=== PATIENT | female | born 1965 | race Caucasian/White ===

== ENCOUNTER 2021-02-04 10:45 | Outpatient (RCR) | payer MEDICAID, SELFPAY ==
[2021-01-21 14:26] VITALS: BP 152/90; PULSE 100; RESP 16; TEMP 36.9; BMI 46.4
[2021-01-21 15:50] VITALS: BP 150/88
--- NOTE | 2021-01-21 16:26 | PCM.WC.HP ---
(1) Ulcer of right foot with fat layer exposed Status: Chronic Code(s): L97.512 - Non-pressure chronic ulcer of other part of right foot with fat layer exposed (2) Ulcer of left lower extremity with fat layer exposed Status: Chronic Code(s): L97.922 - Non-pressure chronic ulcer of unspecified part of left lower leg with fat layer exposed (3) Type 2 diabetes mellitus with diabetic polyneuropathy Status: Chronic Code(s): E11.42 - Type 2 diabetes mellitus with diabetic polyneuropathy (4) Amputation of right foot Status: Chronic Code(s): S98.911A - Complete traumatic amputation of right foot, level unspecified, initial encounter (5) Amputation of left lower extremity below knee Status: Chronic Code(s): S88.112A - Complete traumatic amputation at level between knee and ankle, left lower leg, initial encounter (6) Frostbite of both lower extremities Status: Chronic Code(s): T33.99XA - Superficial frostbite of other sites, initial encounter (7) Delayed wound healing Status: Chronic Code(s): T14.8XXD - Other injury of unspecified body region, subsequent encounter (8) Malnutrition Status: Chronic Code(s): E46 - Unspecified protein-calorie malnutrition (9) Other specified peripheral vascular diseases Status: Chronic Code(s): I73.89 - Other specified peripheral vascular diseases History of Present Illness Date of Service: 01/21/21 Chief Complaint: Right foot ulcer. Left leg ulcer History of Wound: This 55-year-old female with significant past medical history of bipolar, schizophrenia, anxiety, dementia, diabetes, prior homelessness, prior frostbite injuries presents to the wound care center for evaluation of 3 right foot ulcers and one left leg ulcer. She relates she had her right transmetatarsal amputation and left very distal below-knee amputation performed 25 years ago after she had frostbite injuries from living in a garage. She relates her ulcers to her forefoot on the right lower extremity have been present for 25 years and the ulcer on the heel has been present for approximately 1 year. She denies recent injury. It also appears she had some form of prior grafting on the right foot however she does not recall the details. The left leg ulcer has been reported with an onset of 1 month ago after rubbing on her prosthetic device. She denies current redness or odor. She has tried various wound healing techniques over the years and is not able to provide details on this. She has significant pain that is described is like a paresthesia and sharp pain with activity and at rest. She relates she is done trying to salvage her right foot and would like to proceed forward with an amputation below the knee level. She is very adamant about this today and has asked numerous times for this treatment course. She is amendable to proceed forward with a comprehensive wound care land on the left lower extremity. She presents with a prosthetic device on the left and only wears a sock on the right foot. She is residing at a senior care facility, [facility] in [place] in which they have been changing the dressings with [employer]. She denies redness or odor, fever, chill, nausea, vomiting. Past Medical History Past Medical History: Chronic Problems Ulcer of right foot with fat layer exposed (Chronic) Ulcer of left lower extremity with fat layer exposed (Chronic) Type 2 diabetes mellitus with diabetic polyneuropathy (Chronic) Amputation of right foot (Chronic) Amputation of left lower extremity below knee (Chronic) Frostbite of both lower extremities (Chronic) Delayed wound healing (Chronic) Malnutrition (Chronic) Other specified peripheral vascular diseases (Chronic) Past Medical History: Past medical history per chart review: Diabetes with neuropathy, chronic obstructive pulmonary disease, anxiety, obesity, COVID-19 history, major depressive disorder, osteoarthritis, schizoaffective disorder, bipolar, hyperlipidemia, history of GERD, atherosclerotic heart disease, chronic lower extremity ulcers with delayed healing, dementia. PCP: Dr. Ba. Resides at [facility] in [facility] Surgical History: - - Right transmetatarsal amputation, left below-knee amputation, unable to obtain additional information Allergies/Adverse Reactions: Allergies clindamycin Allergy (Verified 01/21/21 14:54) PT UNSURE OF REACTION codeine Allergy (Verified 01/21/21 14:54) PT UNSURE OF REACTION mirtazapine [From Remeron] Allergy (Verified 01/21/21 14:54) PT UNSURE OF REACTION olanzapine [From Zyprexa] Allergy (Verified 01/21/21 14:54) PT UNSURE OF REACTION Penicillins [PCN] Allergy (Verified 01/21/21 14:54) PT UNSURE OF REACTION Home Medications: Ambulatory Orders Medication Instructions Recorded Acetaminophen [Tylenol] 650 mg PO Q4H PRN 01/21/21 Albuterol Sulfate [Albuterol 2 puff INHALATION Q4H PRN 01/21/21 Sulfate HFA] Aspirin 81 mg PO DAILY 01/21/21 Atorvastatin Calcium [Lipitor] 10 mg PO QHS 01/21/21 Benztropine Mesylate 1 mg PO BID 01/21/21 Buspirone HCl 15 mg PO TID 01/21/21 Clozapine [Clozaril] 50 mg PO DAILY 01/21/21 Divalproex Sodium [Depakote] 250 mg PO BIDCM 01/21/21 Doxycycline Hyclate 100 mg PO BID 01/21/21 Guaifenesin/Dextromethorphan 10 ml PO Q4H PRN 01/21/21 [Guaifenesin Dm Syrup] Haloperidol Decanoate [Haldol 150 mg IM DAILY 01/21/21 Decanoate 100] Risperidone [Risperdal] 3 mg PO DAILY 01/21/21 Risperidone [Risperdal] 4 mg PO QHS 01/21/21 Valbenazine Tosylate [Ingrezza 40 mg PO DAILY 01/21/21 Initiation Pack] Lives: [facility] Smoking Status: Current every day smoker Tobacco Use: Cigarettes Review of Systems Constitutional: Denies: Chills, Fever Cardiovascular: Denies: Chest Pain, Claudication, Edema Respiratory: Denies: Shortness of Breath Gastrointestinal: Denies: Nausea, Vomiting Musculoskeletal: Reports: Foot Pain, Leg Pain Skin: Reports: Dryness, Skin Changes, Wounds Neurological: Reports: Incoordination, Numbness, Tingling Endocrine: Reports: Change in Body Habitus - Physical Exam Vital Signs Temp Pulse Resp BP 98.4 F 100 16 150/88 H 01/21/21 14:26 01/21/21 14:26 01/21/21 14:26 01/21/21 15:50 General: Alert, Oriented x3, Cooperative, No apparent distress HEENT: Atraumatic Extremities: No cyanosis, No edema, Capillary Refill Less than 3 Seconds - amputation stump sites bilateral, No Calf Tenderness - negative eunice and berg signs right, Diminished Peripheral Pulses, - - amputations bilateral (right TMA with equinovarus rotation of this limb, left BKA that is very distal - proximal to the ankle level) Skin: Ulcer/ Wound - Granular base ulcer plantar medial lateral amputation right foot and heel ulcer. Peripheral callus noted without purulence, erythema, string, odor, infection. There is skin discoloration consistent with prior potential skin graft application to the right foot adjacent to all of the ulcers + arch, - - The left limb ulcer is very superficial with granular base to the anterior aspect. There are no signs of infection, purulence, erythema, deep tissue exposure. In general bilateral lower extremity skin is hairless and atrophic Wound Measurements and Assessment WC - Nurse 1 - General Ulcer Measurement Start: 01/21/21 14:23 Freq: Status: Active Protocol: Activity Type Activity Date Activity User E-Sign Co-Sign Detail Recorded Client Recorded Date Recorded By Document 01/21/21 14:26 [facility] [id number] 01/21/21 14:48 [facility] 01/21/21 14:26 Wound Center Nurse 1 [Ulcer Assessment] #4- L STUMP -Combined with other wound No -Current Size (cm) - Length 0.3 -Current Size (cm) - Width 0.4 -Current Size (cm) - Depth 0.2 -Total Square Cm 0.12 -Date of Last Picture (Recall this 01/21/21 field) -Photo Taken Yes -Epithelialization None Present -Tunneling No -Undermining/Tunneling No -Circular Undermining No -Exudate Amt Small -Exudate Type Serosanguineous -Wound Margin Distinct, Outline Attached -Granulation Amt Medium (34-66%) -Granulation Quality Red -Slough/Fibrin Yes -Necrosis Amt Medium (34-66%) -Necrotic Tissue Type Adherent Slough -Texture (Anali-wound Skin Appearance) Assessed, Scarring -Moisture (Anali-wound Skin Appearance Assessed,Dry/ ) Scaly -Color (Anali-wound Skin Appearance) Assessed -Temperature (Anali-wound Skin No Abnormality Appearance) (Pt Warm) -Tenderness on Palpation (Anali-wound No Skin Appearance) -Ulcer Cleansing SOAPY WATER -Foul Odor after Cleansing No -Anesthetic Used 4% Lidocaine Solution #3- R HEEL -Combined with other wound No -Current Size (cm) - Length 3 -Current Size (cm) - Width 2 -Current Size (cm) - Depth 0.3 -Total Square Cm 6 -Date of Last Picture (Recall this 01/21/21 field) -Photo Taken Yes -Epithelialization None Present -Tunneling No -Undermining/Tunneling No -Circular Undermining No -Exudate Amt Medium -Exudate Type Serosanguineous -Wound Margin Distinct, Outline Attached -Granulation Amt Small (1-33%) -Granulation Quality Red -Slough/Fibrin Yes -Necrosis Amt Medium (34-66%) -Necrotic Tissue Type Adherent Slough -Texture (Anali-wound Skin Appearance) Assessed, Scarring -Moisture (Anali-wound Skin Appearance Assessed ) -Color (Anali-wound Skin Appearance) Assessed -Temperature (Anali-wound Skin No Abnormality Appearance) (Pt Warm) -Tenderness on Palpation (Anali-wound Yes Skin Appearance) -Ulcer Cleansing SOAPY WATER -Foul Odor after Cleansing No -Anesthetic Used 4% Lidocaine Solution #2- R LAT PLANTAR FOOT -Combined with other wound No -Current Size (cm) - Length 2.1 -Current Size (cm) - Width 1 -Current Size (cm) - Depth 0.2 -Total Square Cm 2.1 -Date of Last Picture (Recall this 01/21/21 field) -Photo Taken Yes -Epithelialization None Present -Tunneling No -Undermining/Tunneling No -Circular Undermining No -Exudate Amt Medium -Exudate Type Serosanguineous -Wound Margin Distinct, Outline Attached -Granulation Amt Small (1-33%) -Granulation Quality Red -Slough/Fibrin Yes -Necrosis Amt Large (67-100%) -Necrotic Tissue Type Adherent Slough -Texture (Anali-wound Skin Appearance) Assessed, Scarring -Moisture (Anali-wound Skin Appearance Assessed,Dry/ ) Scaly -Color (Anali-wound Skin Appearance) Assessed -Temperature (Anali-wound Skin No Abnormality Appearance) (Pt Warm) -Tenderness on Palpation (Anali-wound Yes Skin Appearance) -Ulcer Cleansing SOAPY WATER -Foul Odor after Cleansing No -Anesthetic Used 4% Lidocaine Solution #1- R PLANTAR -Combined with other wound No -Current Size (cm) - Length 1.2 -Current Size (cm) - Width 0.8 -Current Size (cm) - Depth 0.3 -Total Square Cm 0.96 -Date of Last Picture (Recall this 01/21/21 field) -Photo Taken Yes -Epithelialization None Present -Tunneling No -Undermining/Tunneling No -Circular Undermining No -Exudate Amt Medium -Exudate Type Serosanguineous -Wound Margin Distinct, Outline Attached -Granulation Amt Small (1-33%) -Granulation Quality Red -Slough/Fibrin Yes -Necrosis Amt Medium (34-66%) -Necrotic Tissue Type Adherent Slough -Texture (Anali-wound Skin Appearance) Assessed, Scarring -Moisture (Anali-wound Skin Appearance Assessed,Dry/ ) Scaly -Color (Anali-wound Skin Appearance) Assessed, Erythema -Temperature (Anali-wound Skin No Abnormality Appearance) (Pt Warm) -Tenderness on Palpation (Anali-wound Yes Skin Appearance) -Ulcer Cleansing SOAPY WATER -Foul Odor after Cleansing No -Anesthetic Used 4% Lidocaine Solution [Edema Assessment] -Lower Limb Edema Present Yes -Right Calf (cm) 44.5 -Right Ankle (cm) 26.7 WC - Nurse 2 - General Ulcer CM Notes Start: 01/21/21 14:23 Freq: Status: Active Protocol: Activity Type Activity Date Activity User E-Sign Co-Sign Detail Recorded Client Recorded Date Recorded By Document 01/21/21 15:27 MORENO [id number] 01/21/21 15:37 M[facility]ENO 01/21/21 15:27 Wound Center Nurse 2 [Procedure/Treatment] #4- L STUMP -Time 15:32 -Correct Patient Yes -Correct Side, Site, Position Yes -Correct Procedure Yes -Procedure Performed Yes -Type of Procedure Debridement -Clinical Debridement Subcutaneous -Tissue Removed Subcutaneous -Post Debridement (cm) - Length 0.4 -Post Debridement (cm) - Width 0.4 -Post Debridement (cm) - Depth 0.2 -Total Square (Post) (cm) 0.16 -Area of Debridement (cm) - Length 0.4 -Area of Debridement (cm) - Width 0.4 -Total Square (Area) (cm) 0.16 -Tunneling No -Undermining/Tunneling No -Circular Undermining No -Wound/Ulcer Outcome Not Healed -Ulcer Cleansing Rinsed/ Irrigated with Saline -Foul Odor after Cleansing No -Bioengineered Tissue No -Bleeding Controlled with Pressure -Offloading No -Treatment Response Procedure Tolerated Well -Debridement - Subq, 1st 20sq cm Yes #3- R HEEL -Correct Patient No -Correct Side, Site, Position No -Correct Procedure No -Procedure Performed No -Wound/Ulcer Outcome Not Healed #2- R LAT PLANTAR FOOT -Correct Patient No -Correct Side, Site, Position No -Correct Procedure No -Procedure Performed No -Wound/Ulcer Outcome Not Healed #1- R PLANTAR -Correct Patient No -Correct Side, Site, Position No -Correct Procedure No -Procedure Performed No -Wound/Ulcer Outcome Not Healed [See Physician Procedure note for Specifics] Pain Scale: 0-10 Numeric [Pain] -Is Patient Pain Free? Yes - Nurse 3 - General Ulcer D/C NN Start: 01/21/21 14:23 Freq: Status: Active Protocol: Activity Type Activity Date Activity User E-Sign Co-Sign Detail Recorded Client Recorded Date Recorded By Document 01/21/21 15:50 RB [id number] 01/21/21 15:51 RB 01/21/21 15:50 Wound Care Nurse 3 [Wound Dressing] #4- L STUMP -Ulcer Cleansing Rinsed/ Irrigated with Saline -Other Dressing hydrogel -Primary Dressing Covered/Secured Dry Gauze, with Secured with Tape #3- R HEEL -Ulcer Cleansing Rinsed/ Irrigated with Saline -Other Dressing hydrogel -Primary Dressing Covered/Secured Dry Gauze,Dry with Gauze & Roll Gauze,Secured with Tape #2- R LAT PLANTAR FOOT -Ulcer Cleansing Rinsed/ Irrigated with Saline -Other Dressing hydrogel -Primary Dressing Covered/Secured Dry Gauze,Dry with Gauze & Roll Gauze,Secured with Tape #1- R PLANTAR -Ulcer Cleansing Rinsed/ Irrigated with Saline -Other Dressing hydrogel -Primary Dressing Covered/Secured Dry Gauze,Dry with Gauze & Roll Gauze,Secured with Tape [Post Procedure Tolerated] -Treatment Response Procedure Tolerated Well Vital Signs [Blood Pressure] -Blood Pressure (90/60-120/80) 150/88 H -Blood Pressure Mean (mm Hg) 108 -Source Monitor -Position Sitting -Blood Pressure Location Left Arm Pain Scale: 0-10 Numeric [Pain] -Is Patient Pain Free? Yes - Visit Discharge [Visit Discharge Information] -Discharge Condition Stable -Ambulatory Status Wheelchair -Transportation Private Auto -Medication Reconcilliation completed No & provided to patient/care provider -Clinical Summary of Care Provided Yes Musculoskeletal: No Tenderness to Palpation of Joints or Extremities, Muscle Wasting, - - Compartments are soft to palpate bilateral lower extremities and there is no bogginess or fluctuance on palpation Neurological: - - Lack of normal epicritic sensation light touch is consistent with neuropathic status that is suspected Psych/Mental Status: Normal Affect, Appropriate Debridement Note Post-Debridement Measurements/Treatment WC - Nurse 2 - General Ulcer CM Notes Start: 01/21/21 14:23 Freq: Status: Active Protocol: Activity Type Activity Date Activity User E-Sign Co-Sign Detail Recorded Client Recorded Date Recorded By Document 01/21/21 15:27 JF [id number] 01/21/21 15:37 JF 01/21/21 15:27 Wound Center Nurse 2 #4- L STUMP -Time 15:32 -Correct Patient Yes -Correct Side, Site, Position Yes -Correct Procedure Yes -Procedure Performed Yes -Type of Procedure Debridement -Clinical Debridement Subcutaneous -Tissue Removed Subcutaneous -Post Debridement (cm) - Length 0.4 -Post Debridement (cm) - Width 0.4 -Post Debridement (cm) - Depth 0.2 -Total Square (Post) (cm) 0.16 -Area of Debridement (cm) - Length 0.4 -Area of Debridement (cm) - Width 0.4 -Total Square (Area) (cm) 0.16 -Tunneling No -Undermining/Tunneling No -Circular Undermining No -Wound/Ulcer Outcome Not Healed -Ulcer Cleansing Rinsed/ Irrigated with Saline -Foul Odor after Cleansing No -Bioengineered Tissue No -Bleeding Controlled with Pressure -Offloading No -Treatment Response Procedure Tolerated Well -Debridement - Subq, 1st 20sq cm Yes #3- R HEEL -Correct Patient No -Correct Side, Site, Position No -Correct Procedure No -Procedure Performed No -Wound/Ulcer Outcome Not Healed #2- R LAT PLANTAR FOOT -Correct Patient No -Correct Side, Site, Position No -Correct Procedure No -Procedure Performed No -Wound/Ulcer Outcome Not Healed #1- R PLANTAR -Correct Patient No -Correct Side, Site, Position No -Correct Procedure No -Procedure Performed No -Wound/Ulcer Outcome Not Healed Pain Scale: 0-10 Numeric Is Patient Pain Free? Yes AMAN - Nurse 3 - General Ulcer D/C NN Start: 01/21/21 14:23 Freq: Status: Active Protocol: Activity Type Activity Date Activity User E-Sign Co-Sign Detail Recorded Client Recorded Date Recorded By Document 01/21/21 15:50 RB [id number] 01/21/21 15:51 RB 01/21/21 15:50 Wound Care Nurse 3 #4- L STUMP -Ulcer Cleansing Rinsed/ Irrigated with Saline -Other Dressing hydrogel -Primary Dressing Covered/Secured with Dry Gauze, Secured with Tape #3- R HEEL -Ulcer Cleansing Rinsed/ Irrigated with Saline -Other Dressing hydrogel -Primary Dressing Covered/Secured with Dry Gauze,Dry Gauze & Roll Gauze,Secured with Tape #2- R LAT PLANTAR FOOT -Ulcer Cleansing Rinsed/ Irrigated with Saline -Other Dressing hydrogel -Primary Dressing Covered/Secured with Dry Gauze,Dry Gauze & Roll Gauze,Secured with Tape #1- R PLANTAR -Ulcer Cleansing Rinsed/ Irrigated with Saline -Other Dressing hydrogel -Primary Dressing Covered/Secured with Dry Gauze,Dry Gauze & Roll Gauze,Secured with Tape Treatment Response Procedure Tolerated Well Vital Signs Blood Pressure (90/60-120/80) 150/88 H Blood Pressure Mean (mm Hg) 108 Source Monitor Position Sitting Blood Pressure Location Left Arm Pain Scale: 0-10 Numeric Is Patient Pain Free? Yes WC - Visit Discharge Discharge Condition Stable Ambulatory Status Wheelchair Transportation Private Auto Medication Reconcilliation completed & No provided to patient/care provider Clinical Summary of Care Provided Yes Wound debrided: anterior leg Laterality: Left Wound Grade/Stage: grade 1 Type of Debridement: Excisional debridement Anesthesia Used: 5% Lidocaine Gel Depth: in the subcutaneous layer Percentage of wound debrided: 100 Instrument Used: #15 blade Tissue Removed: fibrous, devitalized subcutaneous, biofilm, slough Severity: Fat Layer Exposed Amount of bleeding with debridement: Mild Bleeding Controlled with: Pressure Patient tolerated procedure well Assessment/Plan Active Problems Ulcer of right foot with fat layer exposed (Chronic) Ulcer of left lower extremity with fat layer exposed (Chronic) Type 2 diabetes mellitus with diabetic polyneuropathy (Chronic) Amputation of right foot (Chronic) Amputation of left lower extremity below knee (Chronic) Frostbite of both lower extremities (Chronic) Delayed wound healing (Chronic) Malnutrition (Chronic) Other specified peripheral vascular diseases (Chronic) Assessment: Right foot ulcer with fat layer exposed, no infection (plantar medial and lateral foot and heel). Left anterior lower leg ulcer with fat layer exposed, no infection. Diabetes with neuropathy. Delayed healing. Peripheral vascular disease suspected. Medical comorbidities noted including psychiatric history. Delayed healing. Suspected malnutrition. Tobacco user Plan: I reviewed and discussed her case today. There is not available diagnostic data to review. The left leg ulcer was debrided as noted in the clinical panel in a subcutaneous excisional manner. She was advised to change all of the ulcer dressing sites daily with hydrogel and gauze. It is noted she is residing in a senior care facility and orders will be provided in paper format. I reviewed comprehensive wound healing. She is very adamant that she wants to proceed forward with an amputation on the right lower extremity and I reviewed the process for considering the appropriateness of this at this time as well. She was advised keep pressure off of the ulcer sites and I will provide her with a pediatric sized surgical shoe with offloading dual density liners to take pressure off of the ulcer sites in the right leg which return to clinic next week. If she elects to proceed forward with limb salvage which was reviewed as an option today as well, I would like to take a punch biopsy to screen for any malignant development or bacterial colonization due to the chronicity of this ulcer site. To avoid excessive prosthetic use that will compromise the left leg ulcer site from a pressure standpoint. She is reassured no local signs of infection are noted. I recommended screening her with a noninvasive vascular study which will give us an idea if she has the ability to heal the ulcers and would also be needed prior to proceeding with any referral for below-knee amputation procedure. Labs including CBC, CMP, and hemoglobin A1c were also ordered for her to obtain at the senior care facility. She has chronic pain this seems to be consistent with phantom limb pain, prior frostbite injury, neuropathy, and also potentially vascular disease. She was reassured again that no signs of infection are noted. I recommend glycemic control, nutritional supplementation, and smoking cessation to optimize wound healing. I answered her questions. I recommend she return to clinic next week with the power of commercial litigation attorney or behavioral social services designee from her senior care facility to help formulate an appropriate plan for this patient. The medical decision making level is moderate based on data including at least three of the following: review of prior external notes, review of a test, ordering a test, assessment requiring an independent historian. The medical decision making level is moderate. There is noted moderate risk of morbidity after considering this treatment plan and diagnostic data. Considerations were given to prescription management, decisions regarding surgical options, or social determinants of health. The problems addressed require a moderate decision making level which includes one or more chronic illnesses (w/ exacerbation, progression, or side effects), two or more stable chronic illnesses, one undiagnosed new problem w/ uncertain prognosis, one acute illness with systemic symptoms, or one acute complicated injury.
[2021-01-28 10:27] VITALS: BP 153/87; PULSE 113; RESP 22; TEMP 36.4; BMI 46.4
--- NOTE | 2021-01-28 13:05 | PN.PCM_ITS ---
(1) Ulcer of right foot with fat layer exposed Status: Chronic Code(s): L97.512 - Non-pressure chronic ulcer of other part of right foot with fat layer exposed (2) Ulcer of left lower extremity with fat layer exposed Status: Chronic Code(s): L97.922 - Non-pressure chronic ulcer of unspecified part of left lower leg with fat layer exposed (3) Type 2 diabetes mellitus with diabetic polyneuropathy Status: Chronic Code(s): E11.42 - Type 2 diabetes mellitus with diabetic polyneuropathy (4) Amputation of right foot Status: Chronic Code(s): S98.911A - Complete traumatic amputation of right foot, level unspecified, initial encounter (5) Amputation of left lower extremity below knee Status: Chronic Code(s): S88.112A - Complete traumatic amputation at level between knee and ankle, left lower leg, initial encounter (6) Frostbite of both lower extremities Status: Chronic Code(s): T33.99XA - Superficial frostbite of other sites, initial encounter (7) Delayed wound healing Status: Chronic Code(s): T14.8XXD - Other injury of unspecified body region, subsequent encounter (8) Malnutrition Status: Chronic Code(s): E46 - Unspecified protein-calorie malnutrition (9) Other specified peripheral vascular diseases Status: Suspected Code(s): I73.89 - Other specified peripheral vascular diseases (10) Skin cancer (melanoma) Status: Suspected Code(s): C43.9 - Malignant melanoma of skin, unspecified Type of Wound Date of Service: 01/28/21 Chief Complaint: Right foot ulcer. Left leg ulcer History of Wound: This 55-year-old female with significant past medical history of bipolar, schizophrenia, anxiety, dementia, diabetes, prior homelessness, prior frostbite injuries presents to the wound care center for evaluation of three right foot ulcers and one left leg ulcer. She relates she had her right transmetatarsal amputation and left very distal below-knee amputation performed 25 years ago after she had frostbite injuries from living in a garage. She denies current redness or odor. She relates she is done trying to salvage her right foot and is considering moving forward with an amputation below the knee level. She asked for a referral contact information to consider this. She presents with a prosthetic device on the left and only wears a sock on the right foot. She is getting remeasured for a stump prosthetic for left lower extremity later this afternoon. She is residing at a correction facility, [facility]. She denies redness or odor, fever, chill, nausea, vomiting. She had x- rays were performed within the last month and would like to review the results. Progress of Wound: Stable - Physical Exam Vital Signs Temp Pulse Resp BP 97.6 F L 113 H 22 H 153/87 H 01/28/21 10:27 01/28/21 10:27 01/28/21 10:01/28/21 10:27 General: Alert, Oriented x3, Cooperative, No apparent distress Extremities: No cyanosis, Capillary Refill Less than 3 Seconds, No Calf Tenderness, Diminished Peripheral Pulses, Edema - Mild bilateral lower extremities, - - Left very distal below-knee amputation. Right transmetatarsal amputation Skin: Ulcer/ Wound - No purulence, odor, erythema, streaking, infection bilateral lower extremities. Left leg ulcers granular with peripheral epithelialization. There are 3 plantar right foot ulcers with granular base and peripheral callus., - - There is dark discoloration of the skin adjacent to all the ulcer sites with heterogeneous color pattern of brown. No bogginess or fluctuance on palpation. Wound Measurements and Assessment WC - Nurse 1 - General Ulcer Measurement Start: 01/21/21 14:23 Freq: Status: Active Protocol: Activity Type Activity Date Activity User E-Sign Co-Sign Detail Recorded Client Recorded Date Recorded By Document 01/28/21 10:27 MARY [id number] 01/28/21 10:44 DL 01/28/21 10:27 Wound Center Nurse 1 [Ulcer Assessment] #4- L STUMP -Current Size (cm) - Length 0.6 -Current Size (cm) - Width 0.5 -Current Size (cm) - Depth 0.2 -Total Square Cm 0.30 -Photo Taken No -Exudate Amt Small -Exudate Type Serosanguineous -Wound Margin Distinct, Outline Attached -Granulation Amt Small (1-33%) -Granulation Quality Red -Necrosis Amt Small (1-33%) -Necrotic Tissue Type Adherent Slough -Structure Exposed N/A -Texture (Anali-wound Skin Appearance) Scarring -Moisture (Anali-wound Skin Appearance Dry/Scaly ) -Color (Anali-wound Skin Appearance) No Abnormality -Ulcer Cleansing Rinsed/ Irrigated with Saline -Foul Odor after Cleansing No -Anesthetic Used 4% Lidocaine Solution #3- R HEEL -Current Size (cm) - Length 2.7 -Current Size (cm) - Width 2 -Current Size (cm) - Depth 0.3 -Total Square Cm 5.4 -Photo Taken No -Exudate Amt Medium -Exudate Type Serosanguineous -Wound Margin Thickened & Rolled Under -Granulation Amt Medium (34-66%) -Granulation Quality Red -Necrosis Amt Medium (34-66%) -Necrotic Tissue Type Adherent Slough -Structure Exposed N/A -Texture (Anali-wound Skin Appearance) Callus,Scarring -Moisture (Anali-wound Skin Appearance Dry/Scaly ) -Color (Anali-wound Skin Appearance) Rubor -Temperature (Anali-wound Skin No Abnormality Appearance) (Pt Warm) -Tenderness on Palpation (Anali-wound No Skin Appearance) -Ulcer Cleansing Rinsed/ Irrigated with Saline -Foul Odor after Cleansing No -Anesthetic Used 4% Lidocaine Solution #2- R LAT PLANTAR FOOT -Current Size (cm) - Length 2.4 -Current Size (cm) - Width 0.9 -Current Size (cm) - Depth 0.4 -Total Square Cm 2.16 -Photo Taken No -Exudate Amt Medium -Exudate Type Serosanguineous -Wound Margin Thickened -Granulation Amt Medium (34-66%) -Granulation Quality Red -Necrosis Amt Medium (34-66%) -Necrotic Tissue Type Adherent Slough -Structure Exposed N/A -Texture (Anali-wound Skin Appearance) Callus,Scarring -Moisture (Anali-wound Skin Appearance Dry/Scaly ) -Color (Anali-wound Skin Appearance) Rubor -Temperature (Anali-wound Skin No Abnormality Appearance) (Pt Warm) -Tenderness on Palpation (Anali-wound No Skin Appearance) -Ulcer Cleansing Rinsed/ Irrigated with Saline -Foul Odor after Cleansing No -Anesthetic Used 4% Lidocaine Solution #1- R PLANTAR -Current Size (cm) - Length 0.8 -Current Size (cm) - Width 0.7 -Current Size (cm) - Depth 0.4 -Total Square Cm 0.56 -Photo Taken No -Maximum Distance #2 (cm) 0.2 -Circular Undermining Yes -Exudate Amt Small -Exudate Type Serosanguineous -Wound Margin Thickened -Granulation Amt Medium (34-66%) -Granulation Quality Red -Necrosis Amt Medium (34-66%) -Necrotic Tissue Type Adherent Slough -Structure Exposed N/A -Texture (Anali-wound Skin Appearance) Scarring -Moisture (Anali-wound Skin Appearance Dry/Scaly ) -Color (Anali-wound Skin Appearance) Rubor -Temperature (Anali-wound Skin No Abnormality Appearance) (Pt Warm) -Tenderness on Palpation (Anali-wound No Skin Appearance) -Ulcer Cleansing Rinsed/ Irrigated with Saline -Foul Odor after Cleansing No -Anesthetic Used 4% Lidocaine Solution WC - Nurse 2 - General Ulcer CM Notes Start: 01/21/21 14:23 Freq: Status: Active Protocol: Activity Type Activity Date Activity User E-Sign Co-Sign Detail Recorded Client Recorded Date Recorded By Document 01/28/21 10:59 MORENO [id number] 01/28/21 11:07 MORENO 01/28/21 10:59 Wound Center Nurse 2 [Procedure/Treatment] #4- L STUMP -Time 11:06 -Correct Patient Yes -Correct Side, Site, Position Yes -Correct Procedure Yes -Procedure Performed Yes -Type of Procedure Debridement -Clinical Debridement Subcutaneous -Tissue Removed Subcutaneous -Post Debridement (cm) - Length 0.6 -Post Debridement (cm) - Width 0.6 -Post Debridement (cm) - Depth 0.2 -Total Square (Post) (cm) 0.36 -Area of Debridement (cm) - Length 0.6 -Area of Debridement (cm) - Width 0.6 -Total Square (Area) (cm) 0.36 -Tunneling No -Undermining/Tunneling No -Circular Undermining No -Wound/Ulcer Outcome Not Healed -Ulcer Cleansing Rinsed/ Irrigated with Saline -Foul Odor after Cleansing No -Bioengineered Tissue No -Bleeding Controlled with Pressure -Offloading No -Treatment Response Procedure Tolerated Well -Debridement - Subq, 1st 20sq cm No #3- R HEEL -Time 11:02 -Correct Patient Yes -Correct Side, Site, Position Yes -Correct Procedure Yes -Procedure Performed Yes -Type of Procedure Debridement -Clinical Debridement Subcutaneous -Tissue Removed Subcutaneous -Post Debridement (cm) - Length 2.8 -Post Debridement (cm) - Width 2 -Post Debridement (cm) - Depth 0.3 -Total Square (Post) (cm) 5.6 -Area of Debridement (cm) - Length 2.8 -Area of Debridement (cm) - Width 2 -Total Square (Area) (cm) 5.6 -Tunneling No -Undermining/Tunneling No -Circular Undermining No -Wound/Ulcer Outcome Not Healed -Ulcer Cleansing Rinsed/ Irrigated with Saline -Foul Odor after Cleansing No -Bioengineered Tissue No -Bleeding Controlled with Pressure -Offloading Yes -Type of Offloading Surgical Shoe -Treatment Response Procedure Tolerated Well -Debridement - Subq, 1st 20sq cm Yes #2- R LAT PLANTAR FOOT -Time 11:02 -Correct Patient Yes -Correct Side, Site, Position Yes -Correct Procedure Yes -Procedure Performed Yes -Type of Procedure Debridement -Clinical Debridement Subcutaneous -Tissue Removed Subcutaneous -Post Debridement (cm) - Length 2.5 -Post Debridement (cm) - Width 1 -Post Debridement (cm) - Depth 0.4 -Total Square (Post) (cm) 2.5 -Area of Debridement (cm) - Length 2.5 -Area of Debridement (cm) - Width 1 -Total Square (Area) (cm) 2.5 -Tunneling No -Undermining/Tunneling No -Circular Undermining No -Wound/Ulcer Outcome Not Healed -Ulcer Cleansing Rinsed/ Irrigated with Saline -Foul Odor after Cleansing No -Bioengineered Tissue No -Bleeding Controlled with Pressure -Offloading Yes -Type of Offloading Surgical Shoe -Treatment Response Procedure Tolerated Well -Debridement - Subq, 1st 20sq cm No #1- R PLANTAR -Time 11:03 -Correct Patient Yes -Correct Side, Site, Position Yes -Correct Procedure Yes -Procedure Performed Yes -Type of Procedure Debridement -Clinical Debridement Subcutaneous -Tissue Removed Subcutaneous -Post Debridement (cm) - Length 0.8 -Post Debridement (cm) - Width 0.8 -Post Debridement (cm) - Depth 0.4 -Total Square (Post) (cm) 0.64 -Area of Debridement (cm) - Length 0.8 -Area of Debridement (cm) - Width 0.8 -Total Square (Area) (cm) 0.64 -Tunneling No -Undermining/Tunneling No -Circular Undermining No -Wound/Ulcer Outcome Not Healed -Ulcer Cleansing Rinsed/ Irrigated with Saline -Foul Odor after Cleansing No -Bioengineered Tissue No -Bleeding Controlled with Pressure -Offloading Yes -Type of Offloading Surgical Shoe -Treatment Response Procedure Tolerated Well -Debridement - Subq, 1st 20sq cm No [See Physician Procedure note for Specifics] Pain Scale: 0-10 Numeric [Pain] -Is Patient Pain Free? Yes - Nurse 3 - General Ulcer D/C NN Start: 01/21/21 14:23 Freq: Status: Active Protocol: Activity Type Activity Date Activity User E-Sign Co-Sign Detail Recorded Client Recorded Date Recorded By Document 01/28/21 11:25 RB [id number] 01/28/21 11:26 RB 01/28/21 11:25 Wound Care Nurse 3 [Wound Dressing] #4- L STUMP -Ulcer Cleansing Rinsed/ Irrigated with Saline -Other Dressing hydrogel -Primary Dressing Covered/Secured Dry Gauze, with Secured with Tape #3- R HEEL -Ulcer Cleansing Rinsed/ Irrigated with Saline -Other Dressing hydrogel -Primary Dressing Covered/Secured Dry Gauze,Dry with Gauze & Roll Gauze,Secured with Tape #2- R LAT PLANTAR FOOT -Ulcer Cleansing Rinsed/ Irrigated with Saline -Other Dressing hydrogel -Primary Dressing Covered/Secured Dry Gauze,Dry with Gauze & Roll Gauze,Secured with Tape #1- R PLANTAR -Ulcer Cleansing Rinsed/ Irrigated with Saline -Other Dressing hydrogel -Primary Dressing Covered/Secured Dry Gauze,Dry with Gauze & Roll Gauze,Secured with Tape [Post Procedure Tolerated] -Treatment Response Procedure Tolerated Well Pain Scale: 0-10 Numeric [Pain] -Is Patient Pain Free? Yes - Visit Discharge [Visit Discharge Information] -Discharge Condition Stable -Ambulatory Status Wheelchair -Transportation Private Auto -Medication Reconcilliation completed No & provided to patient/care provider -Clinical Summary of Care Provided Yes Musculoskeletal: Muscle Wasting, - - Amputations noted. Compartments remain soft to palpate bilateral lower extremities Neurological: - - Lack of normal full epicritic sensation light touch Psych/Mental Status: Normal Affect, Appropriate Debridement Note Post-Debridement Measurements/Treatment - Nurse 2 - General Ulcer CM Notes Start: 01/21/21 14:23 Freq: Status: Active Protocol: Activity Type Activity Date Activity User E-Sign Co-Sign Detail Recorded Client Recorded Date Recorded By Document 01/21/21 15:27 [id number] 01/21/21 15:37 Document 01/28/21 10:59 [id number] 01/28/21 11:07 01/21/21 01/28/21 15:27 10:59 Wound Center Nurse 2 #4- L STUMP -Time 15:32 11:06 -Correct Patient Yes Yes -Correct Side, Site, Position Yes Yes -Correct Procedure Yes Yes -Procedure Performed Yes Yes -Type of Procedure Debridement Debridement -Clinical Debridement Subcutaneous Subcutaneous -Tissue Removed Subcutaneous Subcutaneous -Post Debridement (cm) - Length 0.4 0.6 -Post Debridement (cm) - Width 0.4 0.6 -Post Debridement (cm) - Depth 0.2 0.2 -Total Square (Post) (cm) 0.16 0.36 -Area of Debridement (cm) - Length 0.4 0.6 -Area of Debridement (cm) - Width 0.4 0.6 -Total Square (Area) (cm) 0.16 0.36 -Tunneling No No -Undermining/Tunneling No No -Circular Undermining No No -Wound/Ulcer Outcome Not Healed Not Healed -Ulcer Cleansing Rinsed/ Rinsed/ Irrigated with Irrigated with Saline Saline -Foul Odor after Cleansing No No -Bioengineered Tissue No No -Bleeding Controlled with Pressure Pressure -Offloading No No -Treatment Response Procedure Procedure Tolerated Well Tolerated Well -Debridement - Subq, 1st 20sq cm Yes No #3- R HEEL -Time 11:02 -Correct Patient No Yes -Correct Side, Site, Position No Yes -Correct Procedure No Yes -Procedure Performed No Yes -Type of Procedure Debridement -Clinical Debridement Subcutaneous -Tissue Removed Subcutaneous -Post Debridement (cm) - Length 2.8 -Post Debridement (cm) - Width 2 -Post Debridement (cm) - Depth 0.3 -Total Square (Post) (cm) 5.6 -Area of Debridement (cm) - Length 2.8 -Area of Debridement (cm) - Width 2 -Total Square (Area) (cm) 5.6 -Tunneling No -Undermining/Tunneling No -Circular Undermining No -Wound/Ulcer Outcome Not Healed Not Healed -Ulcer Cleansing Rinsed/ Irrigated with Saline -Foul Odor after Cleansing No -Bioengineered Tissue No -Bleeding Controlled with Pressure -Offloading Yes -Type of Offloading Surgical Shoe -Treatment Response Procedure Tolerated Well -Debridement - Subq, 1st 20sq cm Yes #2- R LAT PLANTAR FOOT -Time 11:02 -Correct Patient No Yes -Correct Side, Site, Position No Yes -Correct Procedure No Yes -Procedure Performed No Yes -Type of Procedure Debridement -Clinical Debridement Subcutaneous -Tissue Removed Subcutaneous -Post Debridement (cm) - Length 2.5 -Post Debridement (cm) - Width 1 -Post Debridement (cm) - Depth 0.4 -Total Square (Post) (cm) 2.5 -Area of Debridement (cm) - Length 2.5 -Area of Debridement (cm) - Width 1 -Total Square (Area) (cm) 2.5 -Tunneling No -Undermining/Tunneling No -Circular Undermining No -Wound/Ulcer Outcome Not Healed Not Healed -Ulcer Cleansing Rinsed/ Irrigated with Saline -Foul Odor after Cleansing No -Bioengineered Tissue No -Bleeding Controlled with Pressure -Offloading Yes -Type of Offloading Surgical Shoe -Treatment Response Procedure Tolerated Well -Debridement - Subq, 1st 20sq cm No #1- R PLANTAR -Time 11:03 -Correct Patient No Yes -Correct Side, Site, Position No Yes -Correct Procedure No Yes -Procedure Performed No Yes -Type of Procedure Debridement -Clinical Debridement Subcutaneous -Tissue Removed Subcutaneous -Post Debridement (cm) - Length 0.8 -Post Debridement (cm) - Width 0.8 -Post Debridement (cm) - Depth 0.4 -Total Square (Post) (cm) 0.64 -Area of Debridement (cm) - Length 0.8 -Area of Debridement (cm) - Width 0.8 -Total Square (Area) (cm) 0.64 -Tunneling No -Undermining/Tunneling No -Circular Undermining No -Wound/Ulcer Outcome Not Healed Not Healed -Ulcer Cleansing Rinsed/ Irrigated with Saline -Foul Odor after Cleansing No -Bioengineered Tissue No -Bleeding Controlled with Pressure -Offloading Yes -Type of Offloading Surgical Shoe -Treatment Response Procedure Tolerated Well -Debridement - Subq, 1st 20sq cm No Pain Scale: 0-10 Numeric Is Patient Pain Free? Yes Yes WC - Nurse 3 - General Ulcer D/C NN Start: 01/21/21 14:23 Freq: Status: Active Protocol: Activity Type Activity Date Activity User E-Sign Co-Sign Detail Recorded Client Recorded Date Recorded By Document 01/21/21 15:50 RB [id number] 01/21/21 15:51 RB Document 01/28/21 11:25 [id number] 01/28/21 11:26 RB 01/21/21 01/28/21 15:50 11:25 Wound Care Nurse 3 #4- L STUMP -Ulcer Cleansing Rinsed/ Rinsed/ Irrigated with Irrigated with Saline Saline -Other Dressing hydrogel hydrogel -Primary Dressing Covered/Secured with Dry Gauze, Dry Gauze, Secured with Secured with Tape Tape #3- R HEEL -Ulcer Cleansing Rinsed/ Rinsed/ Irrigated with Irrigated with Saline Saline -Other Dressing hydrogel hydrogel -Primary Dressing Covered/Secured with Dry Gauze,Dry Dry Gauze,Dry Gauze & Roll Gauze & Roll Gauze,Secured Gauze,Secured with Tape with Tape #2- R LAT PLANTAR FOOT -Ulcer Cleansing Rinsed/ Rinsed/ Irrigated with Irrigated with Saline Saline -Other Dressing hydrogel hydrogel -Primary Dressing Covered/Secured with Dry Gauze,Dry Dry Gauze,Dry Gauze & Roll Gauze & Roll Gauze,Secured Gauze,Secured with Tape with Tape #1- R PLANTAR -Ulcer Cleansing Rinsed/ Rinsed/ Irrigated with Irrigated with Saline Saline -Other Dressing hydrogel hydrogel -Primary Dressing Covered/Secured with Dry Gauze,Dry Dry Gauze,Dry Gauze & Roll Gauze & Roll Gauze,Secured Gauze,Secured with Tape with Tape Treatment Response Procedure Procedure Tolerated Well Tolerated Well Vital Signs Blood Pressure (90/60-120/80) 150/88 H Blood Pressure Mean (mm Hg) 108 Source Monitor Position Sitting Blood Pressure Location Left Arm Pain Scale: 0-10 Numeric Is Patient Pain Free? Yes Yes WC - Visit Discharge Discharge Condition Stable Stable Ambulatory Status Wheelchair Wheelchair Transportation Private Auto Private Auto Medication Reconcilliation completed & No No provided to patient/care provider Clinical Summary of Care Provided Yes Yes Wound debrided: plantar medial and lateral foot, heel Laterality: Right Wound Grade/Stage: grade 1 Type of Debridement: Excisional debridement Anesthesia Used: 5% Lidocaine Gel Depth: in the subcutaneous layer Percentage of wound debrided: 100 Instrument Used: #15 blade Tissue Removed: fibrous, devitalized subcutaneous, biofilm, slough Severity: Fat Layer Exposed Amount of bleeding with debridement: Mild Bleeding Controlled with: Pressure Patient tolerated procedure well - Additional Wound Wound debrided: anterior leg (stump site) Laterality: Left Wound Grade/Stage: grade 1 Type of Debridement: Excisional debridement Anesthesia Used: 5% Lidocaine Gel Depth: in the subcutaneous layer Percentage of wound debrided: 100 Instrument Used: #15 blade Tissue Removed: fibrous, devitalized subcutaneous, biofilm, slough Severity: Fat Layer Exposed Amount of bleeding with debridement: Mild Bleeding Controlled with: Pressure Patient tolerated procedure: Patient tolerated procedure well Assessment/Plan Active Problems Ulcer of right foot with fat layer exposed (Chronic) Ulcer of left lower extremity with fat layer exposed (Chronic) Type 2 diabetes mellitus with diabetic polyneuropathy (Chronic) Amputation of right foot (Chronic) Amputation of left lower extremity below knee (Chronic) Frostbite of both lower extremities (Chronic) Delayed wound healing (Chronic) Malnutrition (Chronic) Assessment: Right foot ulcer with fat layer exposed, no infection (plantar medial and lateral foot and heel). Left anterior lower leg ulcer with fat layer exposed, no infection. Diabetes with neuropathy. Delayed healing. Peripheral vascular disease suspected. Medical comorbidities noted including psychiatric history. Delayed healing. Suspected malnutrition. Tobacco user Plan: I reviewed and discussed her case today. The left leg and right foot ulcers were debrided as noted in the clinical panel in a subcutaneous excisional manner. She was advised to change all of the ulcer dressing sites daily with hydrogel and gauze. It is noted she is residing in a correction facility and orders will be provided in paper format. I reviewed comprehensive wound healing treatment options. Her initial visit she was very adamant on proceeding forward with a right below-knee amputation is highly still considering this at this time. She would like to continue with wound healing for a little while seeing progress as possible. She asked for a referral and this contact information was provided. If she officially elects to proceed forward with an amputation I would also send a formal referral. She was advised keep pressure off of the ulcer sites and she was fitted with a surgical shoe to day and was advised to minimize activity. I recommended performing a punch biopsy to screen for any malignant development or bacterial colonization due to the chronicity of this ulcer site. She did refuse this today and I advised her to consider this due to the discoloration around the ulcer sites and the chronic nature. To avoid excessive prosthetic use that will compromise the left leg ulcer site from a pressure standpoint. She is reassured no local signs of infection are noted. I recommended screening her with a noninvasive vascular study which will give us an idea if she has the ability to heal the ulcers and would also be needed prior to proceeding with any referral for below-knee amputation procedure. Noninvasive vascular studies were ordered including BHANU, segmental leg and thigh pressures, and PVR. Additionally, labs including CBC, CMP, and hemoglobin A1c were also ordered for her to obtain at the correction [facility]. This was reviewed with albumin 3.3, white blood cell count 7.4, CRP 19.5, ESR was obtained however the results is not viewable at this time, creatinine 0.5, EGFR over 60, and A1c of 7.6%. She has chronic pain this seems to be consistent with phantom limb pain, prior frostbite injury, neuropathy, and also potentially vascular disease. I reviewed her x-ray report from 01-16-21 which included 2 right foot x-rays without fracture dislocation or osteomyelitis radiographic evidence. It is also noted she had a very proximal transmetatarsal amputation. The CD with the images were also requested. She was reassured again that no signs of infection are noted. I recommend glycemic control, nutritional supplementation, and smoking cessation to optimize wound healing. I answered her questions. I recommend she return to clinic next week as recommended at the wound healing center. Note: [employer] speech recognition sea captain software was used to create portions of this document. Sound-alike and misspelled words, as well as other sea captain errors may be contained in the documentation. The medical decision making level is moderate based on data including at least three of the following: review of prior external notes, review of a test, ordering a test, assessment requiring an independent historian. The medical decision making level is moderate. There is noted moderate risk of morbidity after considering this treatment plan and diagnostic data. Considerations were given to prescription management, decisions regarding surgical options, or social determinants of health. The problems addressed require a moderate decision making level which includes one or more chronic illnesses (w/ exacerbation, progression, or side effects), two or more stable chronic illnesses, one undiagnosed new problem w/ uncertain prognosis, one acute illness with systemic symptoms, or one acute complicated injury.
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
[2021-02-04 10:44] VITALS: BP 158/92; PULSE 104; RESP 16; TEMP 36.3; BMI 46.4
--- NOTE | 2021-02-04 11:34 | PCM.WC.PN ---
(1) Ulcer of right foot with fat layer exposed Status: Chronic Code(s): L97.512 - Non-pressure chronic ulcer of other part of right foot with fat layer exposed (2) Ulcer of left lower extremity with fat layer exposed Status: Chronic Code(s): L97.922 - Non-pressure chronic ulcer of unspecified part of left lower leg with fat layer exposed (3) Type 2 diabetes mellitus with diabetic polyneuropathy Status: Chronic Code(s): E11.42 - Type 2 diabetes mellitus with diabetic polyneuropathy (4) Amputation of right foot Status: Chronic Code(s): S98.911A - Complete traumatic amputation of right foot, level unspecified, initial encounter (5) Amputation of left lower extremity below knee Status: Chronic Code(s): S88.112A - Complete traumatic amputation at level between knee and ankle, left lower leg, initial encounter (6) Frostbite of both lower extremities Status: Chronic Code(s): T33.99XA - Superficial frostbite of other sites, initial encounter (7) Delayed wound healing Status: Chronic Code(s): T14.8XXD - Other injury of unspecified body region, subsequent encounter (8) Malnutrition Status: Chronic Code(s): E46 - Unspecified protein-calorie malnutrition (9) Other specified peripheral vascular diseases Status: Suspected Code(s): I73.89 - Other specified peripheral vascular diseases (10) Skin cancer (melanoma) Status: Suspected Code(s): C43.9 - Malignant melanoma of skin, unspecified Type of Wound Date of Service: 02/04/21 Chief Complaint: Right foot ulcer. Left leg ulcer History of Wound: This 55-year-old female with significant past medical history of bipolar, schizophrenia, anxiety, dementia, diabetes, prior homelessness, prior frostbite injuries presents to the wound care center for evaluation of three right foot ulcers and one left leg ulcer. [facility] She denies redness or odor, fever, chill, nausea, vomiting. She had x-rays were performed within the last month and would like to review the results. She is also amendable to proceed forward with a punch biopsy is scheduled. She is still considering if she wants to proceed forward with a right below-knee amputation. She is exhausted from trying to save her limb the past couple of decades. Progress of Wound: Stable - Physical Exam Vital Signs Temp Pulse Resp BP 97.4 F L 104 H 16 158/92 H 02/04/21 10:44 02/04/21 10:44 02/04/21 10:44 02/04/21 10:44 General: Alert, Oriented x3, Cooperative, No apparent distress Extremities: No cyanosis, Capillary Refill Less than 3 Seconds, No Calf Tenderness, Diminished Peripheral Pulses, Edema - Mild Skin: Ulcer/ Wound - No purulence, erythema, string, odor, infection. She did skin is hairless and atrophic. Right foot ulcer adjacent skin does have apparent hyperpigmented satellite lesions and discoloration at her prior traumatic amputation site. There is no bogginess or fluctuance on palpation. Wound Measurements and Assessment WC - Nurse 1 - General Ulcer Measurement Start: 01/21/21 14:23 Freq: Status: Active Protocol: Activity Type Activity Date Activity User E-Sign Co-Sign Detail Recorded Client Recorded Date Recorded By Document 02/04/21 10:44 [facility] [id number] 02/04/21 10:53 [facility] 02/04/21 10:44 Wound Center Nurse 1 [Ulcer Assessment] #4- L STUMP -Combined with other wound No -Current Size (cm) - Length 1 -Current Size (cm) - Width 0.4 -Current Size (cm) - Depth 0.1 -Total Square Cm 0.4 -Photo Taken No -Epithelialization None Present -Tunneling No -Undermining/Tunneling No -Circular Undermining No -Exudate Amt None Present -Wound Margin Distinct, Outline Attached -Granulation Amt None Present (0 %) -Slough/Fibrin Yes -Necrosis Amt Large (67-100%) -Necrotic Tissue Type Eschar -Texture (Anali-wound Skin Appearance) Assessed, Scarring -Moisture (Anali-wound Skin Appearance Assessed ) -Color (Anali-wound Skin Appearance) Assessed -Temperature (Anali-wound Skin No Abnormality Appearance) (Pt Warm) -Tenderness on Palpation (Anali-wound No Skin Appearance) -Ulcer Cleansing Rinsed/ Irrigated with Saline -Foul Odor after Cleansing No -Anesthetic Used 4% Lidocaine Solution #3- R HEEL -Combined with other wound No -Current Size (cm) - Length 2.8 -Current Size (cm) - Width 1.8 -Current Size (cm) - Depth 0.2 -Total Square Cm 5.04 -Photo Taken No -Epithelialization None Present -Tunneling No -Undermining/Tunneling No -Circular Undermining No -Exudate Amt Medium -Exudate Type Serosanguineous -Wound Margin Distinct, Outline Attached -Granulation Amt None Present (0 %) -Slough/Fibrin Yes -Necrosis Amt Large (67-100%) -Necrotic Tissue Type Adherent Slough -Texture (Anali-wound Skin Appearance) Assessed, Scarring -Moisture (Anali-wound Skin Appearance Assessed,Dry/ ) Scaly -Color (Anali-wound Skin Appearance) Assessed -Temperature (Anali-wound Skin No Abnormality Appearance) (Pt Warm) -Tenderness on Palpation (Anali-wound No Skin Appearance) -Ulcer Cleansing Rinsed/ Irrigated with Saline -Foul Odor after Cleansing No -Anesthetic Used 4% Lidocaine Solution #2- R LAT PLANTAR FOOT -Combined with other wound No -Current Size (cm) - Length 1.5 -Current Size (cm) - Width 0.9 -Current Size (cm) - Depth 0.2 -Total Square Cm 1.35 -Photo Taken No -Epithelialization None Present -Tunneling No -Undermining/Tunneling No -Circular Undermining No -Exudate Amt Medium -Exudate Type Serosanguineous -Wound Margin Distinct, Outline Attached -Granulation Amt Medium (34-66%) -Granulation Quality Red -Slough/Fibrin Yes -Necrosis Amt Medium (34-66%) -Necrotic Tissue Type Adherent Slough -Texture (Anali-wound Skin Appearance) Assessed, Scarring -Moisture (Anali-wound Skin Appearance Assessed,Dry/ ) Scaly -Color (Anali-wound Skin Appearance) Assessed -Temperature (Anali-wound Skin No Abnormality Appearance) (Pt Warm) -Tenderness on Palpation (Anali-wound No Skin Appearance) -Ulcer Cleansing Rinsed/ Irrigated with Saline -Foul Odor after Cleansing No -Anesthetic Used 4% Lidocaine Solution #1- R PLANTAR -Combined with other wound No -Current Size (cm) - Length 0.5 -Current Size (cm) - Width 0.5 -Current Size (cm) - Depth 0.2 -Total Square Cm 0.25 -Photo Taken No -Epithelialization None Present -Tunneling No -Undermining/Tunneling No -Circular Undermining No -Exudate Amt Medium -Exudate Type Serosanguineous -Wound Margin Distinct, Outline Attached -Granulation Amt None Present (0 %) -Slough/Fibrin Yes -Necrosis Amt Large (67-100%) -Necrotic Tissue Type Adherent Slough -Texture (Anali-wound Skin Appearance) Assessed, Scarring -Moisture (Anali-wound Skin Appearance Assessed ) -Color (Anali-wound Skin Appearance) Assessed -Temperature (Anali-wound Skin No Abnormality Appearance) (Pt Warm) -Tenderness on Palpation (Anali-wound No Skin Appearance) -Ulcer Cleansing Rinsed/ Irrigated with Saline -Foul Odor after Cleansing No -Anesthetic Used 4% Lidocaine Solution WC - Nurse 2 - General Ulcer CM Notes Start: 01/21/21 14:23 Freq: Status: Active Protocol: Activity Type Activity Date Activity User E-Sign Co-Sign Detail Recorded Client Recorded Date Recorded By Document 02/04/21 11:20 [facility] [id number] 02/04/21 11:30 [facility] 02/04/21 11:20 Wound Center Nurse 2 [Procedure/Treatment] #4- L STUMP -Time 11:20 -Correct Patient Yes -Correct Side, Site, Position Yes -Correct Procedure Yes -Procedure Performed Yes -Type of Procedure Debridement -Clinical Debridement Subcutaneous -Tissue Removed Subcutaneous -Post Debridement (cm) - Length 1 -Post Debridement (cm) - Width 0.5 -Post Debridement (cm) - Depth 0.1 -Total Square (Post) (cm) 0.5 -Area of Debridement (cm) - Length 1 -Area of Debridement (cm) - Width 0.5 -Total Square (Area) (cm) 0.5 -Tunneling No -Undermining/Tunneling No -Circular Undermining No -Wound/Ulcer Outcome Not Healed -Ulcer Cleansing Rinsed/ Irrigated with Saline -Foul Odor after Cleansing No -Bioengineered Tissue No -Bleeding Controlled with Pressure -Offloading No -Treatment Response Procedure Tolerated Well -Debridement - Subq, 1st 20sq cm No #3- R HEEL -Time 11:21 -Correct Patient Yes -Correct Side, Site, Position Yes -Correct Procedure Yes -Procedure Performed Yes -Type of Procedure Debridement -Clinical Debridement Subcutaneous -Tissue Removed Subcutaneous -Post Debridement (cm) - Length 2.8 -Post Debridement (cm) - Width 1.9 -Post Debridement (cm) - Depth 0.2 -Total Square (Post) (cm) 5.32 -Area of Debridement (cm) - Length 2.8 -Area of Debridement (cm) - Width 1.9 -Total Square (Area) (cm) 5.32 -Tunneling No -Undermining/Tunneling No -Circular Undermining No -Wound/Ulcer Outcome Not Healed -Ulcer Cleansing Rinsed/ Irrigated with Saline -Foul Odor after Cleansing No -Bioengineered Tissue No -Bleeding Controlled with Pressure -Offloading Yes -Type of Offloading Surgical Shoe -Treatment Response Procedure Tolerated Well -Debridement - Subq, 1st 20sq cm Yes #2- R LAT PLANTAR FOOT -Time 11:22 -Correct Patient Yes -Correct Side, Site, Position Yes -Correct Procedure Yes -Procedure Performed Yes -Type of Procedure Debridement -Clinical Debridement Subcutaneous -Tissue Removed Subcutaneous -Post Debridement (cm) - Length 1.5 -Post Debridement (cm) - Width 1 -Post Debridement (cm) - Depth 0.2 -Total Square (Post) (cm) 1.5 -Area of Debridement (cm) - Length 1.5 -Area of Debridement (cm) - Width 1 -Total Square (Area) (cm) 1.5 -Tunneling No -Undermining/Tunneling No -Circular Undermining No -Wound/Ulcer Outcome Not Healed -Ulcer Cleansing Rinsed/ Irrigated with Saline -Foul Odor after Cleansing No -Bioengineered Tissue No -Bleeding Controlled with Pressure -Offloading Yes -Type of Offloading Surgical Shoe -Treatment Response Procedure Tolerated Well -Debridement - Subq, 1st 20sq cm No #1- R PLANTAR -Time 11:28 -Correct Patient Yes -Correct Side, Site, Position Yes -Correct Procedure Yes -Procedure Performed Yes -Type of Procedure Biopsy -Clinical Debridement Subcutaneous -Tissue Removed Subcutaneous -Post Debridement (cm) - Length 0.6 -Post Debridement (cm) - Width 0.6 -Post Debridement (cm) - Depth 0.3 -Total Square (Post) (cm) 0.36 -Area of Debridement (cm) - Length 0.6 -Area of Debridement (cm) - Width 0.6 -Total Square (Area) (cm) 0.36 -Tunneling No -Undermining/Tunneling No -Circular Undermining No -Wound/Ulcer Outcome Not Healed -Ulcer Cleansing Rinsed/ Irrigated with Saline -Foul Odor after Cleansing No -Bioengineered Tissue No -Bleeding Controlled with Pressure -Offloading Yes -Type of Offloading Surgical Shoe -Treatment Response Procedure Tolerated Well -Debridement - Subq, 1st 20sq cm No -I&D / Paring / Biopsy Punch bx skin ( includes simple close, if done ), single lesion [See Physician Procedure note for Specifics] Pain Scale: 0-10 Numeric [Pain] -Is Patient Pain Free? Yes Musculoskeletal: Muscle Wasting, Tenderness Neurological: - - Lack of epicritic sensation is consistent with neuropathic status. Psych/Mental Status: Normal Affect, Appropriate Debridement Note Post-Debridement Measurements/Treatment WC - Nurse 2 - General Ulcer CM Notes Start: 01/21/21 14:23 Freq: Status: Active Protocol: Activity Type Activity Date Activity User E-Sign Co-Sign Detail Recorded Client Recorded Date Recorded By Document 01/21/21 15:27 [id number] 01/21/21 15:37 Document 01/28/21 10:59 [id number] 01/28/21 11:07 Document 02/04/21 11:20 [id number] 02/04/21 11:30 01/21/21 01/28/21 02/04/21 15:27 10:59 11:20 Wound Center Nurse 2 #4- L STUMP -Time 15:32 11:06 11:20 -Correct Patient Yes Yes Yes -Correct Side, Site, Position Yes Yes Yes -Correct Procedure Yes Yes Yes -Procedure Performed Yes Yes Yes -Type of Procedure Debridement Debridement Debridement -Clinical Debridement Subcutaneous Subcutaneous Subcutaneous -Tissue Removed Subcutaneous Subcutaneous Subcutaneous -Post Debridement (cm) - Length 0.4 0.6 1 -Post Debridement (cm) - Width 0.4 0.6 0.5 -Post Debridement (cm) - Depth 0.2 0.2 0.1 -Total Square (Post) (cm) 0.16 0.36 0.5 -Area of Debridement (cm) - Length 0.4 0.6 1 -Area of Debridement (cm) - Width 0.4 0.6 0.5 -Total Square (Area) (cm) 0.16 0.36 0.5 -Tunneling No No No -Undermining/Tunneling No No No -Circular Undermining No No No -Wound/Ulcer Outcome Not Healed Not Healed Not Healed -Ulcer Cleansing Rinsed/ Rinsed/ Rinsed/ Irrigated with Irrigated with Irrigated with Saline Saline Saline -Foul Odor after Cleansing No No No -Bioengineered Tissue No No No -Bleeding Controlled with Pressure Pressure Pressure -Offloading No No No -Treatment Response Procedure Procedure Procedure Tolerated Well Tolerated Well Tolerated Well -Debridement - Subq, 1st 20sq cm Yes No No #3- R HEEL -Time : 11:21 -Correct Patient No Yes Yes -Correct Side, Site, Position No Yes Yes -Correct Procedure No Yes Yes -Procedure Performed No Yes Yes -Type of Procedure Debridement Debridement -Clinical Debridement Subcutaneous Subcutaneous -Tissue Removed Subcutaneous Subcutaneous -Post Debridement (cm) - Length 2.8 2.8 -Post Debridement (cm) - Width 2 1.9 -Post Debridement (cm) - Depth 0.3 0.2 -Total Square (Post) (cm) 5.6 5.32 -Area of Debridement (cm) - Length 2.8 2.8 -Area of Debridement (cm) - Width 2 1.9 -Total Square (Area) (cm) 5.6 5.32 -Tunneling No No -Undermining/Tunneling No No -Circular Undermining No No -Wound/Ulcer Outcome Not Healed Not Healed Not Healed -Ulcer Cleansing Rinsed/ Rinsed/ Irrigated with Irrigated with Saline Saline -Foul Odor after Cleansing No No -Bioengineered Tissue No No -Bleeding Controlled with Pressure Pressure -Offloading Yes Yes -Type of Offloading Surgical Shoe Surgical Shoe -Treatment Response Procedure Procedure Tolerated Well Tolerated Well -Debridement - Subq, 1st 20sq cm Yes Yes #2- R LAT PLANTAR FOOT -Time 11: 11:22 -Correct Patient No Yes Yes -Correct Side, Site, Position No Yes Yes -Correct Procedure No Yes Yes -Procedure Performed No Yes Yes -Type of Procedure Debridement Debridement -Clinical Debridement Subcutaneous Subcutaneous -Tissue Removed Subcutaneous Subcutaneous -Post Debridement (cm) - Length 2.5 1.5 -Post Debridement (cm) - Width 1 1 -Post Debridement (cm) - Depth 0.4 0.2 -Total Square (Post) (cm) 2.5 1.5 -Area of Debridement (cm) - Length 2.5 1.5 -Area of Debridement (cm) - Width 1 1 -Total Square (Area) (cm) 2.5 1.5 -Tunneling No No -Undermining/Tunneling No No -Circular Undermining No No -Wound/Ulcer Outcome Not Healed Not Healed Not Healed -Ulcer Cleansing Rinsed/ Rinsed/ Irrigated with Irrigated with Saline Saline -Foul Odor after Cleansing No No -Bioengineered Tissue No No -Bleeding Controlled with Pressure Pressure -Offloading Yes Yes -Type of Offloading Surgical Shoe Surgical Shoe -Treatment Response Procedure Procedure Tolerated Well Tolerated Well -Debridement - Subq, 1st 20sq cm No No #1- R PLANTAR -Time 11:03 11:28 -Correct Patient No Yes Yes -Correct Side, Site, Position No Yes Yes -Correct Procedure No Yes Yes -Procedure Performed No Yes Yes -Type of Procedure Debridement Biopsy -Clinical Debridement Subcutaneous Subcutaneous -Tissue Removed Subcutaneous Subcutaneous -Post Debridement (cm) - Length 0.8 0.6 -Post Debridement (cm) - Width 0.8 0.6 -Post Debridement (cm) - Depth 0.4 0.3 -Total Square (Post) (cm) 0.64 0.36 -Area of Debridement (cm) - Length 0.8 0.6 -Area of Debridement (cm) - Width 0.8 0.6 -Total Square (Area) (cm) 0.64 0.36 -Tunneling No No -Undermining/Tunneling No No -Circular Undermining No No -Wound/Ulcer Outcome Not Healed Not Healed Not Healed -Ulcer Cleansing Rinsed/ Rinsed/ Irrigated with Irrigated with Saline Saline -Foul Odor after Cleansing No No -Bioengineered Tissue No No -Bleeding Controlled with Pressure Pressure -Offloading Yes Yes -Type of Offloading Surgical Shoe Surgical Shoe -Treatment Response Procedure Procedure Tolerated Well Tolerated Well -Debridement - Subq, 1st 20sq cm No No -I&D / Paring / Biopsy Punch bx skin ( includes simple close, if done ), single lesion Pain Scale: 0-10 Numeric Is Patient Pain Free? Yes Yes Yes WC - Nurse 3 - General Ulcer D/C NN Start: 01/21/21 14:23 Freq: Status: Active Protocol: Activity Type Activity Date Activity User E-Sign Co-Sign Detail Recorded Client Recorded Date Recorded By Document 01/21/21 15:50 RB [id number] 01/21/21 15:51 RB Document 01/28/21 11:25 RB [id number] 01/28/21 11:26 RB 01/21/21 01/28/21 15:50 11:25 Wound Care Nurse 3 #4- L STUMP -Ulcer Cleansing Rinsed/ Rinsed/ Irrigated with Irrigated with Saline Saline -Other Dressing hydrogel hydrogel -Primary Dressing Covered/Secured with Dry Gauze, Dry Gauze, Secured with Secured with Tape Tape #3- R HEEL -Ulcer Cleansing Rinsed/ Rinsed/ Irrigated with Irrigated with Saline Saline -Other Dressing hydrogel hydrogel -Primary Dressing Covered/Secured with Dry Gauze,Dry Dry Gauze,Dry Gauze & Roll Gauze & Roll Gauze,Secured Gauze,Secured with Tape with Tape #2- R LAT PLANTAR FOOT -Ulcer Cleansing Rinsed/ Rinsed/ Irrigated with Irrigated with Saline Saline -Other Dressing hydrogel hydrogel -Primary Dressing Covered/Secured with Dry Gauze,Dry Dry Gauze,Dry Gauze & Roll Gauze & Roll Gauze,Secured Gauze,Secured with Tape with Tape #1- R PLANTAR -Ulcer Cleansing Rinsed/ Rinsed/ Irrigated with Irrigated with Saline Saline -Other Dressing hydrogel hydrogel -Primary Dressing Covered/Secured with Dry Gauze,Dry Dry Gauze,Dry Gauze & Roll Gauze & Roll Gauze,Secured Gauze,Secured with Tape with Tape Treatment Response Procedure Procedure Tolerated Well Tolerated Well Vital Signs Blood Pressure (90/60-120/80) 150/88 H Blood Pressure Mean (mm Hg) 108 Source Monitor Position Sitting Blood Pressure Location Left Arm Pain Scale: 0-10 Numeric Is Patient Pain Free? Yes Yes WC - Visit Discharge Discharge Condition Stable Stable Ambulatory Status Wheelchair Wheelchair Transportation Private Auto Private Auto Medication Reconcilliation completed & No No provided to patient/care provider Clinical Summary of Care Provided Yes Yes Wound debrided: leg stump Laterality: Left Wound Grade/Stage: grade 1 Type of Debridement: Excisional debridement Anesthesia Used: 5% Lidocaine Gel Depth: in the subcutaneous layer Percentage of wound debrided: 100 Instrument Used: #15 blade Tissue Removed: fibrous, devitalized subcutaneous, biofilm, slough Severity: Fat Layer Exposed Amount of bleeding with debridement: Mild Bleeding Controlled with: Pressure Patient tolerated procedure well - Additional Wound Wound debrided: heel, plantar and medial midfoot near amputation stump foot Laterality: Right Wound Grade/Stage: grade 1 Type of Debridement: Excisional debridement Anesthesia Used: 5% Lidocaine Gel Depth: in the subcutaneous layer Percentage of wound debrided: 100 Instrument Used: #15 blade Tissue Removed: fibrous, devitalized subcutaneous, biofilm, slough Severity: Fat Layer Exposed Amount of bleeding with debridement: Mild Bleeding Controlled with: Pressure Patient tolerated procedure: Patient tolerated procedure well Assessment/Plan Active Problems Ulcer of right foot with fat layer exposed (Chronic) Ulcer of left lower extremity with fat layer exposed (Chronic) Type 2 diabetes mellitus with diabetic polyneuropathy (Chronic) Amputation of right foot (Chronic) Amputation of left lower extremity below knee (Chronic) Frostbite of both lower extremities (Chronic) Delayed wound healing (Chronic) Malnutrition (Chronic) Assessment: Right foot ulcer with fat layer exposed, no infection (plantar medial and lateral foot and heel). Abnormal adjacent skin consistent with lesion; several differential diagnoses exist including scarring from prior procedures and surgery and frostbite versus malignant skin lesion versus nevus. Left anterior lower leg ulcer with fat layer exposed, no infection. Diabetes with neuropathy. Delayed healing. Peripheral vascular disease suspected. Medical comorbidities noted including psychiatric history. Delayed healing. Suspected malnutrition. Tobacco user Plan: I reviewed and discussed her case today. The left leg and right foot ulcers were debrided as noted in the clinical panel in a subcutaneous excisional manner. She was advised to change all of the ulcer dressing sites daily with hydrogel and gauze. I reviewed comprehensive wound healing treatment options. Her initial visit she was very adamant on proceeding forward with a right below-knee amputation is highly still considering this at this time. She would like to continue with wound healing comprehensive plan at this time. She asked for a referral and this contact information was provided for in the outpatient setting. This is a non urgent situation at this time. If she officially elects to proceed forward with an amputation I would also send a formal referral. She was advised keep pressure off of the ulcer sites and she was fitted with a smaller more appropriately sized pediatric surgical shoe today that is well aligned to her partially amputated foot and she was advised to minimize activity. I recommended performing a punch biopsy to screen for any malignant development due to the chronicity of this ulcer site. I am concerned about the discoloration around the ulcer sites and the chronic nature. Verbal consent was obtained and the area was cleansed with isopropyl alcohol. A 3 mm punch biopsy was used to obtain a plug from the adjacent discolored tissue and this was sent to pathology for further evaluation. Pressure was applied to maintain hemostasis. She tolerated this well. To avoid excessive prosthetic use that will compromise the left leg ulcer site from a pressure standpoint. She is reassured no local signs of infection are noted. I recommended screening her with a noninvasive vascular study which will give us an idea if she has the ability to heal the ulcers and would also be needed prior to proceeding with any referral for below-knee amputation procedure. Noninvasive vascular studies were ordered including BHANU, segmental leg and thigh pressures, and PVR. Additionally, labs including CBC, CMP, and hemoglobin A1c were also ordered for her to obtain at the [facility]. This was reviewed with albumin 3.3, white blood cell count 7.4, CRP 19.5, ESR was obtained however the results is not viewable at this time, creatinine 0.5, EGFR over 60, and A1c of 7.6%. She has chronic pain this seems to be consistent with phantom limb pain, prior frostbite injury, neuropathy, and also potentially vascular disease. I reviewed her x-ray report from 01-16-21 which included 2 right foot x-rays without fracture dislocation or osteomyelitis radiographic evidence. It is also noted she had a very proximal transmetatarsal amputation. The CD with the images were also requested. She was reassured again that no signs of infection are noted. I recommend glycemic control, nutritional supplementation, and smoking cessation to optimize wound healing. I answered her questions. I recommend she return to clinic next week as recommended at the wound healing center. Note: [employer] speech recognition golf club head inspector and adjuster software was used to create portions of this document. Sound-alike and misspelled words, as well as other golf club head inspector and adjuster errors may be contained in the documentation. 20 minutes was spent on this encounter. This included face to face and non face to face care including preparing for the visit, reviewing the history, performing the exam, counseling and providing education to the patient, family, or caregiver, ordering medications/test/ procedures if indicated as documented, communicating with other healthcare providers, documenting information in the medical record, interpreting / sharing this information when indicated as documented, and care coordination.
== END 2021-02-11 23:59 ==
LOC: WC 10:45
PROVIDERS: PCP Family Medicine; Visit Provider Podiatrist
DX: E11.621 Type 2 diabetes mellitus with foot ulcer (principal); L97.512 Non-pressure chronic ulcer of other part of right foot with fat layer exposed; L97.922 Non-pressure chronic ulcer of unspecified part of left lower leg with fat layer exposed; E11.42 Type 2 diabetes mellitus with diabetic polyneuropathy; L97.802 Non-pressure chronic ulcer of other part of unspecified lower leg with fat layer exposed; S98.911A Complete traumatic amputation of right foot, level unspecified, initial encounter; T33.99XA Superficial frostbite of other sites, initial encounter; X31.XXXA Exposure to excessive natural cold, initial encounter; E46 Unspecified protein-calorie malnutrition; I73.89 Other specified peripheral vascular diseases; E66.9 Obesity, unspecified; E78.5 Hyperlipidemia, unspecified; F03.90 Unspecified dementia, unspecified severity, without behavioral disturbance, psychotic disturbance, mood disturbance, and anxiety; F41.9 Anxiety disorder, unspecified; F25.9 Schizoaffective disorder, unspecified; I25.10 Atherosclerotic heart disease of native coronary artery without angina pectoris; J44.9 Chronic obstructive pulmonary disease, unspecified; K21.9 Gastro-esophageal reflux disease without esophagitis; F17.210 Nicotine dependence, cigarettes, uncomplicated; Z79.82 Long term (current) use of aspirin; Z88.0 Allergy status to penicillin; Z79.899 Other long term (current) drug therapy
CPT/HCPCS: 11042; 11104; 88305; 99213; G0463

== ENCOUNTER 2021-02-25 08:30 | Outpatient (RCR) | payer MEDICAID, SELFPAY ==
[2021-02-12 00:49] VITALS: BP 158/92; PULSE 104; RESP 16; TEMP 36.3
[2021-02-18 13:04] VITALS: BP 140/95; PULSE 110; RESP 16; TEMP 37.3; BMI 46.4
--- NOTE | 2021-02-18 13:49 | PN.PCM_ITS ---
(1) Ulcer of right foot with fat layer exposed Status: Chronic Code(s): L97.512 - Non-pressure chronic ulcer of other part of right foot with fat layer exposed (2) Ulcer of left lower extremity with fat layer exposed Status: Resolved Code(s): L97.922 - Non-pressure chronic ulcer of unspecified part of left lower leg with fat layer exposed (3) Type 2 diabetes mellitus with diabetic polyneuropathy Status: Chronic Code(s): E11.42 - Type 2 diabetes mellitus with diabetic polyneuropathy (4) Amputation of right foot Status: Chronic Code(s): S98.911A - Complete traumatic amputation of right foot, level unspecified, initial encounter (5) Amputation of left lower extremity below knee Status: Chronic Code(s): S88.112A - Complete traumatic amputation at level between knee and ankle, left lower leg, initial encounter (6) Frostbite of both lower extremities Status: Chronic Code(s): T33.99XA - Superficial frostbite of other sites, initial encounter (7) Delayed wound healing Status: Chronic Code(s): T14.8XXD - Other injury of unspecified body region, subsequent encounter (8) Malnutrition Status: Chronic Code(s): E46 - Unspecified protein-calorie malnutrition Type of Wound Date of Service: 02/18/21 Chief Complaint: Right foot ulcers. Left leg ulcer History of Wound: This 55-year-old female with significant past medical history of bipolar, schizophrenia, anxiety, dementia, diabetes, prior homelessness, prior frostbite injuries presents to the wound care center for evaluation of three right foot ulcers and one left leg ulcer. She is residing at a [place] [facility] facility, [facility]. She denies redness or odor, fever, chill, nausea, vomiting. She has underwent comprehensive wound healing program prior to being seen at the wound care center and also here at the wound care center. She wants to proceed forward with a right below-knee amputation. She is exhausted from trying to save her limb the past couple of decades. She denies drainage from her left ulcer leg site and thinks it may be healed. She is with her perinatal director today. Progress of Wound: Healed left. Stable right - Physical Exam Vital Signs Temp Pulse Resp BP 99.1 F 110 H 16 140/95 H 02/18/21 13:04 02/18/21 13:04 02/18/21 13:04 02/18/21 13:04 General: Alert, Oriented x3, Cooperative, No apparent distress HEENT: Atraumatic Extremities: No cyanosis, Capillary Refill Less than 3 Seconds, No Calf Tenderness, Diminished Peripheral Pulses, Edema - Mild, - - Right midfoot amputation. Left below-knee amputation Skin: Ulcer/ Wound - No purulence, erythema, streaking, odor, infection. No deep tissue exposure. Significant callus formation noted to the plantar foot with hyperpigmentation. Prior punch biopsy site to plantar right foot has healed. She also has full epithelialization to the left leg and this ulcer site is healed., - - Her skin is hairless and atrophic Wound Measurements and Assessment WC - Nurse 1 - General Ulcer Measurement Start: 02/18/21 13:01 Freq: Status: Active Protocol: Activity Type Activity Date Activity User E-Sign Co-Sign Detail Recorded Client Recorded Date Recorded By Document 02/18/21 13:04 [facility] [id number] 02/18/21 13:15 [facility] 02/18/21 13:04 Wound Center Nurse 1 [Ulcer Assessment] #4- L STUMP -Combined with other wound No -Current Size (cm) - Length 0.1 -Current Size (cm) - Width 0.1 -Current Size (cm) - Depth 0.1 -Total Square Cm 0.01 -Epithelialization Large 67-100% -Tunneling No -Undermining/Tunneling No -Circular Undermining No -Exudate Amt None Present -Slough/Fibrin Yes -Necrosis Amt Small (1-33%) -Necrotic Tissue Type Eschar -Texture (Anali-wound Skin Appearance) Assessed, Scarring -Moisture (Anali-wound Skin Appearance Assessed,Dry/ ) Scaly -Color (Anali-wound Skin Appearance) Assessed -Temperature (Anali-wound Skin No Abnormality Appearance) (Pt Warm) -Tenderness on Palpation (Anali-wound No Skin Appearance) -Ulcer Cleansing Rinsed/ Irrigated with Saline -Foul Odor after Cleansing No -Anesthetic Used 4% Lidocaine Solution #3- R HEEL -Combined with other wound No -Current Size (cm) - Length 2.3 -Current Size (cm) - Width 1.7 -Current Size (cm) - Depth 0.3 -Total Square Cm 3.91 -Photo Taken No -Epithelialization None Present -Tunneling No -Undermining/Tunneling No -Circular Undermining No -Exudate Amt Medium -Exudate Type Serosanguineous -Wound Margin Thickened -Granulation Amt Medium (34-66%) -Granulation Quality [place] -Slough/Fibrin Yes -Necrosis Amt Medium (34-66%) -Necrotic Tissue Type Adherent Slough -Texture (Anali-wound Skin Appearance) Assessed, Scarring -Moisture (Anali-wound Skin Appearance Assessed,Dry/ ) Scaly -Color (Anail-wound Skin Appearance) Assessed -Temperature (Anali-wound Skin No Abnormality Appearance) (Pt Warm) -Tenderness on Palpation (Anali-wound Yes Skin Appearance) -Ulcer Cleansing Rinsed/ Irrigated with Saline -Foul Odor after Cleansing No -Anesthetic Used 4% Lidocaine Solution #2- R LAT PLANTAR FOOT -Combined with other wound No -Current Size (cm) - Length 1.3 -Current Size (cm) - Width 0.7 -Current Size (cm) - Depth 0.2 -Total Square Cm 0.91 -Photo Taken No -Epithelialization None Present -Tunneling No -Undermining/Tunneling No -Circular Undermining No -Exudate Amt Medium -Exudate Type Serosanguineous -Wound Margin Thickened -Granulation Amt Medium (34-66%) -Granulation Quality [place] -Slough/Fibrin Yes -Necrosis Amt Medium (34-66%) -Necrotic Tissue Type Adherent Slough -Texture (Anali-wound Skin Appearance) Assessed, Scarring -Moisture (Anali-wound Skin Appearance Assessed,Dry/ ) Scaly -Color (Anali-wound Skin Appearance) Assessed -Temperature (Anali-wound Skin No Abnormality Appearance) (Pt Warm) -Tenderness on Palpation (Anali-wound Yes Skin Appearance) -Ulcer Cleansing Rinsed/ Irrigated with Saline -Foul Odor after Cleansing No -Anesthetic Used 4% Lidocaine Solution #1- R PLANTAR -Combined with other wound No -Current Size (cm) - Length 0.4 -Current Size (cm) - Width 0.4 -Current Size (cm) - Depth 0.3 -Total Square Cm 0.16 -Photo Taken No -Epithelialization None Present -Tunneling No -Undermining/Tunneling No -Circular Undermining No -Exudate Amt Small -Exudate Type Serosanguineous -Wound Margin Distinct, Outline Attached -Granulation Amt Medium (34-66%) -Granulation Quality [place] -Slough/Fibrin Yes -Necrosis Amt Medium (34-66%) -Necrotic Tissue Type Adherent Slough -Texture (Anali-wound Skin Appearance) Assessed, Scarring -Moisture (Anali-wound Skin Appearance Assessed,Dry/ ) Scaly -Color (Anali-wound Skin Appearance) Assessed -Temperature (Anali-wound Skin No Abnormality Appearance) (Pt Warm) -Tenderness on Palpation (Anali-wound No Skin Appearance) -Ulcer Cleansing Rinsed/ Irrigated with Saline -Foul Odor after Cleansing No -Anesthetic Used 4% Lidocaine Solution WC - Nurse 2 - General Ulcer CM Notes Start: 02/18/21 13:01 Freq: Status: Active Protocol: Activity Type Activity Date Activity User E-Sign Co-Sign Detail Recorded Client Recorded Date Recorded By Document 02/18/21 13:37 [facility] [id number] 02/18/21 13:42 [facility] 02/18/21 13:37 Wound Center Nurse 2 [Procedure/Treatment] #4- L STUMP -Correct Patient No -Correct Side, Site, Position No -Correct Procedure No -Procedure Performed No -Post Debridement (cm) - Length 0 -Post Debridement (cm) - Width 0 -Post Debridement (cm) - Depth 0 -Total Square (Post) (cm) 0 -Area of Debridement (cm) - Length 0 -Area of Debridement (cm) - Width 0 -Total Square (Area) (cm) 0 -Wound/Ulcer Outcome Healed- Epithelialized #3- R HEEL -Time 13:39 -Correct Patient Yes -Correct Side, Site, Position Yes -Correct Procedure Yes -Procedure Performed Yes -Type of Procedure Debridement -Clinical Debridement Subcutaneous -Tissue Removed Subcutaneous -Post Debridement (cm) - Length 2.4 -Post Debridement (cm) - Width 1.8 -Post Debridement (cm) - Depth 0.3 -Total Square (Post) (cm) 4.32 -Area of Debridement (cm) - Length 2.4 -Area of Debridement (cm) - Width 1.8 -Total Square (Area) (cm) 4.32 -Tunneling No -Undermining/Tunneling No -Circular Undermining No -Wound/Ulcer Outcome Not Healed -Ulcer Cleansing Rinsed/ Irrigated with Saline -Foul Odor after Cleansing No -Bioengineered Tissue No -Bleeding Controlled with Pressure -Offloading Yes -Type of Offloading Surgical Shoe -Treatment Response Procedure Tolerated Well -Debridement - Subq, 20sq cm Yes #2- R LAT PLANTAR FOOT -Time 13:40 -Correct Patient Yes -Correct Side, Site, Position Yes -Correct Procedure Yes -Procedure Performed Yes -Type of Procedure Debridement -Clinical Debridement Subcutaneous -Tissue Removed Subcutaneous -Post Debridement (cm) - Length 1.4 -Post Debridement (cm) - Width 0.7 -Post Debridement (cm) - Depth 0.2 -Total Square (Post) (cm) 0.98 -Area of Debridement (cm) - Length 1.4 -Area of Debridement (cm) - Width 0.7 -Total Square (Area) (cm) 0.98 -Tunneling No -Undermining/Tunneling No -Circular Undermining No -Wound/Ulcer Outcome Not Healed -Ulcer Cleansing Rinsed/ Irrigated with Saline -Foul Odor after Cleansing No -Bioengineered Tissue No -Bleeding Controlled with Pressure -Offloading Yes -Type of Offloading Surgical Shoe -Treatment Response Procedure Tolerated Well -Debridement - Subq, 20sq cm No #1- R PLANTAR -Time 13:40 -Correct Patient Yes -Correct Side, Site, Position Yes -Correct Procedure Yes -Procedure Performed Yes -Type of Procedure Debridement -Clinical Debridement Subcutaneous -Tissue Removed Subcutaneous -Post Debridement (cm) - Length 0.5 -Post Debridement (cm) - Width 0.4 -Post Debridement (cm) - Depth 0.3 -Total Square (Post) (cm) 0.20 -Area of Debridement (cm) - Length 0.5 -Area of Debridement (cm) - Width 0.4 -Total Square (Area) (cm) 0.20 -Tunneling No -Undermining/Tunneling No -Circular Undermining No -Wound/Ulcer Outcome Not Healed -Ulcer Cleansing Rinsed/ Irrigated with Saline -Foul Odor after Cleansing No -Bioengineered Tissue No -Bleeding Controlled with Pressure -Offloading Yes -Type of Offloading Surgical Shoe -Treatment Response Procedure Tolerated Well -Debridement - Subq, 20sq cm No [See Physician Procedure note for Specifics] Pain Scale: 0-10 Numeric [Pain] -Is Patient Pain Free? Yes Musculoskeletal: No Tenderness to Palpation of Joints or Extremities, Muscle Wasting Neurological: - - Lack of normal epicritic sensation light touch is consistent with neuropathy Psych/Mental Status: Normal Affect, Appropriate Debridement Note Post-Debridement Measurements/Treatment WC - Nurse 2 - General Ulcer CM Notes Start: 02/18/21 13:01 Freq: Status: Active Protocol: Activity Type Activity Date Activity User E-Sign Co-Sign Detail Recorded Client Recorded Date Recorded By Document 02/18/21 13:37 M[facility]ENO [id number] 02/18/21 13:42 M[facility]ENO 02/18/21 13:37 Wound Center Nurse 2 #4- L STUMP -Correct Patient No -Correct Side, Site, Position No -Correct Procedure No -Procedure Performed No -Post Debridement (cm) - Length 0 -Post Debridement (cm) - Width 0 -Post Debridement (cm) - Depth 0 -Total Square (Post) (cm) 0 -Area of Debridement (cm) - Length 0 -Area of Debridement (cm) - Width 0 -Total Square (Area) (cm) 0 -Wound/Ulcer Outcome Healed- Epithelialized #3- R HEEL -Time 13:39 -Correct Patient Yes -Correct Side, Site, Position Yes -Correct Procedure Yes -Procedure Performed Yes -Type of Procedure Debridement -Clinical Debridement Subcutaneous -Tissue Removed Subcutaneous -Post Debridement (cm) - Length 2.4 -Post Debridement (cm) - Width 1.8 -Post Debridement (cm) - Depth 0.3 -Total Square (Post) (cm) 4.32 -Area of Debridement (cm) - Length 2.4 -Area of Debridement (cm) - Width 1.8 -Total Square (Area) (cm) 4.32 -Tunneling No -Undermining/Tunneling No -Circular Undermining No -Wound/Ulcer Outcome Not Healed -Ulcer Cleansing Rinsed/ Irrigated with Saline -Foul Odor after Cleansing No -Bioengineered Tissue No -Bleeding Controlled with Pressure -Offloading Yes -Type of Offloading Surgical Shoe -Treatment Response Procedure Tolerated Well -Debridement - Subq, 1st 20sq cm Yes #2- R LAT PLANTAR FOOT -Time 13:40 -Correct Patient Yes -Correct Side, Site, Position Yes -Correct Procedure Yes -Procedure Performed Yes -Type of Procedure Debridement -Clinical Debridement Subcutaneous -Tissue Removed Subcutaneous -Post Debridement (cm) - Length 1.4 -Post Debridement (cm) - Width 0.7 -Post Debridement (cm) - Depth 0.2 -Total Square (Post) (cm) 0.98 -Area of Debridement (cm) - Length 1.4 -Area of Debridement (cm) - Width 0.7 -Total Square (Area) (cm) 0.98 -Tunneling No -Undermining/Tunneling No -Circular Undermining No -Wound/Ulcer Outcome Not Healed -Ulcer Cleansing Rinsed/ Irrigated with Saline -Foul Odor after Cleansing No -Bioengineered Tissue No -Bleeding Controlled with Pressure -Offloading Yes -Type of Offloading Surgical Shoe -Treatment Response Procedure Tolerated Well -Debridement - Subq, 1st 20sq cm No #1- R PLANTAR -Time 13:40 -Correct Patient Yes -Correct Side, Site, Position Yes -Correct Procedure Yes -Procedure Performed Yes -Type of Procedure Debridement -Clinical Debridement Subcutaneous -Tissue Removed Subcutaneous -Post Debridement (cm) - Length 0.5 -Post Debridement (cm) - Width 0.4 -Post Debridement (cm) - Depth 0.3 -Total Square (Post) (cm) 0.20 -Area of Debridement (cm) - Length 0.5 -Area of Debridement (cm) - Width 0.4 -Total Square (Area) (cm) 0.20 -Tunneling No -Undermining/Tunneling No -Circular Undermining No -Wound/Ulcer Outcome Not Healed -Ulcer Cleansing Rinsed/ Irrigated with Saline -Foul Odor after Cleansing No -Bioengineered Tissue No -Bleeding Controlled with Pressure -Offloading Yes -Type of Offloading Surgical Shoe -Treatment Response Procedure Tolerated Well -Debridement - Subq, 1st 20sq cm No Pain Scale: 0-10 Numeric Is Patient Pain Free? Yes Wound debrided: plantar foot (medial and lateral) and heel Laterality: Right Wound Grade/Stage: grade 1 Type of Debridement: Excisional debridement Anesthesia Used: 5% Lidocaine Gel Depth: in the subcutaneous layer Percentage of wound debrided: 100 Instrument Used: #15 blade Tissue Removed: fibrous, devitalized subcutaneous, biofilm, slough Severity: Fat Layer Exposed Amount of bleeding with debridement: Mild Bleeding Controlled with: Pressure Patient tolerated procedure well Assessment/Plan Active Problems Ulcer of right foot with fat layer exposed (Chronic) Type 2 diabetes mellitus with diabetic polyneuropathy (Chronic) Amputation of right foot (Chronic) Amputation of left lower extremity below knee (Chronic) Frostbite of both lower extremities (Chronic) Delayed wound healing (Chronic) Malnutrition (Chronic) Assessment: Right foot ulcer with fat layer exposed, no infection (plantar medial and lateral foot and heel). Abnormal adjacent skin consistent with lesion; punch biopsy result is consistent with verruca and malignancy was not identified. Left anterior lower leg ulcer healed today. Diabetes with neuropathy. Delayed healing. Peripheral vascular disease not suspected. Medical comorbidities noted including psychiatric history. Delayed healing. Suspected malnutrition. Tobacco user Plan: I reviewed and discussed her case today. The right foot ulcers were debrided as noted in the clinical panel in a subcutaneous excisional manner. It is noted the left leg ulcer site has healed. She was advised to change all of the ulcer dressing sites daily with hydrogel and gauze. I reviewed comprehensive wound healing treatment options. Her initial visit she was very adamant on proceeding forward with a right below-knee amputation and would like to definitively move forward at this time. She asked for a referral and this contact information was provided for Dr. Johnson in the outpatient setting. This is a non urgent situation at this time. She has tried debridements, offloading, localized wound care. This condition is chronic for several decades and she has ongoing delayed healing and lower extremity deformity. The staff member present with her today also reports she has been picking at the ulcers. Her left ulcer site is healed. Keep skin integrity and moisturizing. It is ok for her to transition back to her prosthetic but to avoid excessive prosthetic use that will compromise this fragile site while the skin continues to remodel. I recommended screening her with a noninvasive vascular study which will give us an idea if she has the ability to heal the ulcers and would also be needed prior to proceeding with any referral for below-knee amputation procedure. He has been identified as she already had noninvasive vascular studies performed at a [facility] on 07-08-2020 including a duplex of the lower extremity arterial of the right lower extremity. There are by and monophasic waveforms at the ankle level. There was a biphasic waveform at the right common femoral and proximal superficial femoral arteries. Peak systolic arterial velocities include common femoral 93, profundofemoral 72, proximal superficial femoral 136, mid superficial femoral 68, distal superficial femoral 117, popliteal 78, posterior tibial 45, dorsalis pedis 36. There was no hemodynamic significant arterial stenosis in the arteries of the right lower extremity. Additionally, labs including CBC, CMP, and hemoglobin A1c were also ordered for her to obtain at the [place] [facility] facility. This was reviewed with albumin 3.3, white blood cell count 7.4, CRP 19.5, ESR was obtained however the results is not viewable at this time, creatinine 0.5, EGFR over 60, and A1c of 7.6%. She has chronic pain this seems to be consistent with phantom limb pain, prior frostbite injury, neuropathy, and also potentially vascular disease. I reviewed her x- ray report from 01-16-21 which included 2 right foot x-rays without fracture dislocation or osteomyelitis radiographic evidence. It is also noted she had a very proximal transmetatarsal amputation. The CD with the images were also requested. She was reassured again that no signs of infection are noted. I recommend glycemic control, nutritional supplementation, and smoking cessation to optimize wound healing. I answered her questions. I recommend she return to clinic next week as recommended at the wound healing center until transition with her referral is confirmed. Note: [employer] speech recognition drum carrier software was used to create portions of this document. Sound-alike and misspelled words, as well as other drum carrier errors may be contained in the documentation. The medical decision making level is moderate. There is noted moderate risk of morbidity after considering this treatment plan and diagnostic data. Considerations were given to prescription management, decisions regarding surgical options, or social determinants of health. The problems addressed require a moderate decision making level which includes one or more chronic illnesses (w/ exacerbation, progression, or side effects), two or more stable chronic illnesses, one undiagnosed new problem w/ uncertain prognosis, one acute illness with systemic symptoms, or one acute complicated injury.
[2021-02-25 08:54] VITALS: BP 134/75; PULSE 108; RESP 18; TEMP 36.6; BMI 46.4
--- NOTE | 2021-02-25 10:15 | PCM.WC.PN ---
(1) Ulcer of right foot with fat layer exposed Status: Chronic Code(s): L97.512 - Non-pressure chronic ulcer of other part of right foot with fat layer exposed (2) Type 2 diabetes mellitus with diabetic polyneuropathy Status: Chronic Code(s): E11.42 - Type 2 diabetes mellitus with diabetic polyneuropathy (3) Amputation of right foot Status: Chronic Code(s): S98.911A - Complete traumatic amputation of right foot, level unspecified, initial encounter (4) Amputation of left lower extremity below knee Status: Chronic Code(s): S88.112A - Complete traumatic amputation at level between knee and ankle, left lower leg, initial encounter (5) Frostbite of both lower extremities Status: Chronic Code(s): T33.99XA - Superficial frostbite of other sites, initial encounter (6) Delayed wound healing Status: Chronic Code(s): T14.8XXD - Other injury of unspecified body region, subsequent encounter (7) Malnutrition Status: Chronic Code(s): E46 - Unspecified protein-calorie malnutrition Type of Wound Date of Service: 02/25/21 Chief Complaint: Right foot ulcers History of Wound: This 55-year-old female with significant past medical history of bipolar, schizophrenia, anxiety, dementia, diabetes, prior homelessness, prior frostbite injuries presents to the wound care center for evaluation of three right foot ulcers and one left leg ulcer. [facility] She denies redness or odor, fever, chill, nausea, vomiting. She has underwent comprehensive wound healing program prior to being seen at the wound care center and also here at the wound care center. She wants to proceed forward with a right below-knee amputation. She is exhausted from trying to save her limb the past couple of decades. She denies drainage from her left ulcer leg site and thinks it may be healed. Progress of Wound: . Stable right - Physical Exam Vital Signs Temp Pulse Resp BP 97.9 F 108 H 18 134/75 H 02/25/21 08:54 02/25/21 08:54 02/25/21 08:54 02/25/21 08:54 General: Alert, Oriented x3, Cooperative, No apparent distress Extremities: No cyanosis, Capillary Refill Less than 3 Seconds, No Calf Tenderness, Diminished Peripheral Pulses, Edema - Mild, - - left below knee amputation Skin: Ulcer/ Wound - No purulence, erythema, streaking, odor, infection. Adjacent skin atrophic Wound Measurements and Assessment WC - Nurse 1 - General Ulcer Measurement Start: 02/18/21 13:01 Freq: Status: Active Protocol: Activity Type Activity Date Activity User E-Sign Co-Sign Detail Recorded Client Recorded Date Recorded By Document 02/25/21 08:54 RB [id number] 02/25/21 08:59 RB 02/25/21 08:54 Wound Center Nurse 1 [Ulcer Assessment] #3- R HEEL -Combined with other wound No -Current Size (cm) - Length 2 -Current Size (cm) - Width 1.5 -Current Size (cm) - Depth 0.2 -Total Square Cm 3.0 -Tunneling No -Undermining/Tunneling No -Circular Undermining No -Exudate Amt Small -Exudate Type Serosanguineous -Wound Margin Thickened -Granulation Amt Medium (34-66%) -Granulation Quality [place] -Slough/Fibrin Yes -Necrosis Amt Small (1-33%) -Necrotic Tissue Type Adherent Slough -Structure Exposed N/A -Texture (Anali-wound Skin Appearance) Callus -Moisture (Anali-wound Skin Appearance Assessed ) -Color (Anali-wound Skin Appearance) Assessed -Temperature (Anali-wound Skin No Abnormality Appearance) (Pt Warm) -Tenderness on Palpation (Anali-wound No Skin Appearance) -Ulcer Cleansing Wound Cleanser -Foul Odor after Cleansing No #2- R LAT PLANTAR FOOT -Combined with other wound No -Current Size (cm) - Length 1.4 -Current Size (cm) - Width 0.8 -Current Size (cm) - Depth 0.1 -Total Square Cm 1.12 -Tunneling No -Undermining/Tunneling No -Circular Undermining No -Exudate Amt Small -Exudate Type Serosanguineous -Wound Margin Thickened -Granulation Amt Medium (34-66%) -Granulation Quality [place] -Slough/Fibrin Yes -Necrosis Amt Small (1-33%) -Necrotic Tissue Type Adherent Slough -Structure Exposed N/A -Texture (Anali-wound Skin Appearance) Callus -Moisture (Anali-wound Skin Appearance Assessed ) -Color (Anali-wound Skin Appearance) Assessed -Temperature (Anali-wound Skin No Abnormality Appearance) (Pt Warm) -Tenderness on Palpation (Anali-wound No Skin Appearance) -Ulcer Cleansing Wound Cleanser -Foul Odor after Cleansing No #1- R PLANTAR -Combined with other wound No -Current Size (cm) - Length 0.4 -Current Size (cm) - Width 0.4 -Current Size (cm) - Depth 0.1 -Total Square Cm 0.16 -Tunneling No -Undermining/Tunneling No -Circular Undermining No -Exudate Amt Small -Exudate Type Serosanguineous -Wound Margin Thickened -Granulation Amt Medium (34-66%) -Granulation Quality [place] -Slough/Fibrin Yes -Necrosis Amt Small (1-33%) -Necrotic Tissue Type Adherent Slough -Structure Exposed N/A -Texture (Anali-wound Skin Appearance) Callus -Moisture (Anali-wound Skin Appearance Assessed ) -Color (Anali-wound Skin Appearance) Assessed -Temperature (Anali-wound Skin No Abnormality Appearance) (Pt Warm) -Tenderness on Palpation (Anali-wound No Skin Appearance) -Ulcer Cleansing Wound Cleanser -Foul Odor after Cleansing No WC - Nurse 2 - General Ulcer CM Notes Start: 02/18/21 13:01 Freq: Status: Active Protocol: Activity Type Activity Date Activity User E-Sign Co-Sign Detail Recorded Client Recorded Date Recorded By Document 02/25/21 09:23 [id number] 02/25/21 09:26 02/25/21 09:23 Wound Center Nurse 2 [Procedure/Treatment] #3- R HEEL -Correct Patient No -Correct Side, Site, Position No -Correct Procedure No -Procedure Performed No -Wound/Ulcer Outcome Not Healed #2- R LAT PLANTAR FOOT -Correct Patient No -Correct Side, Site, Position No -Correct Procedure No -Procedure Performed No -Wound/Ulcer Outcome Not Healed #1- R PLANTAR -Correct Patient No -Correct Side, Site, Position No -Correct Procedure No -Procedure Performed No -Wound/Ulcer Outcome Not Healed [See Physician Procedure note for Specifics] Pain Scale: 0-10 Numeric [Pain] -Is Patient Pain Free? Yes AMAN - Nurse 3 - General Ulcer D/C NN Start: 02/18/21 13:01 Freq: Status: Active Protocol: Activity Type Activity Date Activity User E-Sign Co-Sign Detail Recorded Client Recorded Date Recorded By Document 02/25/21 09:37 [id number] 02/25/21 09:37 02/25/21 09:37 Wound Care Nurse 3 [Wound Dressing] #3- R HEEL -Ulcer Cleansing Rinsed/ Irrigated with Saline -Foul Odor after Cleansing No -Primary Dressing Applied C Hydrogel ($), NonAdherent Contact Layer -Primary Dressing Covered/Secured Dry Gauze & with Roll Gauze, Secured with Tape #2- R LAT PLANTAR FOOT -Ulcer Cleansing Rinsed/ Irrigated with Saline -Foul Odor after Cleansing No -Primary Dressing Applied C Hydrogel ($), NonAdherent Contact Layer -Primary Dressing Covered/Secured Dry Gauze & with Roll Gauze, Secured with Tape #1- R PLANTAR -Ulcer Cleansing Rinsed/ Irrigated with Saline -Foul Odor after Cleansing No -Primary Dressing Applied C Hydrogel ($), NonAdherent Contact Layer -Primary Dressing Covered/Secured Dry Gauze & with Roll Gauze, Secured with Tape Pain Scale: 0-10 Numeric [Pain] -Is Patient Pain Free? Yes - Visit Discharge [Visit Discharge Information] -Discharge Condition Stable -Ambulatory Status Wheelchair -Transportation Private Auto -Medication Reconcilliation completed Yes & provided to patient/care provider -Clinical Summary of Care Provided Yes Musculoskeletal: No Tenderness to Palpation of Joints or Extremities, Muscle Wasting Neurological: - - Lack of epicritic sensation to light touch is consistent with neuropathy Psych/Mental Status: Normal Affect, Appropriate Debridement Note Post-Debridement Measurements/Treatment - Nurse 2 - General Ulcer CM Notes Start: 02/18/21 13:01 Freq: Status: Active Protocol: Activity Type Activity Date Activity User E-Sign Co-Sign Detail Recorded Client Recorded Date Recorded By Document 02/18/21 13:37 [id number] 02/18/21 13:42 Document 02/25/21 09:23 [id number] 02/25/21 09:26 02/18/21 02/25/21 13:37 09:23 Wound Center Nurse 2 #4- L STUMP -Correct Patient No -Correct Side, Site, Position No -Correct Procedure No -Procedure Performed No -Post Debridement (cm) - Length 0 -Post Debridement (cm) - Width 0 -Post Debridement (cm) - Depth 0 -Total Square (Post) (cm) 0 -Area of Debridement (cm) - Length 0 -Area of Debridement (cm) - Width 0 -Total Square (Area) (cm) 0 -Wound/Ulcer Outcome Healed- Epithelialized #3- R HEEL -Time 13:39 -Correct Patient Yes No -Correct Side, Site, Position Yes No -Correct Procedure Yes No -Procedure Performed Yes No -Type of Procedure Debridement -Clinical Debridement Subcutaneous -Tissue Removed Subcutaneous -Post Debridement (cm) - Length 2.4 -Post Debridement (cm) - Width 1.8 -Post Debridement (cm) - Depth 0.3 -Total Square (Post) (cm) 4.32 -Area of Debridement (cm) - Length 2.4 -Area of Debridement (cm) - Width 1.8 -Total Square (Area) (cm) 4.32 -Tunneling No -Undermining/Tunneling No -Circular Undermining No -Wound/Ulcer Outcome Not Healed Not Healed -Ulcer Cleansing Rinsed/ Irrigated with Saline -Foul Odor after Cleansing No -Bioengineered Tissue No -Bleeding Controlled with Pressure -Offloading Yes -Type of Offloading Surgical Shoe -Treatment Response Procedure Tolerated Well -Debridement - Subq, 1st 20sq cm Yes #2- R LAT PLANTAR FOOT -Time 13:40 -Correct Patient Yes No -Correct Side, Site, Position Yes No -Correct Procedure Yes No -Procedure Performed Yes No -Type of Procedure Debridement -Clinical Debridement Subcutaneous -Tissue Removed Subcutaneous -Post Debridement (cm) - Length 1.4 -Post Debridement (cm) - Width 0.7 -Post Debridement (cm) - Depth 0.2 -Total Square (Post) (cm) 0.98 -Area of Debridement (cm) - Length 1.4 -Area of Debridement (cm) - Width 0.7 -Total Square (Area) (cm) 0.98 -Tunneling No -Undermining/Tunneling No -Circular Undermining No -Wound/Ulcer Outcome Not Healed Not Healed -Ulcer Cleansing Rinsed/ Irrigated with Saline -Foul Odor after Cleansing No -Bioengineered Tissue No -Bleeding Controlled with Pressure -Offloading Yes -Type of Offloading Surgical Shoe -Treatment Response Procedure Tolerated Well -Debridement - Subq, 1st 20sq cm No #1- R PLANTAR -Time 13:40 -Correct Patient Yes No -Correct Side, Site, Position Yes No -Correct Procedure Yes No -Procedure Performed Yes No -Type of Procedure Debridement -Clinical Debridement Subcutaneous -Tissue Removed Subcutaneous -Post Debridement (cm) - Length 0.5 -Post Debridement (cm) - Width 0.4 -Post Debridement (cm) - Depth 0.3 -Total Square (Post) (cm) 0.20 -Area of Debridement (cm) - Length 0.5 -Area of Debridement (cm) - Width 0.4 -Total Square (Area) (cm) 0.20 -Tunneling No -Undermining/Tunneling No -Circular Undermining No -Wound/Ulcer Outcome Not Healed Not Healed -Ulcer Cleansing Rinsed/ Irrigated with Saline -Foul Odor after Cleansing No -Bioengineered Tissue No -Bleeding Controlled with Pressure -Offloading Yes -Type of Offloading Surgical Shoe -Treatment Response Procedure Tolerated Well -Debridement - Subq, 1st 20sq cm No Pain Scale: 0-10 Numeric Is Patient Pain Free? Yes Yes WC - Nurse 3 - General Ulcer D/C NN Start: 02/18/21 13:01 Freq: Status: Active Protocol: Activity Type Activity Date Activity User E-Sign Co-Sign Detail Recorded Client Recorded Date Recorded By Document 02/18/21 14:01 KR [id number] 02/18/21 14:02 KR Document 02/25/21 09:37 [id number] 02/25/21 09:37 02/18/21 02/25/21 14:01 09:37 Wound Care Nurse 3 #3- R HEEL -Ulcer Cleansing Rinsed/ Rinsed/ Irrigated with Irrigated with Saline Saline -Foul Odor after Cleansing No -Primary Dressing Applied C Hydrogel ($) C Hydrogel ($), NonAdherent Contact Layer -Primary Dressing Covered/Secured with Dry Gauze, Dry Gauze & Secured with Roll Gauze, Tape Secured with Tape #2- R LAT PLANTAR FOOT -Ulcer Cleansing Rinsed/ Rinsed/ Irrigated with Irrigated with Saline Saline -Foul Odor after Cleansing No -Primary Dressing Applied C Hydrogel ($) C Hydrogel ($), NonAdherent Contact Layer -Primary Dressing Covered/Secured with Dry Gauze, Dry Gauze & Secured with Roll Gauze, Tape Secured with Tape #1- R PLANTAR -Ulcer Cleansing Rinsed/ Rinsed/ Irrigated with Irrigated with Saline Saline -Foul Odor after Cleansing No -Primary Dressing Applied C Hydrogel ($) C Hydrogel ($), NonAdherent Contact Layer -Primary Dressing Covered/Secured with Dry Gauze, Dry Gauze & Secured with Roll Gauze, Tape Secured with Tape Pain Scale: 0-10 Numeric Is Patient Pain Free? Yes Yes WC - Visit Discharge Discharge Condition Stable Stable Ambulatory Status Wheelchair Wheelchair Transportation Private Auto Private Auto Accompanied by medicare coordinator from custodial Medication Reconcilliation completed & Yes provided to patient/care provider Clinical Summary of Care Provided Yes Wound debrided: foot (multiple) Laterality: Right No debridement was completed today Assessment/Plan Active Problems Ulcer of right foot with fat layer exposed (Chronic) Type 2 diabetes mellitus with diabetic polyneuropathy (Chronic) Amputation of right foot (Chronic) Amputation of left lower extremity below knee (Chronic) Frostbite of both lower extremities (Chronic) Delayed wound healing (Chronic) Malnutrition (Chronic) Assessment: Right foot ulcer with fat layer exposed, no infection (plantar medial and lateral foot and heel). Abnormal adjacent skin consistent with lesion; punch biopsy result is consistent with verruca and malignancy was not identified. Left anterior lower leg ulcer healed today. Diabetes with neuropathy. Delayed healing. Peripheral vascular disease not suspected. Medical comorbidities noted including psychiatric history. Delayed healing. Suspected malnutrition. Tobacco user Plan: I reviewed and discussed her case today. The right foot ulcers were debrided as noted in the clinical panel in a subcutaneous excisional manner. It is noted the left leg ulcer site has healed. She was advised to change all of the ulcer dressing sites daily with hydrogel and gauze. I reviewed comprehensive wound healing treatment options. Her initial visit she was very adamant on proceeding forward with a right below-knee amputation and would like to definitively move forward at this time. She asked for a referral and this contact information was provided for Dr. Johnson in the outpatient setting. This is a non urgent situation at this time. She has tried debridements, offloading, localized wound care. This condition is chronic for several decades and she has ongoing delayed healing and lower extremity deformity. The staff member present with her today also reports she has been picking at the ulcers. Her left ulcer site is healed. Keep skin integrity and moisturizing. It is ok for her to transition back to her prosthetic but to avoid excessive prosthetic use that will compromise this fragile site while the skin continues to remodel. I recommended screening her with a noninvasive vascular study which will give us an idea if she has the ability to heal the ulcers and would also be needed prior to proceeding with any referral for below-knee amputation procedure. He has been identified as she already had noninvasive vascular studies performed 07-08-2020 including a duplex of the lower extremity arterial of the right lower extremity. There are by and monophasic waveforms at the ankle level. There was a biphasic waveform at the right common femoral and proximal superficial femoral arteries. Peak systolic arterial velocities include common femoral 93, profundofemoral 72, proximal superficial femoral 136, mid superficial femoral 68, distal superficial femoral 117, popliteal 78, posterior tibial 45, dorsalis pedis 36. There was no hemodynamic significant arterial stenosis in the arteries of the right lower extremity. Additionally, labs including CBC, CMP, and hemoglobin A1c were also ordered for her to obtain at the long term [facility]. This was reviewed with albumin 3.3, white blood cell count 7.4, CRP 19.5, ESR was obtained however the results is not viewable at this time, creatinine 0.5, EGFR over 60, and A1c of 7.6%. She has chronic pain this seems to be consistent with phantom limb pain, prior frostbite injury, neuropathy, and also potentially vascular disease. I reviewed her x-ray report from 01-16-21 which included 2 right foot x-rays without fracture dislocation or osteomyelitis radiographic evidence. It is also noted she had a very proximal transmetatarsal amputation. She was reassured again that no signs of infection are noted. I recommend glycemic control, nutritional supplementation, and smoking cessation to optimize wound healing. I answered her questions. I recommend she return to clinic next week as recommended at the wound healing center until transition with her referral is confirmed. Note: [employer] speech recognition grades 1 thru 6 visiting teacher software was used to create portions of this document. Sound-alike and misspelled words, as well as other grades 1 thru 6 visiting teacher errors may be contained in the documentation. The medical decision making level is moderate. There is noted moderate risk of morbidity after considering this treatment plan and diagnostic data. Considerations were given to prescription management, decisions regarding surgical options, or social determinants of health. The problems addressed require a moderate decision making level which includes one or more chronic illnesses (w/ exacerbation, progression, or side effects), two or more stable chronic illnesses, one undiagnosed new problem w/ uncertain prognosis, one acute illness with systemic symptoms, or one acute complicated injury.
== END 2021-03-13 23:59 ==
LOC: WC 08:30
PROVIDERS: PCP Family Medicine; Visit Provider Podiatrist
DX: E11.621 Type 2 diabetes mellitus with foot ulcer (principal); L97.512 Non-pressure chronic ulcer of other part of right foot with fat layer exposed; E11.42 Type 2 diabetes mellitus with diabetic polyneuropathy; E46 Unspecified protein-calorie malnutrition; L97.922 Non-pressure chronic ulcer of unspecified part of left lower leg with fat layer exposed; L97.802 Non-pressure chronic ulcer of other part of unspecified lower leg with fat layer exposed; T33.99XA Superficial frostbite of other sites, initial encounter; X31.XXXA Exposure to excessive natural cold, initial encounter; I73.89 Other specified peripheral vascular diseases; E66.9 Obesity, unspecified; E78.5 Hyperlipidemia, unspecified; F03.90 Unspecified dementia, unspecified severity, without behavioral disturbance, psychotic disturbance, mood disturbance, and anxiety; F20.9 Schizophrenia, unspecified; G89.29 Other chronic pain; Z89.511 Acquired absence of right leg below knee; Z79.82 Long term (current) use of aspirin; Z88.0 Allergy status to penicillin
CPT/HCPCS: 11042; 99213; G0463

== ENCOUNTER 2022-12-09 09:30 | Outpatient (RCR) | payer MEDICAID, SELFPAY ==
[2022-12-09 09:49] VITALS: BP 132/75; PULSE 114; RESP 18; TEMP 35.8; BMI 36.8
--- NOTE | 2022-12-09 10:25 | HP.PCM_ITS ---
History of Present Illness Date of Service: 12/09/22 Chief Complaint: Right foot ulcers History of Wound: This 57-year-old female with significant past medical history of bipolar, schizophrenia, anxiety, dementia, diabetes, prior homelessness, prior frostbite injuries presents to the wound care center for evaluation of three right foot ulcers. She is residing at a [facility] facility, [facility]. She denies redness or odor, fever, chill, nausea, vomiting. She has underwent comprehensive wound healing program prior to being seen at the wound care center and also here at the wound care center. She already has a BKA of the Left lower extremity. She fears she may need a right below-knee amputation. She is exhausted from trying to save her limb the past couple of decades. States that these wounds are recurrent/nonhealing and have been present since 2020. At that time she was seen here in the wound care center by Dr. Calvert. However patient has not returned to the wound center since February 2021. She returns today to the wound care center,12/09/2022, for same issue of 3 foot ulcerations to the plantar right foot. PFSH Home Medications acetaminophen 325 mg capsule 650 mg PO Q4H PRN Pain 1-10 Or Fever 01/21/21 [History Last Taken Unknown] albuterol sulfate 90 mcg/actuation aerosol inhaler 2 puff inhalation Q4H PRN Wheezing 01/21/21 [History Last Taken Unknown] aspirin 81 mg chewable tablet 81 mg PO DAILY 01/21/21 [History Last Taken Unknown] atorvastatin 10 mg tablet 10 mg PO QHS 01/21/21 [History Last Taken Unknown] benztropine 1 mg tablet 1.5 mg PO BID 01/21/21 [History Last Taken Unknown] clozapine 50 mg tablet 100 mg PO BID 01/21/21 [History Last Taken Unknown] dextromethorphan-guaifenesin 10 mg-100 mg/5 mL oral syrup 10 ml PO Q4H PRN Cough 01/21/21 [History Last Taken Unknown] divalproex 250 mg tablet,delayed release 250 mg PO BIDCM 01/21/21 [History Last Taken Unknown] doxycycline hyclate 100 mg capsule 100 mg PO BID 01/21/21 [History Last Taken Unknown] haloperidol decanoate 100 mg/mL intramuscular solution 150 mg IM DAILY 01/21/21 [History Last Taken Unknown] risperidone 3 mg tablet 3 mg PO DAILY 01/21/21 [History Last Taken Unknown] risperidone 4 mg tablet 4 mg PO QHS 01/21/21 [History Last Taken Unknown] valbenazine 40 mg (7)-80 mg (21) capsules in a dose pack 40 mg PO DAILY 01/21/21 [History Last Taken Unknown] clozapine 200 mg tablet 200 mg PO BID 12/09/22 [History Last Taken Unknown] linagliptin 5 mg tablet (Tradjenta) 5 mg PO DAILY 12/09/22 [History Last Taken Unknown] lisinopril 5 mg tablet 5 mg PO DAILY 12/09/22 [History Last Taken Unknown] lorazepam 0.5 mg tablet (Ativan) 1 mg PO BID PRN Anxiety 12/09/22 [History Last Taken Unknown] potassium chloride 20 mEq tablet,extended release 20 meq PO DAILY 12/09/22 [History Last Taken Unknown] propranolol 10 mg tablet 10 mg PO BID 12/09/22 [History Last Taken Unknown] white petrolatum-mineral oil 83 %-15 % eye ointment (Artificial Eye Lubricant) 1 applic EACH EYE DAILY PRN Dry Eyes 12/09/22 [History Last Taken Unknown] Allergy/AdvReac Type Severity Reaction Status Date / Time clindamycin Allergy PT UNSURE Verified 01/21/21 14:54 OF REACTION codeine Allergy PT UNSURE Verified 01/21/21 14:54 OF REACTION mirtazapine [From Remeron] Allergy PT UNSURE Verified 01/21/21 14:54 OF REACTION olanzapine [From Zyprexa] Allergy PT UNSURE Verified 01/21/21 14:54 OF REACTION Penicillins [PCN] Allergy PT UNSURE Verified 01/21/21 14:54 OF REACTION Social History Smoking Status: Current every day smoker ROS Constitutional Constitutional: Denies anorexia, change in weight, chills or fever(s) Eyes Eyes: Denies blurry vision, change in vision or double vision ENT HEENT: Denies dysphagia, nasal congestion, nasal discharge, sinus pain, sinus pressure or sore throat Cardiovascular Cardiovascular: Denies chest pain, claudication or dyspnea Respiratory/Chest Respiratory/Chest: Denies cough, shortness of breath at rest or wheezing Gastrointestinal Gastrointestinal: Denies abdominal pain, constipation, diarrhea, nausea or vomiting Genitourinary Genitourinary: Denies dysuria, urinary frequency, urinary hesitancy, urinary incontinence or urinary urgency Musculoskeletal Musculoskeletal: Denies joint pain, joint stiffness or joint swelling Integumentary Integumentary: Reports wounds; Denies pruritus or rash Neurologic Neurologic: Denies dizziness, numbness or seizures Psychiatric Psychiatric: Reports anxiety Endocrine Endocrinology: Denies cold intolerance, heat intolerance, polydipsia or polyuria Vital Signs Vital Signs Vital Signs: 12/09/22 09:49 Temperature 96.4 F L Temperature Source Temporal Pulse Rate 114 H Respiratory Rate 18 Blood Pressure 132/75 H Blood Pressure Mean 94 Blood Pressure Source Monitor Blood Pressure Position Sitting Blood Pressure Location Right Arm Weight Weight: 106.594 kg Body Mass Index (BMI) 36.8 Physical Exam Const alert, oriented x3 and no apparent distress General Appearance: cooperative HEENT normocephalic Eyes General Eye: normal appearance of both eyes Neck General: normal visual inspection Lymph Lymphatic: no lymphadenopathy noted and no lymphedema noted Resp normal respiratory effort Cardio regular rate and regular rhythm Extremity no joint enlargement, no calf tenderness and no pedal edema Extremity Narrative: Right lower extremity: DP pulses palpable and PT pulses palpable. Transmetatarsal amputation noted with distal stump ulceration subfirst metatarsal base subfifth metatarsal base and plantar heel. Stump demonstrates adequate perfusion. Musculoskeletal: Demonstrates decreased range of motion at the ankle joint less than 5 degrees as noted without pain or crepitus. Left lower extremity: BKA noted to left lower extremity General Extremity: Negative for calf tenderness Skin no rashes or lesions noted, skin turgor normal and no jaundice Wound Narrative: Right lower extremity: 3 ulcerative sites noted to the plantar aspect of the right foot. Subfirst metatarsal ulceration is noted with mixed fiber granular layer; subfifth metatarsal ulceration is noted with mixed fiber granular layer; right plantar heel ulceration is also noted with mixed fiber granular layer. Ulcerative sites demonstrate serosanguineous drainage. No erythema, no purulent drainage, no malodor, no palpable fluctuance/bogginess, no visible abscess. About the ulcerative sites, plantar lateral foot, and distal stump there is evidence of ecchymosis/subdermal bleeding secondary to excessive pressure secondary to patient utilizing foot to aid in pushing her wheelchair. Neuro moves all extremities Neuro Narrative: Decreased light touch sensation and protective sensation noted to the right lower extremity consistent with diabetic peripheral polyneuropathy Debridement Note Debridement Note Wound debrided: Right foot ulcer x2 Laterality: Right Wound Grade/Stage: Abel stage I Type of Debridement: Excisional debridement Anesthesia Used: 5% Lidocaine Gel Depth: Down to and including healthy tissue and in the subcutaneous layer Percentage of wound debrided: 100 Instrument Used: 3mm curette Tissue Removed: Fibrous, devitalized subcutaneous, biofilm, slough Severity: Fat Layer Exposed Amount of bleeding with debridement: Mild Bleeding Controlled with: Compression and gauze Patient tolerated procedure: Patient tolerated procedure well Post-Debridement Measurements and Additional Note: Post-Debridement Measurements/Treatment - Nurse 1 - General Ulcer Assessment Start: 12/09/22 09:49 Freq: Status: Active Protocol: GEOVANNY Activity Type Activity Date Activity User E-sign Co-sign Detail Recorded Client Recorded Date Recorded By Document 12/09/22 09:49 MORENO [id number] 12/09/22 09:59 MORENO 12/09/22 09:49 WC - Today's Visit Information Type of service Initial Visit Arrival Mode Wheelchair Transfer Assistance Manual Patient Identification Verified (Name & Yes ) Patient Requires Transmission-Based Yes Precautions Safety Precautions Decreased Cognition Height and Weight Height 5 ft 7 in Weight 106.594 kg Weight in Pounds 235.0 lbs Body Mass Index (BMI) 36.8 BMI Classification Obese BSA - Alberto 2.17 Vital Signs Temperature (97.8 F-99.1 F) 96.4 F L Temperature Source Temporal Pulse Rate (60-100) 114 H Pulse Location Monitor Respiratory Rate (12-18) 18 Respiratory rate source Observation Blood Pressure (90/60-120/80) 132/75 H Blood Pressure Mean 94 Source Monitor Position Sitting Blood Pressure Location Right Arm History Since Last Visit- (Skip if this is Patient's initial visit) Left Footwear No Footwear Right Footwear Regular Shoe Pain Scale: 0-10 Numeric Is Patient Pain Free? Yes - Nurse 1 - General Ulcer Measurement Start: 12/09/22 09:49 Freq: Status: Active Protocol: Activity Type Activity Date Activity User E-sign Co-sign Detail Recorded Client Recorded Date Recorded By Document 12/09/22 09:49 JF [id number] 12/09/22 09:59 MORENO 12/09/22 09:49 Wound Center Nurse 1 #4- R HEEL -Combined with other wound No -Current Size (cm) - Length 2.5 -Current Size (cm) - Width 2.5 -Current Size (cm) - Depth 0.2 -Total Square Cm 6.25 -Photo Taken Yes -Epithelialization None Present -Tunneling No -Undermining/Tunneling No -Circular Undermining No -Classification - Abel Grading ( Grade 2 Diabetic Ulcer) -Exudate Amt Medium -Exudate Type Serosanguineous -Wound Margin Flat & Intact -Granulation Amt Medium (34-66%) -Granulation Quality Red -Slough/Fibrin Yes -Necrosis Amt Large (67-100%) -Necrotic Tissue Type Adherent Slough -Structure Exposed N/A -Texture (Anali-wound Skin Appearance) Assessed -Moisture (Anali-wound Skin Appearance) Assessed,Dry/ Scaly -Color (Anali-wound Skin Appearance) Assessed, Hemosiderin Staining -Temperature (Anali-wound Skin No Abnormality Appearance) (Pt Warm) -Tenderness on Palpation (Anali-wound No Skin Appearance) -Ulcer Cleansing Rinsed/ Irrigated with Saline -Foul Odor after Cleansing No -Anesthetic Used 5% Lidocaine Gel #5- R LAT PLANTAR FOOT -Combined with other wound No -Current Size (cm) - Length 1.8 -Current Size (cm) - Width 0.5 -Current Size (cm) - Depth 0.3 -Total Square Cm 0.90 -Photo Taken Yes -Epithelialization None Present -Tunneling No -Undermining/Tunneling No -Circular Undermining No -Classification - Abel Grading ( Grade 2 Diabetic Ulcer) -Exudate Amt Small -Exudate Type Serosanguineous -Wound Margin Flat & Intact -Granulation Amt Medium (34-66%) -Granulation Quality Red -Slough/Fibrin Yes -Necrosis Amt Large (67-100%) -Necrotic Tissue Type Adherent Slough -Structure Exposed N/A -Texture (Anali-wound Skin Appearance) Assessed -Moisture (Anali-wound Skin Appearance) Assessed,Dry/ Scaly -Color (Anali-wound Skin Appearance) Assessed, Hemosiderin Staining -Temperature (Anali-wound Skin No Abnormality Appearance) (Pt Warm) -Tenderness on Palpation (Anali-wound No Skin Appearance) -Ulcer Cleansing Rinsed/ Irrigated with Saline -Foul Odor after Cleansing No -Anesthetic Used 5% Lidocaine Gel #6- R 1st met PLANTAR -Combined with other wound No -Current Size (cm) - Length 4.0 -Current Size (cm) - Width 3.1 -Current Size (cm) - Depth 0.1 -Total Square Cm 12.40 -Photo Taken Yes -Epithelialization Small 1-33% -Tunneling No -Undermining/Tunneling No -Circular Undermining No -Classification - Abel Grading ( Grade 2 Diabetic Ulcer) -Exudate Amt Medium -Exudate Type Serosanguineous -Wound Margin Flat & Intact -Granulation Amt Medium (34-66%) -Granulation Quality Red -Slough/Fibrin Yes -Necrosis Amt Small (1-33%) -Necrotic Tissue Type Adherent Slough -Structure Exposed N/A -Texture (Anali-wound Skin Appearance) Assessed -Moisture (Anali-wound Skin Appearance) Assessed,Dry/ Scaly -Color (Anali-wound Skin Appearance) Assessed, Hemosiderin Staining -Tenderness on Palpation (Anali-wound No Skin Appearance) -Ulcer Cleansing Rinsed/ Irrigated with Saline -Foul Odor after Cleansing No -Anesthetic Used 5% Lidocaine Gel Lower Limb Edema Present NA Additional Wound Wound debrided: Right heel decubitus ulceration Laterality: Right Wound Grade/Stage: Abel stage II Type of Debridement: Excisional debridement Anesthesia Used: 5% Lidocaine Gel Depth: Down to and including healthy tissue and in the subcutaneous layer Percentage of wound debrided: 100 Instrument Used: 3mm curette Tissue Removed: Fibrous, devitalized subcutaneous, biofilm, slough Severity: Fat Layer Exposed Amount of bleeding with debridement: Mild Bleeding Controlled with: Compression and gauze Patient tolerated procedure: Patient tolerated procedure well Assessment/Plan Assessment/Plan (1) Ulcer of right foot with fat layer exposed: CODE(S): L97.512 - Non-pressure chronic ulcer of other part of right foot with fat layer exposed (2) Type 2 diabetes mellitus with diabetic polyneuropathy: CODE(S): E11.42 - Type 2 diabetes mellitus with diabetic polyneuropathy (3) Other specified peripheral vascular diseases: CODE(S): I73.89 - Other specified peripheral vascular diseases (4) Malnutrition: CODE(S): E46 - Unspecified protein-calorie malnutrition (5) History of left below knee amputation: CODE(S): Z89.512 - Acquired absence of left leg below knee (6) History of transmetatarsal amputation of right foot: CODE(S): Z89.431 - Acquired absence of right foot (7) Decubitus ulcer of right heel, stage 2: CODE(S): L89.612 - Pressure ulcer of right heel, stage 2 (8) Type 2 diabetes mellitus with foot ulcer: CODE(S): E11.621 - Type 2 diabetes mellitus with foot ulcer; L97.509 - Non-pressure chronic ulcer of other part of unspecified foot with unspecified severity (9) Delayed wound healing: CODE(S): T14.8XXD - Other injury of unspecified body region, subsequent encounter PLAN: Plan Patient seen and evaluated Left lower extremity has undergone previous BKA with prosthetic to assist ambulation. Right lower extremity has undergone previous transmetatarsal amputation Ulcerations x3 noted to the plantar aspect of the right foot. All ulcerative sites underwent debridement as noted in the clinical panel above. Subfirst metatarsal ulceration measures 4.0 cm x 3.1 cm x 0.1 cm; subfifth metatarsal ulceration measures 1.8 cm x 0.5 cm x 0.3 cm; right heel plantar ulceration measures 2.5 cm x 2.5 cm x 0.2 cm. Forefoot ulcerations are a Abel type I, plantar heel decubitus ulceration is a Abel 2. All ulcerative sites were dressed with collagen powder and PHMB dressing with dry sterile dressing. She is currently on Bactrim DS until 12/15/2022. Instructed to continue oral antibiotic to completion. I have reviewed her previous noninvasive vascular studies performed 07/08/2020. These demonstrate monophasic waveforms at the level of the ankle with biphasic waveform at the right common femoral and proximal superficial femoral arteries. Peak systolic arterial velocity include, femoral 93, profundofemoral 72, proximal superficial femoral 136, mid superficial femoral 68, distal superficial femoral 117, popliteal 78, posterior tibial 45, dorsalis pedis 36. There is no hemodynamic significant arterial stenosis in the arteries of the right lower extremity at that time. I have also reviewed her x-ray report from 01/16/2021 which includes 2 right foot x-rays without fracture dislocation or radiographic evidence of osteomyelitis. It is noted on x-ray that she had a very proximal transmetatarsal amputation. I discussed with the senior grants officer today updating laboratory studies, radiographs of the right foot, and noninvasive vascular studies. Order was dispensed today 12/09/2022 to the senior grants officer for laboratory work consisting of CBC with differential, Chem-12, CRP, ESR, vitamin D, prealbumin, hemoglobin A1c. Heri aguilera will have these studies performed at the [facility] facility,[facility] in [place]. I also ordered updated imaging of the right foot 12/09/2022, awaiting results. I also ordered updated LEAS and venous duplex of the right lower extremity, awaiting results. I recommend continued glycemic control, nutritional supplementation with Sandoval and adequate protein intake to optimize wound healing. It is also noted patient is a former smoker, no recent tobacco use. I also recommend strict nonweightbearing status to the right lower extremity and for patient to utilize wheelchair and not use the right foot to aid in propulsion of the wheelchair. I discussed her high risk of right lower extremity amputation with the patient and senior grants officer today. Pending studies ordered above and MRI will be obtained to evaluate further for osteomyelitis. I discussed with the patient and her senior grants officer aide signs to observe for pertaining to infection. I discussed if there is any redness about the u lcerative sites that progresses onto the foot and up the leg, if any purulent drainage emerges from the ulcers, if there is increased foul odor, or if she experiences any fever greater than 101 degree, or nausea, or vomiting, or chills that these are progressing signs of infection and she needs to report to the ED. Commercial Maintenance Technician voices understanding of this. Dressing: Collagen powder and PHMB dressing. Dry sterile dressing. Change daily Wash: Soap and water, pat the area dry Tissue growth optimization: Collagen powder and PHMB dressing Offload: Utilize wheelchair to aid in nonweightbearing to right lower extremity. She was instructed to not utilize the right foot to aid in propulsion of her wheelchair. Vascular: Palpable DP and PT pulses with adequate stump perfusion on the right TMA site. LEAS ordered 12/09/2022, awaiting results Edema: Continue to elevate right lower extremity at all times of rest Infection: No local signs of infection Pain: May take whew-gso-shontst Tylenol Host factors: DM type II with peripheral polyneuropathy, PVD, atherosclerotic heart disease, transmetatarsal amputation right foot, BKA left lower extremity I answered all the patient's questions. To return to the wound healing center in 1 week or call sooner if the patient has any questions or concerns. Note: Dragon speech recognition pharmacy technician per diem software was used to create portions of this document. Sound-alike and misspelled words, as well as other pharmacy technician per diem errors may be contained in the documentation. The problems addressed require a low medical decision making level which includes two or more minor problems, a stable chronic illness, or an acute uncomplicated illness or injury. The medical decision making level is low. There is noted low risk of morbidity after considering this treatment plan and diagnostic data.
== END 2022-12-14 23:59 | disposition home or self-care (01) ==
LOC: WC 09:30
PROVIDERS: PCP Family Medicine; Visit Provider Student in an Organized Health Care Education/Training Program
DX: E11.621 Type 2 diabetes mellitus with foot ulcer (principal); L89.612 Pressure ulcer of right heel, stage 2; E11.51 Type 2 diabetes mellitus with diabetic peripheral angiopathy without gangrene; F20.9 Schizophrenia, unspecified; Z89.512 Acquired absence of left leg below knee; Z89.431 Acquired absence of right foot; L97.512 Non-pressure chronic ulcer of other part of right foot with fat layer exposed; E46 Unspecified protein-calorie malnutrition; F31.9 Bipolar disorder, unspecified; E11.42 Type 2 diabetes mellitus with diabetic polyneuropathy; F41.9 Anxiety disorder, unspecified; F17.200 Nicotine dependence, unspecified, uncomplicated; Z79.82 Long term (current) use of aspirin; R53.83 Other fatigue; T14.8XXD Other injury of unspecified body region, subsequent encounter
CPT/HCPCS: 11042; 99213; G0463

== ENCOUNTER 2022-12-23 10:44 | Inpatient (IN) | payer MEDICAID, SELFPAY ==
[2022-12-23] VITALS (7 sets, daily range): BP systolic 113–156; BP diastolic 68–121; PULSE 100–132; RESP 18–30; TEMP 36.6–37.1; O2SAT 92–100; BMI 37.5; BMI 35.9
--- NOTE | 2022-12-23 11:21 | ED.VIS.DYS ---
HPI History of Present Illness Chief Complaint: Shortness of Breath Informant: patient Onset/Context/Timing Onset: Days Context: gradual Timing: Continuous Quality: Positive for Orthopnea Worsened by: Lying flat Relieved by: Nothing Associated Symptoms cough and chills; Negative for rhinorrhea, post nasal drip, ear pain, sore throat, clear sputum, white sputum, yellow sputum or green sputum Chest Pain: Positive for None Narrative Narrative: Patient Sayra with hypoxic episode that began today. Patient went to her appointment at the wound care center when they noticed her pulse oximeter dropped into the 50s. Patient was started on oxygen and was brought to the emergency department. Wound care center noted that she had some perioral cyanosis. Patient states she has had a cough for the last few days. Patient denies any sputum production. Patient admits to some subjective chills. Patient states her breathing is worse whenever she lays flat. Patient denies any chest pain. PFSH PFSH Medical History Anxiety and depression Bipolar disorder Chronic peripheral neuropathic pain COPD (chronic obstructive pulmonary disease) Dementia Diabetes mellitus, type 2 HLD (hyperlipidemia) HTN (hypertension) Obesity Schizoaffective disorder Tobacco use Home Medications acetaminophen 325 mg capsule 650 mg PO Q4H PRN Pain 1-10 Or Fever 01/21/21 [History Last Taken Unknown] albuterol sulfate 90 mcg/actuation aerosol inhaler 2 puff inhalation Q4H PRN Wheezing 01/21/21 [History Last Taken Unknown] atorvastatin 10 mg tablet 10 mg PO QHS CHOLESTEROL 01/21/21 [History Last Taken 12/22/22] benztropine 1 mg tablet 1.5 mg PO BID EPS 01/21/21 [History Last Taken 12/22/22] clozapine 200 mg tablet 200 mg PO BID BIPOLAR 12/09/22 [History Last Taken 12/22/22] linagliptin 5 mg tablet (Tradjenta) 5 mg PO DAILY DM 12/09/22 [History Last Taken 12/22/22] lisinopril 5 mg tablet 5 mg PO DAILY HTN 12/09/22 [History Last Taken 12/22/22] lorazepam 0.5 mg tablet (Ativan) 0.5 mg PO BID ANXIETY 12/09/22 [History Last Taken 12/22/22] potassium chloride 20 mEq tablet,extended release 20 meq PO DAILY 12/09/22 [History Last Taken 12/22/22] propranolol 10 mg tablet 10 mg PO BID HTN 12/09/22 [History Last Taken 12/22/22] carboxymethylcellulose sodium 1 % eye drops (Artificial Tears (carboxymethylcellulose)) 1 drp EACH EYE Q6H PRN Dry Eye(S) 12/23/22 [History Last Taken Unknown] cholecalciferol (vitamin D3) 1,250 mcg (50,000 unit) tablet 1,250 mcg PO MO SUPPLEMENT 12/23/22 [History Last Taken 12/20/22] clozapine 100 mg tablet 100 mg PO BID BIPOLAR 12/23/22 [History Last Taken 12/22/22] fluvoxamine 50 mg tablet 50 mg PO QHS ANXIETY 12/23/22 [History Last Taken 12/22/22] lamotrigine 25 mg tablet (Lamictal) 50 mg PO BID BIPOLAR 12/23/22 [History Last Taken 12/22/22] Allergy/AdvReac Type Severity Reaction Status Date / Time clindamycin Allergy PT UNSURE Verified 12/23/22 10:49 OF REACTION codeine Allergy PT UNSURE Verified 12/23/22 10:49 OF REACTION mirtazapine [From Remeron] Allergy PT UNSURE Verified 12/23/22 10:49 OF REACTION olanzapine [From Zyprexa] Allergy PT UNSURE Verified 12/23/22 10:49 OF REACTION Penicillins [PCN] Allergy PT UNSURE Verified 12/23/22 10:49 OF REACTION Family History (Updated 12/23/22 @ 14:[address] 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 alcohol intake: never substance use type: does not use ROS ROS ED Constitutional Constitutional ED: Reports chills; Denies fever(s) Eyes Eyes: Denies blurry vision or change in vision ENT ENT ED: Denies rhinorrhea or sore throat Cardiovascular Cardiovascular: Denies chest pain or palpitations Respiratory/Chest Respiratory/Chest: Reports cough and dyspnea; Denies other Gastrointestinal Gastrointestinal: Denies nausea or vomiting Genitourinary Genitourinary ED: Denies dysuria or hematuria Musculoskeletal Musculoskeletal: Denies back pain or neck pain Integumentary Denies abscess or rash Neurologic Neurologic: Denies headache(s) or weakness Allergic/Immunologic Allergic/Immunologic ED: Denies mouth swelling or urticaria EXAM Physical Exam Const Vital Signs: 12/23/22 10:45 12/23/22 10:49 12/23/22 11:35 Temperature 97.9 F 97.9 F Temperature Source Temporal Temporal Pulse Rate 132 H 129 H 128 H Respiratory Rate 26 H 24 H 30 H Respiratory Pattern Normal Blood Pressure 156/121 H 156/121 H Blood Pressure Mean 132 132 Pulse Ox 100 100 Oxygen Delivery Method Room Air Room Air Oxygen Flow Rate (L/min) 12/23/22 12:32 Temperature Temperature Source Pulse Rate Respiratory Rate Respiratory Pattern Blood Pressure Blood Pressure Mean Pulse Ox Oxygen Delivery Method Nasal Cannula Oxygen Flow Rate (L/min) 2 Positive well nourished, well developed and obese General Appearance ED: well developed and NAD Nutritional Appearance: obese HEENT Reports moist mucous membranes Neck supple and no JVD Resp normal respiratory effort Auscultation: diminished lung sounds diffuse Cardio regular rhythm and no murmurs Rate: tachycardic GI normal to inspection, nondistended, normoactive bowel sounds and non-tender Palpation: soft Neuro oriented x3, CN's II-XII intact bilaterally and no sensory deficits noted Sensorium / Orientation: alert Motor Exam: strength 5/5 throughout Psych mental status grossly normal Skin no rashes or lesions noted MDM MDM MDM Narrative Medical decision making narrative: Differential diagnosis includes pulmonary embolism, pneumonia, pneumothorax, cardiac dysrhythmia, congestive heart failure, cardiac ischemia, and viral respiratory infection. Chest x-ray will be obtained to assess for pneumonia, pneumothorax and congestive heart failure. CBC will be obtained to assess for leukocytosis and anemia. Basic metabolic profile will be obtained to assess for electrolyte abnormality and renal function. High-sensitivity troponin will be obtained to assess for cardiac ischemia. D-dimer will be obtained to assess for pulmonary embolism. EKG will be obtained to assess for cardiac dysrhythmia and cardiac ischemia. Lactate was ordered to assess for sepsis. Lab Data Attestation: I reviewed the patient's lab results. Lab results narrative: CBC was reviewed and was within normal limits. Basic metabolic profile was reviewed and was within normal limits. High-sensitivity troponin was reviewed and was normal. D-dimer was reviewed and was elevated at 1.96. Lactate was reviewed and was normal. Labs: Laboratory Results - last 24 hr 12/23/22 12/23/22 12/23/22 12:10 12:10 12:30 WBC 9.8 RBC 4.89 Hgb 13.6 Hct 43.8 MCV 89.6 MCH 27.8 MCHC 31.1 L RDW Std Deviation 48.5 H RDW Coeff of Dot 14.8 H Plt Count 157 MPV 10.4 Immature Gran % (Auto) 0.600 Neut % (Auto) 83.4 H Lymph % (Auto) 8.9 L Woodward % (Auto) 5.9 Eos % (Auto) 0.9 Baso % (Auto) 0.3 Absolute Neuts (auto) 8.2 H Absolute Lymphs (auto) 0.87 Nucleated RBC % 0 D-Dimer Quant (PE/DVT) Cancelled Sodium 137 Potassium 3.8 Chloride 106 Carbon Dioxide 22.0 Anion Gap 9 BUN 12 Creatinine 0.82 Estim Creat Clear Calc 74.50 Est GFR (MDRD) Af Amer 93 Est GFR (MDRD) Non-Af 77 BUN/Creatinine Ratio 14.7 Glucose 126 H Lactic Acid Calcium 8.2 L Troponin I High Sens 5 12/23/22 12/23/22 13:05 13:35 WBC RBC Hgb Hct MCV MCH MCHC RDW Std Deviation RDW Coeff of Dot Plt Count MPV Immature Gran % (Auto) Neut % (Auto) Lymph % (Auto) Woodward % (Auto) Eos % (Auto) Baso % (Auto) Absolute Neuts (auto) Absolute Lymphs (auto) Nucleated RBC % D-Dimer Quant (PE/DVT) 1.96 H* Sodium Potassium Chloride Carbon Dioxide Anion Gap BUN Creatinine Estim Creat Clear Calc Est GFR (MDRD) Af Amer Est GFR (MDRD) Non-Af BUN/Creatinine Ratio Glucose Lactic Acid 1.3 Calcium Troponin I High Sens Radiography Diagnostic Testing: Clinical Impression(s) from Imaging Studies Chest X-Ray 12/23/22 12:45 IMPRESSION: Focal infiltrate is seen in the posterior medial segment of the right lower lobe as well as in the right upper lobe. Electronically Signed: Usama Mcbride MD at 13:11 EST , PA and lateral chest x-ray was obtained. There are 2 views. On my independent interpretation, lung king show right upper and right lower lobe infiltrates. There is normal cardiac silhouette. Bony thorax is normal. Radiologist also interpreted the x-ray and agrees. CTA of the chest was ordered and is pending. X-rays of the right foot were obtained and are pending. Treatment and Re-Evaluation Narrative: Patient was advised of her findings. Patient was advised of the need for admission to the hospital because of her hypoxia. Patient was started on Levaquin. Blood cultures were ordered to assess for sepsis. Case was discussed with the hospitalist. She was in to evaluate the patient and recommended x-rays of the right foot since she has an open wound there. These were ordered. She will admit the patient to PCU. Patient understood and was agreeable with the plan. All questions were answered. Discharge Plan Triage Chief Complaint: Shortness of Breath Other Complaint: General Illness ED Provider: Angel Fuentes Dx/Rx/DC Orders Clinical Impression: Pneumonia, Type 2 diabetes mellitus with foot ulcer, Hypoxia Prescriptions: No Action atorvastatin 10 MG tablet 10 mg PO QHS benztropine 1 MG tablet 1.5 mg PO BID albuterol sulfate 1 PUFF inhaler 2 puff INHALATION Q4H PRN (Reason: Wheezing) acetaminophen 325 MG capsule 650 mg PO Q4H PRN (Reason: Pain 1-10 Or Fever) propranolol 10 mg Tablet 10 mg PO BID lorazepam [Ativan] 0.5 mg Tablet 0.5 mg PO BID lisinopril 5 mg Tablet 5 mg PO DAILY clozapine 200 mg Tablet 200 mg PO BID Tradjenta 5 mg Tablet 5 mg PO DAILY potassium chloride 20 mEq Tablet Extended Release 20 meq PO DAILY clozapine 100 mg Tablet 100 mg PO BID lamotrigine [Lamictal] 25 mg Tablet 50 mg PO BID fluvoxamine 50 mg Tablet 50 mg PO QHS cholecalciferol (vitamin D3) 1,250 mcg (50,000 unit) Tablet 1,250 mcg PO MO Artificial Tears (cmc) 1 % Drops 1 drp EACH EYE Q6H PRN (Reason: Dry Eye(S)) Primary Care Provider: Paddy Ba Referrals: Paddy Ba MD [Primary Care Provider] - Disposition Disposition: Acute Care Hospital [facility]
--- NOTE | 2022-12-23 11:28 | EKG12_ITS ---
Test Reason : Blood Pressure : / mmHG Vent. Rate : 127 BPM Atrial Rate : 127 BPM P-R Int : 174 ms QRS Dur : 080 ms QT Int : 282 ms P-R-T Axes : 050 -18 046 degrees QTc Int : 409 ms Sinus tachycardia Low voltage QRS Borderline ECG Confirmed by LINDA ORDAZ, MATEO ([id number]), advertising editor JOAN KANG ([id number]) on 12/24/2022 9:44:41 AM Referred By: Confirmed By:MATEO MCKEON MD
--- NOTE | 2022-12-23 11:31 | NURSING ---
NO OLD EKGS
[2022-12-23] MEDS: Ipratropium/Albuterol Sulfate 3 ML AMPUL.NEB INHALATION (11:34)
[2022-12-23 12:19] LABS: Absolute Lymphocyte Count 0.87 X10^3/uL (0.83-4.51); Absolute Neutrophil Count 8.2 X10^3/uL (2.0-7.7); Basophil# 0.03 X10^3/uL; Basophil% 0.3 % (0-1); Eosinophil# 0.09 X10^3/uL; Eosinophils% 0.9 % (0-5); Hematocrit 43.8 % (37-47); Hemoglobin 13.6 g/dL (12.0-15.0); Lymphocyte # 0.87 X10^3/ul (0.83-4.51); Lymphocyte % 8.9 % (19-41); Mean Corp Hgb Conc 31.1 g/dL (32-36); Mean Corpuscular Hgb 27.8 pg (27.0-32.0); Mean Corpuscular Volume 89.6 fL (81-99); Mean Platelet Vol. 10.4 fl (6.2-12.0); Monocyte# 0.58 X10^3/uL; Monocyte% 5.9 % (0-10); NRBC Flagged by Analyzer 0 % (0-5); Neutrophil # 8.18 X10^3/uL (2.7-7.7); Neutrophil % 83.4 % (47-70); Platelet Count 157 K/mm3 (150-450); RBC Distribution Width CV 14.8 % (11.6-14.6); RBC Distribution Width SD 48.5 fl (35.1-43.9); Red Blood Count 4.89 M/mm3 (4.2-5.4); White Blood Count 9.8 K/mm3 (4.4-11.0)
--- NOTE | 2022-12-23 12:45 | RAD_ITS ---
STUDY: X-RAY CHEST REASON FOR EXAM: Female, 57 years old. Dyspnea TECHNIQUE: AP and lateral views of the chest. COMPARISON: None. FINDINGS: EKG electrodes are seen. Focal infiltrate is seen in the posterior medial segment of the right lower lobe. Mild increased markings are also seen in the lateral aspect of the right upper lobe. Normal size heart. Normal mediastinum and joss. Normal visualized pulmonary arteries. Normal visualized aortic arch and descending thoracic aorta. Normal visualized thoracic spine. Normal visualized ribs, clavicles, and shoulders. There is no demonstrated abnormality of the visualized soft tissue structures of the upper abdomen. RAD/Chest PA and Lateral IMPRESSION: Focal infiltrate is seen in the posterior medial segment of the right lower lobe as well as in the right upper lobe. Electronically Signed: Usama Mcbride MD at 13:11 EST ,
[2022-12-23 12:49] LABS: Anion Gap 9 (5-15); BUN 12 mg/dL (7-18); BUN/Creat Ratio 14.7 RATIO (10-20); Calcium,Total 8.2 mg/dL (8.5-10.1); Chloride 106 mmol/L (98-107); Creatinine, Serum 0.82 mg/dL (0.55-1.02); EST Glomerular Filtration Rate 77 mL/min (>60); Est Glom Filt Rate - Afr Amer 93 mL/min (>60); Glucose 126 mg/dL (74-106); Potassium 3.8 mmol/L (3.5-5.1); Sodium Level 137 mmol/L (136-145); Troponin-I HS 5 pg/mL (3.0-54.0)
[2022-12-23 13:42] LABS: D-Dimer Quantitative (DVT/PE) 1.96 FEU/ug/m (0.27-0.49)
--- NOTE | 2022-12-23 13:47 | CT_ITS ---
STUDY: CTA CHEST REASON FOR EXAM: Female, 57 years old. Elevated D-dimer RADIATION DOSAGE (If Supplied By Facility): CTDIvol = ( 10.71 ) mGy, DLP = ( 401.47 ) mGycm TECHNIQUE: The examination was performed with the intravenous administration of IV 100mL [id number]-[id number]. Post-processing of the angiographic images was performed, with multiplanar reformation and 3D reconstruction. Individualized dose optimization techniques were used for this CT. COMPARISON: Comparison is made with prior chest radiograph done earlier today. FINDINGS: Normal enhancement of the main pulmonary artery and right and left pulmonary arteries. Normal enhancement of the bilateral peripheral pulmonary arteries. There is no demonstrated pulmonary embolism. Normal thoracic aorta and visualized great vessels. There is no demonstrated aortic dissection. Normal heart and pericardium. Normal mediastinum. Mildly enlarged right hilar lymph nodes. Normal visualized trachea and bronchi. The lungs are well expanded. Mild area of the infiltrate is seen in the right perihilar region. Patchy infiltrate and consolidation is seen in the right lower lobe. Mild increased markings in the left lower lobe. Tiny left pleural effusion. Normal pleura. Normal chest wall structures. Normal osseous structures. Small hiatal hernia. Findings suggestive of a tiny adenoma in the crux of the left adrenal gland. CT/CTA Chest W/WO Contrast IMPRESSION: No evidence of pulmonary embolism. Patchy infiltrates at the lung bases more prominent on the right side as well as focal right perihilar infiltrate. Mild enlargement of the right perihilar lymph nodes. Electronically Signed: Usama Mcbride MD at 15:14 EST ,
[2022-12-23 14:20] LABS: Lactic Acid 1.3 mmol/L (0.4-1.9)
--- NOTE | 2022-12-23 14:30 | HP.PCM.HOS_ITS ---
HPI - General General Date of Admission: 12/23/22 Date of Service: 12/23/22 Chief Complaint: Dyspnea, cough, hypoxia. HPI Narrative The patient is a 57 y/o F w/ PMHx: COPD, Obesity, Diabetes mellitus type II with chronic neuropathy and diabetic foot infections requiring amputations, Former tobacco use, HTN, HLD, Anxiety and Depression/Bipolar disorder/schizoaffective disorder, GERD, Dementia unclear type with unclear behavioral disturbance history who presents to the [facility] ED on 12/23/22 with history of progressively worsening dyspnea more pronounced over the last 24 hours with associated cough and chills that have been ongoing for the last 2 to 3 days with no marked sputum production worsened by attempts to lay flat or exertion with attempt for her evaluation of podiatry visit today however at her visit her pulse ox dropped into the 50s prompting transition to the ED for evaluation. In the ED patient's right sock is taken down to evaluate the TMA region and patient has guru necrotic appearance of the plantar aspect of her foot with 2 open wounds that are not currently draining anything but it is not well-appearing work-up in the ED included T97.9, heart rate 132, BP 156/121, respiratory rate 26, 100% on room air eventually transition to 2 L nasal cannula, CBC with WC 9.8, hemoglobin 13.6, platelet 157 with left shift, D-dimer 1.96, BMP with glucose 126 otherwise not marked appearing, troponin 5, SARS COVID and influenza antigen negative, chest x-ray with a focal infiltrate seen in the posterior medial segment of the right lower lobe as well as the right upper lobe, EKG with sinus tachycardia with no acute evidence of ischemia, blood culture x2 pending per ED, lactic acid 1.3, urinalysis pending per ED. In the ED patient ministered DuoNeb therapy as well as Levaquin 750 mg IV x1. CTA chest pending upon request evaluation of patient. Discussed with ED physician the appearance of the right foot and he noted an intention to obtain plain film of the right foot to be cautious. PFSH Medical History Anxiety and depression Bipolar disorder Chronic peripheral neuropathic pain COPD (chronic obstructive pulmonary disease) Dementia Diabetes mellitus, type 2 HLD (hyperlipidemia) HTN (hypertension) Obesity Schizoaffective disorder Tobacco use Home Medications acetaminophen 325 mg capsule 650 mg PO Q4H PRN Pain 1-10 Or Fever 01/21/21 [History Last Taken Unknown] albuterol sulfate 90 mcg/actuation aerosol inhaler 2 puff inhalation Q4H PRN Wheezing 01/21/21 [History Last Taken Unknown] atorvastatin 10 mg tablet 10 mg PO QHS CHOLESTEROL 01/21/21 [History Last Taken 12/22/22] benztropine 1 mg tablet 1.5 mg PO BID EPS 01/21/21 [History Last Taken 12/22/22] clozapine 200 mg tablet 200 mg PO BID BIPOLAR 12/09/22 [History Last Taken 12/22/22] linagliptin 5 mg tablet (Tradjenta) 5 mg PO DAILY DM 12/09/22 [History Last T aken 12/22/22] lisinopril 5 mg tablet 5 mg PO DAILY HTN 12/09/22 [History Last Taken 12/22/22] lorazepam 0.5 mg tablet (Ativan) 0.5 mg PO BID ANXIETY 12/09/22 [History Last Taken 12/22/22] potassium chloride 20 mEq tablet,extended release 20 meq PO DAILY 12/09/22 [History Last Taken 12/22/22] propranolol 10 mg tablet 10 mg PO BID HTN 12/09/22 [History Last Taken 12/22/22] carboxymethylcellulose sodium 1 % eye drops (Artificial Tears (carboxymethylcellulose)) 1 drp EACH EYE Q6H PRN Dry Eye(S) 12/23/22 [History Last Taken Unknown] cholecalciferol (vitamin D3) 1,250 mcg (50,000 unit) tablet 1,250 mcg PO MO SUPPLEMENT 12/23/22 [History Last Taken 12/20/22] clozapine 100 mg tablet 100 mg PO BID BIPOLAR 12/23/22 [History Last Taken 12/22/22] fluvoxamine 50 mg tablet 50 mg PO QHS ANXIETY 12/23/22 [History Last Taken 12/22/22] lamotrigine 25 mg tablet (Lamictal) 50 mg PO BID BIPOLAR 12/23/22 [History Last Taken 12/22/22] Allergy/AdvReac Type Severity Reaction Status Date / Time clindamycin Allergy PT UNSURE Verified 12/23/22 10:49 OF REACTION codeine Allergy PT UNSURE Verified 12/23/22 10:49 OF REACTION mirtazapine [From Remeron] Allergy PT UNSURE Verified 12/23/22 10:49 OF REACTION olanzapine [From Zyprexa] Allergy PT UNSURE Verified 12/23/22 10:49 OF REACTION Penicillins [PCN] Allergy PT UNSURE Verified 12/23/22 10:49 OF REACTION Family History (Updated 12/23/22 @ 14:[address] 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 alcohol intake: never substance use type: does not use ROS ROS Narrative Admission Review of Systems: CONSTITUTIONAL: No weight loss, fever, + chills, weakness or fatigue. HEENT: Eyes: No visual loss, blurred vision, double vision or yellow sclerae. Ears, Nose, Throat: No hearing loss, sneezing, congestion, runny nose or sore throat. SKIN: No rash or itching, lesions, wounds. CARDIOVASCULAR: No chest pain, chest pressure or chest discomfort, palpitations, edema, orthopnea, syncopal events. RESPIRATORY: + shortness of breath, cough without marked sputum, No wheezing, hemoptysis. GASTROINTESTINAL: + anorexia, nausea, No vomiting, diarrhea, abdominal pain, melena, BRBPR. GENITOURINARY: No dysuria, frequency, urgency or retention. NEUROLOGICAL: No headache, dizziness, syncope, paralysis, ataxia, numbness or tingling in the extremities, focal weakness, change in bowel or bladder control, seizure. MUSCULOSKELETAL: + muscle, back pain, joint pain or stiffness. HEMATOLOGIC: No anemia, bleeding or bruising. LYMPHATICS: No enlarged nodes. No history of splenectomy. PSYCHIATRIC: + history of depression or anxiety. ENDOCRINOLOGIC: + reports of sweating, cold or heat intolerance. No polyuria or polydipsia. ALLERGIES: No history of asthma, hives, eczema or rhinitis. Vital Signs Vital Signs Vital Signs: 12/23/22 10:45 12/23/22 10:49 12/23/22 11:35 Temperature 97.9 F 97.9 F Temperature Source Temporal Temporal Pulse Rate 132 H 129 H 128 H Respiratory Rate 26 H 24 H 30 H Respiratory Pattern Normal Blood Pressure 156/121 H 156/121 H Blood Pressure Mean 132 132 Pulse Ox 100 100 Oxygen Delivery Method Room Air Room Air Oxygen Flow Rate (L/min) 12/23/22 12:32 Temperature Temperature Source Pulse Rate Respiratory Rate Respiratory Pattern Blood Pressure Blood Pressure Mean Pulse Ox Oxygen Delivery Method Nasal Cannula Oxygen Flow Rate (L/min) 2 Weight Weight: 239 lb 10.279 oz Body Mass Index (BMI) 37.5 Physical Exam Narrative Physical Examination: General: Awake, alert, oriented to self, place and some recent events but does have significant underlying psychiatric history and dementia reported in her chart, remains cooperative, following some commands but difficult to re-orient, NAD. Skin: Normal color, normal turgor, no icterus, no cyanosis except for notable right plantar foot necrotic appearance with 2 open wounds with beefy red tissue underneath and no significant slough but serosanguineous drainage and foul- smelling. HEENT: AT/NC, EOMI, PERRLA, dry MM, no carotid bruits or JVD noted. Lungs: Significantly diminished, right greater than mid to base, mildly increased respiratory rate, no rales, rhonchi or wheezing Heart: Tachycardic with regular rhythm; no gallop, rub audible. Abdomen: Soft, obese NTTP, ND, distant normal BS, no obvious evidence of HSM however habitus makes evaluation difficult Extremities: No cyanosis, clubbing, see skin, status post right TMA with wound findings as noted above, status post left BKA with prosthetic in place Neurological: Patient awake, alert, oriented as noted, cognitive function decreased baseline, suspect she currently is at her; pupils equally reactive to light and accommodation, cranial nerves grossly normal, moving all 4 extremiti es, no focal deficits, strength moderately to severely global decrease secondary to acute presentation Psychiatric: Affect appears fatigued, restless, no acute evidence of depressive or anxiety feelings currently but does have significant underlying psychiatric history. Results Lab / Micro Data Result Diagrams: 12/23/22 12:10 12/23/22 12:10 Labs: Laboratory Results - last 24 hr 12/23/22 12:10: WBC 9.8, RBC 4.89, Hgb 13.6, Hct 43.8, MCV 89.6, MCH 27.8, MCHC 31.1 L, RDW Std Deviation 48.5 H, RDW Coeff of Dot 14.8 H, Plt Count 157, MPV 10.4, Immature Gran % (Auto) 0.600, Neut % (Auto) 83.4 H, Lymph % (Auto) 8.9 L, Davison % (Auto) 5.9, Eos % (Auto) 0.9, Baso % (Auto) 0.3, Absolute Neuts (auto) 8.2 H, Absolute Lymphs (auto) 0.87, Nucleated RBC % 0 12/23/22 12:10: Sodium 137, Potassium 3.8, Chloride 106, Carbon Dioxide 22.0, Anion Gap 9, BUN 12, Creatinine 0.82, Estim Creat Clear Calc 74.50, Est GFR (MDRD) Af Amer 93, Est GFR (MDRD) Non-Af 77, BUN/Creatinine Ratio 14.7, Glucose 126 H, Calcium 8.2 L, Troponin I High Sens 5 12/23/22 12:30: D-Dimer Quant (PE/DVT) Cancelled 12/23/22 13:05: D-Dimer Quant (PE/DVT) 1.96 H* 12/23/22 13:35: Lactic Acid 1.3 Micro: Microbiology 12/23/22 11:45 Nasal Secretion SARS-CoV-2 & FLU Antigen (Rapid) - Final Radiology Impression Chest X-Ray 12/23/22 12:45 IMPRESSION: Focal infiltrate is seen in the posterior medial segment of the right lower lobe as well as in the right upper lobe. Electronically Signed: Usama Mcbride MD at 13:11 EST Reading Location ID and State: [facility] / [place] , Service support , Assessment & Plan Assessment/Plan (1) Hypoxia: (2) Pneumonia: PLAN: Plan The patient is a 57 y/o F w/ PMHx: COPD, Obesity, Diabetes mellitus type II with chronic neuropathy and diabetic foot infections requiring amputations, Former tobacco use, HTN, HLD, Anxiety and Depression/Bipolar disorder/schizoaffective disorder, GERD, Dementia unclear type with unclear behavioral disturbance history who presents to the [facility] ED on 12/23/22 with history of progressively worsening dyspnea more pronounced over the last 24 hours with associated cough and chills that have been ongoing for the last 2 to 3 days with no marked sputum production worsened by attempts to lay flat or exertion with attempt for her evaluation of podiatry visit today however at her visit her pulse ox dropped into the 50s prompting transition to the ED for evaluation. #1. Right-sided lower and upper lobe pneumonia with elevated D-dimer: CXR in the ED w/ focal infiltrate seen in the posterior medial segment of the right lower lobe as well as the right upper lobe. Will admit to PCU given notable tachycardia associated, maintain on oxygen with wean as tolerated to room air, continue scheduled budesonide, PRN albuterol, maintained on IV Levaquin (with concurrent vanc and flagyl given R plantar foot appearance and wound x 2 with de-escalation if able pending podiatry evaluation) with MRSA screen requested, HOB, IS parameters w/ pending sputum cultures, full respiratory viral panel and urine antigens, given D-dimer elevation ED physician has ordered CTA of the chest but this is pending upon requesting evaluation patient. Bld cx x 2 obtained in the ED. #2. Right diabetic foot infection, necrotic appearing with 2 open wounds of the dorsal foot status post prior TMA: We will request podiatry evaluation with Dr. Young and of note patient was actually supposed to see her on current day of presentation but as noted in history was transition to the ED given hypoxia at their office, plain film is noted pending per ED, will obtain wound culture and wound MRSA culture if discharge noted, elevate right lower extremity, routine dressing care, wound RN consultation, will maintain on IV Levaquin, Flagyl and vancomycin given unclear penicillin reaction severity pending cultures if able to obtain, monitor erythema outline with VS checks. #3. Chronic COPD: Will maintain on oxygen with wean as tolerated to room air given acute presentation #1 as noted, maintain on scheduled budesonide given notable tachycardia, PRN albuterol, HOB, IS parameters. #4. Diabetes mellitus type II with chronic neuropathy and history of diabetic foot infections requiring prior amputations with acute presentation currently is noted #2: Patient status post prior right TMA as well as left BKA secondary to diabetic wounds, following with podiatry Dr. Hector at the wound care clinic with most recently noted visit 12/16/2022 however she was post to have a visit on day of current ED presentation but this was canceled given her ED visit. Will hold patient home Tradjenta oral regimen, maintain on ADA diet, accu checks w/ ISS, hemoglobin A1c requested given #2. #5. Anxiety and depression/bipolar disorder/schizoaffective disorder: We will continue patient home low-dose Ativan, Lamictal, fluvoxamine, clonazepam as well as benztropine Home regimen. #6. Dementia unclear type with unclear behavioral disturbance history: Not on any chronic regimen, complicates presentation, maintain on fall and aspiration precautions, therapies consulted as noted as well as case management. #7. Hypertension: Continue home regimen including propranolol, lisinopril, PRN hydralazine. #8. Hyperlipidemia: We will continue patient on statin therapy. #9. Obesity: Weight loss and lifestyle changes encouraged. #10. Former tobacco use: Encourage continued tobacco cessation. #11. DVT prophylaxis: SCDs, Lovenox. #12. CODE STATUS: DNR CCA, no intubation per facility paperwork. Admission Evaluation Time spent evaluating chart, patient history, patient evaluation, care planning and discussion with specialists:76 minutes. Charges/Coding Visit Charges Inpatient E&M: 30325 Init Hosp L3
--- NOTE | 2022-12-23 15:00 | RAD_ITS ---
STUDY: X-RAY - RIGHT FOOT CLINICAL: Female, 57 years old. Injury/Pain TECHNIQUE: 3 view(s) of the foot. COMPARISON: None. FINDINGS: Normal talus, calcaneus, and tarsal bones. Degenerative changes of the tarsometatarsal and tarsal joints. The patient is status post transmetatarsal amputation. Normal metatarsophalangeal joint of the great toe. Normal tibial and fibular sesamoid bones. Normal interphalangeal joint of the great toe. Normal phalanges of the great toe. Normal second through fifth metatarsophalangeal joints. Normal interphalangeal joints and phalanges of the lesser toes. Diffuse soft tissue swelling. There is a 1.6 cm x 0.7 cm soft tissue ulceration underlying the posterior aspect of the plantar surface of the calcaneus suggestive of ulceration. RAD/Foot min 3 Views IMPRESSION: Diffuse soft tissue swelling. Focal soft tissue ulceration underlying the posterior plantar aspect of the calcaneus. Status post transmetatarsal amputation. Electronically Signed: Usama Mcbride MD at 15:16 EST ,
--- NOTE | 2022-12-23 15:00 | NURSING ---
PCU WHITE PNEUMONIA, HYPOXIA
[2022-12-23] MEDS: levoFLOXacin IV 750 MG/150 ML BAG 100 MG IV (15:07)
[2022-12-23 15:45] LABS: Magnesium 2.3 mg/dL (1.6-2.6)
[2022-12-23] MEDS: 0.9% Normal Saline 1,000 ML 999 ML IV (16:43)
[2022-12-23 16:56] LABS: Bedside Glucose 172 mg/dL (74-106)
[2022-12-23] MEDS: 0.9% Saline Lock 10 ML Syringe IV (17:18)
[2022-12-23] MEDS: Insulin Lispro 100 UNIT/ML INSULN.PEN SC (17:24)
[2022-12-23] MEDS: Menthol/Lanolin/Calamine/Znox 113 GM Tube 1 APPLIC TOPICAL ×2 (17:26→21:18)
[2022-12-23] MEDS: 0.9% Normal Saline 1,000 ML 100 ML IV (17:47)
--- NOTE | 2022-12-23 17:54 | PCM.RX.CS ---
Consult Type of Consult: New start Prior Doses of Antibiotics Received/Current Regimen: Medications Vancomycin HCl 2,000 mg/ (Sodium Chloride) 540 mls @ 250 mls/hr IV X1 ONE Stop: 12/23/22 19:09 Last Admin: 12/23/22 17:19 Dose: 250 mls/hr Labs: Sodium 137 mmol/L (136-145) 12/23/22 12:10 Potassium 3.8 mmol/L (3.5-5.1) 12/23/22 12:10 Chloride 106 mmol/L (98-107) 12/23/22 12:10 Carbon Dioxide 22.0 mmol/L (21.0-32.0) 12/23/22 12:10 Anion Gap 9 (5-15) 12/23/22 12:10 BUN 12 mg/dL (7-18) 12/23/22 12:10 Creatinine 0.82 mg/dL (0.55-1.02) 12/23/22 12:10 Est GFR (MDRD) Af Amer 93 mL/min (>60) 12/23/22 12:10 Est GFR (MDRD) Non-Af 77 mL/min (>60) 12/23/22 12:10 BUN/Creatinine Ratio 14.7 RATIO (10-20) 12/23/22 12:10 Glucose 126 mg/dL (74-106) H 12/23/22 12:10 Microbiology: Microbiology 12/23/22 11:45 Nasal Secretion SARS-CoV-2 & FLU Antigen (Rapid) - Final Weight used for dosin kg Goal Trough: 15-20 mcg/mL Pharmacy Plan for Drug Dosinmg IV x1, 1500mg IV q12h with trough prior to 4th dose per policy Pharmacy Service will continue to monitor and adjust dosing as required. Follow-Up Labs: Trough Vancomycin - 12/25 @ 8604
[2022-12-23 19:35] LABS: M R Staph aureus DNA By PCR Negative (Negative); Probe Check PASS; Specimen Processing Control PASS; Staph aureus DNA By PCR POSITIVE (Negative)
[2022-12-23 19:38] LABS: M R Staph aureus DNA By PCR POSITIVE (Negative)
[2022-12-23 19:48] LABS: Mucous, Urine 0 SEEN /hpf (<or=2+); Red Blood Cells-Urine 0 SEEN /hpf (0-5); Squamous Epithelial Cells - UA 0 SEEN /hpf (5-10); White Blood Cells 0 SEEN /hpf (0-5)
[2022-12-23 19:52] LABS: Color, Urine Yellow (Yellow); Glucose, Dipstick Normal (Normal); Ketone-Dipstick Negative (Negative); Leukocyte Esterase-Dipstick 25 /ul (Negative); Nitrite-Dipstick Negative (Negative); Occult Blood-Urine Negative /ul (Negative); Protein-Dipstick Negative (Negative); Specific Gravity, Urine 1.005 (1.002-1.030); Urine Bilirubin Dipstick Negative (Negative); Urine Clarity Clear (Clear); Urine Urobilinogen Normal (Normal); Urine pH 6.5 (5.0 - 8.0)
[2022-12-23] MEDS: Budesonide Respules 0.5 MG/2 ML AMPUL.NEB. INHALATION (19:52)
[2022-12-23 20:05] LABS: Bacteria RARE /hpf (None Seen)
--- NOTE | 2022-12-23 20:38 | CON.PCM_ITS ---
Assessment & Plan Assessment/Plan (1) Amputation of left lower extremity below knee: (2) Decubitus ulcer of right heel, stage 2: (3) Ulcer of right foot with fat layer exposed: (4) Type 2 diabetes mellitus with diabetic polyneuropathy: (5) Type 2 diabetes mellitus with foot ulcer: (6) History of transmetatarsal amputation of right foot: (7) Other specified peripheral vascular diseases: (8) Malnutrition: (9) Delayed wound healing: PLAN: Plan Patient seen and evaluated Left lower extremity has undergone previous BKA amputation with prosthetic to assist ambulation. Right lower extremity has undergone previous transmetatarsal amputation. Patient was previously on Bactrim DS with oral antibiotic completed on 12/15/2022. She demonstrates 3 ulcerations to the plantar aspect of the right foot. Sub first metatarsal ulceration measures 3.4 cm x 3.1 cm x 0.1 cm; subfifth metatarsal ulceration measures 1.5 cm x 0.8 cm x 0.3 cm; right heel plantar ulceration measures 2.4 cm x 2.5 cm x 0.3 cm. Forefoot ulcerations are a Abel type I, plantar heel decubitus ulceration Abel type II. Vascular: LEAS was ordered during wound care visit on 12/16/2022. Interpretation of this study demonstrates triphasic Doppler waveforms noted at the ankle level on the right. Right indices PT 1.46, DP 1.31; left segmental index at low thigh 1.45. PVR satisfactory at low thigh bilaterally, and cath and ankle on the right. Resting right ankle BHANU is supranormal. No evidence of significant arterial occlusive disease in the lower extremity bilateral. There is evidence of arterial calcification at the ankle level on the right. Following verbal consent all 3 ulcerations previously noted above underwent sharp debrided utilizing a #3 curette to patient tolerance removing fibrous, devitalized subcutaneous, biofilm, slough. Debridement performed to the level of the healthy bleeding tissue and subcutaneous tissue. 100% of the ulceration sites were debrided. Hemostasis achieved utilizing pressure and gauze. Postdebridement was noted a healthy bleeding granular layer. Surrounding hyperkeratotic tissue also debrided utilizing a #15 blade. Patient tolerated the procedure well. No anesthetic was utilized during this procedure secondary to patient's diabetic peripheral polyneuropathy Infection: Wound cultures demonstrate positive Staph aureus protein A PCR and negative MRSA PCR. Blood cultures x2, awaiting results. Clinically she does not demonstrate any purulent drainage, no malodor, no palpable fluctuance/bogginess, no visible abscess to the plantar right foot. There is significant ecchymosis/subdermal bleeding below the skin secondary to pressure due to her utilizing this foot for propulsion in her wheelchair patient currently on IV Vanco/Flagyl and IV Levaquin. WBC currently 9.8 Dressing: Ulcerative sites painted with Betadine today and dressed with 4 x 4 gauze, Kerlix, ABD x2, and Alverto wrap rolled onto the foot. Recommend continued daily dressing changes with Dakin's wet to dry and ABD offloading padding. Imaging: Radiographs were obtained on 12/16/2022 and again today in ED 12/23/2022. Radiographs demonstrate diffuse soft tissue swelling, evidence of transmetatarsal amputation with diffuse osteopenia, no evidence of osteomyelitis. Recent hemoglobin A1c 5.7%. This was obtained at her nursing care facility on 12/14/2022. Also from these labs vitamin D noted to be 7.37, patient noted to be vitamin D deficient. Patient also has elevated D-dimer 1.96 It was previously discussed with her that she is high risk of undergoing BKA of the right lower extremity. Patient and her wearing apparel presser were aware of this discussion. Medicine team currently following for medical management, this is greatly appreciated Podiatry will continue to follow while in-house. Please do not hesitate to call for any questions or concerns Jr. Renaldo VenturaP.M. [facility] [phone] Note: [employer] speech recognition manager harbor software was used to create portions of this document. Sound-alike and misspelled words, as well as other manager harbor errors may be contained in the documentation. HPI Consult Data Date of Consult: 12/23/22 HPI Narrative Reason for Consultation: Right foot plantar diabetic foot ulceration HPI Narrative: JAY ARAUJO, is a 57 F who presents to the [facility] ED with dyspnea, cough, and hypoxia. Patient was seen in the wound care center this a.m. by myself. Upon presentation wearing apparel presser and nursing was concerned over her dyspnea and hypoxia and cyanosis of the lips. Patient was hooked up to pulse ox patient sat dropped into the 50s prompting transition to the ED for further evaluation. While in the wound center was on 6 L oxygen with increasing pulse ox. Upon presentation to the ED 12/23/22 it was noted that she had history of progressing dyspnea that had worsened and was more pronounced over the previous 24 hours associated with cough and chills with worsened attempts to lay flat. Patient had been treated in the wound care center by myself for plantar foot wounds of the right foot. Patient had previously undergone transmetatarsal amputation in May [address] Calvert. Patient also has history of BKA of the left lower extremity secondary to infection. Patient does wear prosthesis on the left, however ambulates mostly by assistance of wheelchair utilizing the right lower extremity for propulsion of the wheelchair. Patient also was noted when sitting in bed to bend the knee and push the right foot into the mattress creating pressure. Upon her presentation her foot does demonstrate ecchymosis about the wound margin con sistent with her pressure as well as hyperkeratosis about the ulcerative rims. She does have a total of 3 wounds to the plantar aspect of the foot. While in ED labs were obtained, radiographs of the right foot, chest x-ray, blood cultures x2 pending, lactic acid 1.3, D-dimer 1.96, wound culture. Patient was started on DuoNeb therapy as well as Levaquin 750 mg IV x1. She was consulted to podiatry for care of her chronic plantar right foot ulcerations. PFSH Medical History Anxiety and depression Bipolar disorder Chronic peripheral neuropathic pain COPD (chronic obstructive pulmonary disease) Dementia Diabetes mellitus, type 2 HLD (hyperlipidemia) HTN (hypertension) Obesity Schizoaffective disorder Tobacco use Home Medications acetaminophen 325 mg capsule 650 mg PO Q4H PRN Pain 1-10 Or Fever 01/21/21 [History Last Taken Unknown] albuterol sulfate 90 mcg/actuation aerosol inhaler 2 puff inhalation Q4H PRN Wheezing 01/21/21 [History Last Taken Unknown] atorvastatin 10 mg tablet 10 mg PO QHS CHOLESTEROL 01/21/21 [History Last Taken 12/22/22] benztropine 1 mg tablet 1.5 mg PO BID EPS 01/21/21 [History Last Taken 12/22/22] clozapine 200 mg tablet 200 mg PO BID BIPOLAR 12/09/22 [History Last Taken 12/22/22] linagliptin 5 mg tablet (Tradjenta) 5 mg PO DAILY DM 12/09/22 [History Last Taken 12/22/22] lisinopril 5 mg tablet 5 mg PO DAILY HTN 12/09/22 [History Last Taken 12/22/22] lorazepam 0.5 mg tablet (Ativan) 0.5 mg PO BID ANXIETY 12/09/22 [History Last Taken 12/22/22] potassium chloride 20 mEq tablet,extended release 20 meq PO DAILY 12/09/22 [History Last Taken 12/22/22] propranolol 10 mg tablet 10 mg PO BID HTN 12/09/22 [History Last Taken 12/22/22] carboxymethylcellulose sodium 1 % eye drops (Artificial Tears (carboxymethylcellulose)) 1 drp EACH EYE Q6H PRN Dry Eye(S) 12/23/22 [History Last Taken Unknown] cholecalciferol (vitamin D3) 1,250 mcg (50,000 unit) tablet 1,250 mcg PO MO SUPPLEMENT 12/23/22 [History Last Taken 12/20/22] clozapine 100 mg tablet 100 mg PO BID BIPOLAR 12/23/22 [History Last Taken 12/22/22] fluvoxamine 50 mg tablet 50 mg PO QHS ANXIETY 12/23/22 [History Last Taken 12/22/22] lamotrigine 25 mg tablet (Lamictal) 50 mg PO BID BIPOLAR 12/23/22 [History Last Taken 12/22/22] Allergy/AdvReac Type Severity Reaction Status Date / Time clindamycin Allergy PT UNSURE Verified 12/23/22 10:49 OF REACTION codeine Allergy PT UNSURE Verified 12/23/22 10:49 OF REACTION mirtazapine [From Remeron] Allergy PT UNSURE Verified 12/23/22 10:49 OF REACTION olanzapine [From Zyprexa] Allergy PT UNSURE Verified 12/23/22 10:49 OF REACTION Penicillins [PCN] Allergy PT UNSURE Verified 12/23/22 10:49 OF REACTION Family History (Updated 12/23/22 @ 14:[address] Wanda Yoder MD) Mother COPD (chronic obstructive pulmonary disease) Father COPD (chronic obstructive pulmonary disease) Surgical History Status post below-knee amputation of left lower extremity Status post transmetatarsal amputation of right foot Social History housing: intermediate Smoking Status: Former smoker how long ago did patient quit smoking: Smoked 1/4-1/2 ppd until quit, she reports ~ 6 months prior to current now. alcohol intake: never substance use type: does not use ROS Constitutional Constitutional: Denies body ache(s), chills, fatigue or fever(s) Eyes Eyes: Denies blindness, change in vision or eye pain ENT HEENT: Denies dental pain, dizziness or sore throat Cardiovascular Cardiovascular: Denies chest pain at rest, claudication, edema or leg edema Respiratory/Chest Respiratory/Chest: Reports cough and other Details: Shortness of breath ; Denies wheezing Gastrointestinal Gastrointestinal: Denies constipation, diarrhea, nausea or vomiting Genitourinary Genitourinary: Denies dysuria, urinary frequency, urinary hesitancy or urinary urgency Musculoskeletal Musculoskeletal: Denies joint pain, joint stiffness or joint swelling Integumentary Integumentary: Denies lesions, pruritus or rash Neurologic Neurologic: Denies dizziness, headache(s), numbness or tingling Psychiatric Psychiatric: Reports anxiety and depression Endocrine Endocrinology: Denies polydipsia, polyphagia or polyuria Allergic/Immunologic Allergic/Immunologic: Denies urticaria, eczemia or asthma Physical Exam Const alert and no apparent distress Constitutional Narrative: Patient is cooperative, awake, alert, and oriented to self and place however does have history of underlying psychiatric history and dementia reported in her chart and is difficult to reorient to command. General Appearance: cooperative HEENT normocephalic Eyes General Eye: normal appearance of both eyes Neck General: normal visual inspection Lymph Lymphatic: no lymphadenopathy noted and no lymphedema noted Resp normal respiratory effort Cardio regular rate and regular rhythm Extremity normal capillary refill, no joint enlargement, no calf tenderness and no pedal e bon Extremity Narrative: Right lower extremity: DP pulses palpable PT pulses palpable. Transmetatarsal amputation noted with distal stump ulcerations of first metatarsal base subfifth metatarsal base and plantar heel. Stump demonstrates adequate perfusion. Left lower extremity: BKA noted to the left lower extremity Musculoskeletal: Demonstrates decreased range of motion at the ankle joint less than 5 degrees as noted without pain or crepitus to the right lower extremity Skin no rashes or lesions noted, skin turgor normal and no jaundice Wound Narrative: Right lower extremity: 3 ulcerative sites noted to the plantar aspect of the right foot. Sub first metatarsal ulceration is noted with mixed fibrogranular layer; subfifth metatarsal ulceration noted with mixed fibrogranular layer; right plantar heel ulceration is noted with mixed fibrogranular layer. Ulcerative sites demonstrate serosanguineous drainage. No erythema, no purulent drainage, no malodor, no palpable fluctuance/bogginess, no visible abscess. Plantar aspect of the right foot about the ulcerative sites also demonstrates evidence of ecchymosis/subdermal bleeding secondary to excessive pressure to patient utilizing foot to aid in propulsion of her wheelchair Right forefoot ulcerations x2 Abel stage I Right plantar heel ulceration Abel stage II Neuro moves all extremities Lab / Micro Data Result Diagrams: 12/23/22 12:10 12/23/22 12:10 Labs: Laboratory Results - last 24 hr 12/23/22 12:10: WBC 9.8, RBC 4.89, Hgb 13.6, Hct 43.8, MCV 89.6, MCH 27.8, MCHC 31.1 L, RDW Std Deviation 48.5 H, RDW Coeff of Dot 14.8 H, Plt Count 157, MPV 10.4, Immature Gran % (Auto) 0.600, Neut % (Auto) 83.4 H, Lymph % (Auto) 8.9 L, [place] % (Auto) 5.9, Eos % (Auto) 0.9, Baso % (Auto) 0.3, Absolute Neuts (auto) 8.2 H, Absolute Lymphs (auto) 0.87, Nucleated RBC % 0 12/23/22 12:10: Sodium 137, Potassium 3.8, Chloride 106, Carbon Dioxide 22.0, Anion Gap 9, BUN 12, Creatinine 0.82, Estim Creat Clear Calc 74.50, Est GFR (MDRD) Af Amer 93, Est GFR (MDRD) Non-Af 77, BUN/Creatinine Ratio 14.7, Glucose 126 H, Calcium 8.2 L, Troponin I High Sens 5 12/23/22 12:10: Magnesium 2.3 12/23/22 12:30: D-Dimer Quant (PE/DVT) Cancelled 12/23/22 13:05: D-Dimer Quant (PE/DVT) 1.96 H* 12/23/22 13:35: Lactic Acid 1.3 12/23/22 16:35: POC Glucose 172 H 12/23/22 17:00: S.aureus Protein A PCR POSITIVE H, MRSA (PCR) POSITIVE H 12/23/22 17:00: MRSA (PCR) Negative 12/23/22 19:35: Urine Color Yellow, Urine Clarity Clear, Urine pH 6.5, Ur Specific [place] 1.005, Urine Protein Negative, Urine Glucose (UA) Normal, Urine Ketones Negative, Urine Occult Blood Negative, Urine Nitrite Negative, Urine Bilirubin Negative, Urine Urobilinogen Normal, Ur Leukocyte Esterase 25 H, Urine RBC 0 SEEN, Urine WBC 0 SEEN, Ur Squamous Epith Cells 0 SEEN, Urine Bacteria RARE, Urine Mucus 0 SEEN Micro: Microbiology 12/23/22 11:45 Nasal Secretion SARS-CoV-2 & FLU Antigen (Rapid) - Final Radiology Impression Chest X-Ray 12/23/22 12:45 IMPRESSION: Focal infiltrate is seen in the posterior medial segment of the right lower lobe as well as in the right upper lobe. Electronically Signed: Usama Mcbride MD at 13:11 EST , Chest CTA 12/23/22 13:47 IMPRESSION: No evidence of pulmonary embolism. Patchy infiltrates at the lung bases more prominent on the right side as well as focal right perihilar infiltrate. Mild enlargement of the right perihilar lymph nodes. Electronically Signed: Usama Mcbride MD at 15:14 EST , Foot X-Ray 12/23/22 15:00 IMPRESSION: Diffuse soft tissue swelling. Focal soft tissue ulceration underlying the posterior plantar aspect of the calcaneus. Status post transmetatarsal amputation. Electronically Signed: Usama Mcbride MD at 15:16 EST ,
[2022-12-23] MEDS: metroNIDAZOLE 500 MG/100 ML BAG 100 MG IV (21:03)
[2022-12-23] MEDS: LORazepam 0.5 MG Tablet PO (21:17)
[2022-12-23] MEDS: Benztropine Mesylate 0.5 MG TABLET 1.5 MG PO (21:18)
[2022-12-23] MEDS: lamoTRIgine 25 MG Tablet 50 MG PO (21:18)
[2022-12-23] MEDS: Propranolol 10 MG Tablet PO (21:18)
[2022-12-23] MEDS: fluvoxaMINE Maleate 50 MG Tablet PO (21:19)
[2022-12-23] MEDS: Nystatin Powder 15gm Bottle 1 APPLIC TOPICAL (21:19)
[2022-12-23] MEDS: Atorvastatin Calcium 10 MG Tablet PO (21:19)
[2022-12-23 22:11] LABS: Bedside Glucose 97 mg/dL (74-106)
[2022-12-24] VITALS (7 sets, daily range): BP systolic 97–148; BP diastolic 69–94; PULSE 88–95; RESP 16–20; TEMP 36.4–36.8; O2SAT 92–98
[2022-12-24] MEDS: 0.9% Normal Saline 1,000 ML 100 ML IV ×2 (04:17→14:28)
[2022-12-24] MEDS: metroNIDAZOLE 500 MG/100 ML BAG 100 MG IV ×3 (06:15→21:45)
[2022-12-24] MEDS: Nystatin Powder 15gm Bottle 1 APPLIC TOPICAL ×3 (06:24→21:44)
[2022-12-24 06:28] LABS: Absolute Lymphocyte Count 1.13 X10^3/uL (0.83-4.51); Absolute Neutrophil Count 3.7 X10^3/uL (2.0-7.7); Basophil# 0.01 X10^3/uL; Basophil% 0.2 % (0-1); Eosinophil# 0.08 X10^3/uL; Eosinophils% 1.5 % (0-5); Hematocrit 35.2 % (37-47); Hemoglobin 10.7 g/dL (12.0-15.0); Lymphocyte # 1.13 X10^3/ul (0.83-4.51); Lymphocyte % 20.7 % (19-41); Mean Corp Hgb Conc 30.4 g/dL (32-36); Mean Corpuscular Hgb 27.8 pg (27.0-32.0); Mean Corpuscular Volume 91.4 fL (81-99); Mean Platelet Vol. 10.7 fl (6.2-12.0); Monocyte# 0.47 X10^3/uL; Monocyte% 8.6 % (0-10); NRBC Flagged by Analyzer 0 % (0-5); Neutrophil # 3.74 X10^3/uL (2.7-7.7); Neutrophil % 68.5 % (47-70); Platelet Count 139 K/mm3 (150-450); RBC Distribution Width CV 14.9 % (11.6-14.6); RBC Distribution Width SD 49.7 fl (35.1-43.9); Red Blood Count 3.85 M/mm3 (4.2-5.4); White Blood Count 5.5 K/mm3 (4.4-11.0)
[2022-12-24 07:02] LABS: ALB/GLOB Ratio 0.6 RATIO (0.9-2.4); AST(SGOT) 20 U/L (15-37); Alanine Aminotransfer ALT/SGPT 21 U/L (13-56); Albumin, Serum 2.3 g/dL (3.2-5.0); Alkaline Phosphatase 103 U/L (45-117); Anion Gap 5 (5-15); BUN 9 mg/dL (7-18); BUN/Creat Ratio 14.6 RATIO (10-20); Calcium,Total 7.6 mg/dL (8.5-10.1); Chloride 112 mmol/L (98-107); Creatinine, Serum 0.62 mg/dL (0.55-1.02); EST Glomerular Filtration Rate 107 mL/min (>60); Est Glom Filt Rate - Afr Amer 129 mL/min (>60); Estimated Creatinine Clearance 98.53 ml/min; Globulin 3.7 g/dL (2.2-4.2); Glucose 115 mg/dL (74-106); Potassium 3.5 mmol/L (3.5-5.1); Sodium Level 143 mmol/L (136-145)
[2022-12-24] MEDS: Budesonide Respules 0.5 MG/2 ML AMPUL.NEB. INHALATION ×2 (07:02→20:04)
[2022-12-24 07:25] LABS: Bedside Glucose 104 mg/dL (74-106)
[2022-12-24 07:31] LABS: Hemoglobin A1c 5.4 % (3.8-5.6)
--- NOTE | 2022-12-24 07:59 | PN.HOSP_ITS ---
Reason for Visit Reason for Visit: Diagnoses Pneumonia, unspecified organism (12/23/22) Objective Data Objective Data Vital Signs: Vital Signs Temp Pulse Resp BP Pulse Ox O2 Del Method O2 Flow Rate 97.8 F 89 18 105/70 93 Room Air 2 12/24/22 06:11 12/24/22 06:11 12/24/22 06:11 12/24/22 06:11 12/24/22 06:11 12/24/22 06:11 12/23/22 17:50 Oxygen Flow Rate (L/min) 2 Oxygen Delivery Method Room Air Weight: 106.7 kg Body Mass Index (BMI) 35.9 Intake & Output: Intake and Output for Last 24 Hours 12/22/22 12/23/22 12/24/22 23:59 23:59 23:59 Intake Total 2029 / 2149 1360 / 1360 Output Total 1500 / 1500 Balance 2029 -140 / -140 Lab / Micro Data Result Diagrams: 12/24/22 05:45 12/24/22 05:45 Labs: Laboratory Results - last 24 hr 12/23/22 12:10: WBC 9.8, RBC 4.89, Hgb 13.6, Hct 43.8, MCV 89.6, MCH 27.8, MCHC 31.1 L, RDW Std Deviation 48.5 H, RDW Coeff of Dot 14.8 H, Plt Count 157, MPV 10.4, Immature Gran % (Auto) 0.600, Neut % (Auto) 83.4 H, Lymph % (Auto) 8.9 L, [place] % (Auto) 5.9, Eos % (Auto) 0.9, Baso % (Auto) 0.3, Absolute Neuts (auto) 8. 2 H, Absolute Lymphs (auto) 0.87, Nucleated RBC % 0 12/23/22 12:10: Sodium 137, Potassium 3.8, Chloride 106, Carbon Dioxide 22.0, Anion Gap 9, BUN 12, Creatinine 0.82, Estim Creat Clear Calc 74.50, Est GFR (MDRD) Af Amer 93, Est GFR (MDRD) Non-Af 77, BUN/Creatinine Ratio 14.7, Glucose 126 H, Calcium 8.2 L, Troponin I High Sens 5 12/23/22 12:10: Magnesium 2.3 12/23/22 12:30: D-Dimer Quant (PE/DVT) Cancelled 12/23/22 13:05: D-Dimer Quant (PE/DVT) 1.96 H* 12/23/22 13:35: Lactic Acid 1.3 12/23/22 16:35: POC Glucose 172 H 12/23/22 17:00: S.aureus Protein A PCR POSITIVE H, MRSA (PCR) POSITIVE H 12/23/22 17:00: MRSA (PCR) Negative 12/23/22 19:35: Urine Color Yellow, Urine Clarity Clear, Urine pH 6.5, Ur Specific [place] 1.005, Urine Protein Negative, Urine Glucose (UA) Normal, Urine Ketones Negative, Urine Occult Blood Negative, Urine Nitrite Negative, Urine Bilirubin Negative, Urine Urobilinogen Normal, Ur Leukocyte Esterase 25 H, Urine RBC 0 SEEN, Urine WBC 0 SEEN, Ur Squamous Epith Cells 0 SEEN, Urine Bacteria RARE, Urine Mucus 0 SEEN 12/23/22 21:13: POC Glucose 97 12/24/22 05:45: WBC 5.5, RBC 3.85 L, Hgb 10.7 L, Hct 35.2 L, MCV 91.4, MCH 27.8, MCHC 30.4 L, RDW Std Deviation 49.7 H, RDW Coeff of Dot 14.9 H, Plt Count 139 L, MPV 10.7, Immature Gran % (Auto) 0.500, Neut % (Auto) 68.5, Lymph % (Auto) 20.7, [place] % (Auto) 8.6, Eos % (Auto) 1.5, Baso % (Auto) 0.2, Absolute Neuts (auto) 3.7, Absolute Lymphs (auto) 1.13, Nucleated RBC % 0 12/24/22 05:45: Sodium 143, Potassium 3.5, Chloride 112 H, Carbon Dioxide 26.0, Anion Gap 5, BUN 9, Creatinine 0.62, Estim Creat Clear Calc 98.53, Est GFR (MDRD) Af Amer 129, Est GFR (MDRD) Non-Af 107, BUN/Creatinine Ratio 14.6, Glucose 115 H, Calcium 7.6 L, Total Bilirubin 0.40, AST 20, ALT 21, Alkaline Phosphatase 103, Total Protein 6.0 L, Albumin 2.3 L, Globulin 3.7, Albumin/Globulin Ratio 0.6 L 12/24/22 05:45: Hemoglobin A1c 5.4 12/24/22 06:26: POC Glucose 104 Micro: Microbiology 12/23/22 17:30 Mucosa - Nose Respiratory Panel (PCR) - Final 12/23/22 11:45 Nasal Secretion SARS-CoV-2 & FLU Antigen (Rapid) - Final Radiography Diagnostic Testing: Radiology Impression Chest X-Ray 12/23/22 12:45 IMPRESSION: Focal infiltrate is seen in the posterior medial segment of the right lower lobe as well as in the right upper lobe. Electronically Signed: Usama Mcbride MD at 13:11 EST , Chest CTA 12/23/22 13:47 IMPRESSION: No evidence of pulmonary embolism. Patchy infiltrates at the lung bases more prominent on the right side as well as focal right perihilar infiltrate. Mild enlargement of the right perihilar lymph nodes. Electronically Signed: Usama Mcbride MD at 15:14 EST , Foot X-Ray 12/23/22 15:00 IMPRESSION: Diffuse soft tissue swelling. Focal soft tissue ulceration underlying the posterior plantar aspect of the calcaneus. Status post transmetatarsal amputation. Electronically Signed: Usama Mcbride MD at 15:16 EST , Physical Exam Narrative GENERAL: cooperative HEENT: Atraumatic; normocephalic EYES; Anicteric, Normal Conjunctiva NECK; supple, normal thyroid, RESPIRATORY: Diminished to auscultation CARDIOVASCULAR: Regular S1 S2, GI: soft, normoactive bowel sounds, : No Renal angle tenderness; EXTREMITIES: Transmetatarsal amputation of the right foot, BKA close to the ankle left lower extremity MUSCULOSKELETAL: no muscle wasting NEURO: Awake; no lateralizing signs. SKIN: No Rash PSYCH; Flat affect Assessment & Plan Assessment/Plan (1) Hypoxia: (2) Pneumonia: PLAN: Plan Patient is a 57-year-old lady with past medical history single for diabetes mellitus type 2 with recurrent diabetic foot infections who was sent from the wound care center with cyanosis and hypoxia with oxygen saturation dropping to the 70s. Imaging studies obtained on admission demonstrated Patchy infiltrates at the lung bases more prominent on the right side as well as focal right perihilar infiltrate. 1. Pneumonia - Suspected to be secondary MDR's, Blood and sputum cultures sent. Patient placed on Levaquin and vancomycin, placed on oxygen titrated to keep Pulse Ox greater than 90 2. Right diabetic foot infection ? Patient started on broad-spectrum antibiotic therapy, consultation placed to Dr. Young podiatry. Flagyl was added to the above medications for patient's pneumonia. Patient underwent bedside debridement 3. COPD ? Patient is on budesonide as well as supplemental oxygen 4. Hypertension - Blood pressure controlled, home medications continued with dose adjustment as needed 5. Depression with anxiety ? Did continue with patient psychotropic medications 6. Diabetes mellitus type II -patient's oral hypoglycemics held. Placed on long acting insulin, Accu-Cheks a.c. and at bedtime and covered with sliding scale insulin 7. Class II obesity with BMI of 36.8 ? Weight loss advised 8. DVT prophylaxis ? SC Lovenox Time spent in the patient's overall evaluation,decision-making process, review of diagnostic data, adjustment of management, discussion with other providers, nursing nursing and ancillary staff involved in patient's care documentation, 56 Minutes Charges/Coding Visit Charges Inpatient E&M: 77593 [facility] L3
[2022-12-24] MEDS: LORazepam 0.5 MG Tablet PO ×2 (09:00→21:36)
[2022-12-24] MEDS: Benztropine Mesylate 0.5 MG TABLET 1.5 MG PO ×2 (09:00→21:45)
[2022-12-24] MEDS: Propranolol 10 MG Tablet PO ×2 (09:01→21:47)
[2022-12-24] MEDS: Menthol/Lanolin/Calamine/Znox 113 GM Tube 1 APPLIC TOPICAL ×4 (09:01→21:44)
[2022-12-24] MEDS: Potassium Chloride Oral Tablet 20 MEQ PO (09:01)
[2022-12-24] MEDS: lamoTRIgine 25 MG Tablet 50 MG PO ×2 (09:01→21:47)
[2022-12-24] MEDS: Lisinopril 5 MG Tablet PO (09:02)
[2022-12-24] MEDS: levoFLOXacin IV 750 MG/150 ML BAG 100 MG IV (09:05)
[2022-12-24] MEDS: Enoxaparin 40 MG/0.4 ML Syringe SC (09:13)
--- NOTE | 2022-12-24 09:54 | CASEMGMT ---
Addendum entered by Lory Rosado 12/24/22 16:44: Bree from [facility] said patient can return when ready. Plan: d/c back to [facility] under intermediate level of care. Lory CAMPBELL Original Note: Patient is from [facility]. SW contacted patient's legal guardian Shelly. SW confirmed the plan is for patient to return to [facility] at d/c. YARIEL sent updates to [facility] [employer]. Plan: d/c back to [facility] when medically ready. Lory CAMPBELL
[2022-12-24 11:45] LABS: Bedside Glucose 124 mg/dL (74-106)
[2022-12-24] MEDS: Senna/Docusate Sodium 1 Tablet 2 TABLET PO (11:46)
--- NOTE | 2022-12-24 13:38 | PN_ITS ---
Subjective Subjective Patient seen sitting up in bed resting. She denies any constitutional symptoms. Denies any further complaints. Nursing reports no acute overnight events. Objective Data Objective Data Vital Signs: Vital Signs Temp Pulse Resp BP Pulse Ox O2 Del Method O2 Flow Rate 97.9 F 94 18 108/77 98 Room Air 2 12/24/22 09:00 12/24/22 09:00 12/24/22 09:00 12/24/22 09:00 12/24/22 09:00 12/24/22 09:00 12/23/22 17:50 Oxygen Flow Rate (L/min) 2 Oxygen Delivery Method Room Air Weight: 106.7 kg Body Mass Index (BMI) 35.9 Intake & Output: Intake and Output for Last 24 Hours 12/22/22 12/23/22 12/24/22 23:59 23:59 23:59 Intake Total 2030 / 2150 2500 / 2500 Output Total 1950 / 1950 Balance 2029 / 1649 550 / 550 Lab / Micro Data Result Diagrams: 12/24/22 05:45 12/24/22 05:45 Labs: Laboratory Results - last 24 hr 12/23/22 12:10: Magnesium 2.3 12/23/22 13:05: D-Dimer Quant (PE/DVT) 1.96 H* 12/23/22 13:35: Lactic Acid 1.3 12/23/22 16:35: POC Glucose 172 H 12/23/22 17:00: S.aureus Protein A PCR POSITIVE H, MRSA (PCR) POSITIVE H 12/23/22 17:00: MRSA (PCR) Negative 12/23/22 19:35: Urine Color Yellow, Urine Clarity Clear, Urine pH 6.5, Ur Specific [place] 1.005, Urine Protein Negative, Urine Glucose (UA) Normal, Urine Ketones Negative, Urine Occult Blood Negative, Urine Nitrite Negative, Urine Bilirubin Negative, Urine Urobilinogen Normal, Ur Leukocyte Esterase 25 H, Urine RBC 0 SEEN, Urine WBC 0 SEEN, Ur Squamous Epith Cells 0 SEEN, Urine Bacteria RARE, Urine Mucus 0 SEEN 12/23/22 21:13: POC Glucose 97 12/24/22 05:45: WBC 5.5, RBC 3.85 L, Hgb 10.7 L, Hct 35.2 L, MCV 91.4, MCH 27.8, MCHC 30.4 L, RDW Std Deviation 49.7 H, RDW Coeff of Dot 14.9 H, Plt Count 139 L, MPV 10.7, Immature Gran % (Auto) 0.500, Neut % (Auto) 68.5, Lymph % (Auto) 20.7, [place] % (Auto) 8.6, Eos % (Auto) 1.5, Baso % (Auto) 0.2, Absolute Neuts (auto) 3.7, Absolute Lymphs (auto) 1.13, Nucleated RBC % 0 12/24/22 05:45: Sodium 143, Potassium 3.5, Chloride 112 H, Carbon Dioxide 26.0, Anion Gap 5, BUN 9, Creatinine 0.62, Estim Creat Clear Calc 98.53, Est GFR (MDRD) Af Amer 129, Est GFR (MDRD) Non-Af 107, BUN/Creatinine Ratio 14.6, Glucose 115 H, Calcium 7.6 L, Total Bilirubin 0.40, AST 20, ALT 21, Alkaline Phosphatase 103, Total Protein 6.0 L, Albumin 2.3 L, Globulin 3.7, Albumin/Globulin Ratio 0.6 L 12/24/22 05:45: Hemoglobin A1c 5.4 12/24/22 06:26: POC Glucose 104 12/24/22 11:21: POC Glucose 124 H Micro: Microbiology 12/23/22 17:00 Wound - Heel Right Gram Stain - Final 12/23/22 17:00 Wound - Heel Right Wound Culture - Preliminary Staphylococcus aureus 12/23/22 17:30 Mucosa - Nose Respiratory Panel (PCR) - Final 12/23/22 11:45 Nasal Secretion SARS-CoV-2 & FLU Antigen (Rapid) - Final Radiography Diagnostic Testing: Radiology Impression Chest CTA 12/23/22 13:47 IMPRESSION: No evidence of pulmonary embolism. Patchy infiltrates at the lung bases more prominent on the right side as well as focal right perihilar infiltrate. Mild enlargement of the right perihilar lymph nodes. Electronically Signed: Usama Mcbride MD at 15:14 EST , Foot X-Ray 12/23/22 15:00 IMPRESSION: Diffuse soft tissue swelling. Focal soft tissue ulceration underlying the posterior plantar aspect of the calcaneus. Status post transmetatarsal amputation. Electronically Signed: Usama Mcbride MD at 15:16 EST , Physical Exam Const alert and no apparent distress Constitutional Narrative: Patient is cooperative, awake, alert, and oriented to self and place however does have history of underlying psychiatric history and dementia reported in her chart and is difficult to reorient to command. General Appearance: cooperative HEENT normocephalic Eyes General Eye: normal appearance of both eyes Neck General: normal visual inspection Lymph Lymphatic: no lymphadenopathy noted and no lymphedema noted Resp normal respiratory effort Cardio regular rate and regular rhythm Extremity normal capillary refill, no joint enlargement, no calf tenderness and no pedal edema Extremity Narrative: Right lower extremity: DP pulses palpable PT pulses palpable. Transmetatarsal amputation noted with distal stump ulcerations of first metatarsal base subfifth metatarsal base and plantar heel. Stump demonstrates adequate perfusion. Left lower extremity: BKA noted to the left lower extremity Musculoskeletal: Demonstrates decreased range of motion at the ankle joint less than 5 degrees as noted without pain or crepitus to the right lower extremity Skin no rashes or lesions noted, skin turgor normal and no jaundice Wound Narrative: Right lower extremity: 3 ulcerative sites noted to the plantar aspect of the right foot. Sub first metatarsal ulceration is noted with mixed fibrogranular layer; subfifth metatarsal ulceration noted with mixed fibrogranular layer; right plantar heel ulceration is noted with mixed fibrogranular layer. Ulcerative sites demonstrate serosanguineous drainage. No erythema, no purulent drainage, no malodor, no palpable fluctuance/bogginess, no visible abscess. Plantar aspect of the right foot about the ulcerative sites also demonstrates evidence of ecchymosis/subdermal bleeding secondary to excessive pressure to patient utilizing foot to aid in propulsion of her wheelchair Post debridement 12/24/2022 wounds demonstrate healthy appearing granular layer Right forefoot ulcerations x2 Abel stage I Right plantar heel ulceration Abel stage II Neuro moves all extremities Assessment & Plan Assessment/Plan (1) Amputation of left lower extremity below knee: (2) Decubitus ulcer of right heel, stage 2: (3) Ulcer of right foot with fat layer exposed: (4) Type 2 diabetes mellitus with diabetic polyneuropathy: (5) Type 2 diabetes mellitus with foot ulcer: (6) History of transmetatarsal amputation of right foot: (7) Other specified peripheral vascular diseases: (8) Malnutrition: (9) Delayed wound healing: PLAN: Plan Patient seen and evaluated Left lower extremity has undergone previous BKA amputation with prosthetic to assist ambulation. Right lower extremity has undergone previous transmetatarsal amputation. Patient was previously on Bactrim DS with oral antibiotic completed on 12/15/2022. She demonstrates 3 ulcerations to the plantar aspect of the right foot. Sub first metatarsal ulceration measures 3.4 cm x 3.1 cm x 0.1 cm; subfifth metatarsal ulceration measures 1.5 cm x 0.8 cm x 0.3 cm; right heel plantar ulceration measures 2.4 cm x 2.5 cm x 0.3 cm. Forefoot ulcerations are a Abel type I, plantar heel decubitus ulceration Abel type II. Vascular: LEAS was ordered during wound care visit on 12/16/2022. Interpretation of this study demonstrates triphasic Doppler waveforms noted at the ankle level on the right. Right indices PT 1.46, DP 1.31; left segmental index at low thigh 1.45. PVR satisfactory at low thigh bilaterally, and cath and ankle on the right. Resting right ankle BHANU is supranormal. No evidence of significant arterial occlusive disease in the lower extremity bilateral. There is evidence of arterial calcification at the ankle level on the right. Patient underwent bedside debridement all Ulcerative sites on 12/23/2022. Infection: Wound cultures demonstrate positive Staph aureus protein A PCR and negative MRSA PCR. Blood cultures x2, awaiting results. Clinically she does not demonstrate any purulent drainage, no malodor, no palpable fluctuance/bogginess, no visible abscess to the plantar right foot. There is significant ecchymosis/subdermal bleeding below the skin secondary to pressure due to her utilizing this foot for propulsion in her wheelchair patient currently on IV Vanco/Flagyl and IV Levaquin. WBC was 9.8 trending down currently at 5.5 recommend continued IV antibiotics. Dressing: Ulcerative sites dressed with Dakin's wet to dry and dressed with Kerlix, ABD x2, and Alverto wrap rolled onto the foot. Recommend continued daily dressing changes with Dakin's wet to dry and ABD offloading padding. Imaging: Radiographs were obtained on 12/16/2022 and again today in ED 12/23/2022. Radiographs demonstrate diffuse soft tissue swelling, evidence of transmetatarsal amputation with diffuse osteopenia, no evidence of osteomyelitis. Recent hemoglobin A1c 5.7%. This was obtained at her nursing care facility on 12/14/2022. Also from these labs vitamin D noted to be 7.37, patient noted to be vitamin D deficient. Patient also has elevated D-dimer 1.96 It was previously discussed with her that she is high risk of undergoing BKA of the right lower extremity. 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 Medicine team currently following for medical management, this is greatly appreciated Podiatry will continue to follow while in-house. At this current time no surgical intervention is planned. Upon her discharge and return to her correction she will continue to follow-up with me in the wound care center. Please do not hesitate to call for any questions or concerns Jr. Marion Ventura.P.M. [facility] [place] [phone] Note: [employer] speech recognition septic tank installer software was used to create portions of this document. Sound-alike and misspelled words, as well as other septic tank installer errors may be contained in the documentation.
[2022-12-24 16:40] LABS: Bedside Glucose 86 mg/dL (74-106)
[2022-12-24] MEDS: Atorvastatin Calcium 10 MG Tablet PO (21:47)
[2022-12-24] MEDS: fluvoxaMINE Maleate 50 MG Tablet PO (21:47)
[2022-12-24 23:26] LABS: Bedside Glucose 113 mg/dL (74-106)
[2022-12-25] MEDS: 0.9% Normal Saline 1,000 ML 100 ML IV ×3 (00:19→17:22)
[2022-12-25] MEDS: DAKIN'S SOL HALF STRENGTH (=0.25%) 1 APPLIC TOPICAL (00:54)
[2022-12-25 03:30] VITALS: BP 131/83; PULSE 90; RESP 18; TEMP 36.6; O2SAT 98
[2022-12-25 04:33] LABS: Absolute Lymphocyte Count 0.95 X10^3/uL (0.83-4.51); Absolute Neutrophil Count 3.5 X10^3/uL (2.0-7.7); Basophil# 0.02 X10^3/uL; Basophil% 0.4 % (0-1); Eosinophil# 0.11 X10^3/uL; Eosinophils% 2.3 % (0-5); Hemoglobin 10.4 g/dL (12.0-15.0); Lymphocyte # 0.95 X10^3/ul (0.83-4.51); Lymphocyte % 19.5 % (19-41); Mean Corp Hgb Conc 28.9 g/dL (32-36); Mean Corpuscular Volume 96.8 fL (81-99); Mean Platelet Vol. 10.5 fl (6.2-12.0); Monocyte# 0.28 X10^3/uL; Monocyte% 5.7 % (0-10); NRBC Flagged by Analyzer 0 % (0-5); Neutrophil # 3.48 X10^3/uL (2.7-7.7); Neutrophil % 71.3 % (47-70); Platelet Count 146 K/mm3 (150-450); RBC Distribution Width CV 14.8 % (11.6-14.6); RBC Distribution Width SD 52.6 fl (35.1-43.9); Red Blood Count 3.72 M/mm3 (4.2-5.4); White Blood Count 4.9 K/mm3 (4.4-11.0)
[2022-12-25 04:55] LABS: Anion Gap 6 (5-15); BUN 7 mg/dL (7-18); BUN/Creat Ratio 11.9 RATIO (10-20); Chloride 118 mmol/L (98-107); Creatinine, Serum 0.59 mg/dL (0.55-1.02); EST Glomerular Filtration Rate 113 mL/min (>60); Est Glom Filt Rate - Afr Amer 137 mL/min (>60); Estimated Creatinine Clearance 103.54 ml/min; Glucose 133 mg/dL (74-106); Magnesium 2.2 mg/dL (1.6-2.6); Potassium 3.7 mmol/L (3.5-5.1); Sodium Level 148 mmol/L (136-145)
[2022-12-25 04:57] LABS: Vancomycin, Trough Level 17.4 ug/mL (5.0-15.0)
--- NOTE | 2022-12-25 05:18 | PCM.RX.CS ---
Consult Pharmacy has been consulted to manage selected antiobiotic: Vancomycin Type of Consult: Follow-up Labs: Sodium 148 mmol/L (136-145) H 12/25/22 04:20 Potassium 3.7 mmol/L (3.5-5.1) 12/25/22 04:20 Chloride 118 mmol/L (98-107) H 12/25/22 04:20 Carbon Dioxide 24.0 mmol/L (21.0-32.0) 12/25/22 04:20 Anion Gap 6 (5-15) 12/25/22 04:20 BUN 7 mg/dL (7-18) 12/25/22 04:20 Creatinine 0.59 mg/dL (0.55-1.02) 12/25/22 04:20 Est GFR (MDRD) Af Amer 137 mL/min (>60) 12/25/22 04:20 Est GFR (MDRD) Non-Af 113 mL/min (>60) 12/25/22 04:20 BUN/Creatinine Ratio 11.9 RATIO (10-20) 12/25/22 04:20 Glucose 133 mg/dL (74-106) H 12/25/22 04:20 Vancomycin Trough 17.4 ug/mL (5.0-15.0) H 12/25/22 04:20 Microbiology: Microbiology 12/23/22 15:00 Blood Culture (Wb) - Anticubital Right Bacteria Detection (PCR) - Preliminary Coag Negative Staph 12/23/22 15:00 Blood Culture (Wb) - Anticubital Right Blood Culture - Preliminary 12/23/22 19:35 Urine, Random Streptococcus pneumoniae Antigen (M - Final 12/23/22 19:35 Urine, Random Legionella Antigen - Final 12/23/22 17:00 Wound - Heel Right Gram Stain - Final 12/23/22 17:00 Wound - Heel Right Wound Culture - Preliminary Staphylococcus aureus 12/23/22 17:30 Mucosa - Nose Respiratory Panel (PCR) - Final 12/23/22 11:45 Nasal Secretion SARS-CoV-2 & FLU Antigen (Rapid) - Final Goal Trough: 15-20 mcg/mL Pharmacy Plan for Drug Dosing: Pharmacy Service will continue to monitor and adjust dosing as required. TROUGH 17.4 @ 11 HOURS. NO CHANGES FOLLOW UP TROUGH IN 2 DAYS Follow-Up Labs: Trough Vancomycin Labs to be done on [date and time ordered]: 2/13 @ 0533
[2022-12-25] MEDS: Nystatin Powder 15gm Bottle 1 APPLIC TOPICAL ×3 (05:28→22:06)
[2022-12-25] MEDS: metroNIDAZOLE 500 MG/100 ML BAG 100 MG IV ×3 (05:28→22:05)
[2022-12-25] MEDS: 0.9% Saline Lock 10 ML Syringe IV (05:34)
[2022-12-25 07:15] LABS: Bedside Glucose 114 mg/dL (74-106)
[2022-12-25 07:50] VITALS: PULSE 88; RESP 18; O2SAT 96
[2022-12-25] MEDS: Budesonide Respules 0.5 MG/2 ML AMPUL.NEB. INHALATION (07:50)
[2022-12-25 09:47] VITALS: BP 115/99; PULSE 83; RESP 16; TEMP 36.4; O2SAT 96
[2022-12-25] MEDS: Potassium Chloride Oral Tablet 20 MEQ PO (09:54)
[2022-12-25] MEDS: Benztropine Mesylate 0.5 MG TABLET 1.5 MG PO ×2 (09:54→22:05)
[2022-12-25] MEDS: Enoxaparin 40 MG/0.4 ML Syringe SC (09:54)
[2022-12-25] MEDS: lamoTRIgine 25 MG Tablet 50 MG PO ×2 (09:54→22:05)
[2022-12-25] MEDS: LORazepam 0.5 MG Tablet PO ×2 (09:54→22:05)
[2022-12-25] MEDS: Lisinopril 5 MG Tablet PO (09:54)
[2022-12-25] MEDS: Propranolol 10 MG Tablet PO ×2 (09:54→22:05)
[2022-12-25] MEDS: levoFLOXacin IV 750 MG/150 ML BAG 100 MG IV (10:06)
[2022-12-25] MEDS: Menthol/Lanolin/Calamine/Znox 113 GM Tube 1 APPLIC TOPICAL ×4 (10:14→22:06)
[2022-12-25] MEDS: guaiFENesin/D-Methorphan TAB.SR.12H 1 TABLET PO ×2 (11:40→22:05)
[2022-12-25] MEDS: Insulin Lispro 100 UNIT/ML INSULN.PEN SC (11:41)
[2022-12-25 12:05] LABS: Bedside Glucose 151 mg/dL (74-106)
--- NOTE | 2022-12-25 13:48 | PCM.PN.HOSP ---
Reason for Visit Reason for Visit: Diagnoses Type 2 diabetes mellitus with diabetic polyneuropathy (12/23/22) Type 2 diabetes mellitus with foot ulcer (12/23/22) Unspecified protein-calorie malnutrition (12/23/22) Other specified peripheral vascular diseases (12/23/22) Pneumonia, unspecified organism (12/23/22) Pressure ulcer of right heel, stage 2 (12/23/22) Non-pressure chronic ulcer of other part of unspecified foot with unspecified severity (12/23/22) Non-pressure chronic ulcer of other part of right foot with fat layer exposed (12/23/22) Hypoxemia (12/23/22) Complete traumatic amputation at level between knee and ankle, left lower leg, initial encounter (12/23/22) Other injury of unspecified body region, subsequent encounter (12/23/22) Acquired absence of right foot (12/23/22) Subjective Subjective Follow-up for right diabetic foot infection and pneumonia Objective Data Objective Data Vital Signs: Vital Signs Temp Pulse Resp BP Pulse Ox O2 Del Method O2 Flow Rate 97.6 F L 83 16 115/99 H 96 Room Air 2 12/25/22 09:47 12/25/22 09:47 12/25/22 09:47 12/25/22 09:47 12/25/22 09:47 12/25/22 10:00 12/23/22 17:50 Oxygen Flow Rate (L/min) 2 Oxygen Delivery Method Room Air Weight: 234 lb 2.095 oz Body Mass Index (BMI) 35.9 Intake & Output: Intake and Output for Last 24 Hours 12/23/22 12/24/22 12/25/22 23:59 23:59 23:59 Intake Total 2029 / 2149 4590 / 5843.33 3050.00 / 3050.00 Output Total 2950 / 4450 2700 / 2700 Balance 2029 / 1649 1640 / 1393.33 350.00 / 350.00 Lab / Micro Data Result Diagrams: 12/25/22 04:20 12/25/22 04:20 Labs: Laboratory Results - last 24 hr 12/24/22 16:19: POC Glucose 86 12/24/22 21:38: POC Glucose 113 H 12/25/22 04:20: Vancomycin Trough 17.4 H 12/25/22 04:20: WBC 4.9, RBC 3.72 L, Hgb 10.4 L, Hct 36.0 L, MCV 96.8 D, MCH 28.0, MCHC 28.9 L, RDW Std Deviation 52.6 H, RDW Coeff of Dot 14.8 H, Plt Count 146 L, MPV 10.5, Immature Gran % (Auto) 0.800, Neut % (Auto) 71.3 H, Lymph % (Auto) 19.5, [place] % (Auto) 5.7, Eos % (Auto) 2.3, Baso % (Auto) 0.4, Absolute Neuts (auto) 3.5, Absolute Lymphs (auto) 0.95, Nucleated RBC % 0 12/25/22 04:20: Sodium 148 H, Potassium 3.7, Chloride 118 H, Carbon Dioxide 24.0, Anion Gap 6, BUN 7, Creatinine 0.59, Estim Creat Clear Calc 103.54, Est GFR (MDRD) Af Amer 137, Est GFR (MDRD) Non-Af 113, BUN/Creatinine Ratio 11.9, Glucose 133 H, Calcium 8.0 L, Phosphorus 3.0, Magnesium 2.2 12/25/22 06:42: POC Glucose 114 H 12/25/22 11:37: POC Glucose 151 H Micro: Microbiology 12/24/22 15:15 Sputum, Expectorated/Coughed Respiratory Culture - Preliminary Appears to be normal respiratory selma. Further studies to follow. 12/25/22 04:20 Stool C. difficile DNA Amplification - Final 12/23/22 13:35 Blood Culture (Wb) - Left Wrist Blood Culture - Preliminary No growth in 48 hours. 12/23/22 15:00 Blood Culture (Wb) - Anticubital Right Bacteria Detection (PCR) - Final Coag Negative Staph 12/23/22 15:00 Blood Culture (Wb) - Anticubital Right Blood Culture - Preliminary Coag Negative Staph 12/23/22 19:35 Urine, Random Streptococcus pneumoniae Antigen (M - Final 12/23/22 19:35 Urine, Random Legionella Antigen - Final 12/23/22 17:00 Wound - Heel Right Gram Stain - Final 12/23/22 17:00 Wound - Heel Right Wound Culture - Preliminary Staphylococcus aureus 12/23/22 17:30 Mucosa - Nose Respiratory Panel (PCR) - Final 12/23/22 11:45 Nasal Secretion SARS-CoV-2 & FLU Antigen (Rapid) - Final Physical Exam Narrative Physical exam General: Awake, mild lethargy. Oriented HEENT: Atraumatic, PERRLA, EOMI, Normocephalic Oral: No Gingival or Mucosal Lesions/ Ulcerations Neck: Supple, No JVD, Negative Carotid Bruits Lungs: Air entry diminished in bilateral lung bases. No crepitation/rhonchi Cardiovascular: Regular rate, Regular Rhythm, Normal S1, Normal S2, No murmurs Abdomen: Bowel Sounds sluggish, Soft, Non Tender, Non-Distended : No renal angle tenderness. No suprapubic tenderness. Extremities: No edema, Capillary Refill Less than 3 Seconds Skin: No rashes, No breakdown Musculoskeletal: Left BKA at lower one third level. Right transmetatarsal amputation with distal stump ulceration of first metatarsal base, fifth metatarsal base and plantar heel. ROM limited. Neurological: Cranial nerves II-XII grossly intact, DTR 2+/4 and Symmetrical, Neuro grossly intact Psych/Mental Status: Flat affect, lethargy. Assessment & Plan Assessment/Plan (1) Hypoxia: (2) Pneumonia: PLAN: Plan Patient is a 57-year-old lady with past medical history single for diabetes mellitus type 2 with recurrent diabetic foot infections who was sent from the wound care center with cyanosis and hypoxia with oxygen saturation dropping to the 70s. Imaging studies obtained on admission demonstrated Patchy infiltrates at the lung bases more prominent on the right side as well as focal right perihilar infiltrate. 1. Right perihilar pneumonia suspected due to MDR organism:Chest CTA was done shows no evidence of pulmonary embolism. Patchy infiltrate at the lung bases more prominent on right side and focal right perihilar infiltrate. Mild enlargement of right perihilar lymph nodes. Preliminary blood culture shows coagulase-negative staph. Another blood culture negative. Urinary antigens are negative. Respiratory panel negative. SARS-CoV-2 and flu antigens are negative. Sputum culture preliminary shows normal respiratory selma. 2. Right diabetic foot infection ? Patient started on broad-spectrum antibiotic therapy, consultation placed to Dr. Young podiatry. Patient on vancomycin, Levaquin and Flagyl. Patient underwent bedside debridement 3. COPD ? Patient is on budesonide as well as supplemental oxygen 4. Hypertension - Blood pressure controlled, home medications continued with dose adjustment as needed 5. Depression with anxiety ? continue with patient psychotropic medications, clozapine 6. Diabetes mellitus type II -patient's oral hypoglycemics held. Placed on long acting insulin, Accu-Cheks a.c. and at bedtime and covered with sliding scale insulin 7. Class II obesity with BMI of 36.8 ? Weight loss advised 8. DVT prophylaxis ? SC Lovenox Patient also had loose watery bowel movement but C. difficile PCR is negative. No abdominal pain. Active Medications Acetaminophen (Acetaminophen 325 Mg Tablet) 650 mg PO Q4H PRN PRN PRN Reason: Fever, pain 1-08/23 Al Hydroxide/Mg Hydroxide (Mag Hydrox/Al Hydrox/Simeth 30 Ml Udc) 30 ml PO Q6H PRN PRN PRN Reason: Gastric Burning Albuterol Sulfate (Albuterol 2.5 Mg/3 Ml Vial.Neb.) 2.5 mg INHALATION Q2H PRN PRN PRN Reason: Dyspnea, wheezing Atorvastatin Calcium (Atorvastatin Calcium 10 Mg Tablet) 10 mg PO QHS [facility] Last Admin: 12/24/22 21:47 Dose: 10 mg Benztropine Mesylate (Benztropine Mesylate 0.5 Mg Tablet) 1.5 mg PO BID [facility] Last Admin: 12/25/22 09:54 Dose: 1.5 mg Budesonide (Budesonide Respules 0.5 Mg/2 Ml Ampul.Neb.) 0.5 mg INHALATION BID.RT [facility] Last Admin: 12/25/22 07:50 Dose: 0.5 mg Calamine/Phenol (Menthol/Lanolin/Calamine/Znox 113 Gm Tube) 1 applic TOPICAL 4X/DAY [facility]; Protocol Last Admin: 12/25/22 10:14 Dose: 1 applic Clozapine (Clozapine 100 Mg Tablet) 300 mg PO BID [facility] Last Admin: 12/25/22 09:54 Dose: 300 mg Enoxaparin Sodium (Enoxaparin 40 Mg/0.4 Ml Syringe) 40 mg SC DAILY [facility] Last Admin: 12/25/22 09:54 Dose: 40 mg Fluvoxamine Maleate (Fluvoxamine Maleate 50 Mg Tablet) 50 mg PO QHS [facility] Last Admin: 12/24/22 21:47 Dose: 50 mg Glycerin/Hypromellose/Polyethylene (Glycerin/Hypromellose/[id number] 15 Ml Bottle) 1 drp EACH EYE Q6H PRN PRN Reason: Dry Eye(S) Guaifenesin (Guaifenesin 10 Ml Udc (200mg/10ml)) 20 ml PO Q4H PRN PRN PRN Reason: COUGH Guaifenesin (Guaifenesin/D-Methorphan Tab.Sr.12h) 1 tablet PO BID [facility] Last Admin: 12/25/22 11:40 Dose: 1 tablet Hydralazine HCl (Hydralazine 20 Mg/Ml Vial) 10 mg IV Q4H PRN PRN PRN Reason: SBP > 160 Vancomycin IV-PHARMACY TO DOSE (1 each/ Sodium Chloride) 500 mls @ 250 mls/hr IV X1 PRN; Protocol PRN Reason: Rx to Dose Metronidazole (Flagyl) 500 mg in 100 mls @ 100 mls/hr IV Q8 [facility] Last Infusion: 12/25/22 06:45 Dose: Infused Levofloxacin (Levaquin Iv) 750 mg in 150 mls @ 100 mls/hr IV Q24 [facility] Last Admin: 12/25/22 10:06 Dose: 100 mls/hr Sodium Chloride () 1,000 mls @ 100 mls/hr IV .Q10H [facility] Last Admin: 12/25/22 09:59 Dose: 100 mls/hr Vancomycin HCl 1,500 mg/ (Sodium Chloride) 530 mls @ 250 mls/hr IV Q12H [facility] Last Infusion: 12/25/22 10:31 Dose: Infused Insulin Human Lispro (Insulin Lispro 100 Unit/Ml Insuln.Pen) 0 unit SC ACHS [facility]; Protocol Last Admin: 12/25/22 11:41 Dose: 1 u Lamotrigine (Lamotrigine 25 Mg Tablet) 50 mg PO BID [facility] Last Admin: 12/25/22 09:54 Dose: 50 mg Lisinopril (Lisinopril 5 Mg Tablet) 5 mg PO DAILY [facility] Last Admin: 12/25/22 09:54 Dose: 5 mg Lorazepam (Lorazepam 0.5 Mg Tablet) 0.5 mg PO BID [facility] Last Admin: 12/25/22 09:54 Dose: 0.5 mg Melatonin (Melatonin 3 Mg Tablet) 3 mg PO QHS PRN PRN PRN Reason: INSOMNIA Nystatin (Nystatin Powder 15gm Bottle) 1 applic TOPICAL TID [facility]; Protocol Last Admin: 12/25/22 05:28 Dose: 1 applic Ondansetron HCl (Ondansetron 4 Mg/2 Ml Vial) 4 mg IV Q8H PRN PRN PRN Reason: NAUSEA/VOMITING Potassium Chloride (Potassium Chloride Oral Tablet 20 Meq) 20 meq PO DAILY [facility] Last Admin: 12/25/22 09:54 Dose: 20 meq Prochlorperazine Edisylate (Prochlorperazine 10 Mg/2 Ml Vial) 5 mg IV Q4H PRN PRN PRN Reason: Breakthrough Nausea/Vomiting Propranolol HCl (Propranolol 10 Mg Tablet) 10 mg PO BID [facility] Last Admin: 12/25/22 09:54 Dose: 10 mg Senna/Docusate Sodium (Senna/Docusate Sodium 1 Tablet) 2 tablet PO BID PRN PRN PRN Reason: Constipation Last Admin: 12/24/22 11:46 Dose: 2 tablet Sodium Chloride (0.9% Saline Lock 10 Ml Syringe) 10 - 40 ml IV UD PRN PRN Reason: SALINE FLUSH Last Admin: 12/25/22 05:34 Dose: 10 ml Sodium Hypochlorite (Dakin's Terra Half Strength (=0.25%)) 1 applic TOPICAL BID [facility]; Protocol Last Admin: 12/25/22 00:54 Dose: 1 applic Charges/Coding Visit Charges Inpatient E&M: 02504 Subs Hosp L2
[2022-12-25 15:57] VITALS: BP 130/88; PULSE 83; RESP 16; TEMP 36.6; O2SAT 95
[2022-12-25 17:51] LABS: Bedside Glucose 75 mg/dL (74-106)
[2022-12-25 22:03] VITALS: BP 137/74; PULSE 92; RESP 18; TEMP 36.1; O2SAT 97
[2022-12-25] MEDS: fluvoxaMINE Maleate 50 MG Tablet PO (22:05)
[2022-12-25] MEDS: Atorvastatin Calcium 10 MG Tablet PO (22:06)
[2022-12-25 22:36] LABS: Bedside Glucose 126 mg/dL (74-106)
[2022-12-26 03:32] VITALS: BP 138/79; PULSE 81; RESP 18; TEMP 36.2; O2SAT 97
[2022-12-26] MEDS: DAKIN'S SOL HALF STRENGTH (=0.25%) 1 APPLIC TOPICAL ×2 (03:34→14:32)
[2022-12-26] MEDS: 0.9% Normal Saline 1,000 ML 100 ML IV (03:41)
[2022-12-26] MEDS: metroNIDAZOLE 500 MG/100 ML BAG 100 MG IV ×3 (05:43→20:53)
[2022-12-26] MEDS: Nystatin Powder 15gm Bottle 1 APPLIC TOPICAL ×3 (05:45→21:01)
[2022-12-26 06:27] LABS: Absolute Lymphocyte Count 0.98 X10^3/uL (0.83-4.51); Absolute Neutrophil Count 4.1 X10^3/uL (2.0-7.7); Basophil# 0.02 X10^3/uL; Basophil% 0.4 % (0-1); Eosinophil# 0.16 X10^3/uL; Eosinophils% 2.9 % (0-5); Hematocrit 33.4 % (37-47); Hemoglobin 10.3 g/dL (12.0-15.0); Lymphocyte # 0.98 X10^3/ul (0.83-4.51); Lymphocyte % 17.7 % (19-41); Mean Corp Hgb Conc 30.8 g/dL (32-36); Mean Corpuscular Hgb 27.8 pg (27.0-32.0); Mean Corpuscular Volume 90.3 fL (81-99); Mean Platelet Vol. 10.3 fl (6.2-12.0); Monocyte# 0.28 X10^3/uL; Monocyte% 5.1 % (0-10); NRBC Flagged by Analyzer 0 % (0-5); Neutrophil # 4.05 X10^3/uL (2.7-7.7); Neutrophil % 73.2 % (47-70); Platelet Count 161 K/mm3 (150-450); RBC Distribution Width CV 14.5 % (11.6-14.6); RBC Distribution Width SD 48.4 fl (35.1-43.9); White Blood Count 5.5 K/mm3 (4.4-11.0)
[2022-12-26 06:43] LABS: Anion Gap 4 (5-15); BUN 4 mg/dL (7-18); BUN/Creat Ratio 7.4 RATIO (10-20); Calcium,Total 7.7 mg/dL (8.5-10.1); Chloride 118 mmol/L (98-107); Creatinine, Serum 0.54 mg/dL (0.55-1.02); EST Glomerular Filtration Rate 124 mL/min (>60); Est Glom Filt Rate - Afr Amer 150 mL/min (>60); Estimated Creatinine Clearance 113.12 ml/min; Glucose 111 mg/dL (74-106); Potassium 3.5 mmol/L (3.5-5.1); Sodium Level 147 mmol/L (136-145)
[2022-12-26 06:51] LABS: Bedside Glucose 113 mg/dL (74-106)
[2022-12-26 07:50] VITALS: O2SAT 95
--- NOTE | 2022-12-26 08:29 | PN.HOSP_ITS ---
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 MRSA infection Objective Data Objective Data Vital Signs: Vital Signs Temp Pulse Resp BP Pulse Ox O2 Del Method O2 Flow Rate 97.1 F L 81 18 138/79 H 95 Room Air 2 12/26/22 03:32 12/26/22 03:32 12/26/22 03:32 12/26/22 03:32 12/26/22 07:50 12/26/22 07:50 12/23/22 17:50 Oxygen Flow Rate (L/min) 2 Oxygen Delivery Method Room Air Weight: 233 lb 7.512 oz Body Mass Index (BMI) 35.9 Intake & Output: Intake and Output for Last 24 Hours 12/24/22 12/25/22 12/26/22 23:59 23:59 23:59 Intake Total 4590 / 5843.33 5808.33 / 6048.33 1580 / 1580 Output Total 2950 / 4450 4200 / 5650 2250 / 2250 Balance 1640 / 1393.33 1608.33 / 398.33 -670 / -670 Lab / Micro Data Result Diagrams: 12/26/22 05:56 12/26/22 05:56 Labs: Laboratory Results - last 24 hr 12/25/22 11:37: POC Glucose 151 H 12/25/22 17:17: POC Glucose 75 12/25/22 22:09: POC Glucose 126 H 12/26/22 05:56: WBC 5.5, RBC 3.70 L, Hgb 10.3 L, Hct 33.4 L, MCV 90.3 D, MCH 27.8, MCHC 30.8 L D, RDW Std Deviation 48.4 H, RDW Coeff of Dot 14.5, Plt Count 161, MPV 10.3, Immature Gran % (Auto) 0.700, Neut % (Auto) 73.2 H, Lymph % (Auto) 17.7 L, [place] % (Auto) 5.1, Eos % (Auto) 2.9, Baso % (Auto) 0.4, Absolute Neuts (auto) 4.1, Absolute Lymphs (auto) 0.98, Nucleated RBC % 0 12/26/22 05:56: Sodium 147 H, Potassium 3.5, Chloride 118 H, Carbon Dioxide 25.0, Anion Gap 4 L, BUN 4 L, Creatinine 0.54 L, Estim Creat Clear Calc 113.12, Est GFR (MDRD) Af Amer 150, Est GFR (MDRD) Non-Af 124, BUN/Creatinine Ratio 7.4 L, Glucose 111 H, Calcium 7.7 L 12/26/22 06:30: POC Glucose 113 H Micro: Microbiology 12/23/22 17:00 Wound - Heel Right Gram Stain - Final 12/23/22 17:00 Wound - Heel Right Wound Culture - Preliminary Staphylococcus aureus 12/23/22 17:00 Wound - Heel Right Anaerobic Culture - Preliminary Checking for anaerobes, further studies to follow. 12/23/22 15:00 Blood Culture (Wb) - Anticubital Right Bacteria Detection (PCR) - Final Coag Negative Staph 12/23/22 15:00 Blood Culture (Wb) - Anticubital Right Blood Culture - Preliminary Coag Negative Staph 12/24/22 15:15 Sputum, Expectorated/Coughed Gram Stain - Final 12/24/22 15:15 Sputum, Expectorated/Coughed Respiratory Culture - Preliminary Appears to be normal respiratory selma. Further studies to follow. 12/25/22 04:20 Stool C. difficile DNA Amplification - Final 12/23/22 13:35 Blood Culture (Wb) - Left Wrist Blood Culture - Preliminary No growth in 48 hours. 12/23/22 19:35 Urine, Random Streptococcus pneumoniae Antigen (M - Final 12/23/22 19:35 Urine, Random Legionella Antigen - Final 12/23/22 17:30 Mucosa - Nose Respiratory Panel (PCR) - Final 12/23/22 11:45 Nasal Secretion SARS-CoV-2 & FLU Antigen (Rapid) - Final Physical Exam Narrative Patient is more awake and alert and interactive. Physical exam General: Awake, alert and oriented x3 HEENT: Atraumatic, PERRLA, EOMI, Normocephalic Oral: No Gingival or Mucosal Lesions/ Ulcerations Neck: Supple, No JVD, Negative Carotid Bruits Lungs: Air entry diminished in bilateral lung bases. No crepitation/rhonchi Cardiovascular: Regular rate, Regular Rhythm, Normal S1, Normal S2, No murmurs Abdomen: Bowel Sounds sluggish, Soft, Non Tender, Non-Distended : No renal angle tenderness. No suprapubic tenderness. Extremities: No edema, Capillary Refill Less than 3 Seconds Skin: No rashes, No breakdown Musculoskeletal: Left BKA at lower one third level. Right transmetatarsal amputation with distal stump ulceration of first metatarsal base, fifth metatarsal base and plantar heel. ROM limited. Neurological: Cranial nerves II-XII grossly intact, DTR 2+/4 and Symmetrical, Neuro grossly intact Psych/Mental Status: Flat affect, lethargy. Assessment & Plan Assessment/Plan (1) Hypoxia: (2) Pneumonia: PLAN: Plan Patient is a 57-year-old lady with past medical history single for diabetes mellitus type 2 with recurrent diabetic foot infections who was sent from the wound care center with cyanosis and hypoxia with oxygen saturation dropping to the 70s. Imaging studies obtained on admission demonstrated Patchy infiltrates at the lung bases more prominent on the right side as well as focal right perihilar infiltrate. 1. Right perihilar pneumonia suspected due to MDR organism:Chest CTA was done shows no evidence of pulmonary embolism. Patchy infiltrate at the lung bases more prominent on right side and focal right perihilar infiltrate. Mild enlargement of right perihilar lymph nodes. Preliminary blood culture shows coagulase-negative staph. Another blood culture negative. Urinary antigens are negative. Respiratory panel negative. SARS-CoV-2 and flu antigens are negative. Sputum culture preliminary shows normal respiratory selma. 2. Right diabetic foot infection ? Patient started on broad-spectrum antibiotic therapy, consultation placed to Dr. Young podiatry. Patient on vancomycin, Levaquin and Flagyl. Patient underwent bedside debridement 12/26: ID is consulted for tomorrow AM. Continue IV antibiotic. MRSA PCR negative but Staph aureus protein positive. 3. COPD ? Patient is on budesonide as well as supplemental oxygen 4. Hypertension - Blood pressure controlled, home medications continued with dose adjustment as needed 5. Depression with anxiety ? continue with patient psychotropic medications, clozapine 6. Diabetes mellitus type II -patient's oral hypoglycemics held. Placed on long acting insulin, Accu-Cheks a.c. and at bedtime and covered with sliding scale insulin 7. Class II obesity with BMI of 36.8 ? Weight loss advised 8. DVT prophylaxis ? SC Lovenox Patient also had loose watery bowel movement but C. difficile PCR is negative. No abdominal pain. Charges/Coding Visit Charges Inpatient E&M: 43913 Subs Hosp L2
[2022-12-26 09:17] VITALS: BP 138/81; PULSE 85; RESP 16; TEMP 36.6; O2SAT 95
[2022-12-26] MEDS: lamoTRIgine 25 MG Tablet 50 MG PO ×2 (09:19→21:04)
[2022-12-26] MEDS: Potassium Chloride Oral Tablet 20 MEQ PO (09:19)
[2022-12-26] MEDS: Propranolol 10 MG Tablet PO ×2 (09:19→21:06)
[2022-12-26] MEDS: Enoxaparin 40 MG/0.4 ML Syringe SC (09:19)
[2022-12-26] MEDS: Benztropine Mesylate 0.5 MG TABLET 1.5 MG PO ×2 (09:20→21:03)
[2022-12-26] MEDS: Lisinopril 5 MG Tablet PO (09:20)
[2022-12-26] MEDS: LORazepam 0.5 MG Tablet PO ×2 (09:20→21:00)
[2022-12-26] MEDS: guaiFENesin/D-Methorphan TAB.SR.12H 1 TABLET PO ×2 (09:20→21:06)
[2022-12-26] MEDS: levoFLOXacin IV 750 MG/150 ML BAG 100 MG IV (09:29)
[2022-12-26] MEDS: Menthol/Lanolin/Calamine/Znox 113 GM Tube 1 APPLIC TOPICAL ×4 (09:32→21:02)
[2022-12-26] MEDS: Insulin Lispro 100 UNIT/ML INSULN.PEN SC (11:38)
[2022-12-26 12:15] LABS: Bedside Glucose 162 mg/dL (74-106)
--- NOTE | 2022-12-26 13:11 | PN_ITS ---
Subjective Subjective Patient is seen resting in bed today eating lunch. She states she feels pretty good however does drift off topic at times. Denies any constitutional symptoms currently. Denies further complaints. Objective Data Objective Data Vital Signs: Vital Signs Temp Pulse Resp BP Pulse Ox O2 Del Method O2 Flow Rate 97.9 F 85 16 138/81 H 95 Room Air 2 12/26/22 09:17 12/26/22 09:17 12/26/22 09:17 12/26/22 09:17 12/26/22 09:17 12/26/22 09:17 12/23/22 17:50 Oxygen Flow Rate (L/min) 2 Oxygen Delivery Method Room Air Weight: 105.9 kg Body Mass Index (BMI) 35.9 Intake & Output: Intake and Output for Last 24 Hours 12/24/22 12/25/22 12/26/22 23:59 23:59 23:59 Intake Total 4590 / 5843.33 5808.33 / 6048.33 2795 / 2795 Output Total 2950 / 4450 4200 / 5650 2250 / 2250 Balance 1640 / 1393.33 1608.33 / 398.33 545 / 545 Lab / Micro Data Result Diagrams: 12/26/22 05:56 12/26/22 05:56 Labs: Laboratory Results - last 24 hr 12/25/22 17:17: POC Glucose 75 12/25/22 22:09: POC Glucose 126 H 12/26/22 05:56: WBC 5.5, RBC 3.70 L, Hgb 10.3 L, Hct 33.4 L, MCV 90.3 D, MCH 27.8, MCHC 30.8 L D, RDW Std Deviation 48.4 H, RDW Coeff of Dot 14.5, Plt Count 161, MPV 10.3, Immature Gran % (Auto) 0.700, Neut % (Auto) 73.2 H, Lymph % (Auto) 17.7 L, [place] % (Auto) 5.1, Eos % (Auto) 2.9, Baso % (Auto) 0.4, Absolute Neuts (auto) 4.1, Absolute Lymphs (auto) 0.98, Nucleated RBC % 0 12/26/22 05:56: Sodium 147 H, Potassium 3.5, Chloride 118 H, Carbon Dioxide 25.0, Anion Gap 4 L, BUN 4 L, Creatinine 0.54 L, Estim Creat Clear Calc 113.12, Est GFR (MDRD) Af Amer 150, Est GFR (MDRD) Non-Af 124, BUN/Creatinine Ratio 7.4 L, Glucose 111 H, Calcium 7.7 L 12/26/22 06:30: POC Glucose 113 H 12/26/22 11:37: POC Glucose 162 H Micro: Microbiology 12/24/22 15:15 Sputum, Expectorated/Coughed Gram Stain - Final 12/24/22 15:15 Sputum, Expectorated/Coughed Respiratory Culture - Final 12/23/22 17:00 Wound - Heel Right Gram Stain - Final 12/23/22 17:00 Wound - Heel Right Wound Culture - Preliminary Staphylococcus aureus 12/23/22 17:00 Wound - Heel Right Anaerobic Culture - Preliminary Checking for anaerobes, further studies to follow. 12/23/22 15:00 Blood Culture (Wb) - Anticubital Right Bacteria Detection (PCR) - Final Coag Negative Staph 12/23/22 15:00 Blood Culture (Wb) - Anticubital Right Blood Culture - Preliminary Coag Negative Staph 12/25/22 04:20 Stool C. difficile DNA Amplification - Final 12/23/22 13:35 Blood Culture (Wb) - Left Wrist Blood Culture - Preliminary No growth in 48 hours. 12/23/22 19:35 Urine, Random Streptococcus pneumoniae Antigen (M - Final 12/23/22 19:35 Urine, Random Legionella Antigen - Final 12/23/22 17:30 Mucosa - Nose Respiratory Panel (PCR) - Final 12/23/22 11:45 Nasal Secretion SARS-CoV-2 & FLU Antigen (Rapid) - Final Physical Exam Const alert and no apparent distress Constitutional Narrative: Patient is cooperative, awake, alert, and oriented to self and place however does have history of underlying psychiatric history and dementia reported in her chart and is difficult to reorient to command. General Appearance: cooperative HEENT normocephalic Eyes General Eye: normal appearance of both eyes Neck General: normal visual inspection Lymph Lymphatic: no lymphadenopathy noted and no lymphedema noted Resp normal respiratory effort Cardio regular rate and regular rhythm Extremity normal capillary refill, no joint enlargement, no calf tenderness and no pedal edema Extremity Narrative: Right lower extremity: DP pulses palpable PT pulses palpable. Transmetatarsal amputation noted with distal stump ulcerations of first metatarsal base subfifth metatarsal base and plantar heel. Stump demonstrates adequate perfusion. Left lower extremity: BKA noted to the left lower extremity Musculoskeletal: Demonstrates decreased range of motion at the ankle joint less than 5 degrees as noted without pain or crepitus to the right lower extremity Skin no rashes or lesions noted, skin turgor normal and no jaundice Wound Narrative: Right lower extremity: 3 ulcerative sites noted to the plantar aspect of the right foot. Sub first metatarsal ulceration is noted with mixed fibrogranular layer; subfifth metatarsal ulceration noted with mixed fibrogranular layer; right plantar heel ulceration is noted with mixed fibrogranular layer. Ulcerative sites demonstrate serosanguineous drainage. No erythema, no purulent drainage, no malodor, no palpable fluctuance/bogginess, no visible abscess. Plantar aspect of the right foot about the ulcerative sites also demonstrates evidence of ecchymosis/subdermal bleeding secondary to excessive pressure to patient utilizing foot to aid in propulsion of her wheelchair Post debridement 12/24/2022 wounds demonstrate healthy appearing granular layer Right forefoot ulcerations x2 Abel stage I Right plantar heel ulceration Abel stage II Neuro moves all extremities Assessment & Plan Assessment/Plan (1) Amputation of left lower extremity below knee: (2) Decubitus ulcer of right heel, stage 2: (3) Ulcer of right foot with fat layer exposed: (4) Type 2 diabetes mellitus with diabetic polyneuropathy: (5) Type 2 diabetes mellitus with foot ulcer: (6) History of transmetatarsal amputation of right foot: (7) Other specified peripheral vascular diseases: (8) Malnutrition: (9) Delayed wound healing: PLAN: Plan Patient seen and evaluated Left lower extremity has undergone previous BKA amputation with prosthetic to assist ambulation. Right lower extremity has undergone previous transmetatarsal amputation. Left BKA stump demonstrates some ecchymosis secondary to pressure from pr osthesis. Patient may need to undergo new fitting of prosthesis to prevent distal stump wounds. Patient was previously on Bactrim DS with oral antibiotic completed on 12/15/2022. She demonstrates 3 ulcerations to the plantar aspect of the right foot. Sub first metatarsal ulceration measures 3.4 cm x 3.1 cm x 0.1 cm; subfifth metatarsal ulceration measures 1.5 cm x 0.8 cm x 0.3 cm; right heel plantar ulceration measures 2.4 cm x 2.5 cm x 0.3 cm. Forefoot ulcerations are a Abel type I, plantar heel decubitus ulceration Abel type II. Vascular: LEAS was ordered during wound care visit on 12/16/2022. Interpretation of this study demonstrates triphasic Doppler waveforms noted at the ankle level on the right. Right indices PT 1.46, DP 1.31; left segmental index at low thigh 1.45. PVR satisfactory at low thigh bilaterally, and cath and ankle on the right. Resting right ankle BHANU is supranormal. No evidence of significant arterial occlusive disease in the lower extremity bilateral. There is evidence of arterial calcification at the ankle level on the right. Patient underwent bedside debridement all Ulcerative sites on 12/23/2022. Infection: Wound cultures demonstrate positive Staph aureus protein A PCR and negative MRSA PCR. Blood cultures x2, preliminary demonstrated coagulase- negative staph, however current blood cultures negative. Clinically she does not demonstrate any purulent drainage, no malodor, no palpable fluctuance/bogginess, no visible abscess to the plantar right foot. There is significant ecchymosis/subdermal bleeding below the skin secondary to pressure due to her utilizing this foot for propulsion in her wheelchair patient currently on IV Vanco/Flagyl and IV Levaquin. WBC currently at 5.5 recommend continued IV antibiotics. Dressing: Ulcerative sites dressed with Dakin's wet to dry and dressed with Kerlix, ABD x2, and Alverto wrap rolled onto the foot. Recommend continued daily dressing changes with Dakin's wet to dry and ABD offloading padding. Imaging: Radiographs were obtained on 12/16/2022 and again today in ED 12/23/2022. Radiographs demonstrate diffuse soft tissue swelling, evidence of transmetatarsal amputation with diffuse osteopenia, no evidence of osteomyelitis. Recent hemoglobin A1c 5.7%. This was obtained at her nursing care facility on 12/14/2022. Also from these labs vitamin D noted to be 7.37, patient noted to be vitamin D deficient. Recommend supplementation. Patient also has elevated D-dimer 1.96 It was previously discussed with her that she is high risk of undergoing BKA of the right lower extremity. 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 Medicine team currently following for medical management, this is greatly appreciated Podiatry will continue to follow while in-house. At this current time no surgical intervention is planned. Upon her discharge and return to her half-way she will continue to follow-up with me in the wound care center. Please do not hesitate to call for any questions or concerns Collin Young Jr. D.P.M. [facility] [phone] Note: [employer] speech recognition synchronizer software was used to create portions of this document. Sound-alike and misspelled words, as well as other synchronizer errors may be contained in the documentation.
[2022-12-26 15:48] VITALS: BP 127/75; PULSE 83; RESP 16; TEMP 36.7; O2SAT 95
[2022-12-26 17:36] LABS: Bedside Glucose 88 mg/dL (74-106)
[2022-12-26] MEDS: Budesonide Respules 0.5 MG/2 ML AMPUL.NEB. INHALATION (19:39)
[2022-12-26 19:40] VITALS: PULSE 84; RESP 18
[2022-12-26] MEDS: fluvoxaMINE Maleate 50 MG Tablet PO (21:06)
[2022-12-26] MEDS: Atorvastatin Calcium 10 MG Tablet PO (21:09)
[2022-12-26 21:48] VITALS: BP 140/88; PULSE 88; RESP 18; TEMP 36.6; O2SAT 95
[2022-12-27 01:11] LABS: Bedside Glucose 128 mg/dL (74-106)
[2022-12-27 03:00] VITALS: BP 140/90; PULSE 83; RESP 16; TEMP 36.2; O2SAT 94
[2022-12-27 04:51] LABS: Absolute Lymphocyte Count 0.99 X10^3/uL (0.83-4.51); Absolute Neutrophil Count 3.2 X10^3/uL (2.0-7.7); Basophil# 0.03 X10^3/uL; Basophil% 0.6 % (0-1); Eosinophil# 0.15 X10^3/uL; Eosinophils% 3.2 % (0-5); Hematocrit 36.9 % (37-47); Hemoglobin 10.7 g/dL (12.0-15.0); Lymphocyte # 0.99 X10^3/ul (0.83-4.51); Lymphocyte % 21.2 % (19-41); Mean Corpuscular Hgb 27.5 pg (27.0-32.0); Mean Corpuscular Volume 94.9 fL (81-99); Mean Platelet Vol. 10.3 fl (6.2-12.0); Monocyte# 0.27 X10^3/uL; Monocyte% 5.8 % (0-10); NRBC Flagged by Analyzer 0.4 % (0-5); Neutrophil # 3.16 X10^3/uL (2.7-7.7); Neutrophil % 67.9 % (47-70); POSITIVE COUNT YES; Platelet Count 176 K/mm3 (150-450); RBC Distribution Width CV 14.3 % (11.6-14.6); RBC Distribution Width SD 49.1 fl (35.1-43.9); Red Blood Count 3.89 M/mm3 (4.2-5.4); White Blood Count 4.7 K/mm3 (4.4-11.0)
[2022-12-27 04:55] LABS: Differential Indicated SCAN CRITERIA MET
[2022-12-27 05:12] LABS: Vancomycin, Trough Level 17.9 ug/mL (5.0-15.0)
[2022-12-27 05:16] LABS: Anion Gap 9 (5-15); BUN 6 mg/dL (7-18); BUN/Creat Ratio 9.3 RATIO (10-20); Calcium,Total 8.2 mg/dL (8.5-10.1); Chloride 114 mmol/L (98-107); Creatinine, Serum 0.65 mg/dL (0.55-1.02); EST Glomerular Filtration Rate 100 mL/min (>60); Est Glom Filt Rate - Afr Amer 122 mL/min (>60); Estimated Creatinine Clearance 93.98 ml/min; Glucose 137 mg/dL (74-106); Potassium 4.1 mmol/L (3.5-5.1); Sodium Level 146 mmol/L (136-145)
--- NOTE | 2022-12-27 05:41 | PCM.RX.CS ---
Consult Pharmacy has been consulted to manage selected antiobiotic: Vancomycin Type of Consult: Follow-up Labs: Sodium 146 mmol/L (136-145) H 12/27/22 04:39 Potassium 4.1 mmol/L (3.5-5.1) 12/27/22 04:39 Chloride 114 mmol/L (98-107) H 12/27/22 04:39 Carbon Dioxide 23.0 mmol/L (21.0-32.0) 12/27/22 04:39 Anion Gap 9 (5-15) 12/27/22 04:39 BUN 6 mg/dL (7-18) L 12/27/22 04:39 Creatinine 0.65 mg/dL (0.55-1.02) 12/27/22 04:39 Est GFR (MDRD) Af Amer 122 mL/min (>60) 12/27/22 04:39 Est GFR (MDRD) Non-Af 100 mL/min (>60) 12/27/22 04:39 BUN/Creatinine Ratio 9.3 RATIO (10-20) L 12/27/22 04:39 Glucose 137 mg/dL (74-106) H 12/27/22 04:39 Vancomycin Trough 17.9 ug/mL (5.0-15.0) H 12/27/22 04:39 Microbiology: Microbiology 12/24/22 15:15 Sputum, Expectorated/Coughed Gram Stain - Final 12/24/22 15:15 Sputum, Expectorated/Coughed Respiratory Culture - Final 12/23/22 17:00 Wound - Heel Right Gram Stain - Final 12/23/22 17:00 Wound - Heel Right Wound Culture - Preliminary Staphylococcus aureus 12/23/22 17:00 Wound - Heel Right Anaerobic Culture - Preliminary Checking for anaerobes, further studies to follow. 12/23/22 15:00 Blood Culture (Wb) - Anticubital Right Bacteria Detection (PCR) - Final Coag Negative Staph 12/23/22 15:00 Blood Culture (Wb) - Anticubital Right Blood Culture - Preliminary Coag Negative Staph 12/25/22 04:20 Stool C. difficile DNA Amplification - Final 12/23/22 13:35 Blood Culture (Wb) - Left Wrist Blood Culture - Preliminary No growth in 48 hours. 12/23/22 19:35 Urine, Random Streptococcus pneumoniae Antigen (M - Final 12/23/22 19:35 Urine, Random Legionella Antigen - Final 12/23/22 17:30 Mucosa - Nose Respiratory Panel (PCR) - Final 12/23/22 11:45 Nasal Secretion SARS-CoV-2 & FLU Antigen (Rapid) - Final Goal Trough: 15-20 mcg/mL Pharmacy Plan for Drug Dosing: Pharmacy Service will continue to monitor and adjust dosing as required. TROUGH 17.9 @ 11.5 HRS. NO CHANGES, FOLLOW UP TROUGH IN 4 DAYS Follow-Up Labs: Trough Vancomycin Labs to be done on [date and time ordered]: 12/31 @ 1487
[2022-12-27] MEDS: Nystatin Powder 15gm Bottle 1 APPLIC TOPICAL ×2 (05:45→14:45)
[2022-12-27 07:09] VITALS: PULSE 78; RESP 16; O2SAT 94
[2022-12-27] MEDS: Budesonide Respules 0.5 MG/2 ML AMPUL.NEB. INHALATION (07:09)
--- NOTE | 2022-12-27 07:16 | PCM.PROGNOTE ---
Subjective Subjective Patient was seen this morning for follow up on right foot ulcerations. She is resting in bed. No fever, and WBC normal. Objective Data Objective Data Vital Signs: Vital Signs Temp Pulse Resp BP Pulse Ox O2 Del Method O2 Flow Rate 97.2 F L 83 16 140/90 H 94 Room Air 2 12/27/22 03:00 12/27/22 03:00 12/27/22 03:00 12/27/22 03:00 12/27/22 03:00 12/27/22 03:00 12/23/22 17:50 Oxygen Flow Rate (L/min) 2 Oxygen Delivery Method Room Air Weight: 83.9 kg Body Mass Index (BMI) 35.9 Intake & Output: Intake and Output for Last 24 Hours 12/25/22 12/26/22 12/27/22 23:59 23:59 23:59 Intake Total 5808.33 / 6048.33 4875 / 4875 Output Total 4200 / 5650 4050 / 5050 1800 / 1800 Balance 1608.33 / 398.33 825 / -175 -1800 / -1800 Lab / Micro Data Result Diagrams: 12/27/22 04:39 12/27/22 04:39 Labs: Laboratory Results - last 24 hr 12/26/22 11:37: POC Glucose 162 H 12/26/22 17:03: POC Glucose 88 12/26/22 21:13: POC Glucose 128 H 12/27/22 04:39: Vancomycin Trough 17.9 H 12/27/22 04:39: WBC 4.7, RBC 3.89 L, Hgb 10.7 L, Hct 36.9 L, MCV 94.9 D, MCH 27.5, MCHC 29.0 L D, RDW Std Deviation 49.1 H, RDW Coeff of Dot 14.3, Plt Count 176, MPV 10.3, Immature Gran % (Auto) 1.300 H, Neut % (Auto) 67.9, Lymph % (Auto) 21.2, [place] % (Auto) 5.8, Eos % (Auto) 3.2, Baso % (Auto) 0.6, Absolute Neuts (auto) 3.2, Absolute Lymphs (auto) 0.99, Nucleated RBC % 0.4 12/27/22 04:39: Sodium 146 H, Potassium 4.1, Chloride 114 H, Carbon Dioxide 23.0, Anion Gap 9, BUN 6 L, Creatinine 0.65, Estim Creat Clear Calc 93.98, Est GFR (MDRD) Af Amer 122, Est GFR (MDRD) Non-Af 100, BUN/Creatinine Ratio 9.3 L, Glucose 137 H, Calcium 8.2 L Micro: Microbiology 12/23/22 17:00 Wound - Heel Right Gram Stain - Final 12/23/22 17:00 Wound - Heel Right Wound Culture - Final Meth. resistant Staph. aureus 12/23/22 17:00 Wound - Heel Right Anaerobic Culture - Preliminary Checking for anaerobes, further studies to follow. 12/24/22 15:15 Sputum, Expectorated/Coughed Gram Stain - Final 12/24/22 15:15 Sputum, Expectorated/Coughed Respiratory Culture - Final 12/23/22 15:00 Blood Culture (Wb) - Anticubital Right Bacteria Detection (PCR) - Final Coag Negative Staph 12/23/22 15:00 Blood Culture (Wb) - Anticubital Right Blood Culture - Preliminary Coag Negative Staph 12/25/22 04:20 Stool C. difficile DNA Amplification - Final 12/23/22 13:35 Blood Culture (Wb) - Left Wrist Blood Culture - Preliminary No growth in 48 hours. 12/23/22 19:35 Urine, Random Streptococcus pneumoniae Antigen (M - Final 12/23/22 19:35 Urine, Random Legionella Antigen - Final 12/23/22 17:30 Mucosa - Nose Respiratory Panel (PCR) - Final 12/23/22 11:45 Nasal Secretion SARS-CoV-2 & FLU Antigen (Rapid) - Final Physical Exam Const alert and no apparent distress Constitutional Narrative: Patient is cooperative, awake, alert, and oriented to self and place however does have history of underlying psychiatric history and dementia reported in her chart and is difficult to reorient to command. General Appearance: cooperative Extremity normal capillary refill, no joint enlargement, no calf tenderness and no pedal edema Extremity Narrative: Right lower extremity: DP pulses palpable PT pulses palpable. Transmetatarsal amputation noted with distal stump ulcerations of first metatarsal base subfifth metatarsal base and plantar heel - tissues are healthy and viable, no fluctuance, no maloder, no cellulitis, no crepitus - ulcers down to subcutaneous tissue. Stump demonstrates adequate perfusion. Left lower extremity: BKA noted to the left lower extremity Musculoskeletal: Demonstrates decreased range of motion at the ankle joint less than 5 degrees as noted without pain or crepitus to the right lower extremity Assessment & Plan Assessment/Plan (1) Amputation of left lower extremity below knee: (2) Decubitus ulcer of right heel, stage 2: (3) Ulcer of right foot with fat layer exposed: (4) Type 2 diabetes mellitus with diabetic polyneuropathy: (5) Type 2 diabetes mellitus with foot ulcer: (6) History of transmetatarsal amputation of right foot: (7) Other specified peripheral vascular diseases: (8) Malnutrition: (9) Delayed wound healing: PLAN: Plan Patient seen and evaluated Left lower extremity has undergone previous BKA amputation with prosthetic to assist ambulation. Right lower extremity has undergone previous transmetatarsal amputation. Left BKA stump demonstrates some ecchymosis secondary to pressure from prosthesis. Patient may need to undergo new fitting of prosthesis to prevent distal stump wounds. Patient was previously on Bactrim DS with oral antibiotic completed on 12/15/2022. She demonstrates 3 ulcerations to the plantar aspect of the right foot. Sub first metatarsal ulceration measures; subfifth metatarsal ulceration; right heel plantar ulceration measures. Forefoot ulcerations are a Abel type I, plantar heel decubitus ulceration Abel type II. Vascular: LEAS was ordered during wound care visit on 12/16/2022. Interpretation of this study demonstrates triphasic Doppler waveforms noted at the ankle level on the right. Right indices PT 1.46, DP 1.31; left segmental index at low thigh 1.45. PVR satisfactory at low thigh bilaterally, and cath and ankle on the right. Resting right ankle BHANU is supranormal. No evidence of significant arterial occlusive disease in the lower extremity bilateral. There is evidence of arterial calcification at the ankle level on the right. Patient underwent bedside debridement all Ulcerative sites on 12/23/2022. Infection: Wound cultures demonstrate positive Staph aureus protein A PCR and negative MRSA PCR. Blood cultures x2, preliminary demonstrated coagulase-negative staph, however current blood cultures negative. Clinically she does not demonstrate any purulent drainage, no malodor, no palpable fluctuance/bogginess, no visible abscess to the plantar right foot. There is significant ecchymosis/subdermal bleeding below the skin secondary to pressure due to her utilizing this foot for propulsion in her wheelchair patient currently on IV Vanco/Flagyl and IV Levaquin. WBC currently normal - recommend continued IV antibiotics. Dressing: Ulcerative sites dressed with Dakin's wet to dry and dressed with Kerlix, ABD x2, and Alverto wrap rolled onto the foot. Recommend continued daily dressing changes with Dakin's wet to dry and ABD offloading padding. Imaging: Radiographs were obtained on 12/16/2022 and again today in ED 12/23/2022. Radiographs demonstrate diffuse soft tissue swelling, evidence of transmetatarsal amputation with diffuse osteopenia, no evidence of osteomyelitis. Recent hemoglobin A1c 5.7%. This was obtained at her nursing care facility on 12/14/2022. Also from these labs vitamin D noted to be 7.37, patient noted to be vitamin D deficient. Recommend supplementation. It was previously discussed with her that she is high risk of undergoing BKA of the right lower extremity. Patient and her family member caretaker were aware of this discussion. Medicine team currently following for medical management, this is greatly appreciated Podiatry will continue to follow while in-house. At this current time no surgical intervention is planned. Upon her discharge and return to her shelter she will continue to follow-up with me in the wound care center. Please do not hesitate to call for any questions or concerns.
[2022-12-27] MEDS: DAKIN'S SOL HALF STRENGTH (=0.25%) 1 APPLIC TOPICAL (07:38)
[2022-12-27 08:43] VITALS: BP 132/86; PULSE 93; RESP 16; TEMP 36.3; O2SAT 94
[2022-12-27] MEDS: LORazepam 0.5 MG Tablet PO (08:47)
[2022-12-27] MEDS: metroNIDAZOLE 500 MG/100 ML BAG 100 MG IV (08:47)
[2022-12-27] MEDS: Propranolol 10 MG Tablet PO (08:51)
[2022-12-27] MEDS: guaiFENesin/D-Methorphan TAB.SR.12H 1 TABLET PO (08:51)
[2022-12-27] MEDS: Potassium Chloride Oral Tablet 20 MEQ PO (08:51)
[2022-12-27] MEDS: Lisinopril 5 MG Tablet PO (08:51)
[2022-12-27] MEDS: Enoxaparin 40 MG/0.4 ML Syringe SC (08:51)
[2022-12-27] MEDS: lamoTRIgine 25 MG Tablet 50 MG PO (08:52)
[2022-12-27] MEDS: Menthol/Lanolin/Calamine/Znox 113 GM Tube 1 APPLIC TOPICAL ×2 (08:52→14:45)
[2022-12-27] MEDS: Benztropine Mesylate 0.5 MG TABLET 1.5 MG PO (08:52)
--- NOTE | 2022-12-27 09:09 | TREXTCAR_ITS ---
Diet Diet Order/Speech Therapy: 12/24/22 11:39 Diet: Carbohydrate Controlled Food consistency:: Easy to Chew Liquid Consistency:: Regular/Thin Type of Dietary Supplement:: Sandoval Is pt able to select menu?: No Diet Comments: w/ breakfast and dinner Routine Orders/Code Status Suppository Type: Dulcolax 10mg Suppository Frequency: Daily PRN Code Status: DNRCC-A (No intubation) Wound(s) Right heel: Wound Type: Neuropathic/Diabetic Foot Ulcer Right plantar foot: Wound Type: Neuropathic/Diabetic Foot Ulcer Therapies Physical Therapy: Eval and Treat Occupational Therapy: Eval and Treat Speech Therapy: Eval and Treat Problem/Diagnosis (1) Amputation of left lower extremity below knee: Status: Chronic Code(s): S88.112A - Complete traumatic amputation at level between knee and ankle, left lower leg, initial encounter (2) Decubitus ulcer of right heel, stage 2: Status: Acute Code(s): L89.612 - Pressure ulcer of right heel, stage 2 (3) Ulcer of right foot with fat layer exposed: Status: Chronic Code(s): L97.512 - Non-pressure chronic ulcer of other part of right foot with fat layer exposed (4) Type 2 diabetes mellitus with diabetic polyneuropathy: Status: Chronic Code(s): E11.42 - Type 2 diabetes mellitus with diabetic polyneuropathy (5) Type 2 diabetes mellitus with foot ulcer: Status: Acute Code(s): E11.621 - Type 2 diabetes mellitus with foot ulcer; L97.509 - Non-pressure chronic ulcer of other part of unspecified foot with unspecified severity (6) History of transmetatarsal amputation of right foot: Status: Acute Code(s): Z89.431 - Acquired absence of right foot (7) Other specified peripheral vascular diseases: Status: Suspected Code(s): I73.89 - Other specified peripheral vascular diseases (8) Malnutrition: Status: Chronic Code(s): E46 - Unspecified protein-calorie malnutrition (9) Delayed wound healing: Status: Chronic Code(s): T14.8XXD - Other injury of unspecified body region, subsequent encounter Plan Patient is a 57-year-old lady with past medical history single for diabetes mellitus type 2 with recurrent diabetic foot infections who was sent from the wound care center with cyanosis and hypoxia with oxygen saturation dropping to the 70s. Imaging studies obtained on admission demonstrated Patchy infiltrates at the lung bases more prominent on the right side as well as focal right perihilar infiltrate. 1. Right perihilar pneumonia suspected due to MDR organism:Chest CTA was done shows no evidence of pulmonary embolism. Patchy infiltrate at the lung bases more prominent on right side and focal right perihilar infiltrate. Mild enlargement of right perihilar lymph nodes. Preliminary blood culture shows coagulase-negative staph. Another blood culture negative. Urinary antigens are negative. Respiratory panel negative. SARS-CoV-2 and flu antigens are negative. Sputum culture preliminary shows normal respiratory selma. 2. Right diabetic foot infection ? Patient started on broad-spectrum antibiotic therapy, consultation placed to Dr. Young podiatry. Patient on vancomycin, Levaquin and Flagyl. Patient underwent bedside debridement 12/26: ID is consulted for tomorrow AM. Continue IV antibiotic. MRSA PCR ne gative but Staph aureus protein positive. 3. COPD ? Patient is on budesonide as well as supplemental oxygen 4. Hypertension - Blood pressure controlled, home medications continued with dose adjustment as needed 5. Depression with anxiety ? continue with patient psychotropic medications, clozapine 6. Diabetes mellitus type II -patient's oral hypoglycemics held. Placed on long acting insulin, Accu-Cheks a.c. and at bedtime and covered with sliding scale insulin 7. Class II obesity with BMI of 36.8 ? Weight loss advised 8. DVT prophylaxis ? SC Lovenox Patient also had loose watery bowel movement but C. difficile PCR is negative. No abdominal pain. Allergies/Procedures Done in Hospital Allergies clindamycin Allergy (Verified 12/23/22 10:49) PT UNSURE OF REACTION codeine Allergy (Verified 12/23/22 10:49) PT UNSURE OF REACTION mirtazapine [From Remeron] Allergy (Verified 12/23/22 10:49) PT UNSURE OF REACTION olanzapine [From Zyprexa] Allergy (Verified 12/23/22 10:49) PT UNSURE OF REACTION Penicillins [PCN] Allergy (Verified 12/23/22 10:49) PT UNSURE OF REACTION Type of Care/Length of Stay Estimated LOS: More Than 30 Days Type of Care Needed: Intermediate Rehab Potential: Poor Prognosis: Poor Additional Orders/Day of Discharge Day of Discharge: 12/27/22 Dietary and Speech Recommendations Dietitian Recommendations/Changes: will adjust diet to CHO controlled, Sandoval BID w/ breakfast and dinner Discharge Plan Admission Admit Date/Time: 12/23/22 15:07 Primary Reason for Your Visit: Polymicrobial diabetic foot infection with pneumonia Attending Provider: Richard Hernandez Primary Care Provider: Paddy Ba Consulting Providers: Collin Young ; Wanda Yoder ; Javy Coffman ; Willi Roque Discharge Orders/Prescriptions Prescriptions: New Mucinex DM 30-600 mg Tablet Extended Release 12 Hr 1 tab PO BID 7 Days Qty: 14 0RF HySept 0.25 % Solution 1 applic topical BID Qty: 0 0RF Protocol: *Topical Application Instructions APPLICATION INSTRUCTIONS: Apply to right foot with dressing changes Rx Instructions: For wound dressing menthol-zinc oxide [Calmoseptine] 0.44-20.6 % Ointment 1 applic topical 4X/DAY Qty: 0 0RF Protocol: *Topical Application Instructions APPLICATION INSTRUCTIONS: apply to affected region Rx Instructions: For 7 days Continued atorvastatin 10 MG tablet 10 mg PO QHS benztropine 1 MG tablet 1.5 mg PO BID albuterol sulfate 1 PUFF inhaler 2 puff INHALATION Q4H PRN (Reason: Wheezing) acetaminophen 325 MG capsule 650 mg PO Q4H PRN (Reason: Pain 1-10 Or Fever) propranolol 10 mg Tablet 10 mg PO BID lorazepam [Ativan] 0.5 mg Tablet 0.5 mg PO BID lisinopril 5 mg Tablet 5 mg PO DAILY clozapine 200 mg Tablet 200 mg PO BID Tradjenta 5 mg Tablet 5 mg PO DAILY potassium chloride 20 mEq Tablet Extended Release 20 meq PO DAILY clozapine 100 mg Tablet 100 mg PO BID lamotrigine [Lamictal] 25 mg Tablet 50 mg PO BID fluvoxamine 50 mg Tablet 50 mg PO QHS cholecalciferol (vitamin D3) 1,250 mcg (50,000 unit) Tablet 1,250 mcg PO MO Artificial Tears (cmc) 1 % Drops 1 drp EACH EYE Q6H PRN (Reason: Dry Eye(S)) Referrals / Follow Up: Paddy Ba MD [Primary Care Provider] - Collin Young DPM [Med Staff - Active Staff] - Within 2 Weeks Willi Roque MD [Med Staff - Active Staff] - Within 1 Month Disposition Disposition (needs filled in before D/C Order can be placed): [facility]
--- NOTE | 2022-12-27 09:14 | DS.PCM_ITS ---
Providers Date of Admission: 12/23/22 Date of Discharge: 12/27/22 Primary Care Physician: Dr. Paddy Ba MD Consultations 12/23/22 15:57 Consult: Podiatry Routine Consulting Provider: Collin Young Reason for Consult: Diabetic foot wound EMERGENT Consult: No MD Notified: Yes Date Notified: 12/23/22 Time Notified: 15:11 Method of Notification: Verbal 12/26/22 09:35 Consult: Onc/Wound/human service worker Routine Comment: Reason for Consult:: RLE 12/26/22 09:45 Consult: Infectious Disease Routine Consulting Provider: Willi Roque Reason for Consult: mrsa right diabetic foot, polymicrobial infection EMERGENT Consult: No MD Notified: Yes Date Notified: 12/26/22 Time Notified: 09:45 Method of Notification: Text Reason For Visit: HYPOXIA /PNA / DIABETIC FOOT WOUND Diagnosis Discharge Diagnosis (1) Amputation of left lower extremity below knee: Status: Chronic Code(s): S88.112A - Complete traumatic amputation at level between knee and ankle, left lower leg, initial encounter (2) Decubitus ulcer of right heel, stage 2: Status: Acute Code(s): L89.612 - Pressure ulcer of right heel, stage 2 (3) Ulcer of right foot with fat layer exposed: Status: Chronic Code(s): L97.512 - Non-pressure chronic ulcer of other part of right foot with fat layer exposed (4) Type 2 diabetes mellitus with diabetic polyneuropathy: Status: Chronic Code(s): E11.42 - Type 2 diabetes mellitus with diabetic polyneuropathy (5) Type 2 diabetes mellitus with foot ulcer: Status: Acute Code(s): E11.621 - Type 2 diabetes mellitus with foot ulcer; L97.509 - Non-pressure chronic ulcer of other part of unspecified foot with unspecified severity (6) History of transmetatarsal amputation of right foot: Status: Acute Code(s): Z89.431 - Acquired absence of right foot (7) Other specified peripheral vascular diseases: Status: Suspected Code(s): I73.89 - Other specified peripheral vascular diseases (8) Malnutrition: Status: Chronic Code(s): E46 - Unspecified protein-calorie malnutrition (9) Delayed wound healing: Status: Chronic Code(s): T14.8XXD - Other injury of unspecified body region, subsequent encounter Plan Patient is a 57-year-old lady with past medical history single for diabetes mellitus type 2 with recurrent diabetic foot infections who was sent from the wound care center with cyanosis and hypoxia with oxygen saturation dropping to the 70s. Imaging studies obtained on admission demonstrated Patchy infiltrates at the lung bases more prominent on the right side as well as focal right perihilar infiltrate. 1. Right perihilar pneumonia suspected due to MDR organism:Chest CTA was done shows no evidence of pulmonary embolism. Patchy infiltrate at the lung bases more prominent on right side and focal right perihilar infiltrate. Mild enlargement of right perihilar lymph nodes. Preliminary blood culture shows coagulase-negative staph. Another blood culture negative. Urinary antigens are negative. Respiratory panel negative. SARS-CoV-2 and flu antigens are negative. Sputum culture preliminary shows normal respiratory selma. 12/27: Patient does not have shortness of breath acute cough or fever. Advised to continue incentive spirometry. 2. Right diabetic foot infection ? Patient started on broad-spectrum antibiotic therapy, consultation placed to Dr. Young podiatry. Patient on vancomycin, Levaquin and Flagyl. Patient underwent bedside debridement 12/26: ID is consulted for tomorrow AM. Continue IV antibiotic. MRSA PCR negative but Staph aureus protein positive. 12/27: Discussed with ID. Dr. Roque gave the prescription for linezolid and cefdinir. Advised to follow-up with ID in 1 month. Follow-up with podiatry and wound clinic. Podiatry follow-up reviewed no further surgery or debridement planned. 3. COPD ? Patient is on budesonide as well as supplemental oxygen 4. Hypertension - Blood pressure controlled, home medications continued with dose adjustment as needed 5. Depression with anxiety ? continue with patient psychotropic medications, clozapine 6. Diabetes mellitus type II -patient's oral hypoglycemics held. Placed on long acting insulin, Accu-Cheks a.c. and at bedtime and covered with sliding scale insulin 7. Class II obesity with BMI of 36.8 ? Weight loss advised 8. DVT prophylaxis ? SC Lovenox Patient also had loose watery bowel movement but C. difficile PCR is negative. No abdominal pain. Discharge medication reconciliation done. Discharge follow-up instructions completed. Discharge process discussed with the patient and all questions were answered to patient's satisfaction. Total time spent, exact 35 minutes on discharge meds reconciliation, examinati on, coordination of care with nurses and ancillary staff, review of imaging and blood test and discussion with the patient on follow-up instructions. Medications at Discharge Home Medications acetaminophen 325 mg capsule 650 mg PO Q4H PRN Pain 1-10 Or Fever 01/21/21 albuterol sulfate 90 mcg/actuation aerosol inhaler 2 puff inhalation Q4H PRN Wheezing 01/21/21 atorvastatin 10 mg tablet 10 mg PO QHS CHOLESTEROL 01/21/21 benztropine 1 mg tablet 1.5 mg PO BID EPS 01/21/21 clozapine 200 mg tablet 200 mg PO BID BIPOLAR 12/09/22 linagliptin 5 mg tablet (Tradjenta) 5 mg PO DAILY DM 12/09/22 lisinopril 5 mg tablet 5 mg PO DAILY HTN 12/09/22 lorazepam 0.5 mg tablet (Ativan) 0.5 mg PO BID ANXIETY 12/09/22 potassium chloride 20 mEq tablet,extended release 20 meq PO DAILY 12/09/22 propranolol 10 mg tablet 10 mg PO BID HTN 12/09/22 carboxymethylcellulose sodium 1 % eye drops (Artificial Tears (carboxymethylcellulose)) 1 drp EACH EYE Q6H PRN Dry Eye(S) 12/23/22 cholecalciferol (vitamin D3) 1,250 mcg (50,000 unit) tablet 1,250 mcg PO MO SUPPLEMENT 12/23/22 clozapine 100 mg tablet 100 mg PO BID BIPOLAR 12/23/22 fluvoxamine 50 mg tablet 50 mg PO QHS ANXIETY 12/23/22 lamotrigine 25 mg tablet (Lamictal) 50 mg PO BID BIPOLAR 12/23/22 cefdinir 300 mg capsule 300 mg PO BID 5 days #10 caps 12/27/22 dextromethorphan-guaifenesin 30 mg-600 mg tablet extended [id number] hr (Mucinex DM) 1 tab PO BID 7 days #14 tabs 12/27/22 menthol 0.44 %-zinc oxide 20.6 % topical ointment (Calmoseptine) 1 applic topical 4X/DAY #0 grams 12/27/22 sodium hypochlorite 0.25 % solution (HySept) 1 applic topical BID #0 mL 12/27/22 tedizolid 200 mg tablet 200 mg PO DAILY 6 days #6 tabs 02/13/23 Weight / BMI Weight Weight: 184 lb 15.485 oz Body Mass Index (BMI) 35.9 ABG / Lab / Microbiology Data Result Diagrams: 12/27/22 04:39 12/27/22 04:39 Laboratory: Laboratory Results - last 24 hr 12/26/22 11:37: POC Glucose 162 H 12/26/22 17:03: POC Glucose 88 12/26/22 21:13: POC Glucose 128 H 12/27/22 04:39: Vancomycin Trough 17.9 H 12/27/22 04:39: WBC 4.7, RBC 3.89 L, Hgb 10.7 L, Hct 36.9 L, MCV 94.9 D, MCH 27.5, MCHC 29.0 L D, RDW Std Deviation 49.1 H, RDW Coeff of Dot 14.3, Plt Count 176, MPV 10.3, Immature Gran % (Auto) 1.300 H, Neut % (Auto) 67.9, Lymph % (Auto) 21.2, Sawyer % (Auto) 5.8, Eos % (Auto) 3.2, Baso % (Auto) 0.6, Absolute Neuts (auto) 3.2, Absolute Lymphs (auto) 0.99, Nucleated RBC % 0.4 12/27/22 04:39: Sodium 146 H, Potassium 4.1, Chloride 114 H, Carbon Dioxide 23.0, Anion Gap 9, BUN 6 L, Creatinine 0.65, Estim Creat Clear Calc 93.98, Est GFR (MDRD) Af Amer 122, Est GFR (MDRD) Non-Af 100, BUN/Creatinine Ratio 9.3 L, Glucose 137 H, Calcium 8.2 L Microbiology: Microbiology 12/23/22 17:00 Wound - Heel Right Gram Stain - Final 12/23/22 17:00 Wound - Heel Right Wound Culture - Final Meth. resistant Staph. aureus 12/23/22 17:00 Wound - Heel Right Anaerobic Culture - Preliminary Checking for anaerobes, further studies to follow. 12/24/22 15:15 Sputum, Expectorated/Coughed Gram Stain - Final 12/24/22 15:15 Sputum, Expectorated/Coughed Respiratory Culture - Final 12/23/22 15:00 Blood Culture (Wb) - Anticubital Right Bacteria Detection ([facility] 12/23/22 15:00 Blood Culture (Wb) - Anticubital Right Blood Culture - Preliminary Coag Negative Staph 12/25/22 04:20 Stool C. difficile DNA Amplification - Final 12/23/22 13:35 Blood Culture (Wb) - Left Wrist Blood Culture - Preliminary No growth in 48 hours. 12/23/22 19:35 Urine, Random Streptococcus pneumoniae Antigen (M - Final 12/23/22 19:35 Urine, Random Legionella Antigen - Final 12/23/22 17:30 Mucosa - Nose Respiratory Panel (PCR) - Final 12/23/22 11:45 Nasal Secretion SARS-CoV-2 & FLU Antigen (Rapid) - Final Meaningful Use Info Meaningful Use Diagnoses (Choose all that apply): None applicable Discharge Plan Admission Admit Date/Time: 12/23/22 15:07 Primary Reason for Your Visit: Polymicrobial diabetic foot infection with pneumonia Attending Provider: Richard Hernandez Primary Care Provider: Paddy Ba Consulting Providers: Collin Young ; Wanda Yoder ; Javy Coffman ; Willi Roque Discharge Orders/Prescriptions Prescriptions: New Mucinex DM 30-600 mg Tablet Extended Release 12 Hr 1 tab PO BID 7 Days Qty: 14 0RF HySept 0.25 % Solution 1 applic topical BID Qty: 0 0RF Protocol: *Topical Application Instructions APPLICATION INSTRUCTIONS: Apply to right foot with dressing changes Rx Instructions: For wound dressing menthol-zinc oxide [Calmoseptine] 0.44-20.6 % Ointment 1 applic topical 4X/DAY Qty: 0 0RF Protocol: *Topical Application Instructions APPLICATION INSTRUCTIONS: apply to affected region Rx Instructions: For 7 days tedizolid 200 mg tablet 200 mg PO DAILY 6 Days Qty: 6 0RF cefdinir 300 mg capsule 300 mg PO BID 5 Days Qty: 10 0RF Continued atorvastatin 10 MG tablet 10 mg PO QHS benztropine 1 MG tablet 1.5 mg PO BID albuterol sulfate 1 PUFF inhaler 2 puff INHALATION Q4H PRN (Reason: Wheezing) acetaminophen 325 MG capsule 650 mg PO Q4H PRN (Reason: Pain 1-10 Or Fever) propranolol 10 mg Tablet 10 mg PO BID lorazepam [Ativan] 0.5 mg Tablet 0.5 mg PO BID lisinopril 5 mg Tablet 5 mg PO DAILY clozapine 200 mg Tablet 200 mg PO BID Tradjenta 5 mg Tablet 5 mg PO DAILY potassium chloride 20 mEq Tablet Extended Release 20 meq PO DAILY clozapine 100 mg Tablet 100 mg PO BID lamotrigine [Lamictal] 25 mg Tablet 50 mg PO BID fluvoxamine 50 mg Tablet 50 mg PO QHS cholecalciferol (vitamin D3) 1,250 mcg (50,000 unit) Tablet 1,250 mcg PO MO Artificial Tears (cmc) 1 % Drops 1 drp EACH EYE Q6H PRN (Reason: Dry Eye(S)) Referrals / Follow Up: Paddy Ba MD [Primary Care Provider] - Collin Young DPM [Med Staff - Active Staff] - Within 2 Weeks Willi Roque MD [Med Staff - Active Staff] - Within 1 Month Disposition Disposition (needs filled in before D/C Order can be placed): Shelter Facility Charges/Coding Visit Charges Inpatient E&M: 74842 Disch Hosp >30min
--- NOTE | 2022-12-27 09:34 | CASEMGMT ---
YARIEL sent updates and notified Bree at [facility] that patient will be returning today. Lory Rosado SCULPTURE INSTRUCTOR ADRIAN
[2022-12-27] MEDS: levoFLOXacin IV 750 MG/150 ML BAG 100 MG IV (10:57)
[2022-12-27] MEDS: Insulin Lispro 100 UNIT/ML INSULN.PEN SC (10:58)
[2022-12-27 11:01] LABS: Bedside Glucose 116 mg/dL (74-106)
[2022-12-27 11:31] LABS: Bedside Glucose 161 mg/dL (74-106)
--- NOTE | 2022-12-27 11:47 | WOUNDNOTE ---
wound photo: right foot
--- NOTE | 2022-12-27 12:54 | PCM.CONS.GEN ---
Assessment & Plan Assessment/Plan (1) Type 2 diabetes mellitus with diabetic polyneuropathy: (2) Pneumonia: (3) Decubitus ulcer of right heel, stage 2: PLAN: MRSA (+). Had bedside I&D done. On vanc/levaquin/flagyl here. Has no po options for MRSA treatment other than tedizolid. No osteo seen on CT. Will write for short course tedizolid and omnicef. She is unsure what PCN reaction was. Will follow, thank you, d/w hospice case manager HPI Consult Data Date of Consult: 12/27/22 HPI Narrative HPI Narrative: JAY ARAUJO, is a 57 F with DM neuropathy, bipolar/schizoaffective disorder, and prior L BKA and R TMA, presented with 3-4 weeks worsening R foot stump. Reports pain, redness, drainaged. Went to ED at [facility] 11/30/22, given bactrim. Sx worsened, admitted here 12/23. No fever or chills. Admitted on vanc/levaquin/flagyl. Seen by podiatry. Some cough and dyspnea. Feeling better since admit. Full ROS performed and neg except as noted above. PFSH Medical History Anxiety and depression Bipolar disorder Chronic peripheral neuropathic pain COPD (chronic obstructive pulmonary disease) Dementia Diabetes mellitus, type 2 HLD (hyperlipidemia) HTN (hypertension) Obesity Schizoaffective disorder Tobacco use Home Medications acetaminophen 325 mg capsule 650 mg PO Q4H PRN Pain 1-10 Or Fever 01/21/21 [History Last Taken Unknown] albuterol sulfate 90 mcg/actuation aerosol inhaler 2 puff inhalation Q4H PRN Wheezing 01/21/21 [History Last Taken Unknown] atorvastatin 10 mg tablet 10 mg PO QHS CHOLESTEROL 01/21/21 [History Last Taken 12/22/22] benztropine 1 mg tablet 1.5 mg PO BID EPS 01/21/21 [History Last Taken 12/22/22] clozapine 200 mg tablet 200 mg PO BID BIPOLAR 12/09/22 [History Last Taken 12/22/22] linagliptin 5 mg tablet (Tradjenta) 5 mg PO DAILY DM 12/09/22 [History Last Taken 12/22/22] lisinopril 5 mg tablet 5 mg PO DAILY HTN 12/09/22 [History Last Taken 12/22/22] lorazepam 0.5 mg tablet (Ativan) 0.5 mg PO BID ANXIETY 12/09/22 [History Last Taken 12/22/22] potassium chloride 20 mEq tablet,extended release 20 meq PO DAILY 12/09/22 [History Last Taken 12/22/22] propranolol 10 mg tablet 10 mg PO BID HTN 12/09/22 [History Last Taken 12/22/22] carboxymethylcellulose sodium 1 % eye drops (Artificial Tears (carboxymethylcellulose)) 1 drp EACH EYE Q6H PRN Dry Eye(S) 12/23/22 [History Last Taken Unknown] cholecalciferol (vitamin D3) 1,250 mcg (50,000 unit) tablet 1,250 mcg PO MO SUPPLEMENT 12/23/22 [History Last Taken 12/20/22] clozapine 100 mg tablet 100 mg PO BID BIPOLAR 12/23/22 [History Last Taken 12/22/22] fluvoxamine 50 mg tablet 50 mg PO QHS ANXIETY 12/23/22 [History Last Taken 12/22/22] lamotrigine 25 mg tablet (Lamictal) 50 mg PO BID BIPOLAR 12/23/22 [History Last Taken 12/22/22] dextromethorphan-guaifenesin 30 mg-600 mg tablet extended hr (Mucinex DM) 1 tab PO BID 7 days #14 tabs 12/27/22 [Rx Last Taken Unknown] menthol 0.44 %-zinc oxide 20.6 % topical ointment (Calmoseptine) 1 applic topical 4X/DAY #0 grams 12/27/22 [Rx Last Taken Unknown] sodium hypochlorite 0.25 % solution (HySept) 1 applic topical BID #0 mL 12/27/22 [Rx Last Taken Unknown] Allergy/AdvReac Type Severity Reaction Status Date / Time clindamycin Allergy PT UNSURE Verified 12/23/22 10:49 OF REACTION codeine Allergy PT UNSURE Verified 12/23/22 10:49 OF REACTION mirtazapine [From Remeron] Allergy PT UNSURE Verified 12/23/22 10:49 OF REACTION olanzapine [From Zyprexa] Allergy PT UNSURE Verified 12/23/22 10:49 OF REACTION Penicillins [PCN] Allergy PT UNSURE Verified 12/23/22 10:49 OF REACTION Family History (Updated 12/23/22 @ 14:[address] Wanda Yoder MD) Mother COPD (chronic obstructive pulmonary disease) Father COPD (chronic obstructive pulmonary disease) Surgical History 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 alcohol intake: never substance use type: does not use Physical Exam Const alert and no apparent distress General Appearance: cooperative HEENT normocephalic and head/scalp atraumatic Eyes PERRL and EOMs intact bilaterally Neck supple and No nodes Resp normal air movement and clear to auscultation bilaterally Cardio regular rate and regular rhythm GI soft to palpation, non-tender and non-distended Extremity General Extremity: Negative for edema Skin Skin Narrative: reviewed photo of R foot Neuro CN's II-XII intact bilaterally Lab / Micro Data Attestation: I reviewed the patient's lab results. Result Diagrams: 12/27/22 04:39 12/27/22 04:39 Labs: Laboratory Results - last 24 hr 12/26/22 17:03: POC Glucose 88 12/26/22 21:13: POC Glucose 128 H 12/27/22 04:39: Vancomycin Trough 17.9 H 12/27/22 04:39: WBC 4.7, RBC 3.89 L, Hgb 10.7 L, Hct 36.9 L, MCV 94.9 D, MCH 27.5, MCHC 29.0 L D, RDW Std Deviation 49.1 H, RDW Coeff of Dot 14.3, Plt Count 176, MPV 10.3, Immature Gran % (Auto) 1.300 H, Neut % (Auto) 67.9, Lymph % (Auto) 21.2, Bowman % (Auto) 5.8, Eos % (Auto) 3.2, Baso % (Auto) 0.6, Absolute Neuts (auto) 3.2, Absolute Lymphs (auto) 0.99, Nucleated RBC % 0.4 12/27/22 04:39: Sodium 146 H, Potassium 4.1, Chloride 114 H, Carbon Dioxide 23.0, Anion Gap 9, BUN 6 L, Creatinine 0.65, Estim Creat Clear Calc 93.98, Est GFR (MDRD) Af Amer 122, Est GFR (MDRD) Non-Af 100, BUN/Creatinine Ratio 9.3 L, Glucose 137 H, Calcium 8.2 L 12/27/22 06:21: POC Glucose 116 H 12/27/22 10:57: POC Glucose 161 H Micro: Microbiology 12/27/22 10:55 Nasal Secretion SARS-CoV-2 Antigen (Rapid) - Final 12/23/22 17:00 Wound - Heel Right Gram Stain - Final 12/23/22 17:00 Wound - Heel Right Wound Culture - Final Meth. resistant Staph. aureus 12/23/22 17:00 Wound - Heel Right Anaerobic Culture - Preliminary Checking for anaerobes, further studies to follow. 12/24/22 15:15 Sputum, Expectorated/Coughed Gram Stain - Final 12/24/22 15:15 Sputum, Expectorated/Coughed Respiratory Culture - Final
--- NOTE | 2022-12-27 13:22 | PHA.DC.MR ---
Pharmacy Service has performed discharge medication reconciliation for this patient. The patient's discharge medication list was reviewed for discrepancies and discrepancies were resolved. Home Medications acetaminophen 325 mg capsule 650 mg PO Q4H PRN Pain 1-10 Or Fever 01/21/21 albuterol sulfate 90 mcg/actuation aerosol inhaler 2 puff inhalation Q4H PRN Wheezing 01/21/21 atorvastatin 10 mg tablet 10 mg PO QHS CHOLESTEROL 01/21/21 benztropine 1 mg tablet 1.5 mg PO BID EPS 01/21/21 clozapine 200 mg tablet 200 mg PO BID BIPOLAR 12/09/22 linagliptin 5 mg tablet (Tradjenta) 5 mg PO DAILY DM 12/09/22 lisinopril 5 mg tablet 5 mg PO DAILY HTN 12/09/22 lorazepam 0.5 mg tablet (Ativan) 0.5 mg PO BID ANXIETY 12/09/22 potassium chloride 20 mEq tablet,extended release 20 meq PO DAILY 12/09/22 propranolol 10 mg tablet 10 mg PO BID HTN 12/09/22 carboxymethylcellulose sodium 1 % eye drops (Artificial Tears (carboxymethylcellulose)) 1 drp EACH EYE Q6H PRN Dry Eye(S) 12/23/22 cholecalciferol (vitamin D3) 1,250 mcg (50,000 unit) tablet 1,250 mcg PO MO SUPPLEMENT 12/23/22 clozapine 100 mg tablet 100 mg PO BID BIPOLAR 12/23/22 fluvoxamine 50 mg tablet 50 mg PO QHS ANXIETY 12/23/22 lamotrigine 25 mg tablet (Lamictal) 50 mg PO BID BIPOLAR 12/23/22 cefdinir 300 mg capsule 300 mg PO BID 5 days #10 caps 12/27/22 dextromethorphan-guaifenesin 30 mg-600 mg tablet extended [id number] hr (Mucinex DM) 1 tab PO BID 7 days #14 tabs 12/27/22 menthol 0.44 %-zinc oxide 20.6 % topical ointment (Calmoseptine) 1 applic topical 4X/DAY #0 grams 12/27/22 sodium hypochlorite 0.25 % solution (HySept) 1 applic topical BID #0 mL 12/27/22 tedizolid 200 mg tablet 200 mg PO DAILY 6 days #6 tabs 12/27/22
--- NOTE | 2022-12-27 13:28 | CASEMGMT ---
Addendum entered by Lory Rosado 12/27/22 13:38: YARIEL called [employer] and let them know pick up driver time and that orders and COVID test were faxed. Lory CAMPBELL Original Note: YARIEL arranged for patient to get picked up at 4p via wheelchair van. SW sent orders, COVID test, and pick up driver time to [facility] via [facility]. YARIEL also faxed this information as YARIEL is not sure there is anyone available at [facility] to open [facility]. YARIEL notified RN, alumnae secretary, and patient's legal guardian Shelly. Plan: d/c back to [facility] under intermediate level of care. Physicians will transport via wheelchair van. Lory CAMPBELL
[2022-12-27 14:38] VITALS: BP 135/89; PULSE 83; RESP 16; TEMP 36.5; O2SAT 93
[2022-12-27] MEDS: Cefdinir 300 MG Capsule PO (14:45)
--- NOTE | 2022-12-27 15:54 | NURSING ---
Spoke to Michael at [facility], gave report and ETA for pt.
== END 2022-12-27 16:56 | disposition skilled nursing facility (03) | DRG 380 ==
LOC: ED 14:53 → PCU 15:40
PROVIDERS: Internal Medicine; Admitting Provider Family Medicine; Emergency Provider Emergency Medicine; PCP Family Medicine; Visit Provider Internal Medicine
DX: E11.621 Type 2 diabetes mellitus with foot ulcer (principal); L89.612 Pressure ulcer of right heel, stage 2; L97.512 Non-pressure chronic ulcer of other part of right foot with fat layer exposed; J18.9 Pneumonia, unspecified organism; F25.9 Schizoaffective disorder, unspecified; J44.0 Chronic obstructive pulmonary disease with (acute) lower respiratory infection; E11.42 Type 2 diabetes mellitus with diabetic polyneuropathy; A49.02 Methicillin resistant Staphylococcus aureus infection, unspecified site; E11.51 Type 2 diabetes mellitus with diabetic peripheral angiopathy without gangrene; F31.9 Bipolar disorder, unspecified; E11.628 Type 2 diabetes mellitus with other skin complications; F03.90 Unspecified dementia, unspecified severity, without behavioral disturbance, psychotic disturbance, mood disturbance, and anxiety; Z89.512 Acquired absence of left leg below knee; K21.9 Gastro-esophageal reflux disease without esophagitis; E78.5 Hyperlipidemia, unspecified; I10 Essential (primary) hypertension; F41.9 Anxiety disorder, unspecified; R09.02 Hypoxemia; E66.9 Obesity, unspecified; Z68.35 Body mass index [BMI] 35.0-35.9, adult; Z66 Do not resuscitate; Z79.84 Long term (current) use of oral hypoglycemic drugs; Z79.899 Other long term (current) drug therapy; Z87.891 Personal history of nicotine dependence
CPT/HCPCS: 36415; 71046; 71275; 73630; 80048; 80053; 80202; 81001; 82962; 83036; 83605; 83735; 84100; 84484; 85025; 85379; 87040; 87070; 87075; 87077; 87149; 87186; 87205; 87426; 87428; 87449; 87493; 87633; 87640; 87641; 93005; 94640; 94668; 97110; 97162; 97166; 97530; 97535; 97802; 99252; 99285; J7030; J7040; Q9967; A4216; G0463

== ENCOUNTER 2023-01-06 08:30 | Outpatient (RCR) | payer MEDICAID, SELFPAY ==
[2022-12-15 00:51] VITALS: BP 132/75; PULSE 114; RESP 18; TEMP 35.8; BMI 36.8
--- NOTE | 2022-12-16 08:08 | ART_ITS ---
Reason For Study: Wounds Procedure A bilateral lower extremity continuous wave Doppler with analog waveform analysis,segmental pressures,and ankle brachial indexes without exercise. Left Segmental Pressures Left brachial= 110mmHg. Left thigh = 159mmHg. LT Popliteal Waveform is biphasic. Unable to obtain other pressures or waveforms due to below knee amputation. Right Segmental Pressures Right thigh = 154mmHg. Right calf = 134mmHg. Right posterior tibial artery = 161mmHg. Right dorsalis pedis artery = 144mmHg. Unable to obtain toe pressure due to mid foot amputation. The right posterior tibial artery waveforms are triphasic. The right dorsalis pedis waveforms are triphasic. Indices The right ankle brachial index by the posterior tibial artery is 1.46. The right ankle brachial index by the dorsalis pedis is 1.31. Unable to obtain toe pressure due to mid foot amputation. LT Segmental Index at Low Thigh is 1.45. VL/Lower Ext Art Exam w/o Exercis Interpretation Summary Triphasic Doppler waveforms are noted at ankle level on the right. The patient has a left below-knee amputation. Pulse-volume recordings appear satisfactory at low thigh bilaterall y, and at calf and ankle level on the right. The resting right ankle-brachial index is supra-jd l. There is no evidence of significant arterial occlusive disease in the lower ext remities bilaterally. There is evidence of arterial calcification at ankle level on the right. Ordering Physician: Collin Young Referring Physician: Paddy Ba Performed By: Yaakov Condon, RVT
--- NOTE | 2022-12-16 08:08 | VDLE_ITS ---
Reason For Study: Wound RIGHT LEFT CFV is compressible, spontaneous, phasic, CFV is compressible, spontaneous, phasic, competent and demonstrates normal competent, and demonstrates normal augmentation. augmentation. FV is compressible, spontaneous, phasic, FV is compressible, spontaneous, phasic, competent and demonstrates normal competent and demonstrates normal augmentation. augmentation. POP V is compressible, spontaneous, phasic, POP V is compressible, spontaneous, phasic, competent and demonstrates normal competent and demonstrates normal augmentation. augmentation. T/P Trunk is compressible. T/P Trunk is compressible. PTV is compressible. SFJ is competent and measures 0.79 x 0.75 cm. RT PerV is compressible. GSV proximal thigh measures 0.13 x 0.16 cm. Enlarged Vascularized Lymph Nodes noted in Rt GSV above knee is competent. Groin measuring approximately 1.53cm x 0.80cm BK Amputation. and 2.16cm x 1.10cm. SFJ is competent and measures 1.07 x 1.07 cm. GSV proximal thigh measures 0.43 x 0.44 cm. GSV at knee measures 0.93 x 0.99 cm. GSV is competent throughout. SSV proximal calf is competent and measures 1.12 x 1.06 cm. Procedure Exam performed in department. This is a venous duplex using B-mode, color flow and spectral Doppler. The exam was diagnostic. VL/Venous Duplex US - Noel Extrem Interpretation Summary Deep veins of the lower extremities are bilaterally patent and compressible seg mentally. There is no evidence of deep vein thrombosis on either side. Valvular competence appears in tact within the proximal deep venous systems bilaterally. The great saphenous veins appear bila terally patent and compressible segmentally. The right sapheno-femoral junction is competent . Elizabeth vular competence appears to be intact segmentally within the great saphenous veins bilaterally. The right small saphenous vein is patent and competent. A left below-knee amputation is noted. Enlarged lymph nodes are noted in the right groin, with dimensions as documented above. Ordering Physician: Collin Young Referring Physician: Paddy Ba Performed By: Yaakov Condon RVT
[2022-12-16 09:53] VITALS: BP 122/76; PULSE 90; RESP 18; TEMP 35.9
--- NOTE | 2022-12-16 10:05 | PN.PCM_ITS ---
History of Present Illness Date of Service: 12/16/22 Chief Complaint: Right foot ulcers History of Wound: This 57-year-old female with significant past medical history of bipolar, schizophrenia, anxiety, dementia, diabetes, prior homelessness, prior frostbite injuries presents to the wound care center for evaluation of three right foot ulcers. She [place] residing [place] [facility] [place], [facility]. She denies redness or odor, fever, chill, nausea, vomiting. She has underwent comprehensive wound healing program prior to being seen at the wound care center and also here at the wound care center. She already has a BKA of the Left lower extremity. She fears she may need a right below-knee amputation. She is exhausted from trying to save her limb the past couple of decades. States that these wounds are recurrent/nonhealing and have been present since 2020. At that time she was seen here in the wound care center by Dr. Calvert. However patient has not returned to the wound center since February 2021. She returns today to the wound care center,12/09/2022, for same issue of 3 foot ulcerations to the plantar right foot. Subjective Subjective Patient is a 57-year-old female with history of diabetes, transmetatarsal amputation of the right foot and BKA of the left lower extremity, and peripheral vascular disease who follows up to the wound care center today for 3 plantar ulcerations to the right foot. She was noted to be eating some sweets upon entering the room and had her knees bent with right foot flat driven into the bed. Domestic Technician states this is how she sits in her bed at the skilled facility. She is still noted to be using the right foot to assist her wheelchair propulsion. She denies any constitutional symptoms today. She denies any complaints today. Objective Data Objective Data Vital Signs: Vital Signs Temp Pulse Resp BP 96.6 F L 90 18 122/76 H 12/16/22 09:53 12/16/22 09:53 12/16/22 09:53 12/16/22 09:53 Weight: 106.594 kg Body Mass Index (BMI) 36.8 Physical Exam Const alert, oriented x3, no apparent distress and well nourished General Appearance: cooperative HEENT normocephalic Eyes General Eye: normal appearance of both eyes Neck General: normal visual inspection Lymph Lymphatic: no lymphadenopathy noted and no lymphedema noted Resp normal respiratory effort Cardio regular rate and regular rhythm Extremity normal capillary refill, no joint enlargement, no calf tenderness and no pedal edema Extremity Narrative: Right lower extremity: DP pulses palpable and PT pulses palpable.? Transmetatarsal amputation noted with distal stump ulceration subfirst metatarsal base subfifth metatarsal base and plantar heel.? Stump demonstrates adequate perfusion. Negative Paige's sign, Negative Bustamante sign Musculoskeletal: Demonstrates decreased range of motion at the ankle joint less than 5 degrees as noted without pain or crepitus. Left lower extremity: BKA noted to left lower extremity General Extremity: Negative for calf tenderness Skin no rashes or lesions noted, skin turgor normal and no jaundice Wound Narrative: Right lower extremity: 3 ulcerative sites noted to the plantar aspect of the right foot.? Subfirst metatarsal ulceration is noted with mixed fiber granular layer; subfifth metatarsal ulceration is noted with mixed fiber granular layer; right plantar heel ulceration is also noted with mixed fiber granular layer.? Ulcerative sites demonstrate serosanguineous drainage.? No erythema, no purulent drainage, no malodor, no palpable fluctuance/bogginess, no visible abscess.? About the ulcerative sites, plantar lateral foot, and distal stump there is evidence of ecchymosis/subdermal bleeding secondary to excessive pressure secondary to patient utilizing foot to aid in pushing her wheelchair. Neuro moves all extremities Neuro Narrative: Decreased light touch sensation and protective sensation noted to the right lower extremity consistent with diabetic peripheral polyneuropathy Debridement Note Debridement Note Wound debrided: Right heel decubitus ulceration Laterality: Right Wound Grade/Stage: Abel stage II Type of Debridement: Excisional debridement Anesthesia Used: 5% Lidocaine Gel Depth: Down to and including healthy tissue and in the subcutaneous layer Percentage of wound debrided: 100 Instrument Used: 3mm curette Tissue Removed: Fibrous, devitalized subcutaneous, biofilm, slough Severity: Fat Layer Exposed Amount of bleeding with debridement: Mild Bleeding Controlled with: Compression and gauze Patient tolerated procedure: Patient tolerated procedure well Post-Debridement Measurements and Additional Note: Post-Debridement Measurements/Treatment AMAN - Nurse 1 - General Ulcer Assessment Start: 12/16/22 09:53 Freq: Status: Active Protocol: GEOVANNY Activity Type Activity Date Activity User E-sign Co-sign Detail Recorded Client Recorded Date Recorded By Document 12/16/22 09:53 MORENO [id number] 12/16/22 10:02 12/16/22 09:53 WC - Today's Visit Information Type of service Follow-up Visit (Physician/[employer] ) Arrival Mode Wheelchair Transfer Assistance Manual Accompanied by caregiver Patient Identification Verified (Name & Yes ) Patient Requires Transmission-Based No Precautions Height and Weight Weight 106.594 kg Weight in Pounds 235.0 lbs Weight Measurement Method Estimated by Patient Vital Signs Temperature (97.8 F-99.1 F) 96.6 F L Temperature Source Temporal Pulse Rate (60-100) 90 Pulse Location Monitor Respiratory Rate (12-18) 18 Respiratory rate source Observation Blood Pressure (90/60-120/80) 122/76 H Blood Pressure Mean (mm Hg) 91 Source Monitor Position Sitting Blood Pressure Location Left Arm History Since Last Visit- (Skip if this is Patient's initial visit) Have you changed medications since your No last visit? Any new allergies or adverse reactions No Had a fall/change in ADL's that may No increase risk of falls Signs or symptoms of abuse and/or No neglect since last visit Have you been in the hospital since your No last visit? Has dressing in place as prescribed Yes Has compression in place as prescribed Yes Has offloadiing in place as prescribed Yes Experienced any changes in pain level or No management Left Footwear No Footwear Right Footwear Regular Shoe Pain Scale: 0-10 Numeric Is Patient Pain Free? Yes - Nurse 1 - General Ulcer Measurement Start: 12/16/22 09:53 Freq: Status: Active Protocol: Activity Type Activity Date Activity User E-sign Co-sign Detail Recorded Client Recorded Date Recorded By Document 12/16/22 09:53 JF [id number] 12/16/22 10:02 MORENO 12/16/22 09:53 Wound Center Nurse 1 #5 R HEEL -Combined with other wound No -Current Size (cm) - Length 2.1 -Current Size (cm) - Width 2.1 -Current Size (cm) - Depth 0.3 -Total Square Cm 4.41 -Photo Taken Yes -Epithelialization None Present -Tunneling No -Circular Undermining No -Exudate Amt Medium -Exudate Type Serosanguineous -Wound Margin Flat & Intact -Granulation Amt Large (67-100%) -Granulation Quality Red -Slough/Fibrin No -Necrosis Amt Medium (34-66%) -Necrotic Tissue Type Adherent Slough -Structure Exposed N/A -Texture (Anali-wound Skin Appearance) Assessed -Moisture (Anlai-wound Skin Appearance) Assessed,Dry/ Scaly -Color (Anali-wound Skin Appearance) Assessed, Erythema -Temperature (Anali-wound Skin No Abnormality Appearance) (Pt Warm) -Tenderness on Palpation (Anali-wound No Skin Appearance) -Ulcer Cleansing Rinsed/ Irrigated with Saline -Foul Odor after Cleansing No -Anesthetic Used 5% Lidocaine Gel #6 R LAT PLANTAR FOOT -Combined with other wound No -Current Size (cm) - Length 1.4 -Current Size (cm) - Width 0.8 -Current Size (cm) - Depth 0.3 -Total Square Cm 1.12 -Photo Taken Yes -Epithelialization None Present -Tunneling No -Undermining/Tunneling No -Circular Undermining No -Exudate Amt Small -Exudate Type Serosanguineous -Wound Margin Flat & Intact -Granulation Amt Medium (34-66%) -Granulation Quality Red -Slough/Fibrin Yes -Necrosis Amt Medium (34-66%) -Necrotic Tissue Type Adherent Slough -Structure Exposed N/A -Texture (Anali-wound Skin Appearance) Assessed -Moisture (Anali-wound Skin Appearance) Assessed,Dry/ Scaly -Color (Anali-wound Skin Appearance) Assessed, Ecchymosis -Temperature (Anali-wound Skin No Abnormality Appearance) (Pt Warm) -Tenderness on Palpation (Anali-wound No Skin Appearance) -Ulcer Cleansing Rinsed/ Irrigated with Saline -Foul Odor after Cleansing No -Anesthetic Used 5% Lidocaine Gel #6- R 1st met PLANTAR -Combined with other wound No -Current Size (cm) - Length 3.0 -Current Size (cm) - Width 3.2 -Current Size (cm) - Depth 0.1 -Total Square Cm 9.60 -Photo Taken Yes -Epithelialization None Present -Tunneling No -Undermining/Tunneling No -Circular Undermining No -Exudate Amt Small -Exudate Type Serosanguineous -Wound Margin Flat & Intact -Granulation Amt Small (1-33%) -Granulation Quality Red -Slough/Fibrin No -Necrosis Amt Medium (34-66%) -Necrotic Tissue Type Adherent Slough -Structure Exposed N/A -Texture (Anali-wound Skin Appearance) Assessed,Callus -Moisture (Anali-wound Skin Appearance) No Abnormality, Assessed -Color (Anali-wound Skin Appearance) Assessed, Ecchymosis, Erythema -Temperature (Anali-wound Skin No Abnormality Appearance) (Pt Warm) -Tenderness on Palpation (Anali-wound No Skin Appearance) -Ulcer Cleansing Rinsed/ Irrigated with Saline -Foul Odor after Cleansing No -Anesthetic Used 4% Lidocaine Solution,5% Lidocaine Gel Lower Limb Edema Present NA Additional Wound Wound debrided: Sub 1st metatarsal and Sub 5th metatarsal Laterality: Right Wound Grade/Stage: Abel stage I Type of Debridement: Selective debridement Anesthesia Used: 5% Lidocaine Gel Depth: Down to and including healthy tissue and in the subcutaneous layer Percentage of wound debrided: 100 Instrument Used: 3mm curette Tissue Removed: Fibrous, devitalized subcutaneous, biofilm, slough Severity: Fat Layer Exposed Amount of bleeding with debridement: Mild Bleeding Controlled with: Compression and gauze Patient tolerated procedure: Patient tolerated procedure well Assessment/Plan Assessment/Plan (1) Decubitus ulcer of right heel, stage 2: CODE(S): L89.612 - Pressure ulcer of right heel, stage 2 (2) Ulcer of right foot with fat layer exposed: CODE(S): L97.512 - Non-pressure chronic ulcer of other part of right foot with fat layer exposed (3) Type 2 diabetes mellitus with diabetic polyneuropathy: CODE(S): E11.42 - Type 2 diabetes mellitus with diabetic polyneuropathy (4) Type 2 diabetes mellitus with foot ulcer: CODE(S): E11.621 - Type 2 diabetes mellitus with foot ulcer; L97.509 - Non-pressure chronic ulcer of other part of unspecified foot with unspecified severity (5) History of transmetatarsal amputation of right foot: CODE(S): Z89.431 - Acquired absence of right foot (6) Other specified peripheral vascular diseases: CODE(S): I73.89 - Other specified peripheral vascular diseases (7) History of left below knee amputation: CODE(S): Z89.512 - Acquired absence of left leg below knee (8) Malnutrition: CODE(S): E46 - Unspecified protein-calorie malnutrition (9) Delayed wound healing: CODE(S): T14.8XXD - Other injury of unspecified body region, subsequent encounter PLAN: Plan Patient seen and evaluated Left lower extremity has undergone previous BKA with prosthetic to assist ambulation. Right lower extremity has undergone previous transmetatarsal amputation Ulcerations x3 noted to the plantar aspect of the right foot.? All ulcerative sites underwent debridement as noted in the clinical panel above.? Subfirst metatarsal ulceration measures 3.5 cm x 3.1 cm x 0.1 cm; subfifth metatarsal ulceration measures 1.6 cm x 0.9 cm x 0.3 cm; right heel plantar ulceration measures 2.4 cm x 2.5 cm x 0.3 cm.? Forefoot ulcerations are a Abel type I, plantar heel decubitus ulceration is a Abel 2.? All ulcerative sites were dressed with collagen powder and PHMB dressing with dry sterile dressing. She is currently on Bactrim DS until 12/15/2022.? Instructed to continue oral antibiotic to completion. I have reviewed her previous noninvasive vascular studies performed 07/08/2020.? These demonstrate monophasic waveforms at the level of the ankle with biphasic waveform at the right common femoral and proximal superficial femoral arteries.? Peak systolic arterial velocity include, femoral 93, profundofemoral 72, proximal superficial femoral 136, mid superficial femoral 68, distal superficial femoral 117, popliteal 78, posterior tibial 45, dorsalis pedis 36.? There is no hemodynamic significant arterial stenosis in the arteries of the right lower extremity at that time.? I have also reviewed her x-ray report from 01/16/2021 which includes 2 right foot x-rays without fracture dislocation or radiographic evidence of osteomyelitis.? It is noted on x-ray that she had a very proximal transmetatarsal amputation.? I discussed with the angular developer today updating laboratory studies, radiographs of the right foot, and noninvasive vascular studies.? Order was dispensed today 12/09/2022 to the angular developer for laboratory work consisting of CBC with differential, Chem-12, CRP, ESR, vitamin D, prealbumin, hemoglobin A1c.? Domestic Technician will have these studies [place] [facility] [place] in [place].? I also ordered updated imaging of the right foot 12/09/2022, awaiting results.? I also ordered updated LEAS and venous duplex of the right lower extremity, awaiting results. I recommend continued glycemic control, nutritional supplementation with Sandoval and adequate protein intake to optimize wound healing.? It is also noted patient is a former smoker, no recent tobacco use.? I also recommend strict nonweightbearing status to the right lower extremity and for patient to utilize wheelchair and not use the right foot to aid in propulsion of the wheelchair. I discussed her high risk of right lower extremity amputation with the patient and angular developer today.? Pending studies ordered above and MRI will be obtained to evaluate further for osteomyelitis. I discussed with the patient and her angular developer aide signs to observe for pertaining to infection.? I discussed if there is any redness about the ulcerative sites that progresses onto the foot and up the leg, if any purulent drainage emerges from the ulcers, if there is increased foul odor, or if she experiences any fever greater than 101 degree, or nausea, or vomiting, or chills that these are progressing signs of infection and she needs to report to the ED.? Domestic Technician voices understanding of this. Dressing: Gisele.?Dry sterile dressing with ABD.? Change daily Wash: Soap and water, pat the area dry Tissue growth optimization: Gisele Right lower extremity.? Offloading: She was instructed again to not utilize the right foot to aid in propulsion of her wheelchair. Instructed to not sit on bed with knees bent and foot pushing into the bed. Domestic Technician instructed to offload with foam waffle boot Vascular: Palpable DP and PT pulses with adequate stump perfusion on the right TMA site.? LEAS ordered 12/09/2022, awaiting results Edema: Continue to elevate right lower extremity at all times of rest Infection: No local signs of infection Pain: May take [id number] Tylenol Host factors: DM type II with peripheral polyneuropathy, PVD, atherosclerotic heart disease, transmetatarsal amputation right foot, BKA left lower extremity ? I answered all the patient's questions.? To return to the wound healing center in 1 week or call sooner if the patient has any questions or concerns. Note: [employer] speech recognition environmental engineer software was used to create portions of this document. Sound-alike and misspelled words, as well as other environmental engineer errors may be contained in the documentation.
--- NOTE | 2022-12-23 10:06 | PCM.WC.PN ---
History of Present Illness Chief Complaint: Right foot ulcers History of Wound: This 57-year-old female with significant past medical history of bipolar, schizophrenia, anxiety, dementia, diabetes, prior homelessness, prior frostbite injuries presents to the wound care center for evaluation of three right foot ulcers. She is residing at a group home facility, [facility]. She denies redness or odor, fever, chill, nausea, vomiting. She has underwent comprehensive wound healing program prior to being seen at the wound care center and also here at the wound care center. She already has a BKA of the Left lower extremity. She fears she may need a right below-knee amputation. She is exhausted from trying to save her limb the past couple of decades. States that these wounds are recurrent/nonhealing and have been present since 2020. At that time she was seen here in the wound care center by Dr. Calvert. However patient has not returned to the wound center since February 2021. She returns today to the wound care center,12/09/2022, for same issue of 3 foot ulcerations to the plantar right foot. Subjective Subjective Patient is a 57-year-old female with history of diabetes, transmetatarsal amputation of the right foot and BKA of the left lower extremity, and peripheral vascular disease who follows up to the wound care center today for 3 plantar ulcerations to the right foot.? She was noted to be eating some sweets upon entering the room and had her knees bent with right foot flat driven into the bed.? Hand Frame Surgical Elastic Knitter states this is how she sits in her bed at the skilled facility.? She is still noted to be using the right foot to assist her wheelchair propulsion.? She denies any constitutional symptoms today.? She denies any complaints today. Objective Data Objective Data Vital Signs: Vital Signs Temp Pulse Resp BP 96.6 F L 90 18 122/76 H 12/16/22 09:53 12/16/22 09:53 12/16/22 09:53 12/16/22 09:53 Weight: 106.594 kg Body Mass Index (BMI) 36.8 Physical Exam Const alert, oriented x3, no apparent distress and well nourished General Appearance: cooperative HEENT normocephalic Eyes General Eye: normal appearance of both eyes Neck General: normal visual inspection Lymph Lymphatic: no lymphadenopathy noted and no lymphedema noted Resp normal respiratory effort Cardio regular rate and regular rhythm Extremity normal capillary refill, no joint enlargement, no calf tenderness and no pedal edema Extremity Narrative: Right lower extremity: DP pulses palpable and PT pulses palpable.? Transmetatarsal amputation noted with distal stump ulceration subfirst metatarsal base subfifth metatarsal base and plantar heel.? Stump demonstrates adequate perfusion. Negative Paige's sign, Negative Bustamante sign Musculoskeletal: Demonstrates decreased range of motion at the ankle joint less than 5 degrees as noted without pain or crepitus. Left lower extremity: BKA noted to left lower extremity General Extremity: Negative for calf tenderness Skin no rashes or lesions noted, skin turgor normal and no jaundice Wound Narrative: Right lower extremity: 3 ulcerative sites noted to the plantar aspect of the right foot.? Subfirst metatarsal ulceration is noted with mixed fiber granular layer; subfifth metatarsal ulceration is noted with mixed fiber granular layer; right plantar heel ulceration is also noted with mixed fiber granular layer.? Ulcerative sites demonstrate serosanguineous drainage.? No erythema, no purulent drainage, no malodor, no palpable fluctuance/bogginess, no visible abscess.? About the ulcerative sites, plantar lateral foot, and distal stump there is evidence of ecchymosis/subdermal bleeding secondary to excessive pressure secondary to patient utilizing foot to aid in pushing her wheelchair. Neuro moves all extremities Neuro Narrative: Decreased light touch sensation and protective sensation noted to the right lower extremity consistent with diabetic peripheral polyneuropathy Debridement Note Debridement Note Post-Debridement Measurements and Additional Note: Post-Debridement Measurements/Treatment - Nurse 1 - General Ulcer Assessment Start: 12/16/22 09:53 Freq: Status: Active Protocol: LOWEXYoselyn Activity Type Activity Date Activity User E-sign Co-sign Detail Recorded Client Recorded Date Recorded By Document 12/16/22 09:53 MORENO [id number] 12/16/22 10:02 MORENO 12/16/22 09:53 - Today's Visit Information Type of service Follow-up Visit (Physician/DEPUTY DIRECTOR OF FINANCE ) Arrival Mode Wheelchair Transfer Assistance Manual Accompanied by caregiver Patient Identification Verified (Name & Yes ) Patient Requires Transmission-Based No Precautions Height and Weight Weight 106.594 kg Weight in Pounds 235.0 lbs Weight Measurement Method Estimated by Patient Vital Signs Temperature (97.8 F-99.1 F) 96.6 F L Temperature Source Temporal Pulse Rate (60-100) 90 Pulse Location Monitor Respiratory Rate (12-18) 18 Respiratory rate source Observation Blood Pressure (90/60-120/80) 122/76 H Blood Pressure Mean (mm Hg) 91 Source Monitor Position Sitting Blood Pressure Location Left Arm History Since Last Visit- (Skip if this is Patient's initial visit) Have you changed medications since your No last visit? Any new allergies or adverse reactions No Had a fall/change in ADL's that may No increase risk of falls Signs or symptoms of abuse and/or No neglect since last visit Have you been in the hospital since your No last visit? Has dressing in place as prescribed Yes Has compression in place as prescribed Yes Has offloadiing in place as prescribed Yes Experienced any changes in pain level or No management Left Footwear No Footwear Right Footwear Regular Shoe Pain Scale: 0-10 Numeric Is Patient Pain Free? Yes WC - Nurse 1 - General Ulcer Measurement Start: 12/16/22 09:53 Freq: Status: Active Protocol: Activity Type Activity Date Activity User E-sign Co-sign Detail Recorded Client Recorded Date Recorded By Document 12/16/22 09:53 MORENO [id number] 12/16/22 10:02 MORENO 12/16/22 09:53 Wound Center Nurse 1 #5 R HEEL -Combined with other wound No -Current Size (cm) - Length 2.1 -Current Size (cm) - Width 2.1 -Current Size (cm) - Depth 0.3 -Total Square Cm 4.41 -Photo Taken Yes -Epithelialization None Present -Tunneling No -Circular Undermining No -Exudate Amt Medium -Exudate Type Serosanguineous -Wound Margin Flat & Intact -Granulation Amt Large (67-100%) -Granulation Quality Red -Slough/Fibrin No -Necrosis Amt Medium (34-66%) -Necrotic Tissue Type Adherent Slough -Structure Exposed N/A -Texture (Anali-wound Skin Appearance) Assessed -Moisture (Anali-wound Skin Appearance) Assessed,Dry/ Scaly -Color (Anali-wound Skin Appearance) Assessed, Erythema -Temperature (Anali-wound Skin No Abnormality Appearance) (Pt Warm) -Tenderness on Palpation (Anali-wound No Skin Appearance) -Ulcer Cleansing Rinsed/ Irrigated with Saline -Foul Odor after Cleansing No -Anesthetic Used 5% Lidocaine Gel #6 R LAT PLANTAR FOOT -Combined with other wound No -Current Size (cm) - Length 1.4 -Current Size (cm) - Width 0.8 -Current Size (cm) - Depth 0.3 -Total Square Cm 1.12 -Photo Taken Yes -Epithelialization None Present -Tunneling No -Undermining/Tunneling No -Circular Undermining No -Exudate Amt Small -Exudate Type Serosanguineous -Wound Margin Flat & Intact -Granulation Amt Medium (34-66%) -Granulation Quality Red -Slough/Fibrin Yes -Necrosis Amt Medium (34-66%) -Necrotic Tissue Type Adherent Slough -Structure Exposed N/A -Texture (Anali-wound Skin Appearance) Assessed -Moisture (Anali-wound Skin Appearance) Assessed,Dry/ Scaly -Color (Anali-wound Skin Appearance) Assessed, Ecchymosis -Temperature (Anali-wound Skin No Abnormality Appearance) (Pt Warm) -Tenderness on Palpation (Anali-wound No Skin Appearance) -Ulcer Cleansing Rinsed/ Irrigated with Saline -Foul Odor after Cleansing No -Anesthetic Used 5% Lidocaine Gel #7 R 1ST MET PLANTAR -Combined with other wound No -Current Size (cm) - Length 3.0 -Current Size (cm) - Width 3.2 -Current Size (cm) - Depth 0.1 -Total Square Cm 9.60 -Photo Taken Yes -Epithelialization None Present -Tunneling No -Undermining/Tunneling No -Circular Undermining No -Exudate Amt Small -Exudate Type Serosanguineous -Wound Margin Flat & Intact -Granulation Amt Small (1-33%) -Granulation Quality Red -Slough/Fibrin No -Necrosis Amt Medium (34-66%) -Necrotic Tissue Type Adherent Slough -Structure Exposed N/A -Texture (Anali-wound Skin Appearance) Assessed,Callus -Moisture (Anali-wound Skin Appearance) No Abnormality, Assessed -Color (Anali-wound Skin Appearance) Assessed, Ecchymosis, Erythema -Temperature (Anali-wound Skin No Abnormality Appearance) (Pt Warm) -Tenderness on Palpation (Anali-wound No Skin Appearance) -Ulcer Cleansing Rinsed/ Irrigated with Saline -Foul Odor after Cleansing No -Anesthetic Used 4% Lidocaine Solution,5% Lidocaine Gel Lower Limb Edema Present NA WC - Nurse 2 - General Ulcer CM Notes Start: 12/16/22 09:53 Freq: Status: Active Protocol: Activity Type Activity Date Activity User E-sign Co-sign Detail Recorded Client Recorded Date Recorded By Document 12/16/22 12:03 MARILEE [id number] 12/16/22 12:06 MARILEE 12/16/22 12:03 Wound Center Nurse 2 #5 R HEEL -Time 10:21 -Correct Patient Yes -Correct Side, Site, Position Yes -Correct Procedure Yes -Procedure Performed Yes -Type of Procedure Debridement -Clinical Debridement Subcutaneous -Tissue Removed Subcutaneous -Post Debridement (cm) - Length 2.4 -Post Debridement (cm) - Width 2.5 -Post Debridement (cm) - Depth 0.3 -Total Square (Post) (cm) 6.00 -Area of Debridement (cm) - Length 2.4 -Area of Debridement (cm) - Width 2.5 -Total Square (Area) (cm) 6.00 -Tunneling No -Undermining/Tunneling No -Circular Undermining No -Wound/Ulcer Outcome Not Healed -Ulcer Cleansing Rinsed/ Irrigated with Saline -Foul Odor after Cleansing No -Bioengineered Tissue No -Bleeding Controlled with Pressure -Treatment Response Procedure Tolerated Well -Debridement - Subq, 1st 20sq cm No #6 R LAT PLANTAR FOOT -Time 10:21 -Correct Patient Yes -Correct Side, Site, Position Yes -Correct Procedure Yes -Procedure Performed Yes -Type of Procedure Debridement -Clinical Debridement Subcutaneous -Tissue Removed Subcutaneous -Post Debridement (cm) - Length 1.6 -Post Debridement (cm) - Width 0.9 -Post Debridement (cm) - Depth 0.3 -Total Square (Post) (cm) 1.44 -Area of Debridement (cm) - Length 1.6 -Area of Debridement (cm) - Width 0.9 -Total Square (Area) (cm) 1.44 -Tunneling No -Undermining/Tunneling No -Circular Undermining No -Wound/Ulcer Outcome Not Healed -Ulcer Cleansing Rinsed/ Irrigated with Saline -Foul Odor after Cleansing No -Bioengineered Tissue No -Bleeding Controlled with Pressure -Treatment Response Procedure Tolerated Well -Debridement - Subq, 1st 20sq cm No #7 R 1ST MET PLANTAR -Time 10:21 -Correct Patient Yes -Correct Side, Site, Position Yes -Correct Procedure Yes -Procedure Performed Yes -Type of Procedure Debridement -Clinical Debridement Subcutaneous -Tissue Removed Subcutaneous -Post Debridement (cm) - Length 3.5 -Post Debridement (cm) - Width 3.2 -Post Debridement (cm) - Depth 0.1 -Total Square (Post) (cm) 11.20 -Area of Debridement (cm) - Length 3.5 -Area of Debridement (cm) - Width 3.2 -Total Square (Area) (cm) 11.20 -Tunneling No -Undermining/Tunneling No -Circular Undermining No -Wound/Ulcer Outcome Not Healed -Ulcer Cleansing Rinsed/ Irrigated with Saline -Foul Odor after Cleansing No -Bioengineered Tissue No -Bleeding Controlled with Pressure -Treatment Response Procedure Tolerated Well -Debridement - Subq, 1st 20sq cm Yes Pain Scale: 0-10 Numeric Is Patient Pain Free? Yes - Nurse 3 - General Ulcer D/C NN Start: 12/16/22 09:53 Freq: Status: Active Protocol: Activity Type Activity Date Activity User E-sign Co-sign Detail Recorded Client Recorded Date Recorded By Document 12/16/22 10:49 WINNIE [id number] 12/16/22 10:50 WINNIE 12/16/22 10:49 Wound Care Center Nurse 3 #5 R HEEL -Ulcer Cleansing Rinsed/ Irrigated with Saline -Foul Odor after Cleansing No -Negative Pressure Wound Therapy N/A -Primary Dressing Applied Promogran Gisele Matter -Other Dressing ABD -Primary Dressing Covered/Secured with Dry Gauze & Roll Gauze, Secured with Tape -Promogran Gisele Matter 2 #6 R LAT PLANTAR FOOT -Ulcer Cleansing Rinsed/ Irrigated with Saline -Foul Odor after Cleansing No -Negative Pressure Wound Therapy N/A -Primary Dressing Applied Promogran Gisele Matter -Primary Dressing Covered/Secured with Dry Gauze & Roll Gauze, Secured with Tape -Promogran Gisele Matter 0 #7 R 1ST MET PLANTAR -Ulcer Cleansing Rinsed/ Irrigated with Saline -Foul Odor after Cleansing No -Negative Pressure Wound Therapy N/A -Primary Dressing Applied Promogran Gisele Matter -Other Dressing ABD -Primary Dressing Covered/Secured with Dry Gauze & Roll Gauze, Secured with Tape -Promogran Gisele Matter 0 Pain Scale: 0-10 Numeric Is Patient Pain Free? Yes WC - Visit Discharge Discharge Condition Stable Ambulatory Status Ambulatory Transportation Private Auto Medication Reconcilliation completed & Yes provided to patient/care provider Clinical Summary of Care Provided Yes Assessment/Plan Assessment/Plan (1) Decubitus ulcer of right heel, stage 2: CODE(S): L89.612 - Pressure ulcer of right heel, stage 2 (2) Ulcer of right foot with fat layer exposed: CODE(S): L97.512 - Non-pressure chronic ulcer of other part of right foot with fat layer exposed (3) Type 2 diabetes mellitus with diabetic polyneuropathy: CODE(S): E11.42 - Type 2 diabetes mellitus with diabetic polyneuropathy (4) Type 2 diabetes mellitus with foot ulcer: CODE(S): E11.621 - Type 2 diabetes mellitus with foot ulcer; L97.509 - Non-pressure chronic ulcer of other part of unspecified foot with unspecified severity (5) History of transmetatarsal amputation of right foot: CODE(S): Z89.431 - Acquired absence of right foot (6) Other specified peripheral vascular diseases: CODE(S): I73.89 - Other specified peripheral vascular diseases (7) History of left below knee amputation: CODE(S): Z89.512 - Acquired absence of left leg below knee (8) Malnutrition: CODE(S): E46 - Unspecified protein-calorie malnutrition (9) Delayed wound healing: CODE(S): T14.8XXD - Other injury of unspecified body region, subsequent encounter PLAN: Plan Patient seen and evaluated Left lower extremity has undergone previous BKA with prosthetic to assist ambulation. Right lower extremity has undergone previous transmetatarsal amputation Ulcerations x3 noted to the plantar aspect of the right foot.? All ulcerative sites underwent debridement as noted in the clinical panel above.? Subfirst metatarsal ulceration measures 3.5 cm x 3.1 cm x 0.1 cm; subfifth metatarsal ulceration measures 1.6 cm x 0.9 cm x 0.3 cm; right heel plantar ulceration measures 2.4 cm x 2.5 cm x 0.3 cm.? Forefoot ulcerations are a Abel type I, plantar heel decubitus ulceration is a Abel 2.? All ulcerative sites were dressed with collagen powder and PHMB dressing with dry sterile dressing. She is currently on Bactrim DS until 12/15/2022.? Instructed to continue oral antibiotic to completion. I have reviewed her previous noninvasive vascular studies performed 07/08/2020.? These demonstrate monophasic waveforms at the level of the ankle with biphasic waveform at the right common femoral and proximal superficial femoral arteries.? Peak systolic arterial velocity include, femoral 93, profundofemoral 72, proximal superficial femoral 136, mid superficial femoral 68, distal superficial femoral 117, popliteal 78, posterior tibial 45, dorsalis pedis 36.? There is no hemodynamic significant arterial stenosis in the arteries of the right lower extremity at that time.? I have also reviewed her x-ray report from 01/16/2021 which includes 2 right foot x-rays without fracture dislocation or radiographic evidence of osteomyelitis.? It is noted on x-ray that she had a very proximal transmetatarsal amputation.? I discussed with the food and beverage outlets manager today updating laboratory studies, radiographs of the right foot, and noninvasive vascular studies.? Order was dispensed today 12/09/2022 to the food and beverage outlets manager for laboratory work consisting of CBC with differential, Chem-12, CRP, ESR, vitamin D, prealbumin, hemoglobin A1c.? Hand Frame Surgical Elastic Knitter will have these studies performed at the group home facility,[facility] in [place].? I also ordered updated imaging of the right foot 12/09/2022, awaiting results.? I also ordered updated LEAS and venous duplex of the right lower extremity, awaiting results. I recommend continued glycemic control, nutritional supplementation with Sandoval and adequate protein intake to optimize wound healing.? It is also noted patient is a former smoker, no recent tobacco use.? I also recommend strict nonweightbearing status to the right lower extremity and for patient to utilize wheelchair and not use the right foot to aid in propulsion of the wheelchair. I discussed her high risk of right lower extremity amputation with the patient and food and beverage outlets manager today.? Pending studies ordered above and MRI will be obtained to evaluate further for osteomyelitis. I discussed with the patient and her food and beverage outlets manager aide signs to observe for pertaining to infection.? I discussed if there is any redness about the ulcerative sites that progresses onto the foot and up the leg, if any purulent drainage emerges from the ulcers, if there is increased foul odor, or if she experiences any fever greater than 101 degree, or nausea, or vomiting, or chills that these are progressing signs of infection and she needs to report to the ED.? Hand Frame Surgical Elastic Knitter voices understanding of this. Dressing: Gisele.?Dry sterile dressing with ABD.? Change daily Wash: Soap and water, pat the area dry Tissue growth optimization: Gisele Right lower extremity.? Offloading: She was instructed again to not utilize the right foot to aid in propulsion of her wheelchair. Instructed to not sit on bed with knees bent and foot pushing into the bed. Hand Frame Surgical Elastic Knitter instructed to offload with foam waffle boot Vascular: Palpable DP and PT pulses with adequate stump perfusion on the right TMA site.? LEAS ordered 12/09/2022, awaiting results Edema: Continue to elevate right lower extremity at all times of rest Infection: No local signs of infection Pain: May take [id number] Tylenol Host factors: DM type II with peripheral polyneuropathy, PVD, atherosclerotic heart disease, transmetatarsal amputation right foot, BKA left lower extremity ? I answered all the patient's questions.? To return to the wound healing center in 1 week or call sooner if the patient has any questions or concerns. Note: [employer] speech recognition financial analysis consultant software was used to create portions of this document. Sound-alike and misspelled words, as well as other financial analysis consultant errors may be contained in the documentation.
[2022-12-24 16:30] LABS: Bedside Glucose 113 mg/dL (74-106)
--- NOTE | 2023-01-06 08:36 | PCM.WC.PN ---
History of Present Illness Date of Service: 01/06/23 Chief Complaint: Right foot ulcers History of Wound: This 57-year-old female with significant past medical history of bipolar, schizophrenia, anxiety, dementia, diabetes, prior homelessness, prior frostbite injuries presents to the wound care center for evaluation of three right foot ulcers. She is residing at a nursing home facility, [facility]. She denies redness or odor, fever, chill, nausea, vomiting. She has underwent comprehensive wound healing program prior to being seen at the wound care center and also here at the wound care center. She already has a BKA of the Left lower extremity. She fears she may need a right below-knee amputation. She is exhausted from trying to save her limb the past couple of decades. States that these wounds are recurrent/nonhealing and have been present since 2020. At that time she was seen here in the wound care center by Dr. Calvert. However patient has not returned to the wound center since February 2021. She returns today to the wound care center,12/09/2022, for same issue of 3 foot ulcerations to the plantar right foot. Subjective Subjective Patient is a 57-year-old female with history of diabetes, transmetatarsal amputation of the right foot and BKA of the left lower extremity, and peripheral vascular disease who follows up to the wound care center today for 3 plantar ulcerations to the right foot.? She is recently discharged from [facility] where she was admitted for treatment of pneumonia. She states she is feeling much better since discharge. She is still noted to be using the right foot to assist her wheelchair propulsion.? She denies any constitutional symptoms today.? She denies any complaints today. Objective Data Objective Data Vital Signs: Vital Signs Temp Pulse Resp BP 96.6 F L 90 18 122/76 H 12/16/22 09:53 12/16/22 09:53 12/16/22 09:53 12/16/22 09:53 Weight: 106.594 kg Body Mass Index (BMI) 36.8 Physical Exam Const alert, oriented x3 and no apparent distress General Appearance: cooperative HEENT normocephalic Eyes General Eye: normal appearance of both eyes Neck General: normal visual inspection Lymph Lymphatic: no lymphadenopathy noted and no lymphedema noted Resp normal respiratory effort Cardio regular rate and regular rhythm Extremity normal capillary refill, no joint enlargement, no calf tenderness and no pedal edema Extremity Narrative: Right lower extremity: DP pulses palpable and PT pulses palpable.? Transmetatarsal amputation noted with distal stump ulceration subfirst metatarsal base subfifth metatarsal base and plantar heel.? Stump demonstrates adequate perfusion. Negative Paige's sign, Negative Bustamante sign Musculoskeletal: Demonstrates decreased range of motion at the ankle joint less than 5 degrees as noted without pain or crepitus. Left lower extremity: BKA noted to left lower extremity Skin no rashes or lesions noted, skin turgor normal and no jaundice Wound Narrative: Right lower extremity: 3 ulcerative sites noted to the plantar aspect of the right foot.? Subfirst metatarsal ulceration is noted with mixed fiber granular layer; subfifth metatarsal ulceration is noted with mixed fiber granular layer; right plantar heel ulceration is also noted with mixed fiber granular layer.? Ulcerative sites demonstrate serosanguineous drainage.? No erythema, no purulent drainage, no malodor, no palpable fluctuance/bogginess, no visible abscess.? About the ulcerative sites, plantar lateral foot, and distal stump there is evidence of ecchymosis/subdermal bleeding secondary to excessive pressure secondary to patient utilizing foot to aid in pushing her wheelchair. Neuro moves all extremities Neuro Narrative: Decreased light touch sensation and protective sensation noted to the right lower extremity consistent with diabetic peripheral polyneuropathy Debridement Note Debridement Note Wound debrided: Sub first metatarsal and sub fifth metatarsal Laterality: Right Wound Grade/Stage: Abel stage I Type of Debridement: Excisional debridement Anesthesia Used: 5% Lidocaine Gel Depth: Down to and including healthy tissue and in the subcutaneous layer Percentage of wound debrided: 100 Instrument Used: 5mm curette and #15 blade Tissue Removed: Fibrous, devitalized subcutaneous, biofilm, slough Severity: Fat Layer Exposed Amount of bleeding with debridement: Mild Bleeding Controlled with: Compression and gauze Patient tolerated procedure: Patient tolerated procedure well Post-Debridement Measurements and Additional Note: Post-Debridement Measurements/Treatment AMAN - Nurse 1 - General Ulcer Assessment Start: 12/16/22 09:53 Freq: Status: Active Protocol: LOWEXT Activity Type Activity Date Activity User E-sign Co-sign Detail Recorded Client Recorded Date Recorded By Document 12/16/22 09:53 MORENO [id number] 12/16/22 10:02 MORENO 12/16/22 09:53 - Today's Visit Information Type of service Follow-up Visit (Physician/RISK ADVISOR ) Arrival Mode Wheelchair Transfer Assistance Manual Accompanied by caregiver Patient Identification Verified (Name & Yes ) Patient Requires Transmission-Based No Precautions Height and Weight Weight 106.594 kg Weight in Pounds 235.0 lbs Weight Measurement Method Estimated by Patient Vital Signs Temperature (97.8 F-99.1 F) 96.6 F L Temperature Source Temporal Pulse Rate (60-100) 90 Pulse Location Monitor Respiratory Rate (12-18) 18 Respiratory rate source Observation Blood Pressure (90/60-120/80) 122/76 H Blood Pressure Mean (mm Hg) 91 Source Monitor Position Sitting Blood Pressure Location Left Arm History Since Last Visit- (Skip if this is Patient's initial visit) Have you changed medications since your No last visit? Any new allergies or adverse reactions No Had a fall/change in ADL's that may No increase risk of falls Signs or symptoms of abuse and/or No neglect since last visit Have you been in the hospital since your No last visit? Has dressing in place as prescribed Yes Has compression in place as prescribed Yes Has offloadiing in place as prescribed Yes Experienced any changes in pain level or No management Left Footwear No Footwear Right Footwear Regular Shoe Pain Scale: 0-10 Numeric Is Patient Pain Free? Yes - Nurse 1 - General Ulcer Measurement Start: 12/16/22 09:53 Freq: Status: Active Protocol: Activity Type Activity Date Activity User E-sign Co-sign Detail Recorded Client Recorded Date Recorded By Document 12/16/22 09:53 [id number] 12/16/22 10:02 MORENO 12/16/22 09:53 Wound Center Nurse 1 #5 R HEEL -Combined with other wound No -Current Size (cm) - Length 2.1 -Current Size (cm) - Width 2.1 -Current Size (cm) - Depth 0.3 -Total Square Cm 4.41 -Photo Taken Yes -Epithelialization None Present -Tunneling No -Circular Undermining No -Exudate Amt Medium -Exudate Type Serosanguineous -Wound Margin Flat & Intact -Granulation Amt Large (67-100%) -Granulation Quality Red -Slough/Fibrin No -Necrosis Amt Medium (34-66%) -Necrotic Tissue Type Adherent Slough -Structure Exposed N/A -Texture (Anali-wound Skin Appearance) Assessed -Moisture (Anali-wound Skin Appearance) Assessed,Dry/ Scaly -Color (Anali-wound Skin Appearance) Assessed, Erythema -Temperature (Anali-wound Skin No Abnormality Appearance) (Pt Warm) -Tenderness on Palpation (Anali-wound No Skin Appearance) -Ulcer Cleansing Rinsed/ Irrigated with Saline -Foul Odor after Cleansing No -Anesthetic Used 5% Lidocaine Gel #6 R LAT PLANTAR FOOT -Combined with other wound No -Current Size (cm) - Length 1.4 -Current Size (cm) - Width 0.8 -Current Size (cm) - Depth 0.3 -Total Square Cm 1.12 -Photo Taken Yes -Epithelialization None Present -Tunneling No -Undermining/Tunneling No -Circular Undermining No -Exudate Amt Small -Exudate Type Serosanguineous -Wound Margin Flat & Intact -Granulation Amt Medium (34-66%) -Granulation Quality Red -Slough/Fibrin Yes -Necrosis Amt Medium (34-66%) -Necrotic Tissue Type Adherent Slough -Structure Exposed N/A -Texture (Anali-wound Skin Appearance) Assessed -Moisture (Anali-wound Skin Appearance) Assessed,Dry/ Scaly -Color (Anali-wound Skin Appearance) Assessed, Ecchymosis -Temperature (Anali-wound Skin No Abnormality Appearance) (Pt Warm) -Tenderness on Palpation (Anali-wound No Skin Appearance) -Ulcer Cleansing Rinsed/ Irrigated with Saline -Foul Odor after Cleansing No -Anesthetic Used 5% Lidocaine Gel #7 R 1ST MET PLANTAR -Combined with other wound No -Current Size (cm) - Length 3.0 -Current Size (cm) - Width 3.2 -Current Size (cm) - Depth 0.1 -Total Square Cm 9.60 -Photo Taken Yes -Epithelialization None Present -Tunneling No -Undermining/Tunneling No -Circular Undermining No -Exudate Amt Small -Exudate Type Serosanguineous -Wound Margin Flat & Intact -Granulation Amt Small (1-33%) -Granulation Quality Red -Slough/Fibrin No -Necrosis Amt Medium (34-66%) -Necrotic Tissue Type Adherent Slough -Structure Exposed N/A -Texture (Anali-wound Skin Appearance) Assessed,Callus -Moisture (Anali-wound Skin Appearance) No Abnormality, Assessed -Color (Anali-wound Skin Appearance) Assessed, Ecchymosis, Erythema -Temperature (Anali-wound Skin No Abnormality Appearance) (Pt Warm) -Tenderness on Palpation (Anali-wound No Skin Appearance) -Ulcer Cleansing Rinsed/ Irrigated with Saline -Foul Odor after Cleansing No -Anesthetic Used 4% Lidocaine Solution,5% Lidocaine Gel Lower Limb Edema Present NA WC - Nurse 2 - General Ulcer CM Notes Start: 12/16/22 09:53 Freq: Status: Active Protocol: Activity Type Activity Date Activity User E-sign Co-sign Detail Recorded Client Recorded Date Recorded By Document 12/16/22 12:03 PL [id number] 12/16/22 12:06 PL 12/16/22 12:03 Wound Center Nurse 2 #5 R HEEL -Time 10:21 -Correct Patient Yes -Correct Side, Site, Position Yes -Correct Procedure Yes -Procedure Performed Yes -Type of Procedure Debridement -Clinical Debridement Subcutaneous -Tissue Removed Subcutaneous -Post Debridement (cm) - Length 2.4 -Post Debridement (cm) - Width 2.5 -Post Debridement (cm) - Depth 0.3 -Total Square (Post) (cm) 6.00 -Area of Debridement (cm) - Length 2.4 -Area of Debridement (cm) - Width 2.5 -Total Square (Area) (cm) 6.00 -Tunneling No -Undermining/Tunneling No -Circular Undermining No -Wound/Ulcer Outcome Not Healed -Ulcer Cleansing Rinsed/ Irrigated with Saline -Foul Odor after Cleansing No -Bioengineered Tissue No -Bleeding Controlled with Pressure -Treatment Response Procedure Tolerated Well -Debridement - Subq, 1st 20sq cm No #6 R LAT PLANTAR FOOT -Time 10:21 -Correct Patient Yes -Correct Side, Site, Position Yes -Correct Procedure Yes -Procedure Performed Yes -Type of Procedure Debridement -Clinical Debridement Subcutaneous -Tissue Removed Subcutaneous -Post Debridement (cm) - Length 1.6 -Post Debridement (cm) - Width 0.9 -Post Debridement (cm) - Depth 0.3 -Total Square (Post) (cm) 1.44 -Area of Debridement (cm) - Length 1.6 -Area of Debridement (cm) - Width 0.9 -Total Square (Area) (cm) 1.44 -Tunneling No -Undermining/Tunneling No -Circular Undermining No -Wound/Ulcer Outcome Not Healed -Ulcer Cleansing Rinsed/ Irrigated with Saline -Foul Odor after Cleansing No -Bioengineered Tissue No -Bleeding Controlled with Pressure -Treatment Response Procedure Tolerated Well -Debridement - Subq, 1st 20sq cm No #7 R 1ST MET PLANTAR -Time 10:21 -Correct Patient Yes -Correct Side, Site, Position Yes -Correct Procedure Yes -Procedure Performed Yes -Type of Procedure Debridement -Clinical Debridement Subcutaneous -Tissue Removed Subcutaneous -Post Debridement (cm) - Length 3.5 -Post Debridement (cm) - Width 3.2 -Post Debridement (cm) - Depth 0.1 -Total Square (Post) (cm) 11.20 -Area of Debridement (cm) - Length 3.5 -Area of Debridement (cm) - Width 3.2 -Total Square (Area) (cm) 11.20 -Tunneling No -Undermining/Tunneling No -Circular Undermining No -Wound/Ulcer Outcome Not Healed -Ulcer Cleansing Rinsed/ Irrigated with Saline -Foul Odor after Cleansing No -Bioengineered Tissue No -Bleeding Controlled with Pressure -Treatment Response Procedure Tolerated Well -Debridement - Subq, 1st 20sq cm Yes Pain Scale: 0-10 Numeric Is Patient Pain Free? Yes WC - Nurse 3 - General Ulcer D/C NN Start: 12/16/22 09:53 Freq: Status: Active Protocol: Activity Type Activity Date Activity User E-sign Co-sign Detail Recorded Client Recorded Date Recorded By Document 12/16/22 10:49 WINNIE [id number] 12/16/22 10:50 WINNIE 12/16/22 10:49 Wound Care Center Nurse 3 #5 R HEEL -Ulcer Cleansing Rinsed/ Irrigated with Saline -Foul Odor after Cleansing No -Negative Pressure Wound Therapy N/A -Primary Dressing Applied Promogran Gisele Matter -Other Dressing ABD -Primary Dressing Covered/Secured with Dry Gauze & Roll Gauze, Secured with Tape -Promogran Gisele Matter 2 #6 R LAT PLANTAR FOOT -Ulcer Cleansing Rinsed/ Irrigated with Saline -Foul Odor after Cleansing No -Negative Pressure Wound Therapy N/A -Primary Dressing Applied Promogran Gisele Matter -Primary Dressing Covered/Secured with Dry Gauze & Roll Gauze, Secured with Tape -Promogran Gisele Matter 0 #7 R 1ST MET PLANTAR -Ulcer Cleansing Rinsed/ Irrigated with Saline -Foul Odor after Cleansing No -Negative Pressure Wound Therapy N/A -Primary Dressing Applied Promogran Gisele Matter -Other Dressing ABD -Primary Dressing Covered/Secured with Dry Gauze & Roll Gauze, Secured with Tape -Promogran Gisele Matter 0 Pain Scale: 0-10 Numeric Is Patient Pain Free? Yes WC - Visit Discharge Discharge Condition Stable Ambulatory Status Ambulatory Transportation Private Auto Medication Reconcilliation completed & Yes provided to patient/care provider Clinical Summary of Care Provided Yes Additional Wound Wound debrided: Right plantar heel decubitus ulceration Laterality: Right Wound Grade/Stage: Abel stage II Type of Debridement: Excisional debridement Anesthesia Used: 5% Lidocaine Gel Depth: Down to and including healthy tissue and in the subcutaneous layer Percentage of wound debrided: 100 Instrument Used: 5mm curette Tissue Removed: Fibrous, devitalized subcutaneous, biofilm, slough Severity: Fat Layer Exposed Amount of bleeding with debridement: Mild Bleeding Controlled with: Compression and gauze Patient tolerated procedure: Patient tolerated procedure well Assessment/Plan Assessment/Plan (1) Decubitus ulcer of right heel, stage 2: CODE(S): L89.612 - Pressure ulcer of right heel, stage 2 (2) Ulcer of right foot with fat layer exposed: CODE(S): L97.512 - Non-pressure chronic ulcer of other part of right foot with fat layer exposed (3) Type 2 diabetes mellitus with diabetic polyneuropathy: CODE(S): E11.42 - Type 2 diabetes mellitus with diabetic polyneuropathy (4) Type 2 diabetes mellitus with foot ulcer: CODE(S): E11.621 - Type 2 diabetes mellitus with foot ulcer; L97.509 - Non-pressure chronic ulcer of other part of unspecified foot with unspecified severity (5) History of transmetatarsal amputation of right foot: CODE(S): Z89.431 - Acquired absence of right foot (6) Other specified peripheral vascular diseases: CODE(S): I73.89 - Other specified peripheral vascular diseases (7) History of left below knee amputation: CODE(S): Z89.512 - Acquired absence of left leg below knee (8) Malnutrition: CODE(S): E46 - Unspecified protein-calorie malnutrition (9) Delayed wound healing: CODE(S): T14.8XXD - Other injury of unspecified body region, subsequent encounter PLAN: Plan Patient seen and evaluated Left lower extremity has undergone previous BKA with prosthetic to assist ambulation. Right lower extremity has undergone previous transmetatarsal amputation Ulcerations x3 noted to the plantar aspect of the right foot.? All ulcerative sites underwent debridement as noted in the clinical panel above.? Subfirst metatarsal ulceration measures 2.6 cm x 2.7 cm x 0.1 cm; subfifth metatarsal ulceration measures 1.3 cm x 0.9 cm x 0.2 cm; right heel plantar ulceration measures 2.0 cm x 2.0 cm x 0.3 cm.? Forefoot ulcerations are a Abel type I, plantar heel decubitus ulceration is a Abel 2.? All ulcerative sites of the forefoot were dressed with collagen powder and PHMB dressing with dry sterile dressing. She was approved for advanced wound care product. Epi fix graft #1 applied to right heel and anchored with Adaptic touch and Steri-Strips and dry sterile dressing. Pattern Carrier was instructed to change the outer dressings to the right heel as needed. Instructed patient and electrical engineering technologist to not get the site wet and to remain compliant with no pressure to the site. Wound culture from admission on 12/23/22 demonstrates staph aureus. Negative MRSA PCR, Staph protein A PCR positive. She underwent debridement while in hospital for pneumonia. I have reviewed her previous noninvasive vascular studies performed 07/08/2020.? These demonstrate monophasic waveforms at the level of the ankle with biphasic waveform at the right common femoral and proximal superficial femoral arteries.? Peak systolic arterial velocity include, femoral 93, profundofemoral 72, proximal superficial femoral 136, mid superficial femoral 68, distal superficial femoral 117, popliteal 78, posterior tibial 45, dorsalis pedis 36.? There is no hemodynamic significant arterial stenosis in the arteries of the right lower extremity at that time.? I have also reviewed her x-ray report from 01/16/2021 which includes 2 right foot x-rays without fracture dislocation or radiographic evidence of osteomyelitis.? It is noted on x-ray that she had a very proximal transmetatarsal amputation.? I discussed with the electrical engineering technologist today updating laboratory studies, radiographs of the right foot, and noninvasive vascular studies.? Order was dispensed today 12/09/2022 to the electrical engineering technologist for laboratory work consisting of CBC with differential, Chem-12, CRP, ESR, vitamin D, prealbumin, hemoglobin A1c.? Pattern Carrier will have these studies performed at the nursing home [facility] in [place].? I also ordered updated imaging of the right foot 12/09/2022: Demonstrated no underlying osseous destruction, decreased mineralization of bone and Transmetatarsal amputation. Radiographs obtained again during admission on 12/23/22 demonstrated no underlying osteomyelitis.? I also ordered updated LEAS and venous duplex of the right lower extremity: Venous doppler demonstrates no evidence of DVT. LEAS demonstrates Triphasic doppler of Right ankle with PVR satisfactory at low thigh bilaterally and calf of right leg. No evidence of arterial occlusive disease in lower extremities bilaterally. I recommend continued glycemic control, nutritional supplementation with Sandoval and adequate protein intake to optimize wound healing.? It is also noted patient is a former smoker, no recent tobacco use.? I also recommend strict nonweightbearing status to the right lower extremity and for patient to utilize wheelchair and not use the right foot to aid in propulsion of the wheelchair. I discussed her high risk of right lower extremity amputation with the patient and electrical engineering technologist today. I discussed with the patient and her electrical engineering technologist aide signs to observe for pertaining to infection.? I discussed if there is any redness about the ulcerative sites that progresses onto the foot and up the leg, if any purulent drainage emerges from the ulcers, if there is increased foul odor, or if she experiences any fever greater than 101 degree, or nausea, or vomiting, or chills that these are progressing signs of infection and she needs to report to the ED.? Pattern Carrier voices understanding of this. Dressing: Gisele to forefoot. Dry sterile dressing with ABD.? Change daily. Right heel Epifix graft, adaptec touch, steri strips and DSD. Wash: No not get wet Tissue growth optimization: Gisele Right lower extremity forefoot, Epifix graft Heel wound.? Offloading: She was instructed again to not utilize the right foot to aid in propulsion of her wheelchair. Instructed to not sit on bed with knees bent and foot pushing into the bed.? Pattern Carrier instructed to offload with foam waffle boot Vascular: Palpable DP and PT pulses with adequate stump perfusion on the right TMA site.? LEAS ordered 12/09/2022 demonstrates no arterial occlusive disease. Edema: Continue to elevate right lower extremity at all times of rest Infection: No local signs of infection Pain: May take [id number] Tylenol Host factors: DM type II with peripheral polyneuropathy, PVD, atherosclerotic heart disease, transmetatarsal amputation right foot, BKA left lower extremity ? I answered all the patient's questions.? To return to the wound healing center in 1 week or call sooner if the patient has any questions or concerns. Note: [employer] speech recognition reflesher software was used to create portions of this document. Sound-alike and misspelled words, as well as other reflesher errors may be contained in the documentation.
[2023-01-06 08:37] VITALS: BP 103/62; PULSE 103; TEMP 35.6; BMI 36.8
[2023-01-06 09:49] VITALS: BMI 36.8
== END 2023-01-11 23:59 | disposition home or self-care (01) ==
LOC: WC 08:30
PROVIDERS: PCP Family Medicine; Referring Provider Student in an Organized Health Care Education/Training Program; Visit Provider Student in an Organized Health Care Education/Training Program
DX: E11.621 Type 2 diabetes mellitus with foot ulcer (principal); L89.612 Pressure ulcer of right heel, stage 2; E11.51 Type 2 diabetes mellitus with diabetic peripheral angiopathy without gangrene; Z89.512 Acquired absence of left leg below knee; Z89.431 Acquired absence of right foot; L97.512 Non-pressure chronic ulcer of other part of right foot with fat layer exposed; E46 Unspecified protein-calorie malnutrition; E11.42 Type 2 diabetes mellitus with diabetic polyneuropathy; R53.83 Other fatigue; Z59.00 Homelessness unspecified; F41.9 Anxiety disorder, unspecified; T14.8XXD Other injury of unspecified body region, subsequent encounter; I25.10 Atherosclerotic heart disease of native coronary artery without angina pectoris; M79.661 Pain in right lower leg
CPT/HCPCS: 82962; 11042; 15275; 93923; 93970; Q4186

== ENCOUNTER 2023-01-13 09:25 | Outpatient (RCR) | payer MEDICAID, SELFPAY ==
[2023-01-12 00:31] VITALS: BP 103/62; PULSE 103; RESP 18; TEMP 35.6; BMI 36.8
--- NOTE | 2023-01-13 09:28 | PCM.WC.PN ---
History of Present Illness Date of Service: 01/13/23 Chief Complaint: Right foot ulcers History of Wound: This 57-year-old female with significant past medical history of bipolar, schizophrenia, anxiety, dementia, diabetes, prior homelessness, prior frostbite injuries presents to the wound care center for evaluation of three right foot ulcers. She is residing at a custodial facility, [facility]. She denies redness or odor, fever, chill, nausea, vomiting. She has underwent comprehensive wound healing program prior to being seen at the wound care center and also here at the wound care center. She already has a BKA of the Left lower extremity. She fears she may need a right below-knee amputation. She is exhausted from trying to save her limb the past couple of decades. States that these wounds are recurrent/nonhealing and have been present since 2020. At that time she was seen here in the wound care center by Dr. Calvert. However patient has not returned to the wound center since February 2021. She returns today to the wound care center,12/09/2022, for same issue of 3 foot ulcerations to the plantar right foot. Subjective Subjective Patient is a 57-year-old female with history of diabetes, transmetatarsal amputation of the right foot and BKA of the left lower extremity, and peripheral vascular disease who follows up to the wound care center today for 3 plantar ulcerations to the right foot.? She removed her EpiFix graft only after a few days as she felt there was odor of the graft. She presents today with no dressings on the right foot. She is still noted to be using the right foot to assist her wheelchair propulsion.? She denies any constitutional symptoms today.? She denies any complaints today. Objective Data Objective Data Vital Signs: Vital Signs Temp Pulse Resp BP 96.1 F L 103 H 18 103/62 01/12/23 00:31 01/12/23 00:31 01/12/23 00:31 01/12/23 00:31 Weight: 106.594 kg Body Mass Index (BMI) 36.8 Physical Exam Const alert, oriented x3 and no apparent distress General Appearance: cooperative HEENT normocephalic Eyes General Eye: normal appearance of both eyes Neck General: normal visual inspection Lymph Lymphatic: no lymphadenopathy noted and no lymphedema noted Resp normal respiratory effort Cardio regular rate and regular rhythm Extremity normal capillary refill, no joint enlargement, no calf tenderness and no pedal edema Extremity Narrative: Right lower extremity: DP pulses palpable and PT pulses palpable.? Transmetatarsal amputation noted with distal stump ulceration subfirst metatarsal base subfifth metatarsal base and plantar heel.? Stump demonstrates adequate perfusion. Negative Paige's sign, Negative Bustamante sign Musculoskeletal: Demonstrates decreased range of motion at the ankle joint less than 5 degrees as noted without pain or crepitus. Left lower extremity: BKA noted to left lower extremity Skin no rashes or lesions noted, skin turgor normal and no jaundice Wound Narrative: Right lower extremity: 3 ulcerative sites noted to the plantar aspect of the right foot.? Subfirst metatarsal ulceration is noted with mixed fiber granular layer; subfifth metatarsal ulceration is noted with mixed fiber granular layer; right plantar heel ulceration is also noted with mixed fiber granular layer.? Ulcerative sites demonstrate serosanguineous drainage.? No erythema, no purulent drainage, no malodor, no palpable fluctuance/bogginess, no visible abscess.? About the ulcerative sites, plantar lateral foot, and distal stump there is evidence of ecchymosis/subdermal bleeding secondary to excessive pressure secondary to patient utilizing foot to aid in pushing her wheelchair. Neuro moves all extremities Neuro Narrative: Decreased light touch sensation and protective sensation noted to the right lower extremity consistent with diabetic peripheral polyneuropathy Debridement Note Debridement Note Wound debrided: Right heel decubitus ulceration Laterality: Right Wound Grade/Stage: Abel stage II Type of Debridement: Excisional debridement Anesthesia Used: 5% Lidocaine Gel Depth: Down to and including healthy tissue and in the subcutaneous layer Percentage of wound debrided: 100 Instrument Used: 5mm curette Tissue Removed: Fibrous, devitalized subcutaneous, biofilm, slough Severity: Fat Layer Exposed Amount of bleeding with debridement: Mild Bleeding Controlled with: Compression and gauze Patient tolerated procedure: Patient tolerated procedure well Additional Wound Wound debrided: Sub first and Sub fifth metatarsal Laterality: Right Wound Grade/Stage: Abel stage I Type of Debridement: Excisional debridement Anesthesia Used: 5% Lidocaine Gel Depth: Down to and including healthy tissue and in the subcutaneous layer Percentage of wound debrided: 100 Instrument Used: 5mm curette Tissue Removed: Fibrous, devitalized subcutaneous, biofilm, slough Severity: Fat Layer Exposed Amount of bleeding with debridement: Mild Bleeding Controlled with: Compression and gauze Patient tolerated procedure: Patient tolerated procedure well Assessment/Plan Assessment/Plan (1) Type 2 diabetes mellitus with diabetic polyneuropathy: CODE(S): E11.42 - Type 2 diabetes mellitus with diabetic polyneuropathy (2) Type 2 diabetes mellitus with foot ulcer: CODE(S): E11.621 - Type 2 diabetes mellitus with foot ulcer; L97.509 - Non-pressure chronic ulcer of other part of unspecified foot with unspecified severity (3) History of transmetatarsal amputation of right foot: CODE(S): Z89.431 - Acquired absence of right foot (4) Other specified peripheral vascular diseases: CODE(S): I73.89 - Other specified peripheral vascular diseases (5) History of left below knee amputation: CODE(S): Z89.512 - Acquired absence of left leg below knee (6) Malnutrition: CODE(S): E46 - Unspecified protein-calorie malnutrition (7) Delayed wound healing: CODE(S): T14.8XXD - Other injury of unspecified body region, subsequent encounter (8) Decubitus ulcer of right heel, stage 2: CODE(S): L89.612 - Pressure ulcer of right heel, stage 2 (9) Ulcer of right foot with fat layer exposed: CODE(S): L97.512 - Non-pressure chronic ulcer of other part of right foot with fat layer exposed PLAN: Plan Patient seen and evaluated Left lower extremity has undergone previous BKA with prosthetic to assist ambulation. Right lower extremity has undergone previous transmetatarsal amputation Ulcerations x3 noted to the plantar aspect of the right foot.? All ulcerative sites underwent debridement as noted in the clinical panel above.? Subfirst metatarsal ulceration measures 3.6 cm x 3.6 cm x 0.1 cm; subfifth metatarsal ulceration measures 1.5 cm x 0.6 cm x 0.2 cm; right heel plantar ulceration measures 2.4 cm x 2.0 cm x 0.3 cm.? Forefoot ulcerations are a Abel type I, plantar heel decubitus ulceration is a Abel 2.? All ulcerative sites of the forefoot were dressed with collagen powder and PHMB dressing with dry sterile dressing.? She was approved for advanced wound care product.? Epi fix graft #2 applied to right heel and anchored with Adaptic touch and Steri-Strips and dry sterile dressing.? Nuisance Wildlife Control Operator was instructed to change the outer dressings to the right heel as needed.? Instructed patient and green building architect to not get the site wet and to remain compliant with no pressure to the site. Patient was instructed not to remove the EpiFix graft again. I discussed with her if she fails to progress and will not give the grafts a chance to aid her healing or remain compliant with instructions then she will undergo a BKA. Patient voices understanding of this discussion. Wound culture from admission on 12/23/22 demonstrates staph aureus. Negative MRSA PCR, Staph protein A PCR positive. She underwent debridement while in hospital for pneumonia. I have reviewed her previous noninvasive vascular studies performed 07/08/2020.? These demonstrate monophasic waveforms at the level of the ankle with biphasic waveform at the right common femoral and proximal superficial femoral arteries.? Peak systolic arterial velocity include, femoral 93, profundofemoral 72, proximal superficial femoral 136, mid superficial femoral 68, distal superficial femoral 117, popliteal 78, posterior tibial 45, dorsalis pedis 36.? There is no hemodynamic significant arterial stenosis in the arteries of the right lower extremity at that time.? I have also reviewed her x-ray report from 01/16/2021 which includes 2 right foot x-rays without fracture dislocation or radiographic evidence of osteomyelitis.? It is noted on x-ray that she had a very proximal transmetatarsal amputation.? I discussed with the green building architect today updating laboratory studies, radiographs of the right foot, and noninvasive vascular studies.? Order was dispensed today 12/09/2022 to the green building architect for laboratory work consisting of CBC with differential, Chem-12, CRP, ESR, vitamin D, prealbumin, hemoglobin A1c.? Nuisance Wildlife Control Operator will have these studies performed at the custodial facility,[facility] in [place].? I also ordered updated imaging of the right foot 12/09/2022: Demonstrated no underlying osseous destruction, decreased mineralization of bone and Transmetatarsal amputation. Radiographs obtained again during admission on 12/23/22 demonstrated no underlying osteomyelitis.? I also ordered updated LEAS and venous duplex of the right lower extremity: Venous doppler demonstrates no evidence of DVT. LEAS demonstrates Triphasic doppler of Right ankle with PVR satisfactory at low thigh bilaterally and calf of right leg. No evidence of arterial occlusive disease in lower extremities bilaterally. I recommend continued glycemic control, nutritional supplementation with Sandoval and adequate protein intake to optimize wound healing.? It is also noted patient is a former smoker, no recent tobacco use.? I also recommend strict nonweightbearing status to the right lower extremity and for patient to utilize wheelchair and not use the right foot to aid in propulsion of the wheelchair. I discussed her high risk of right lower extremity amputation with the patient and green building architect today. I discussed with the patient and her green building architect aide signs to observe for pertaining to infection.? I discussed if there is any redness about the ulcerative sites that progresses onto the foot and up the leg, if any purulent drainage emerges from the ulcers, if there is increased foul odor, or if she experiences any fever greater than 101 degree, or nausea, or vomiting, or chills that these are progressing signs of infection and she needs to report to the ED.? Nuisance Wildlife Control Operator voices understanding of this. Dressing: Gisele to forefoot. Dry sterile dressing with ABD.? Change daily. Right heel Epifix graft, adaptec touch, steri strips and DSD. Wash: No not get wet Tissue growth optimization: Gisele Right lower extremity forefoot, Epifix graft Heel wound.? Offloading: She was instructed again to not utilize the right foot to aid in propulsion of her wheelchair. Instructed to not sit on bed with knees bent and foot pushing into the bed.? Nuisance Wildlife Control Operator instructed to offload with foam waffle boot Vascular: Palpable DP and PT pulses with adequate stump perfusion on the right TMA site.? LEAS ordered 12/09/2022 demonstrates no arterial occlusive disease. Edema: Continue to elevate right lower extremity at all times of rest Infection: No local signs of infection Pain: May take [id number] Tylenol Host factors: DM type II with peripheral polyneuropathy, PVD, atherosclerotic heart disease, transmetatarsal amputation right foot, BKA left lower extremity ? I answered all the patient's questions.? To return to the wound healing center in 1 week or call sooner if the patient has any questions or concerns.
[2023-01-13 09:33] VITALS: BP 103/64; PULSE 69; TEMP 36.2; BMI 36.8
== END 2023-02-11 23:59 | disposition home or self-care (01) ==
LOC: WC 09:25
PROVIDERS: PCP Family Medicine; Referring Provider Student in an Organized Health Care Education/Training Program; Visit Provider Student in an Organized Health Care Education/Training Program
DX: E11.621 Type 2 diabetes mellitus with foot ulcer (principal); L89.612 Pressure ulcer of right heel, stage 2; L89.892 Pressure ulcer of other site, stage 2; E11.51 Type 2 diabetes mellitus with diabetic peripheral angiopathy without gangrene; Z89.512 Acquired absence of left leg below knee; Z89.431 Acquired absence of right foot; L97.512 Non-pressure chronic ulcer of other part of right foot with fat layer exposed; E46 Unspecified protein-calorie malnutrition; E11.42 Type 2 diabetes mellitus with diabetic polyneuropathy; F41.9 Anxiety disorder, unspecified; R53.83 Other fatigue; T14.8XXD Other injury of unspecified body region, subsequent encounter; Z68.36 Body mass index [BMI] 36.0-36.9, adult
CPT/HCPCS: 11042; 15275; Q4186

== ENCOUNTER 2023-02-17 09:08 | Outpatient (RCR) | payer MEDICAID, SELFPAY ==
[2023-02-12 01:55] VITALS: BP 103/64; PULSE 69; RESP 18; TEMP 36.2; BMI 36.8
--- NOTE | 2023-02-17 09:26 | PN.PCM_ITS ---
History of Present Illness Date of Service: 02/17/23 Chief Complaint: Right foot ulcers History of Wound: This 57-year-old female with significant past medical history of bipolar, schizophrenia, anxiety, dementia, diabetes, prior homelessness, prior frostbite injuries presents to the wound care center for evaluation of three right foot ulcers. She is residing at a half-way facility, [facility]. She denies redness or odor, fever, chill, nausea, vomiting. She has underwent comprehensive wound healing program prior to being seen at the wound care center and also here at the wound care center. She already has a BKA of the Left lower extremity. She fears she may need a right below-knee amputation. She is exhausted from trying to save her limb the past couple of decades. States that these wounds are recurrent/nonhealing and have been present since 2020. At that time she was seen here in the wound care center by Dr. Calvert. However patient has not returned to the wound center since February 2021. She returns today to the wound care center,12/09/2022, for same issue of 3 foot ulcerations to the plantar right foot. Subjective Subjective Patient is a 57-year-old female with history of diabetes, transmetatarsal amputation of the right foot and BKA of the left lower extremity, and peripheral vascular disease who follows up to the wound care center today for continued care of 3 plantar ulcerations to the right foot.? She was last seen in the wound care center 01/13/23 as she had contracted COVID. She has made recovery and returns to the wound care center for her continued ulcer care. She presents today with no dressings on the right foot.? Vice President Global Digital Marketing states she refuses further treatment and has been noncompliant with dressing changes removing dressings and refusing to wear dressings at all. Continues to ambulate/use foot for propulsion in wheelchair despite being instructed to not do this. She states I am ready to cut it off. She denies any constitutional symptoms today.?She denies any complaints today. Objective Data Objective Data Vital Signs: Vital Signs Temp Pulse Resp BP 97.1 F L 69 18 103/64 02/12/23 01:55 02/12/23 01:55 02/12/23 01:55 02/12/23 01:55 Weight: 106.594 kg Body Mass Index (BMI) 36.8 Physical Exam Const alert, oriented x3, no apparent distress and well nourished General Appearance: cooperative HEENT normocephalic Eyes General Eye: normal appearance of both eyes Neck General: normal visual inspection Lymph Lymphatic: no lymphadenopathy noted and no lymphedema noted Resp normal respiratory effort Cardio regular rate and regular rhythm Extremity normal capillary refill, no calf tenderness and no pedal edema Extremity Narrative: Right lower extremity: DP pulses palpable and PT pulses palpable.? Transmetatarsal amputation noted with distal stump ulceration subfirst metatarsal base subfifth metatarsal base and plantar heel.? Stump demonstrates adequate perfusion. Negative Paige's sign, Negative Bustamante sign Musculoskeletal: Demonstrates decreased range of motion at the ankle joint less than 5 degrees as noted without pain or crepitus. Left lower extremity: BKA noted to left lower extremity Skin no rashes or lesions noted, skin turgor normal and no jaundice Wound Narrative: Right lower extremity: Previously had 3 ulcerative sites noted to the plantar aspect of the right foot.? Subfirst metatarsal ulceration is noted with mixed fiber granular layer; subfifth metatarsal ulceration is noted with mixed fiber granular layer; right plantar heel ulceration is also noted with mixed fiber granular layer. The subfirst and Sub fifth ulcerative sites have merged into 1 ulceration. Ulcerative sites demonstrate serosanguineous drainage.? No erythema, no purulent drainage, no malodor, no palpable fluctuance/bogginess, no visible abscess.? About the ulcerative sites, plantar lateral foot, and distal stump there is evidence of ecchymosis/subdermal bleeding secondary to excessive pressure secondary to patient utilizing foot to aid in pushing her wheelchair. Neuro moves all extremities Neuro Narrative: Decreased light touch sensation and protective sensation noted to the right lower extremity consistent with diabetic peripheral polyneuropathy Debridement Note Debridement Note No debridement was completed: No debridement was completed today Assessment/Plan Assessment/Plan (1) Ulcer of right foot with fat layer exposed: CODE(S): L97.512 - Non-pressure chronic ulcer of other part of right foot with fat layer exposed (2) Decubitus ulcer of right heel, stage 2: CODE(S): L89.612 - Pressure ulcer of right heel, stage 2 (3) Amputation of left lower extremity below knee: CODE(S): S88.112A - Complete traumatic amputation at level between knee and ankle, left lower leg, initial encounter (4) Type 2 diabetes mellitus with diabetic polyneuropathy: CODE(S): E11.42 - Type 2 diabetes mellitus with diabetic polyneuropathy (5) Type 2 diabetes mellitus with foot ulcer: CODE(S): E11.621 - Type 2 diabetes mellitus with foot ulcer; L97.509 - Non-pressure chronic ulcer of other part of unspecified foot with unspecified severity (6) History of transmetatarsal amputation of right foot: CODE(S): Z89.431 - Acquired absence of right foot (7) Other specified peripheral vascular diseases: CODE(S): I73.89 - Other specified peripheral vascular diseases (8) Malnutrition: CODE(S): E46 - Unspecified protein-calorie malnutrition (9) Delayed wound healing: CODE(S): T14.8XXD - Other injury of unspecified body region, subsequent encounter PLAN: Plan Patient seen and evaluated Left lower extremity has undergone previous BKA with prosthetic to assist ambulation. Right lower extremity has undergone previous transmetatarsal amputation Ulcerations x3 noted to the plantar aspect of the right foot. The Sub first and Sub fifth ulcerative sites have merged into 1 ulceration. She refused debridement today as noted in the clinical panel above.? Right forefoot ulceration measures 7 cm x 5.5 cm x 0.1 cm; right heel plantar ulceration measures 2.4 cm x 2.0 cm x 0.3 cm.? Forefoot ulcerations are a Abel type I, plantar heel decubitus ulceration is a Abel 2.? A dry sterile dressing was pl aced to the foot today, however patient did remove dressing and elected for sock. Vice President Global Digital Marketing and nursing staff at her skilled facility have long documented noncompliance since her last visit with refusal to wear dressings and stay off of the foot. They state she wears only a sock or no dressing cover at all and continues to use the foot and ambulation or for assistance pushing her wheelchair. I discussed with patient her noncompliance today in which she became agitated and asked for referral for a below the knee amputation. Patient will be referred to vascular surgeon, Dr. Concepcion for evaluation of a right below the knee amputation. Wound culture from admission on 12/23/22 demonstrates staph aureus. Negative MRSA PCR, Staph protein A PCR positive. She underwent debridement while in hospital for pneumonia. I have reviewed her previous noninvasive vascular studies performed 07/08/2020.? These demonstrate monophasic waveforms at the level of the ankle with biphasic waveform at the right common femoral and proximal superficial femoral arteries.? Peak systolic arterial velocity include, femoral 93, profundofemoral 72, proximal superficial femoral 136, mid superficial femoral 68, distal superficial femoral 117, popliteal 78, posterior tibial 45, dorsalis pedis 36.? There is no hemodynamic significant arterial stenosis in the arteries of the right lower extremity at that time.? I have also reviewed her x-ray report from 01/16/2021 which includes 2 right foot x-rays without fracture dislocation or radiographic evidence of osteomyelitis.? It is noted on x-ray that she had a very proximal transmetatarsal amputation.? I discussed with the handhole machine operator today updating laboratory studies, radiographs of the right foot, and noninvasive vascular studies.? Order was dispensed today 12/09/2022 to the handhole machine operator for laboratory work consisting of CBC with differential, Chem-12, CRP, ESR, vitamin D, prealbumin, hemoglobin A1c.? Vice President Global Digital Marketing did have these studies performed at the half-way [facility], [facility] in [place].? I also ordered updated imaging of the right foot 12/09/2022: Demonstrated no underlying osseous destruction, decreased mineralization of bone and Transmetatarsal amputation. Radiographs obtained again during admission on 12/23/22 demonstrated no underlying osteomyelitis.? I also ordered updated LEAS and venous duplex of the right lower extremity: Venous doppler demonstrates no evidence of DVT. LEAS demonstrates Triphasic doppler of Right ankle with PVR satisfactory at low thigh bilaterally and calf of right leg. No evidence of arterial occlusive disease in lower extremities bilaterally. I recommend continued glycemic control, nutritional supplementation with Sandoval and adequate protein intake to optimize wound healing.? It is also noted patient is a former smoker, no recent tobacco use.? I also recommend strict nonweightbearing status to the right lower extremity and for patient to utilize wheelchair and not use the right foot to aid in propulsion of the wheelchair. I discussed with the patient and her handhole machine operator aide signs to observe for pertaining to infection.? I discussed if there is any redness about the ulcerative sites that progresses onto the foot and up the leg, if any purulent drainage emerges from the ulcers, if there is increased foul odor, or if she experiences any fever greater than 101 degree, or nausea, or vomiting, or chills that these are progressing signs of infection and she needs to report to the ED.? Vice President Global Digital Marketing voices understanding of this. Dressing: Gisele to forefoot. Dry sterile dressing with ABD.? Change daily. R ight heel Epifix graft, adaptec touch, steri strips and DSD. Wash: No not get wet Tissue growth optimization: Gisele Right lower extremity forefoot, Epifix graft Heel wound.? Offloading: She was instructed again to not utilize the right foot to aid in propulsion of her wheelchair. Instructed to not sit on bed with knees bent and foot pushing into the bed.? Vice President Global Digital Marketing instructed to offload with foam waffle boot Vascular: Palpable DP and PT pulses with adequate stump perfusion on the right TMA site.? LEAS ordered 12/09/2022 demonstrates no arterial occlusive disease. Edema: Continue to elevate right lower extremity at all times of rest Infection: No local signs of infection Pain: May take [id number] Tylenol Host factors: DM type II with peripheral polyneuropathy, PVD, atherosclerotic heart disease, transmetatarsal amputation right foot, BKA left lower extremity ? I answered all the patient's questions.? She will be discharged from the wound care center today as she has refused any further treatment to be done for her right lower extremity. She will be referred to vascular surgery for evaluation and work-up prior to undergoing below the knee amputation of her right lower extremity.
[2023-02-17 09:30] VITALS: BP 145/78; PULSE 64; RESP 18; TEMP 35.8; BMI 36.8
--- NOTE | 2023-03-01 15:33 | WC ---
02/17/23 R Addison R Regan LE
== END 2023-02-21 13:37 | disposition home or self-care (01) ==
LOC: WC 09:08
PROVIDERS: PCP Family Medicine; Referring Provider Student in an Organized Health Care Education/Training Program; Visit Provider Student in an Organized Health Care Education/Training Program
DX: E11.621 Type 2 diabetes mellitus with foot ulcer (principal); L89.612 Pressure ulcer of right heel, stage 2; E11.51 Type 2 diabetes mellitus with diabetic peripheral angiopathy without gangrene; Z89.512 Acquired absence of left leg below knee; Z89.431 Acquired absence of right foot; L97.512 Non-pressure chronic ulcer of other part of right foot with fat layer exposed; E46 Unspecified protein-calorie malnutrition; E11.42 Type 2 diabetes mellitus with diabetic polyneuropathy; S88.112A Complete traumatic amputation at level between knee and ankle, left lower leg, initial encounter; R53.83 Other fatigue; F41.9 Anxiety disorder, unspecified; T14.8XXD Other injury of unspecified body region, subsequent encounter; Z68.36 Body mass index [BMI] 36.0-36.9, adult
CPT/HCPCS: 99213; G0463

== ENCOUNTER 2023-04-19 05:57 | Inpatient (IN) | payer MEDICAID, SELFPAY ==
[2023-04-06 11:33] LABS: Hematocrit 36.9 % (37-47); Hemoglobin 11.4 g/dL (12.0-15.0); Mean Corp Hgb Conc 30.9 g/dL (32-36); Mean Corpuscular Hgb 28.1 pg (27.0-32.0); Mean Corpuscular Volume 90.9 fL (81-99); Mean Platelet Vol. 10.1 fl (6.2-12.0); Platelet Count 238 K/mm3 (150-450); RBC Distribution Width CV 16.3 % (11.6-14.6); RBC Distribution Width SD 53.1 fl (35.1-43.9); Red Blood Count 4.06 M/mm3 (4.2-5.4); White Blood Count 8.6 K/mm3 (4.4-11.0)
[2023-04-06 12:02] LABS: Anion Gap 3 (5-15); BUN 7 mg/dL (7-18); BUN/Creat Ratio 11.7 RATIO (10-20); Calcium,Total 8.8 mg/dL (8.5-10.1); Chloride 108 mmol/L (98-107); EST Glomerular Filtration Rate 111 mL/min (>60); Est Glom Filt Rate - Afr Amer 134 mL/min (>60); Glucose 122 mg/dL (74-106); Potassium 3.5 mmol/L (3.5-5.1); Sodium Level 142 mmol/L (136-145)
[2023-04-19] VITALS (12 sets, daily range): BP systolic 91–122; BP diastolic 56–90; PULSE 93–125; RESP 14–22; TEMP 36–37.1; O2SAT 92–100; BMI 33.2
--- NOTE | 2023-04-19 | AMP_PTH ---
PATIENT: JAY ARAUJO LOC: MS3 U#:[id number] AGE/SX: 57/F ROOM: TN310 RE04/19/[address]: Dr. Angel Concepcion MD : 1965 BED: 1 DIS: 04/21/2023 SPEC #: [id number] RECD: 04/19/23 10:38 STATUS: SUSAN RETima #: [id number] DANICA: 04/19/23 00:[address]: Angel Concepcion DEPT: SURGICAL PATHOLOGY RECD BY: Alli Real ENTERED: 04/19/23 10:39 SP TYPE: Amputation OTHR DR: Dr. Paddy Ba MD Tissues: Leg, NOS Procedures: Decalcification bone/plaque Surgery Specimen Level V HEADER OPERATION: Amputation below knee PRE-OP DIAGNOSIS: Right foot ulcer TISSUE SUBMITTED: Right lower extremity MICROSCOPIC DIAGNOSIS Right lower extremity, below knee amputation: Extensive ulceration, fibrinopurulent exudation, acute and chronic inflammation and granulation tissue reaction involving heel and plantar surface of the foot. Bone underlying the ulcerated area with reactive changes, negative for acute osteomyelitis. Posterior tibial vessel with moderate atherosclerotic changes with calcification and anterior tibial vessel and dorsalis pedis vessel with minimal atherosclerotic changes with calcification. SJ:rg 04/21/2023 MICROSCOPIC DESCRIPTION Slides are reviewed. GROSS DESCRIPTION Received labeled with the patient's name and designated right lower extremity. The specimen consists of a below knee amputation of right lower leg measuring cutaneous resection margin to heel 30.5 cm and from heel to cutaneous resection margin of the foot 15.0 cm. Portion of metatarsal and toes are absent (status post previous transmetatarsal amputation of foot). A well-healed scar is noted at site of previous amputation. 2.5 cm of tibia and 3.5 cm of fibula is projecting beyond the cutaneous resection margin. Two large areas of ulceration are noted at the heel and planter surface of the foot. The area of ulceration at heel measures 5.0 x 4.0 cm. The area of ulceration at the plantar surface of the foot measures 7.0 x 5.0 cm. A few discolored areas are also noted on the anterior surface of the leg. The dorsal pedis vessel, anterior tibial vessel and posterior tibial vessels are dissected. The posterior tibial vessel cuts focally with gritty sensation. A separate piece of bone (possible resection margin of tibial) is also noted measuring 2.5 x 1.0 x 0.6 cm. [employer] sections are submitted as follows: 1 - cutaneous and skeletal resection margins, 2??ulcerated areas, 3 - dorsalis pedis vessel, 4 - anterior tibial vessel, 5??posterior tibial vessel, 6 - bone marrow at the resection margin, 7 & 8 - bone underneath the ulcerated areas, 9 - detached bone, possible tibial resection margin (cassettes 5-9 are submitted after decalcification). / SJ:rg 04/19/2023 TC:2 CPT: 42949, 90135
[2023-04-19 06:50] LABS: Bedside Glucose 133 mg/dL (74-106)
[2023-04-19] MEDS: Lactated Ringers 1,000 ML 15 ML IV ×2 (06:59→10:10)
[2023-04-19] MEDS: Vancomycin IV 1,000 MG/200 ML BAG 200 MG IV (07:00)
--- NOTE | 2023-04-19 07:28 | HP.PCM_ITS ---
HPI - General General Date of Admission: 04/19/23 HPI Narrative JAY ARAUJO, is a 57 F who presents with a chronic right foot wound that has failed to heal despite local care. She has struggled with it for a long time and wishes to proceed with below knee amputation. [facility] Medical History (Updated 04/19/23 @ 07:[address] Angel Concepcion MD) Anxiety and depression Bipolar disorder Chronic peripheral neuropathic pain Complete edentulism, class III COPD (chronic obstructive pulmonary disease) Decubitus ulcer of right heel, stage 2 Dementia Diabetes mellitus, type 2 Dietary restriction Difficulty swallowing Former smoker Gastric reflux HLD (hyperlipidemia) HTN (hypertension) Lives in long-term Obesity Pneumonia Post-menopausal Schizoaffective disorder Ulcer of right foot with fat layer exposed Uses wheelchair Wears glasses Home Medications acetaminophen 325 mg capsule 650 mg PO Q4H PRN Pain 1-10 Or Fever 01/21/21 [History Last Taken Unknown] albuterol sulfate 90 mcg/actuation aerosol inhaler 2 puff inhalation Q4H PRN Wheezing 01/21/21 [History Last Taken Unknown] atorvastatin 10 mg tablet 10 mg PO QHS CHOLESTEROL 01/21/21 [History Last Taken 12/22/22] benztropine 1 mg tablet 1.5 mg PO BID EPS 01/21/21 [History Last Taken 12/22/22] linagliptin 5 mg tablet (Tradjenta) 5 mg PO DAILY DM 12/09/22 [History Last Taken 12/22/22] lorazepam 0.5 mg tablet (Ativan) 0.5 mg PO BID ANXIETY 12/09/22 [History Last Taken 12/22/22] potassium chloride 20 mEq tablet,extended release 20 meq PO DAILY SUPPLEMENT 12/09/22 [History Last Taken 12/22/22] propranolol 10 mg tablet 10 mg PO BID HTN 12/09/22 [History Last Taken 12/22/22] carboxymethylcellulose sodium 1 % eye drops (Artificial Tears (carboxymethylcellulose)) 1 drp EACH EYE Q6H PRN Dry Eye(S) 12/23/22 [History Last Taken Unknown] cholecalciferol (vitamin D3) 1,250 mcg (50,000 unit) tablet 1,250 mcg PO MO SUPPLEMENT 12/23/22 [History Last Taken 12/20/22] lamotrigine 25 mg tablet (Lamictal) 50 mg PO BID BIPOLAR 12/23/22 [History Last Taken 12/22/22] clozapine 100 mg tablet 75 mg PO BID BIPOLAR 03/17/23 [History Last Taken Unknown] lisinopril 5 mg tablet 10 mg PO DAILY HTN 03/17/23 [History Last Taken Unknown] risperidone microspheres 25 mg/2 mL intramuscular susp,ext release (Risperdal Consta) 25 mg IM Q14D SCHIZOPHRENIA 03/17/23 [History Last Taken Unknown] Allergy/AdvReac Type Severity Reaction Status Date / Time clindamycin Allergy PT UNSURE Verified 04/08/23 12:14 OF REACTION codeine Allergy PT UNSURE Verified 04/08/23 12:14 OF REACTION mirtazapine [From Remeron] Allergy PT UNSURE Verified 04/08/23 12:14 OF REACTION olanzapine [From Zyprexa] Allergy PT UNSURE Verified 04/08/23 12:14 OF REACTION Penicillins [PCN] Allergy PT UNSURE Verified 04/08/23 12:14 OF REACTION Family History Mother COPD (chronic obstructive pulmonary disease) Father COPD (chronic obstructive pulmonary disease) Surgical History Status post below-knee amputation of left lower extremity Status post transmetatarsal amputation of right foot Social History housing: long-term Smoking Status: Former smoker how long ago did patient quit smoking: Smoked 1/4-1/2 ppd until quit, she reports ~ 6 months prior to current now. alcohol intake: never substance use type: does not use ROS Constitutional Constitutional: Denies chills, fever(s), frequent falls, lethargy or weakness Eyes Eyes: Denies blind spots, change in vision or loss of vision ENT HEENT: Denies bleeding gums, hoarseness or sore throat Cardiovascular Cardiovascular: Denies abdominal pain, bluish discoloration of hand/feet, chest pain with activity, claudication, cold extremities, cyanosis, dyspnea on exertion, erythema on extremities, irregular heart rhythm, leg edema, leg ulcers, numbness in extremities or weakness in extremities Respiratory/Chest Respiratory/Chest: Denies cough, excessive phlegm production, shortness of breath at rest, shortness of breath with exertion or wheezing Gastrointestinal Gastrointestinal: Denies anorexia, change in stool character, constipation, diarrhea, melena or rectal bleeding Genitourinary Genitourinary: Denies dysuria or hematuria Musculoskeletal Musculoskeletal: Denies abnormal gait Integumentary Integumentary: Reports other Details: ; Denies erythema, non-healing lesions or wounds Neurologic Neurologic: Denies abnormal speech, focal weakness, headache(s), loss of vision, numbness, paresthesias or sensory deficit Hematologic/Lymphatic Hematologic/Lymphatic: Denies easy bleeding, easy bruising or lymphadenopathy Vital Signs Vital Signs Vital Signs: 04/19/23 06:35 04/19/23 06:35 Temperature 97.6 F L Temperature Source Temporal Pulse Rate 105 H Respiratory Rate 20 H Respiratory Pattern Normal Blood Pressure 94/72 Blood Pressure Mean 79 Blood Pressure Source Monitor Blood Pressure Position Sitting Blood Pressure Location Left Arm Pulse Ox 100 Oxygen Delivery Method Room Air Weight Weight: 212 lb Body Mass Index (BMI) 33.2 Physical Exam Const alert, oriented x3, no apparent distress and healthy appearing General Appearance: cooperative; Negative for combative or lethargic Orientation / Consciousness: awake Exam Limitations: no limitations HEENT Head and Scalp: normocephalic and atraumatic Eyes EOMs intact bilaterally General Eye: normal appearance of both eyes Neck full ROM, no lymphadenopathy and thyroid normal General: trachea midline Resp normal respiratory effort and no use of accessory muscles Effort and Inspection: Negative for labored, stridor or audible wheezes Cardio regular rate and regular rhythm Back/Spine Cervical Spine: cervical ROM normal Extremity full ROM, normal capillary refill and no clubbing, cyanosis or edema Skin no rashes or lesions noted and no wounds Neuro oriented x3, CN's II-XII intact bilaterally, no focal motor deficits and no sensory deficits noted Psych thought process normal, cooperative, affect normal, speech normal and activity/motor behavior normal Results Lab / Micro Data Result Diagrams: 04/06/23 10:15 04/06/23 10:15 Labs: Laboratory Results - last 24 hr 04/19/23 06:32: POC Glucose 133 H Assessment & Plan Assessment/Plan (1) Right foot ulcer: PLAN: -right BKA
[2023-04-19] MEDS: Bupivacaine Mpf 0.5% 30 ML VIAL (08:10)
--- NOTE | 2023-04-19 10:20 | SUR.PHASEI ---
IN PACU, ABLE TO SLEEP BUT AWAKENS AT INTERVALS TO MOAN AND RESTLESSLY PULL AT DRESSING TO RT LOWER LEG. DID NOT TAKE ANY PO MEDS THIS MORNING D/T NEEDING APPLESAUCE TO SWALLOW PILLS. NOTIFIED DR GARCIA WHO ORDERED IV ATIVAN. WILL MEDICATE FOR PAIN WELL.
[2023-04-19 10:25] LABS: Bedside Glucose 130 mg/dL (74-106)
--- NOTE | 2023-04-19 12:02 | PCM.OPRPT ---
Report of Operation Date of Procedure: 04/19/23 Pre-Operative Diagnosis: non healing right foot wound Post-Operative Diagnosis: same Surgery/Procedure Performed:: right below knee amputation Surgeon: Angel Concepcion Type of Anesthesia: General Specimen's removed: right leg Estimated Blood Loss (mL): 500 Description of Procedure: HPI: Patient is a 57-year-old female with chronic right lower extremity wound which has been present for many years to some extent. This all initially stems from a bad frostbite injury and she has never been able to fully resolve the wound and does not do well with pressure offloading. She presents now for below the knee amputation Description of procedure: Upon obtaining informed consent and verification correct patient procedure site patient was taken to the operating room where she was placed in general anesthesia. She was then positioned prepped and draped in usual sterile fashion a timeout was performed. Skin incision was made with posterior flap configuration and Bovie electrocautery was dissect down through subcutaneous tissue to the level of fascia. The fascia was incised over the anterior and lateral compartments and the muscle was divided with Bovie down to the neurovascular bundle. The anterior tibial artery and vein were then ligated with silk ties and divided. Bovie was then used to free the fibula circumferentially and a periosteal elevator used to further free the surrounding soft tissue. Next Bovie was used to dissect circumferentially around the tibia and divided the soleus muscle and the deep posterior compartment. Also the fascia was incised along the medial aspect of the posterior compartments. The tibia was then divided with an anterior bevel using a reciprocating saw and the fibula divided with a bone cutter. An amputation knife was then used to complete the soft tissue division, with the peroneal and posterior tibial arteries clamped as they were encountered with amputation knife. The specimen was then removed and passed off the field. Posterior tibial and peroneal artery was then ligated with silk ties and the nerve was ligated and sharply divided after being injected with marcaine. The tibia was then smoothed with a power rasp. The wound was then copiously irrigated and inspected for hemostasis. Incision was then closed with 2-0 Vicryl followed by 2-0 nylon. A dry sterile dressing and posterior splint was then applied and the patient was awakened anesthesia for taken to recovery room.
[2023-04-19] MEDS: 0.45% Normal Saline 1,000 ML 100 ML IV ×2 (12:15→21:16)
[2023-04-19 13:05] LABS: Absolute Lymphocyte Count 1.32 X10^3/uL (0.83-4.51); Absolute Neutrophil Count 5.3 X10^3/uL (2.0-7.7); Basophil# 0.08 X10^3/uL; Basophil% 1.1 % (0-1); Eosinophils% 1.3 % (0-5); Hematocrit 33.6 % (37-47); Hemoglobin 10.6 g/dL (12.0-15.0); Lymphocyte # 1.32 X10^3/ul (0.83-4.51); Lymphocyte % 17.5 % (19-41); Mean Corp Hgb Conc 31.5 g/dL (32-36); Mean Corpuscular Hgb 28.3 pg (27.0-32.0); Mean Corpuscular Volume 89.6 fL (81-99); Mean Platelet Vol. 9.9 fl (6.2-12.0); Monocyte# 0.49 X10^3/uL; Monocyte% 6.5 % (0-10); NRBC Flagged by Analyzer 0 % (0-5); Neutrophil # 5.28 X10^3/uL (2.7-7.7); Neutrophil % 69.8 % (47-70); Platelet Count 211 K/mm3 (150-450); RBC Distribution Width CV 17.1 % (11.6-14.6); Red Blood Count 3.75 M/mm3 (4.2-5.4); White Blood Count 7.6 K/mm3 (4.4-11.0)
[2023-04-19] MEDS: cloZAPine 25 MG TABLET 75 MG PO (21:10)
[2023-04-19] MEDS: Propranolol 10 MG Tablet PO (21:10)
[2023-04-19] MEDS: LORazepam 0.5 MG Tablet PO (21:10)
[2023-04-19] MEDS: Benztropine Mesylate 0.5 MG TABLET 1.5 MG PO (21:10)
[2023-04-19] MEDS: lamoTRIgine 25 MG Tablet 50 MG PO (21:11)
[2023-04-19] MEDS: Atorvastatin Calcium 10 MG Tablet PO (21:11)
[2023-04-19] MEDS: Acetaminophen 325 MG Tablet 650 MG PO (22:30)
[2023-04-20 03:53] VITALS: BP 103/74; PULSE 105; RESP 18; TEMP 36.6; O2SAT 95
[2023-04-20 05:38] VITALS: BP 103/78; PULSE 104; RESP 20; TEMP 37.2; O2SAT 93
[2023-04-20] MEDS: 0.45% Normal Saline 1,000 ML 100 ML IV (05:47)
[2023-04-20 06:09] LABS: Absolute Lymphocyte Count 1.54 X10^3/uL (0.83-4.51); Absolute Neutrophil Count 6.5 X10^3/uL (2.0-7.7); Basophil# 0.05 X10^3/uL; Basophil% 0.6 % (0-1); Eosinophil# 0.09 X10^3/uL; Hematocrit 30.4 % (37-47); Hemoglobin 9.3 g/dL (12.0-15.0); Lymphocyte # 1.54 X10^3/ul (0.83-4.51); Lymphocyte % 17.1 % (19-41); Mean Corp Hgb Conc 30.6 g/dL (32-36); Mean Corpuscular Hgb 27.7 pg (27.0-32.0); Mean Corpuscular Volume 90.5 fL (81-99); Mean Platelet Vol. 9.7 fl (6.2-12.0); Monocyte# 0.63 X10^3/uL; NRBC Flagged by Analyzer 0 % (0-5); Neutrophil # 6.51 X10^3/uL (2.7-7.7); Platelet Count 225 K/mm3 (150-450); RBC Distribution Width SD 56.5 fl (35.1-43.9); Red Blood Count 3.36 M/mm3 (4.2-5.4)
[2023-04-20 06:41] LABS: Anion Gap 6 (5-15); BUN 6 mg/dL (7-18); BUN/Creat Ratio 9.8 RATIO (10-20); Calcium,Total 7.8 mg/dL (8.5-10.1); Chloride 104 mmol/L (98-107); Creatinine, Serum 0.61 mg/dL (0.55-1.02); EST Glomerular Filtration Rate 107 mL/min (>60); Est Glom Filt Rate - Afr Amer 129 mL/min (>60); Glucose 137 mg/dL (74-106); Potassium 3.7 mmol/L (3.5-5.1); Sodium Level 136 mmol/L (136-145)
[2023-04-20 08:03] VITALS: BP 117/76; PULSE 110; RESP 18; TEMP 36.8; O2SAT 95
[2023-04-20] MEDS: Lisinopril 10 MG Tablet PO (08:16)
[2023-04-20] MEDS: lamoTRIgine 25 MG Tablet 50 MG PO ×2 (08:16→22:58)
[2023-04-20] MEDS: Enoxaparin 40 MG/0.4 ML Syringe SC (08:16)
[2023-04-20] MEDS: cloZAPine 25 MG TABLET 75 MG PO ×2 (08:16→22:58)
[2023-04-20] MEDS: LINAGLIPTIN 5 MG TABLET PO (08:16)
[2023-04-20] MEDS: Potassium Chloride Oral Tablet 20 MEQ PO (08:16)
[2023-04-20] MEDS: Propranolol 10 MG Tablet PO ×2 (08:16→22:58)
[2023-04-20] MEDS: Benztropine Mesylate 0.5 MG TABLET 1.5 MG PO ×2 (08:16→22:57)
[2023-04-20] MEDS: LORazepam 0.5 MG Tablet PO ×2 (08:18→22:55)
[2023-04-20] MEDS: 0.9% Saline Lock 10 ML Syringe IV (08:18)
[2023-04-20 09:12] VITALS: O2SAT 95
--- NOTE | 2023-04-20 09:56 | PCM.PN.HOSP ---
Reason for Visit Reason for Visit: Diagnoses Non-pressure chronic ulcer of other part of right foot with unspecified severity (04/19/23) Subjective Subjective Patient sitting in bed in no acute distress, answers questions mostly appropriately and reported she was cold and was having some pain in her right stump, requested hot cocoa and lunch dose Objective Data Objective Data Vital Signs: Vital Signs Temp Pulse Resp BP Pulse Ox O2 Del Method 98.2 F 110 H 18 117/76 95 Room Air 04/20/23 08:03 04/20/23 08:03 04/20/23 08:03 04/20/23 08:03 04/20/23 09:12 04/20/23 08:03 Oxygen Delivery Method Room Air Weight: 96.162 kg Body Mass Index (BMI) 33.2 Intake & Output: Intake and Output for Last 24 Hours 04/18/23 04/19/23 04/20/23 23:59 23:59 23:59 Intake Total 3234.17 / 4434.17 2505.00 / 2505.00 Output Total 825 / 1275 1000 / 1000 Balance 2409.17 / 3159.17 1505.00 / 1505.00 Lab / Micro Data Result Diagrams: 04/20/23 05:55 04/20/23 05:55 Labs: Laboratory Results - last 24 hr 04/19/23 10:07: POC Glucose 130 H 04/19/23 12:55: WBC 7.6, RBC 3.75 L, Hgb 10.6 L, Hct 33.6 L, MCV 89.6, MCH 28.3, MCHC 31.5 L, RDW Std Deviation 55.0 H, RDW Coeff of Dot 17.1 H, Plt Count 211, MPV 9.9, Immature Gran % (Auto) 3.800 H, Neut % (Auto) 69.8, Lymph % (Auto) 17.5 L, [place] % (Auto) 6.5, Eos % (Auto) 1.3, Baso % (Auto) 1.1 H, Absolute Neuts (auto) 5.3, Absolute Lymphs (auto) 1.32, Nucleated RBC % 0 04/20/23 05:55: WBC 9.0, RBC 3.36 L, Hgb 9.3 L, Hct 30.4 L, MCV 90.5, MCH 27.7, MCHC 30.6 L, RDW Std Deviation 56.5 H, RDW Coeff of Dot 17.0 H, Plt Count 225, MPV 9.7, Immature Gran % (Auto) 2.300 H, Neut % (Auto) 72.0 H, Lymph % (Auto) 17.1 L, [place] % (Auto) 7.0, Eos % (Auto) 1.0, Baso % (Auto) 0.6, Absolute Neuts (auto) 6.5, Absolute Lymphs (auto) 1.54, Nucleated RBC % 0 04/20/23 05:55: Sodium 136, Potassium 3.7, Chloride 104, Carbon Dioxide 26.0, Anion Gap 6, BUN 6 L, Creatinine 0.61, Estim Creat Clear Calc 96.40, Est GFR (MDRD) Af Amer 129, Est GFR (MDRD) Non-Af 107, BUN/Creatinine Ratio 9.8 L, Glucose 137 H, Calcium 7.8 L Physical Exam Narrative General: Alert, appears slightly anxious but no acute distress, answered most questions fairly appropriately HEENT: Atraumatic, normocephalic Eyes: Anicteric, normal conjunctiva, extraocular movements grossly intact Neck: Supple Respiratory: Clear to auscultation bilaterally, normal respiratory effort Cardiovascular: Slightly tachycardic with regular rhythm GI: Soft, nontender, nondistended Extremities: Bilateral lower extremity amputations appreciated Musculoskeletal: Moving all extremities Neuro: No overt focal neurological deficits Skin: No rashes appreciated Psych: Cooperative, appears slightly anxious Assessment & Plan Assessment/Plan (1) Right foot ulcer: PLAN: Plan #History of schizophrenia, mahendra, and flight of ideas -Consulted for medical management and for patient being disorganized and having flight of ideas -At time of evaluation pt answering most questions fairly appropriately though not a wonderful historian -Is on clozapine 75 mg twice daily, Ativan 0.5 mg twice daily, Lamictal 50 twice daily, propranolol 10 mg twice daily and benztropine 1.5 mg twice a day, continue home medications -We will need to establish baseline and duration of medications that she is currently on -We will check liver panel, ammonia, prolactin -Always the possibility of a component of delirium on top of her chronic mental illness -Does not appear we have the ability to check clozapine levels in house and send out would likely take several days, not ordered as it would not acutely supervisor policy change clerks down the future if there is ever a question of compliance this can be assessed -We will also add MiraLAX twice daily as cause of pain can lead to significant problems with constipation -We will schedule melatonin at night to try to help with any component of delirium -Case management consult #History of right foot ulcer with BKA 04/19/2023 -Management per primary #Type 2 diabetes mellitus -On Tradjenta, will add glucose checks #DVT ppx: Lovenox subcu Jolanta Justin MD Time spent in the patient's overall evaluation,decision-making process, review of diagnostic data, adjustment of management, discussion with other providers, nursing nursing and ancillary staff involved in patient's care documentation, 30 minutes Charges/Coding Visit Charges Inpatient E&M: 85897 Subs Hosp L2
[2023-04-20 11:18] LABS: Hemoglobin A1c 5.6 % (3.8-5.6)
[2023-04-20 11:37] LABS: AST(SGOT) 15 U/L (15-37); Alanine Aminotransfer ALT/SGPT 20 U/L (13-56); Albumin, Serum 2.2 g/dL (3.2-5.0); Alkaline Phosphatase 131 U/L (45-117); Bilirubin, Direct 0.26 mg/dL (0.00-0.30); Cholesterol 94 mg/dL (200); Globulin 4.2 g/dL (2.2-4.2); High Density Lipoprotein 31 mg/dL; Prolactin 22.4 ng/mL; Protein, Total 6.4 g/dL (6.4-8.2); Triglycerides 132 mg/dL; Very Low Density Lipoprotein 26 mg/dL (5-40)
--- NOTE | 2023-04-20 11:46 | NURSING ---
pt incontinent of urine- bed linens soaking wet. inquired as to if pt is aware when she is voiding-pt sates she know but i just laid here, it was an hour or so. pt refuses purewick. much education given regarding call light use and hygiene/post op care. pt agrees to call when she feels she needs to void, attends on. natalie wrap to RLE d&i
[2023-04-20 12:06] LABS: Bedside Glucose 155 mg/dL (74-106)
--- NOTE | 2023-04-20 13:36 | PCM.PN.SRG ---
Subjective Subjective Patient is doing well overall. Nursing has reported she has had increasing flight of ideas and disorganization. On my evaluation, she is somewhat lethargic and a bit disorganized but overall pleasant, alert, and answering questions appropriately. She complains of pain in her R leg with movement, but not intolerable. Otherwise, her only complaint is that she is cold and drowsy. Objective Data Objective Data Vital Signs: Vital Signs Temp Pulse Resp BP Pulse Ox O2 Del Method 98.2 F 110 H 18 117/76 95 Room Air 04/20/23 08:03 04/20/23 08:03 04/20/23 08:03 04/20/23 08:03 04/20/23 09:12 04/20/23 08:03 Oxygen Delivery Method Room Air Weight: 212 lb Body Mass Index (BMI) 33.2 Intake & Output: Intake and Output for Last 24 Hours 04/18/23 04/19/23 04/20/23 23:59 23:59 23:59 Intake Total 3234.17 / 4434.17 2505.00 / 2505.00 Output Total 825 / 1275 1000 / 1000 Balance 2409.17 / 3159.17 1505.00 / 1505.00 Lab / Micro Data Result Diagrams: 04/20/23 05:55 04/20/23 05:55 Labs: Laboratory Results - last 24 hr 04/20/23 05:55: WBC 9.0, RBC 3.36 L, Hgb 9.3 L, Hct 30.4 L, MCV 90.5, MCH 27.7, MCHC 30.6 L, RDW Std Deviation 56.5 H, RDW Coeff of Dot 17.0 H, Plt Count 225, MPV 9.7, Immature Gran % (Auto) 2.300 H, Neut % (Auto) 72.0 H, Lymph % (Auto) 17.1 L, [place] % (Auto) 7.0, Eos % (Auto) 1.0, Baso % (Auto) 0.6, Absolute Neuts (auto) 6.5, Absolute Lymphs (auto) 1.54, Nucleated RBC % 0 04/20/23 05:55: Sodium 136, Potassium 3.7, Chloride 104, Carbon Dioxide 26.0, Anion Gap 6, BUN 6 L, Creatinine 0.61, Estim Creat Clear Calc 96.40, Est GFR (MDRD) Af Amer 129, Est GFR (MDRD) Non-Af 107, BUN/Creatinine Ratio 9.8 L, Glucose 137 H, Calcium 7.8 L 04/20/23 10:45: Total Bilirubin 0.60, Direct Bilirubin 0.26, AST 15, ALT 20, Alkaline Phosphatase 131 H, Total Protein 6.4, Albumin 2.2 L, Globulin 4.2, Triglycerides 132, Cholesterol 94, LDL Cholesterol 37, VLDL Cholesterol 26, HDL Cholesterol 31 L, Prolactin 22.4 04/20/23 10:45: Hemoglobin A1c 5.6 04/20/23 10:45: Ammonia 40.0 H 04/20/23 11:41: POC Glucose 155 H Physical Exam Narrative Lethargic but alert once awakened, answering questions appropriately, no apparent distress HEENT normocephalic, hearing grossly normal bilaterally and external ears normal Eyes EOMs intact bilaterally General Eye: normal appearance of both eyes Neck General: normal visual inspection and trachea midline Resp normal respiratory effort Effort and Inspection: able to speak in complete sentences; Negative for labored, stridor, uses accessory muscles or audible wheezes Cardio regular rhythm Rate: tachycardic Extremity Extremity Narrative: R amputation site with dressing C/D/I. No bleed through. Neuro CN's II-XII intact bilaterally and no focal motor deficits Assessment & Plan Assessment/Plan (1) Amputation of right lower extremity below knee: (2) Right foot ulcer: PLAN: Plan She is POD#1 from R BKA. Her pain is well-controlled on PO regimen. She is voiding without difficulty and tolerating diet. Surgical site dressing will remain in place today as long as C/D/I. I will remove the dressing tomorrow morning. Freenom will bring the stump protector late tomorrow morning as well. As long as the incision site is satisfactory and patient's pain remains well controlled, anticipate she will be ready for discharge from [facility] tomorrow afternoon. Appreciate hospitalist evaluation and management as well.
--- NOTE | 2023-04-20 13:43 | CASEMGMT ---
Social Work Pt is admitted from [facility]. Phone call placed to pt legal guardian Shelly Aron who confirms plan for pt to return there upon discharge. ike Mendez pharmacy innovation assistant updated and to send clinical updates. Plan: [facility], when medically ready DORCAS Lenz
--- NOTE | 2023-04-20 13:51 | CASEMGMT ---
Discharge Planning Return referral sent to [facility]. Vanessa Velasco
[2023-04-20 14:02] VITALS: BP 111/74; PULSE 110; RESP 18; TEMP 37.1; O2SAT 100
[2023-04-20] MEDS: Lactulose 20 GM/30 ML UDC PO (14:23)
--- NOTE | 2023-04-20 14:28 | NURSING ---
unable to get urine specimen d/t pt unable to void. bladder scan done. notified.
[2023-04-20 14:41] LABS: Bacteria 0 SEEN /hpf (None Seen); Mucous, Urine 0 SEEN /hpf (<or=2+); Red Blood Cells-Urine 0 SEEN /hpf (0-5); White Blood Cells 0 SEEN /hpf (0-5)
[2023-04-20 14:53] LABS: Color, Urine Yellow (Yellow); Glucose, Dipstick Normal (Normal); Ketone-Dipstick Negative (Negative); Leukocyte Esterase-Dipstick Negative /ul (Negative); Nitrite-Dipstick Negative (Negative); Occult Blood-Urine Negative /ul (Negative); Protein-Dipstick Negative (Negative); Specific Gravity, Urine 1.005 (1.002-1.030); Urine Bilirubin Dipstick Negative (Negative); Urine Clarity Clear (Clear); Urine Urobilinogen Normal (Normal)
[2023-04-20 15:19] LABS: Calcium Oxalate Crystals Ur 1+ /hpf (<or=2+); Squamous Epithelial Cells - UA 0-5 SEEN /hpf (5-10)
[2023-04-20 21:50] LABS: Bedside Glucose 117 mg/dL (74-106)
[2023-04-20 22:51] VITALS: BP 105/75; PULSE 103; RESP 15; TEMP 36.8; O2SAT 96
[2023-04-20] MEDS: MELATONIN 10 MG TABLET PO (22:58)
[2023-04-20] MEDS: Atorvastatin Calcium 10 MG Tablet PO (22:58)
[2023-04-20 23:20] LABS: Bedside Glucose 140 mg/dL (74-106)
[2023-04-21 04:51] VITALS: BP 100/62; PULSE 107; RESP 16; TEMP 37; O2SAT 95
[2023-04-21 06:31] LABS: Bedside Glucose 138 mg/dL (74-106)
--- NOTE | 2023-04-21 07:34 | EKG12_ITS ---
Test Reason : TACHY Blood Pressure : / mmHG Vent. Rate : 105 BPM Atrial Rate : 105 BPM P-R Int : 164 ms QRS Dur : 090 ms QT Int : 328 ms P-R-T Axes : 032 -21 007 degrees QTc Int : 433 ms Sinus tachycardia Low voltage QRS Borderline ECG When compared with ECG of 23-DEC-2022 11:32, No significant change was found Confirmed by LINDA ORDAZ, MATEO ([id number]), marketing editor JOAN KANG ([id number]) on 04/22/2023 8:15:03 AM Referred By: Angel Concepcion Confirmed By:MATEO MCKEON MD
--- NOTE | 2023-04-21 07:35 | PCM.PN.HOSP ---
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, right lower leg, initial encounter (04/19/23) Subjective Subjective Feeling better at present, wants to monitor, no other complaints Objective Data Objective Data Vital Signs: Vital Signs Temp Pulse Resp BP Pulse Ox O2 Del Method 98.6 F 107 H 16 100/62 95 Room Air 04/21/23 04:51 04/21/23 04:51 04/21/23 04:51 04/21/23 04:51 04/21/23 04:51 04/21/23 04:51 Oxygen Delivery Method Room Air Weight: 96.162 kg Body Mass Index (BMI) 33.2 Intake & Output: Intake and Output for Last 24 Hours 04/19/23 04/20/23 04/21/23 23:59 23:59 23:59 Intake Total 3234.17 / 4434.17 2505.00 / 2630.00 125 / 125 Output Total 825 / 1275 1325 / 1775 450 / 450 Balance 2409.17 / 3159.17 1180.00 / 855.00 -325 / -325 Lab / Micro Data Result Diagrams: 04/21/23 07:52 04/21/23 07:52 Labs: Laboratory Results - last 24 hr 04/20/23 10:45: Total Bilirubin 0.60, Direct Bilirubin 0.26, AST 15, ALT 20, Alkaline Phosphatase 131 H, Total Protein 6.4, Albumin 2.2 L, Globulin 4.2, Triglycerides 132, Cholesterol 94, LDL Cholesterol 37, VLDL Cholesterol 26, HDL Cholesterol 31 L, Prolactin 22.4 04/20/23 10:45: Hemoglobin A1c 5.6 04/20/23 10:45: Ammonia 40.0 H 04/20/23 11:41: POC Glucose 155 H 04/20/23 14:15: Urine Color Yellow, Urine Clarity Clear, Urine pH 7.0, Ur Specific [place] 1.005, Urine Protein Negative, Urine Glucose (UA) Normal, Urine Ketones Negative, Urine Occult Blood Negative, Urine Nitrite Negative, Urine Bilirubin Negative, Urine Urobilinogen Normal, Ur Leukocyte Esterase Negative, Urine RBC 0 SEEN, Urine WBC 0 SEEN, Ur Squamous Epith Cells 0-5 SEEN, Calcium Oxalate Crystal 1+, Urine Bacteria 0 SEEN, Urine Mucus 0 SEEN 04/20/23 16:30: POC Glucose 117 H 04/20/23 22:54: POC Glucose 140 H 04/21/23 06:10: POC Glucose 138 H Physical Exam Narrative General: Alert, awake, no acute distress HEENT: Atraumatic, normocephalic Eyes: Anicteric, normal conjunctiva, extraocular movements grossly intact Neck: Supple Respiratory: Clear to auscultation bilaterally, normal respiratory effort Cardiovascular: Slightly tachycardic with regular rhythm GI: Soft, nontender, nondistended Extremities: Bilateral lower extremity amputations appreciated Musculoskeletal: Moving all extremities Neuro: No overt focal neurological deficits Skin: No rashes appreciated Psych: Cooperative, appears slightly anxious Assessment & Plan Assessment/Plan (1) Right foot ulcer: PLAN: Plan #History of schizophrenia, mahendra, and flight of ideas -Consulted for medical management and for patient being disorganized and having flight of ideas -At time of evaluation pt answering most questions fairly appropriately though not a wonderful historian -Is on clozapine 75 mg twice daily, Ativan 0.5 mg twice daily, Lamictal 50 twice daily, propranolol 10 mg twice daily and benztropine 1.5 mg twice a day, continue home medications -We will need to establish baseline and duration of medications that she is currently on -We will check liver panel, ammonia, prolactin -Always the possibility of a component of delirium on top of her chronic mental illness -Does not appear we have the ability to check clozapine levels in house and send out would likely take several days, not ordered as it would not acutely slip box changer down the future if there is ever a question of compliance this can be assessed -We will also add MiraLAX twice daily as cause of pain can lead to significant problems with constipation -We will schedule melatonin at night to try to help with any component of delirium -Case management consult -04/21: Patient had had urinary retention and needed Sanon placed which may have been contributing to agitation and disorganization and some chronic mental illness. A.m. labs unremarkable. Has been slightly tachycardic, EKG very low-grade mild sinus tach. Continue to encourage p.o. intake and medication compliance.. 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
[2023-04-21 08:01] LABS: Absolute Neutrophil Count 7.4 X10^3/uL (2.0-7.7); Basophil# 0.06 X10^3/uL; Basophil% 0.6 % (0-1); Hematocrit 30.2 % (37-47); Hemoglobin 9.4 g/dL (12.0-15.0); Lymphocyte % 13.6 % (19-41); Mean Corp Hgb Conc 31.1 g/dL (32-36); Mean Corpuscular Hgb 28.4 pg (27.0-32.0); Mean Corpuscular Volume 91.2 fL (81-99); Mean Platelet Vol. 9.6 fl (6.2-12.0); Monocyte# 0.55 X10^3/uL; Monocyte% 5.8 % (0-10); NRBC Flagged by Analyzer 0 % (0-5); Neutrophil # 7.36 X10^3/uL (2.7-7.7); Neutrophil % 77.3 % (47-70); Platelet Count 221 K/mm3 (150-450); RBC Distribution Width CV 17.3 % (11.6-14.6); RBC Distribution Width SD 57.2 fl (35.1-43.9); Red Blood Count 3.31 M/mm3 (4.2-5.4); White Blood Count 9.5 K/mm3 (4.4-11.0)
[2023-04-21 08:25] VITALS: BP 103/71; PULSE 104; RESP 18; TEMP 36.7; O2SAT 93
[2023-04-21 08:38] VITALS: O2SAT 93
[2023-04-21 08:39] LABS: ALB/GLOB Ratio 0.5 RATIO (0.9-2.4); AST(SGOT) 19 U/L (15-37); Alanine Aminotransfer ALT/SGPT 21 U/L (13-56); Albumin, Serum 1.9 g/dL (3.2-5.0); Alkaline Phosphatase 130 U/L (45-117); Anion Gap 6 (5-15); BUN 8 mg/dL (7-18); BUN/Creat Ratio 12.1 RATIO (10-20); Calcium,Total 8.5 mg/dL (8.5-10.1); Chloride 104 mmol/L (98-107); Creatinine, Serum 0.66 mg/dL (0.55-1.02); EST Glomerular Filtration Rate 98 mL/min (>60); Est Glom Filt Rate - Afr Amer 118 mL/min (>60); Globulin 3.9 g/dL (2.2-4.2); Glucose 155 mg/dL (74-106); Protein, Total 5.8 g/dL (6.4-8.2); Sodium Level 136 mmol/L (136-145)
[2023-04-21] MEDS: LORazepam 0.5 MG Tablet PO (08:41)
[2023-04-21] MEDS: Polyethylene Glycol 3350 17 GM PACKET PO (08:41)
[2023-04-21] MEDS: Benztropine Mesylate 0.5 MG TABLET 1.5 MG PO (08:42)
[2023-04-21] MEDS: cloZAPine 25 MG TABLET 75 MG PO (08:42)
[2023-04-21] MEDS: Potassium Chloride Oral Tablet 20 MEQ PO (08:42)
[2023-04-21] MEDS: lamoTRIgine 25 MG Tablet 50 MG PO (08:42)
[2023-04-21] MEDS: LINAGLIPTIN 5 MG TABLET PO (08:43)
[2023-04-21] MEDS: Enoxaparin 40 MG/0.4 ML Syringe SC (08:43)
[2023-04-21] MEDS: Propranolol 10 MG Tablet PO (08:43)
--- NOTE | 2023-04-21 10:05 | WOUNDNOTE ---
FAUSTINA Trevizo in to see patient. dressing and splint removed from the right lower leg. there was a small amount of drainage noted on the old dressing. incision is well approximated with sutures in place. placed Adaptic along the incision and wrapped with kerlix. pt tolerated well. [employer] to bring protective device later this am.
--- NOTE | 2023-04-21 11:24 | PN.SURG_ITS ---
Subjective Subjective Patient states she is feeling good today. Her operative site pain is well controlled and she denies phantom pains. She did require diamond placement for urinary retention. Objective Data Objective Data Vital Signs: Vital Signs Temp Pulse Resp BP Pulse Ox O2 Del Method 98.1 F 104 H 18 103/71 93 Room Air 04/21/23 08:25 04/21/23 08:25 04/21/23 08:25 04/21/23 08:25 04/21/23 08:38 04/21/23 08:38 Oxygen Delivery Method Room Air Weight: 212 lb 0.015 oz Body Mass Index (BMI) 33.2 Intake & Output: Intake and Output for Last 24 Hours 04/19/23 04/20/23 04/21/23 23:59 23:59 23:59 Intake Total 3234.17 / 4434.17 2505.00 / 2630.00 125 / 125 Output Total 825 / 1275 1325 / 1775 450 / 450 Balance 2409.17 / 3159.17 1180.00 / 855.00 -325 / -325 Lab / Micro Data Result Diagrams: 04/21/23 07:52 04/21/23 07:52 Labs: Laboratory Results - last 24 hr 04/20/23 10:45: Total Bilirubin 0.60, Direct Bilirubin 0.26, AST 15, ALT 20, Alkaline Phosphatase 131 H, Total Protein 6.4, Albumin 2.2 L, Globulin 4.2, Triglycerides 132, Cholesterol 94, LDL Cholesterol 37, VLDL Cholesterol 26, HDL Cholesterol 31 L, Prolactin 22.4 04/20/23 11:41: POC Glucose 155 H 04/20/23 14:15: Urine Color Yellow, Urine Clarity Clear, Urine pH 7.0, Ur Specific [place] 1.005, Urine Protein Negative, Urine Glucose (UA) Normal, Urine Ketones Negative, Urine Occult Blood Negative, Urine Nitrite Negative, Urine Bilirubin Negative, Urine Urobilinogen Normal, Ur Leukocyte Esterase Negative, Urine RBC 0 SEEN, Urine WBC 0 SEEN, Ur Squamous Epith Cells 0-5 SEEN, Calcium Oxalate Crystal 1+, Urine Bacteria 0 SEEN, Urine Mucus 0 SEEN 04/20/23 16:30: POC Glucose 117 H 04/20/23 22:54: POC Glucose 140 H 04/21/23 06:10: POC Glucose 138 H 04/21/23 07:52: WBC 9.5, RBC 3.31 L, Hgb 9.4 L, Hct 30.2 L, MCV 91.2, MCH 28.4, MCHC 31.1 L, RDW Std Deviation 57.2 H, RDW Coeff of Dot 17.3 H, Plt Count 221, MPV 9.6, Immature Gran % (Auto) 1.700 H, Neut % (Auto) 77.3 H, Lymph % (Auto) 13.6 L, [place] % (Auto) 5.8, Eos % (Auto) 1.0, Baso % (Auto) 0.6, Absolute Neuts (auto) 7.4, Absolute Lymphs (auto) 1.30, Nucleated RBC % 0 04/21/23 07:52: Sodium 136, Potassium 4.0, Chloride 104, Carbon Dioxide 26.0, Anion Gap 6, BUN 8, Creatinine 0.66, Estim Creat Clear Calc 89.10, Est GFR (MDRD) Af Amer 118, Est GFR (MDRD) Non-Af 98, BUN/Creatinine Ratio 12.1, Glucose 155 H, Calcium 8.5, Total Bilirubin 0.50, AST 19, ALT 21, Alkaline Phosphatase 130 H, Total Protein 5.8 L, Albumin 1.9 L, Globulin 3.9, Albumin/Globulin Ratio 0.5 L Physical Exam Narrative Alert, answering questions appropriately, no apparent distress HEENT normocephalic, hearing grossly normal bilaterally and external ears normal Eyes EOMs intact bilaterally General Eye: normal appearance of both eyes Neck General: normal visual inspection and trachea midline Resp normal respiratory effort Effort and Inspection: able to speak in complete sentences; Negative for labored, stridor, uses accessory muscles or audible wheezes Cardio regular rhythm Rate: tachycardic Extremity Extremity Narrative: R amputation stump with sutures intact and skin edges viable. No erythema, excessive swelling, drainage, foul odor, dehiscence, ecchymosis. Soft to palpation. Neuro CN's II-XII intact bilaterally and no focal motor deficits Assessment & Plan Assessment/Plan (1) Amputation of right lower extremity below knee: (2) Right foot ulcer: PLAN: Plan She is POD#2 from R BKA. Her pain remains well controlled, no phantom pains. Surgical site dressing was removed today. The incision site had satisfactory appearance. Re-wrapped with kerlix due to small amount of bleeding. Stump pr otector provided by [employer], in the process of applying at second evaluation this morning. Patient does have diamond catheter in place due to post-operative urinary retention, voiding trials can be performed inpatient or at facility. Otherwise, medically stable for discharge from hospitalist and vascular perspective. Discharge pending SNF placement.
--- NOTE | 2023-04-21 11:34 | NURSING ---
refuses accucheck, already had lunch
--- NOTE | 2023-04-21 13:34 | PCM.TXEXTCAR ---
Diet Diet Order/Speech Therapy: 04/20/23 14:10 Diet: Carbohydrate Controlled Dietary Modifications:: No Added Salt Type of Dietary Supplement:: Glucerna Shake TID Routine Orders/Code Status Change Diamond Catheter: Diamond in place due to post-op retention, please perform voiding trials Code Status: Full Code Wound(s) RIGHT LOWER LEG: Wound Type: Amputation Dressing Change: Dry Sterile Dressing (Adaptic to suture line, light kerlix wrap over top. Change daily or more often as needed to keep clean and dry. 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 Her pain remains well controlled, no phantom pains. R Below-Knee Amputation site has satisfactory appearance with sutures intact. Continue with adaptic to suture line and dry, sterile dressing to manage the minimal bleeding. Change daily or more often as needed to keep clean and dry. Once there is no further bleeding, okay to leave open to air/just have cotton stockinette over it. Rigid, removable protective device with extension is in place over the R amputation stump. This should remain in place at all times except when necessary to remove for PT. Please ensure not to secure the velcro straps directly over the patella. Patient will return to clinic in 3 weeks for first round of suture removal. Patient does have diamond catheter in place due to post-operative urinary retention, please perform voiding trials at facility. Allergies/Procedures Done in Hospital Allergies clindamycin Allergy (Verified 04/08/23 12:14) PT UNSURE OF REACTION codeine Allergy (Verified 04/08/23 12:14) PT UNSURE OF REACTION mirtazapine [From Remeron] Allergy (Verified 04/08/23 12:14) PT UNSURE OF REACTION olanzapine [From Zyprexa] Allergy (Verified 04/08/23 12:14) PT UNSURE OF REACTION Penicillins [PCN] Allergy (Verified 04/08/23 12:14) PT UNSURE OF REACTION Type of Care/Length of Stay Estimated LOS: More Than 30 Days Type of Care Needed: Skilled Rehab Potential: Fair Prognosis: Fair Additional Orders/Day of Discharge Day of Discharge: 04/21/23 Dietary and Speech Recommendations Dietitian Recommendations/Changes: Will adjust diet to CCD/Low Sodium diet to manage blood sugar and edema. Continue Glucerna supplements to provide supplemental energy. RD will order Sandoval BID to promote wound healing. Follow Up Care Please follow up with your Primary Care Physician in: 2 weeks Please Follow Up With: Angel Concepcion MD When: 3 weeks Discharge Plan Admission Admit Date/Time: 04/19/23 05:57 Primary Reason for Your Visit: Right below knee amputation Attending Provider: Angel Concepcion Primary Care Provider: Paddy Ba Consulting Providers: Jolanta Justin Discharge Orders/Prescriptions Prescriptions: New polyethylene glycol 3350 17 gram Powder In Packet 17 g PO BID Qty: 0 0RF docusate sodium 100 mg Capsule 100 mg PO BID PRN PRN (Reason: Constipation) Qty: 0 0RF oxycodone 5 mg Tablet 5 mg PO Q8H PRN PRN (Reason: Pain Score 4-10) 3 Days Qty: 9 0RF Continued Risperdal Consta 25 mg/2 mL suspension,extended rel recon 25 mg IM Q14D atorvastatin 10 MG tablet 10 mg PO QHS benztropine 1 MG tablet 1.5 mg PO BID albuterol sulfate 1 PUFF inhaler 2 puff INHALATION Q4H PRN (Reason: Wheezing) acetaminophen 325 MG capsule 650 mg PO Q4H PRN (Reason: Pain 1-10 Or Fever) propranolol 10 mg Tablet 10 mg PO BID lorazepam [Ativan] 0.5 mg Tablet 0.5 mg PO BID Tradjenta 5 mg Tablet 5 mg PO DAILY potassium chloride 20 mEq Tablet Extended Release 20 meq PO DAILY lisinopril 5 mg tablet 10 mg PO DAILY lamotrigine [Lamictal] 25 mg Tablet 50 mg PO BID cholecalciferol (vitamin D3) 1,250 mcg (50,000 unit) Tablet 1,250 mcg PO MO Artificial Tears (cmc) 1 % Drops 1 drp EACH EYE Q6H PRN (Reason: Dry Eye(S)) clozapine 100 mg tablet 75 mg PO BID Referrals / Follow Up: Paddy Ba MD [Primary Care Provider] - Disposition Disposition (needs filled in before D/C Order can be placed[facility]
--- NOTE | 2023-04-21 14:10 | DS.PCM_ITS ---
Providers Date of Admission: 04/19/23 Date of Discharge: 04/21/23 Primary Care Physician: Dr. 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 Her pain remains well controlled, no phantom pains. R Below-Knee Amputation site has satisfactory appearance with sutures intact. Continue with adaptic to suture line and dry, sterile dressing to manage the minimal bleeding. Change daily or more often as needed to keep clean and dry. Once there is no further bleeding, okay to leave open to air/just have cotton stockinette over it. Rigid, removable protective device with extension is in place over the R amputation stump. This should remain in place at all times except when necessary to remove for PT. Please ensure not to secure the velcro straps directly over the patella. Patient will return to clinic in 3 weeks for first round of suture removal. Patient does have diamond catheter in place due to post-operative urinary retention, please perform voiding trials at facility. Medications at Discharge Home Medications acetaminophen 325 mg capsule 650 mg PO Q4H PRN Pain 1-10 Or Fever 01/21/21 albuterol sulfate 90 mcg/actuation aerosol inhaler 2 puff inhalation Q4H PRN Wheezing 01/21/21 atorvastatin 10 mg tablet 10 mg PO QHS CHOLESTEROL 01/21/21 benztropine 1 mg tablet 1.5 mg PO BID EPS 01/21/21 linagliptin 5 mg tablet (Tradjenta) 5 mg PO DAILY DM 12/09/22 lorazepam 0.5 mg tablet (Ativan) 0.5 mg PO BID ANXIETY 12/09/22 potassium chloride 20 mEq tablet,extended release 20 meq PO DAILY SUPPLEMENT 12/09/22 propranolol 10 mg tablet 10 mg PO BID HTN 12/09/22 carboxymethylcellulose sodium 1 % eye drops (Artificial Tears (carboxymethylcellulose)) 1 drp EACH EYE Q6H PRN Dry Eye(S) 12/23/22 cholecalciferol (vitamin D3) 1,250 mcg (50,000 unit) tablet 1,250 mcg PO MO SUNSHINE PPLEMENT 12/23/22 lamotrigine 25 mg tablet (Lamictal) 50 mg PO BID BIPOLAR 12/23/22 clozapine 100 mg tablet 75 mg PO BID BIPOLAR 03/17/23 lisinopril 5 mg tablet 10 mg PO DAILY HTN 03/17/23 risperidone microspheres 25 mg/2 mL intramuscular susp,ext release (Risperdal Consta) 25 mg IM Q14D SCHIZOPHRENIA 03/17/23 docusate sodium 100 mg capsule 100 mg PO BID PRN PRN Constipation #0 caps 04/21/23 oxycodone 5 mg tablet 5 mg PO Q8H PRN PRN Pain Score 4-10 3 days #9 tabs 04/21/23 polyethylene glycol 3350 17 gram oral powder packet 17 g PO BID #0 ea 04/21/23 Hospital Course Operations - (Right below knee amputation) Summary of Care Provided Hospital Course: Patient underwent right below knee amputation on 04/19/23. The procedure was without complications and she tolerated well. Surgical site dressing was taken down on 04/21/23 and site was with satisfactory appearance, no signs of vascular compromise or infection. [email or web address] placed the stump protector on 04/21/23 which patient will continue to wear until site is fully healed. She has had post-operative urinary retention but otherwise hospitalist felt she was medically stable for discharge and recommended voiding trials be done at the facility. Otherwise, she is tolerating diet, her pain is well-controlled, she is without signs/symptoms of infection. She was discharged in medically stable condition to the [facility] from which she was at prior to surgery. She is scheduled for follow-up with our office on 05/11/2023. Physical Exam Narrative Alert, answering questions appropriately, no apparent distress HEENT normocephalic, hearing grossly normal bilaterally and external ears normal Eyes EOMs intact bilaterally General Eye: normal appearance of both eyes Neck General: normal visual inspection and trachea midline Resp normal respiratory effort Effort and Inspection: able to speak in complete sentences; Negative for labored, stridor, uses accessory muscles or audible wheezes Cardio regular rhythm Rate: tachycardic Extremity Extremity Narrative: R amputation stump with sutures intact and skin edges viable. No erythema, excessive swelling, drainage, foul odor, dehiscence, ecchymosis. Soft to palpation. Neuro CN's II-XII intact bilaterally and no focal motor deficits Weight / BMI Weight Weight: 212 lb 0.015 oz Body Mass Index (BMI) 33.2 ABG / Lab / Microbiology Data Result Diagrams: 04/21/23 07:52 04/21/23 07:52 Laboratory: Laboratory Results - last 24 hr 04/20/23 14:15: Urine Color Yellow, Urine Clarity Clear, Urine pH 7.0, Ur Specific [place] 1.005, Urine Protein Negative, Urine Glucose (UA) Normal, Urine Ketones Negative, Urine Occult Blood Negative, Urine Nitrite Negative, Urine Bilirubin Negative, Urine Urobilinogen Normal, Ur Leukocyte Esterase Negative, Urine RBC 0 SEEN, Urine WBC 0 SEEN, Ur Squamous Epith Cells 0-5 SEEN, Calcium Oxalate Crystal 1+, Urine Bacteria 0 SEEN, Urine Mucus 0 SEEN 04/20/23 16:30: POC Glucose 117 H 04/20/23 22:54: POC Glucose 140 H 04/21/23 06:10: POC Glucose 138 H 04/21/23 07:52: WBC 9.5, RBC 3.31 L, Hgb 9.4 L, Hct 30.2 L, MCV 91.2, MCH 28.4, MCHC 31.1 L, RDW Std Deviation 57.2 H, RDW Coeff of Dot 17.3 H, Plt Count 221, MPV 9.6, Immature Gran % (Auto) 1.700 H, Neut % (Auto) 77.3 H, Lymph % (Auto) 13.6 L, [place] % (Auto) 5.8, Eos % (Auto) 1.0, Baso % (Auto) 0.6, Absolute Neuts (auto) 7.4, Absolute Lymphs (auto) 1.30, Nucleated RBC % 0 04/21/23 07:52: Sodium 136, Potassium 4.0, Chloride 104, Carbon Dioxide 26.0, Anion Gap 6, BUN 8, Creatinine 0.66, Estim Creat Clear Calc 89.10, Est GFR (MDRD) Af Amer 118, Est GFR (MDRD) Non-Af 98, BUN/Creatinine Ratio 12.1, Glucose 155 H, Calcium 8.5, Total Bilirubin 0.50, AST 19, ALT 21, Alkaline Phosphatase 130 H, Total Protein 5.8 L, Albumin 1.9 L, Globulin 3.9, Albumin/Globulin Ratio 0.5 L Microbiology: Microbiology 04/21/23 11:30 Nasal Secretion SARS-CoV-2 Antigen (Rapid) - Final D/C Instructions Discharge Diet: Carb Control Diet and - (Low sodium diet per retail sales associate bilingual recommendation) Call your doctor if your incision/area has: Sudden Increased Bleeding, Increased Pain/ Swelling and Foul Smelling Discharge Call your doctor if you observe: Fever of 101 or Higher and Uncontrolled pain Change Dressing in: 1 day Cleanse incision/area with: Keep Dressing Clean & Dry Catheter: Diamond to large bag Additional Dressing/Incision Instructions: Continue with dry, sterile dressing to R amputation stump as long as there is still mild amount of bleeding, change daily to keep clean and dry. Once there is no bleeding noted, okay to cover only with cotton stockinette or leave open to air per patient comfort. The stump protector device should remain in place, especially during transfers or transport. Okay to remove as needed for PT/OT and hygiene care. Do not submerge incision site, keep clean and dry. Follow-up in office as scheduled for suture removal. Please Follow Up With: Angel Concepcion MD When: 05/11/2023 Meaningful Use Info Meaningful Use Diagnoses (Choose all that apply): None applicable Discharge Plan Admission Admit Date/Time: 04/19/23 05:57 Primary Reason for Your Visit: Right below knee amputation Attending Provider: Angel Concepcion Primary Care Provider: Paddy Ba Consulting Providers: Jolanta Justin Discharge Orders/Prescriptions Prescriptions: New polyethylene glycol 3350 17 gram Powder In Packet 17 g PO BID Qty: 0 0RF docusate sodium 100 mg Capsule 100 mg PO BID PRN PRN (Reason: Constipation) Qty: 0 0RF oxycodone 5 mg Tablet 5 mg PO Q8H PRN PRN (Reason: Pain Score 4-10) 3 Days Qty: 9 0RF Continued Risperdal Consta 25 mg/2 mL suspension,extended rel recon 25 mg IM Q14D atorvastatin 10 MG tablet 10 mg PO QHS benztropine 1 MG tablet 1.5 mg PO BID albuterol sulfate 1 PUFF inhaler 2 puff INHALATION Q4H PRN (Reason: Wheezing) acetaminophen 325 MG capsule 650 mg PO Q4H PRN (Reason: Pain 1-10 Or Fever) propranolol 10 mg Tablet 10 mg PO BID lorazepam [Ativan] 0.5 mg Tablet 0.5 mg PO BID Tradjenta 5 mg Tablet 5 mg PO DAILY potassium chloride 20 mEq Tablet Extended Release 20 meq PO DAILY lisinopril 5 mg tablet 10 mg PO DAILY lamotrigine [Lamictal] 25 mg Tablet 50 mg PO BID cholecalciferol (vitamin D3) 1,250 mcg (50,000 unit) Tablet 1,250 mcg PO MO Artificial Tears (cmc) 1 % Drops 1 drp EACH EYE Q6H PRN (Reason: Dry Eye(S)) clozapine 100 mg tablet 75 mg PO BID Referrals / Follow Up: Paddy Ba MD [Primary Care Provider] - Disposition Disposition (needs filled in before D/C Order can be placed): [facility]
[2023-04-21 14:29] VITALS: BP 99/62; PULSE 102; RESP 18; TEMP 37.3; O2SAT 93
--- NOTE | 2023-04-21 14:59 | CASEMGMT ---
Addendum entered by Vicki Figueroa 04/21/23 15:01: Social Work Pt is returning to [facility], intermediate level of care. SW did also let pt know the time of pickup. ROOPA Baker Original Note: Social Work Pt is ready for discharge back to [facility]. SW sent all discharge paperwork via [facility] to [facility]. Transport set up for 5pm via [facility]. SW notified pt's bedside RN, notified pt's guardian Shelly Sharp of time of transport. SW also notified [facility] via [facility] of transport time. No further needs, pt to [facility] today. ROOPA Baker
== END 2023-04-21 16:47 | DRG 305 ==
LOC: ACINP 06:01 → MS3 12:32
PROVIDERS: Internal Medicine; Admitting Provider Surgery Trauma Surgery; PCP Family Medicine; Referring Provider Surgery Trauma Surgery; Visit Provider Surgery Trauma Surgery
PROC: 0Y6H0Z1 Detachment at Right Lower Leg, High, Open Approach (ICD-10-PCS; principal; 2023-04-19 07:15)
DX: E11.621 Type 2 diabetes mellitus with foot ulcer (principal); F25.9 Schizoaffective disorder, unspecified; E11.42 Type 2 diabetes mellitus with diabetic polyneuropathy; J44.9 Chronic obstructive pulmonary disease, unspecified; F31.9 Bipolar disorder, unspecified; Z89.512 Acquired absence of left leg below knee; L97.519 Non-pressure chronic ulcer of other part of right foot with unspecified severity; I10 Essential (primary) hypertension; E78.5 Hyperlipidemia, unspecified; T33.821S Superficial frostbite of right foot, sequela; R33.9 Retention of urine, unspecified; X31.XXXS Exposure to excessive natural cold, sequela; Z79.84 Long term (current) use of oral hypoglycemic drugs; Z20.822 Contact with and (suspected) exposure to COVID-19; Z87.891 Personal history of nicotine dependence
CPT/HCPCS: 36415; 80048; 80053; 80061; 80076; 81001; 82140; 82962; 83036; 84146; 85025; 85027; 86850; 86900; 86901; 86920; 86922; 87426; 88307; 88311; 93005; 94668; 97162; 97166; 99252; A4648; J7120; A4216; G0463; J2405

== ENCOUNTER 2023-05-10 11:08 | Emergency (ER) | payer MEDICAID, SELFPAY ==
[2023-05-10 11:09] VITALS: BP 97/54; PULSE 95; RESP 16; TEMP 35.8; O2SAT 97; BMI 37.0
--- NOTE | 2023-05-10 12:05 | RAD_ITS ---
INDICATION: Fever EXAMINATION/TECHNIQUE: X-RAY - XR Chest 1 View COMPARISON: Prior study dated: December 23, 2022 FINDINGS: LINES/DEVICES: None. LUNGS: There is a linear opacity projecting over the left lower lung. No pneumothorax. MEDIASTINUM AND CARDIOVASCULAR STRUCTURES: Cardiac silhouette not enlarged. Central airways and mediastinal contour are unremarkable. BONES AND SOFT TISSUES: Unremarkable. RAD/Chest 1 View (Portable) IMPRESSION: Linear opacity projecting over the left lower lung, may be artifactual however cannot exclude minimal atelectasis and/or scarring. Electronically Signed: Radha Evans MD at 12:20 EDT ,
--- NOTE | 2023-05-10 12:06 | ED.RN ---
lab notified of blood work.
[2023-05-10 12:35] LABS: Absolute Lymphocyte Count 1.58 X10^3/uL (0.83-4.51); Absolute Neutrophil Count 3.5 X10^3/uL (2.0-7.7); Basophil# 0.05 X10^3/uL; Basophil% 0.9 % (0-1); Eosinophil# 0.15 X10^3/uL; Eosinophils% 2.6 % (0-5); Hemoglobin 10.7 g/dL (12.0-15.0); Lymphocyte # 1.58 X10^3/ul (0.83-4.51); Lymphocyte % 27.8 % (19-41); Mean Corp Hgb Conc 29.7 g/dL (32-36); Mean Corpuscular Volume 97.6 fL (81-99); Mean Platelet Vol. 10.3 fl (6.2-12.0); Monocyte# 0.39 X10^3/uL; Monocyte% 6.9 % (0-10); NRBC Flagged by Analyzer 0 % (0-5); Neutrophil # 3.47 X10^3/uL (2.7-7.7); Neutrophil % 61.1 % (47-70); Platelet Count 201 K/mm3 (150-450); RBC Distribution Width CV 16.1 % (11.6-14.6); RBC Distribution Width SD 57.4 fl (35.1-43.9); Red Blood Count 3.69 M/mm3 (4.2-5.4); White Blood Count 5.7 K/mm3 (4.4-11.0)
[2023-05-10 12:40] LABS: Bacteria 0 SEEN /hpf (None Seen); Mucous, Urine 0 SEEN /hpf (<or=2+); Red Blood Cells-Urine 0 SEEN /hpf (0-5); Squamous Epithelial Cells - UA 0 SEEN /hpf (5-10); White Blood Cells 0 SEEN /hpf (0-5)
[2023-05-10 12:44] LABS: Color, Urine Straw (Yellow); Glucose, Dipstick Normal (Normal); Ketone-Dipstick Negative (Negative); Leukocyte Esterase-Dipstick Negative /ul (Negative); Nitrite-Dipstick Negative (Negative); Occult Blood-Urine Negative /ul (Negative); Protein-Dipstick Negative (Negative); Specific Gravity, Urine 1.005 (1.002-1.030); Urine Bilirubin Dipstick Negative (Negative); Urine Clarity Clear (Clear); Urine Urobilinogen Normal (Normal)
[2023-05-10 12:45] LABS: Partial Thromboplast Time 25.1 Seconds (24.1-36.2); Prothrombin Time (Protime)PT. 12.7 SECONDS (11.7-14.9)
[2023-05-10 12:52] LABS: ALB/GLOB Ratio 0.7 RATIO (0.9-2.4); AST(SGOT) 27 U/L (15-37); Alanine Aminotransfer ALT/SGPT 28 U/L (13-56); Albumin, Serum 2.9 g/dL (3.2-5.0); Alkaline Phosphatase 163 U/L (45-117); Anion Gap 5 (5-15); BUN 7 mg/dL (7-18); Calcium,Total 9.1 mg/dL (8.5-10.1); Chloride 106 mmol/L (98-107); Creatinine, Serum 0.58 mg/dL (0.55-1.02); EST Glomerular Filtration Rate 114 mL/min (>60); Est Glom Filt Rate - Afr Amer 138 mL/min (>60); Estimated Creatinine Clearance 97.46 ml/min; Globulin 3.9 g/dL (2.2-4.2); Glucose 117 mg/dL (74-106); Potassium 4.3 mmol/L (3.5-5.1); Protein, Total 6.8 g/dL (6.4-8.2); Sodium Level 139 mmol/L (136-145)
[2023-05-10 13:19] VITALS: BP 105/63; PULSE 82; RESP 18; TEMP 36.6; O2SAT 98
--- NOTE | 2023-05-10 13:31 | ED.VIS.LOWEX ---
HPI History of Present Illness HPI Narrative: Patient presents with pain and swelling to her right lower leg that became worse over the past couple days. Patient had a right below-knee amputation done on April 19. Patient states the wound is starting to drain over the last couple of days. Patient states it is some purulent and serous drainage. Patient denies any fevers or chills. Patient states there is some redness around the wound and lower leg. Patient admits to some nausea but denies any vomiting. Patient denies any trauma or injury. Chief Complaint: Wound Informant: patient Onset/Context/Timing Onset: Days Context: Gradual Onset Timing: Continuous Quality of Pain: Dull Location: Right lower leg Worsened by: Nothing Relieved by: Nothing Associated Symptoms Associated Symptoms: Negative for Parasthesia, Weakness or Loss of Funtion PFSH PFS Medical History Anxiety and depression Bipolar disorder Chronic peripheral neuropathic pain Complete edentulism, class III COPD (chronic obstructive pulmonary disease) Decubitus ulcer of right heel, stage 2 Dementia Diabetes mellitus, type 2 Dietary restriction Difficulty swallowing Former smoker Gastric reflux HLD (hyperlipidemia) HTN (hypertension) Lives in [facility] Obesity Pneumonia Post-menopausal Schizoaffective disorder Ulcer of right foot with fat layer exposed Uses wheelchair Wears glasses Home Medications acetaminophen 325 mg capsule 650 mg PO Q4H PRN Pain 1-10 Or Fever 01/21/21 [History Last Taken Unknown] albuterol sulfate 90 mcg/actuation aerosol inhaler 2 puff inhalation Q4H PRN SHORTNESS OF BREATH/WHEEZING 01/21/21 [History Last Taken Unknown] atorvastatin 10 mg tablet 10 mg PO QHS CHOLESTEROL 01/21/21 [History Last Taken 05/09/23] benztropine 1 mg tablet 1.5 mg PO BID PARKINSONS 01/21/21 [History Last Taken 05/10/23] linagliptin 5 mg tablet (Tradjenta) 5 mg PO DAILY DIABETES 12/09/22 [History Last Taken 05/10/23] lorazepam 0.5 mg tablet (Ativan) 0.5 mg PO DAILY ANXIETY 12/09/22 [History Last Taken 05/10/23] potassium chloride 20 mEq tablet,extended release 20 meq PO DAILY SUPPLEMENT 12/09/22 [History Last Taken 05/10/23] propranolol 10 mg tablet 10 mg PO BID BLOOD PRESSURE 12/09/22 [History Last Taken 05/10/23] carboxymethylcellulose sodium 1 % eye drops (Artificial Tears (carboxymethylcellulose)) 1 drp EACH EYE Q6H PRN DRY EYE(S) 12/23/22 [History Last Taken Unknown] cholecalciferol (vitamin D3) 1,250 mcg (50,000 unit) tablet 1,250 mcg PO MO SUPPLEMENT 12/23/22 [History Last Taken 05/10/23] lamotrigine 25 mg tablet (Lamictal) 25 mg PO BID BIPOLAR DISORDER 12/23/22 [History Last Taken 05/10/23] clozapine 100 mg tablet 100 mg PO BID BIPOLAR DISORDER 03/17/23 [History Last Taken 05/10/23] lisinopril 5 mg tablet 5 mg PO DAILY BLOOD PRESSURE 03/17/23 [History Last Taken 05/10/23] risperidone microspheres 25 mg/2 mL intramuscular susp,ext release (Risperdal Consta) 25 mg IM Q14D SCHIZOPHRENIA 03/17/23 [History Last Taken Unknown] cephalexin 500 mg capsule 500 mg PO Q6 #40 CAPSULES 05/10/23 [Rx Last Taken Unknown] docusate sodium 100 mg capsule 100 mg PO Q12H PRN CONSTIPATION 05/10/23 [History Last Taken Unknown] polyethylene glycol 3350 17 gram oral powder packet 17 g PO BID CONSTIPATION 05/10/23 [History Last Taken 05/10/23] Allergy/AdvReac Type Severity Reaction Status Date / Time clindamycin Allergy PT UNSURE Verified 04/08/23 12:14 OF REACTION codeine Allergy PT UNSURE Verified 04/08/23 12:14 OF REACTION mirtazapine [From Remeron] Allergy PT UNSURE Verified 04/08/23 12:14 OF REACTION olanzapine [From Zyprexa] Allergy PT UNSURE Verified 04/08/23 12:14 OF REACTION Penicillins [PCN] Allergy PT UNSURE Verified 04/08/23 12:14 OF REACTION Family History Mother COPD (chronic obstructive pulmonary disease) Father COPD (chronic obstructive pulmonary disease) Surgical History 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 alcohol intake: never substance use type: does not use ROS ROS ED Constitutional Constitutional ED: Denies chills or fever(s) Eyes Eyes: Denies blurry vision or change in vision ENT ENT ED: Denies rhinorrhea or sore throat Cardiovascular Cardiovascular: Denies chest pain or palpitations Respiratory/Chest Respiratory/Chest: Denies cough or dyspnea Gastrointestinal Gastrointestinal: Reports nausea; Denies vomiting Genitourinary Genitourinary ED: Denies dysuria or hematuria Musculoskeletal Musculoskeletal: Denies back pain or neck pain Integumentary Denies abscess or rash Neurologic Neurologic: Denies headache(s) or weakness Allergic/Immunologic Allergic/Immunologic ED: Denies mouth swelling or urticaria EXAM Physical Exam Const Vital Signs: 05/10/23 11:09 05/10/23 13:19 05/10/23 14:39 Temperature 96.5 F L 97.8 F 97.8 F Temperature Source Temporal Oral Oral Pulse Rate 95 82 93 Respiratory Rate 16 18 18 Blood Pressure 97/54 L 105/63 93/55 L Blood Pressure Mean 68 77 67 Pulse Ox 97 98 97 Oxygen Delivery Method Room Air Room Air Room Air Positive well nourished, well developed and obese General Appearance ED: well developed and NAD Nutritional Appearance: obese HEENT Reports moist mucous membranes Neck full ROM and supple Resp normal respiratory effort and clear to auscultation bilaterally Cardio regular rate and regular rhythm GI non-tender and non-distended Auscultation: normoactive bowel sounds Palpation: soft Extremity Extremity Narrative: There is some edema and erythema over the right lower leg. There is some mild warmth noted. There is some mild purulent drainage coming from the wound. There is no fluctuance. There is good range of motion of the right knee. Neuro oriented x3, CN's II-XII intact bilaterally, moves all extremities and no sensory deficits noted Sensorium / Orientation: alert Motor Exam: strength 5/5 throughout Psych mental status grossly normal MDM MDM MDM Narrative Medical decision making narrative: Differential diagnosis includes cellulitis, postoperative wound infection, and sepsis. CBC will be obtained to assess for leukocytosis and anemia. Comprehensive metabolic profile will be obtained to assess for hepatic function, renal function, and electrolyte abnormality. Serum lactate will be obtained to assess for sepsis. Urinalysis will be obtained to assess for urinary tract infection. PT with INR and PTT will be obtained to assess for coagulopathy. Wound culture will be obtained to assess for wound infection. Blood cultures will be obtained to assess for sepsis. Chest x-ray will be obtained to assess for pneumonia. Lab Data Attestation: I reviewed the patient's lab results. Lab results narrative: CBC was reviewed and showed a mild anemia with a hemoglobin of 10.7 and hematocrit 36.0. Comprehensive metabolic profile was reviewed. Glucose was slightly elevated at 117. Alkaline phosphatase was slightly elevated at 163. The remainder was essentially within normal limits. Lactic acid was reviewed and was normal at 1.0. PT with INR and PTT were reviewed and were within normal limits. Urinalysis was reviewed. There is no evidence of urinary tract infection or hematuria. Labs: Laboratory Results - last 24 hr 05/10/23 05/10/23 05/10/23 11:55 12:25 12:25 WBC 5.7 RBC 3.69 L Hgb 10.7 L Hct 36.0 L MCV 97.6 MCH 29.0 MCHC 29.7 L RDW Std Deviation 57.4 H RDW Coeff of Dot 16.1 H Plt Count 201 MPV 10.3 Immature Gran % (Auto) 0.700 Neut % (Auto) 61.1 Lymph % (Auto) 27.8 Tyrrell % (Auto) 6.9 Eos % (Auto) 2.6 Baso % (Auto) 0.9 Absolute Neuts (auto) 3.5 Absolute Lymphs (auto) 1.58 Nucleated RBC % 0 PT 12.7 INR 1.0 APTT 25.1 Sodium Potassium Chloride Carbon Dioxide Anion Gap BUN Creatinine Estim Creat Clear Calc Est GFR (MDRD) Af Amer Est GFR (MDRD) Non-Af BUN/Creatinine Ratio Glucose Lactic Acid Calcium Total Bilirubin AST ALT Alkaline Phosphatase Total Protein Albumin Globulin Albumin/Globulin Ratio Urine Color Straw Urine Clarity Clear Urine pH 7.0 Ur Specific [place] 1.005 Urine Protein Negative Urine Glucose (UA) Normal Urine Ketones Negative Urine Occult Blood Negative Urine Nitrite Negative Urine Bilirubin Negative Urine Urobilinogen Normal Ur Leukocyte Esterase Negative Urine RBC 0 SEEN Urine WBC 0 SEEN Ur Squamous Epith Cells 0 SEEN Urine Bacteria 0 SEEN Urine Mucus 0 SEEN 05/10/23 05/10/23 12:25 12:25 WBC RBC Hgb Hct MCV MCH MCHC RDW Std Deviation RDW Coeff of Dot Plt Count MPV Immature Gran % (Auto) Neut % (Auto) Lymph % (Auto) Tyrrell % (Auto) Eos % (Auto) Baso % (Auto) Absolute Neuts (auto) Absolute Lymphs (auto) Nucleated RBC % PT INR APTT Sodium 139 Potassium 4.3 Chloride 106 Carbon Dioxide 28.0 Anion Gap 5 BUN 7 Creatinine 0.58 Estim Creat Clear Calc 97.46 Est GFR (MDRD) Af Amer 138 Est GFR (MDRD) Non-Af 114 BUN/Creatinine Ratio 12.0 Glucose 117 H Lactic Acid 1.0 Calcium 9.1 Total Bilirubin 0.40 AST 27 ALT 28 Alkaline Phosphatase 163 H Total Protein 6.8 Albumin 2.9 L Globulin 3.9 Albumin/Globulin Ratio 0.7 L Urine Color Urine Clarity Urine pH Ur Specific [place] Urine Protein Urine Glucose (UA) Urine Ketones Urine Occult Blood Urine Nitrite Urine Bilirubin Urine Urobilinogen Ur Leukocyte Esterase Urine RBC Urine WBC Ur Squamous Epith Cells Urine Bacteria Urine Mucus Radiography Diagnostic Testing: Clinical Impression(s) from Imaging Studies Chest X-Ray 05/10/23 12:05 IMPRESSION: Linear opacity projecting over the left lower lung, may be artifactual however cannot exclude minimal atelectasis and/or scarring. Electronically Signed: Radha Evans MD at 12:20 EDT , Portable 1 view chest x-ray was obtained. On my independent interpretation, lung show atelectasis versus scarring in the left lower lung. There is normal cardiac silhouette. Bony thorax is normal. There is no acute process noted. Radiologist also interpreted the x-ray and agrees. Treatment and Re-Evaluation Narrative: Patient was feeling better on reevaluation. Patient was advised of her findings. Patient was given a dose of Keflex here. Patient was given a prescription for Keflex. Patient was instructed to follow-up with her primary care physician in 5 to 7 days. Patient understood and was agreeable with the plan. All questions were answered. Discharge Plan Triage Chief Complaint: Wound ED Provider: Angel Fuentes Dx/Rx/DC Orders Clinical Impression: Cellulitis of leg, right, Amputation of right lower extremity below knee Instructions: ED Cellulitis Prescriptions: New cephalexin [cephalexin] 500 mg capsule 500 mg PO Q6 Qty: 40 0RF No Action Risperdal Consta 25 mg/2 mL suspension,extended rel recon 25 mg IM Q14D atorvastatin 10 MG tablet 10 mg PO QHS benztropine 1 MG tablet 1.5 mg PO BID albuterol sulfate 1 PUFF inhaler 2 puff INHALATION Q4H PRN (Reason: SHORTNESS OF BREATH/WHEEZING ) acetaminophen 325 MG capsule 650 mg PO Q4H PRN (Reason: Pain 1-10 Or Fever) propranolol 10 mg Tablet 10 mg PO BID lorazepam [Ativan] 0.5 mg Tablet 0.5 mg PO DAILY Tradjenta 5 mg Tablet 5 mg PO DAILY potassium chloride 20 mEq Tablet Extended Release 20 meq PO DAILY lisinopril 5 mg tablet 5 mg PO DAILY lamotrigine [Lamictal] 25 mg Tablet 25 mg PO BID cholecalciferol (vitamin D3) 1,250 mcg (50,000 unit) Tablet 1,250 mcg PO MO Artificial Tears (cmc) 1 % Drops 1 drp EACH EYE Q6H PRN (Reason: DRY EYE(S) ) clozapine 100 mg tablet 100 mg PO BID polyethylene glycol 3350 17 gram powder in packet 17 g PO BID docusate sodium 100 mg capsule 100 mg PO Q12H PRN (Reason: CONSTIPATION ) Primary Care Provider: Paddy Ba Referrals: Paddy Ba MD [Primary Care Provider] - 5-7 Days Disposition Disposition: Home, Self Care
[2023-05-10 14:39] VITALS: BP 93/55; PULSE 93; RESP 18; TEMP 36.6; O2SAT 97
--- NOTE | 2023-05-10 15:30 | NURSING ---
CALLED [facility], ETA IS 20 MIN
--- NOTE | 2023-05-10 15:45 | ED.RN ---
attempted to call report to [facility]- no answer
[2023-05-10] MEDS: Cephalexin 500 MG Capsule PO (15:49)
== END 2023-05-10 16:02 | disposition home or self-care (01) ==
PROVIDERS: Emergency Provider Emergency Medicine; PCP Family Medicine; Visit Provider Emergency Medicine
DX: L03.115 Cellulitis of right lower limb (principal); Z89.511 Acquired absence of right leg below knee; J44.9 Chronic obstructive pulmonary disease, unspecified; E11.42 Type 2 diabetes mellitus with diabetic polyneuropathy; I10 Essential (primary) hypertension; E78.5 Hyperlipidemia, unspecified; Z87.891 Personal history of nicotine dependence; Z79.899 Other long term (current) drug therapy; E66.9 Obesity, unspecified
CPT/HCPCS: 51701; 36415; 71045; 80053; 81001; 83605; 85025; 85610; 85730; 87040; 87070; 87077; 87186; 87205; 99285; P9612; A4216

== ENCOUNTER 2023-05-13 13:16 | Emergency (ER) | payer MEDICAID, SELFPAY ==
[2023-05-13 13:18] VITALS: BP 110/68; PULSE 98; RESP 19; TEMP 36; O2SAT 100; BMI 37.0
[2023-05-13 13:22] VITALS: BP 110/68; PULSE 94; RESP 19; TEMP 36; O2SAT 100
--- NOTE | 2023-05-13 14:08 | EX.ED.DYSGE1 ---
HPI History of Present Illness Chief Complaint: Wound Detail of Chief Complaint: Sent in for evaluation of right lower leg surgical wound after BKA. Informant: patient Onset/Context/Timing Onset: Days Context: Gradual Onset Timing: Continuous Current Severity: Mild Maximum Severity: Mild Narrative Narrative: 57-year-old female resident of an area [facility]. Diabetic. Had a recent right below the knee amputation by Dr. Angel Hong on April 19. She is currently on both IM broad-spectrum antibiotics and cefdinir orally. custodial sent her in today to have the wound evaluated. Patient states is doing well. She feels fine. Denies fever or chills. Prior similar symptoms: Yes Recent Illness/Hospitalization: Yes PFSH PFS Medical History Anxiety and depression Bipolar disorder Chronic peripheral neuropathic pain Complete edentulism, class III COPD (chronic obstructive pulmonary disease) Decubitus ulcer of right heel, stage 2 Dementia Diabetes mellitus, type 2 Dietary restriction Difficulty swallowing Former smoker Gastric reflux HLD (hyperlipidemia) HTN (hypertension) Lives in [facility] Obesity Pneumonia Post-menopausal Schizoaffective disorder Ulcer of right foot with fat layer exposed Uses wheelchair Wears glasses Home Medications acetaminophen 325 mg capsule 650 mg PO Q4H PRN Pain 1-10 Or Fever 01/21/21 [History Last Taken Unknown] albuterol sulfate 90 mcg/actuation aerosol inhaler 2 puff inhalation Q4H PRN SHORTNESS OF BREATH/WHEEZING 01/21/21 [History Last Taken Unknown] atorvastatin 10 mg tablet 10 mg PO QHS CHOLESTEROL 01/21/21 [History Last Taken 05/09/23] benztropine 1 mg tablet 1.5 mg PO BID PARKINSONS 01/21/21 [History Last Taken 05/10/23] linagliptin 5 mg tablet (Tradjenta) 5 mg PO DAILY DIABETES 12/09/22 [History Last Taken 05/10/23] potassium chloride 20 mEq tablet,extended release 20 meq PO DAILY SUPPLEMENT 12/09/22 [History Last Taken 05/10/23] propranolol 10 mg tablet 10 mg PO BID BLOOD PRESSURE 12/09/22 [History Last Taken 05/10/23] carboxymethylcellulose sodium 1 % eye drops (Artificial Tears (carboxymethylcellulose)) 1 drp EACH EYE Q6H PRN DRY EYE(S) 12/23/22 [History Last Taken Unknown] cholecalciferol (vitamin D3) 1,250 mcg (50,000 unit) tablet 1,250 mcg PO MO SUPPLEMENT 12/23/22 [History Last Taken 05/10/23] lamotrigine 25 mg tablet (Lamictal) 25 mg PO BID BIPOLAR DISORDER 12/23/22 [History Last Taken 05/10/23] clozapine 100 mg tablet 100 mg PO BID BIPOLAR DISORDER 03/17/23 [History Last Taken 05/10/23] lisinopril 5 mg tablet 5 mg PO DAILY BLOOD PRESSURE 03/17/23 [History Last Taken 05/10/23] risperidone microspheres 25 mg/2 mL intramuscular susp,ext release (Risperdal Consta) 25 mg IM Q14D SCHIZOPHRENIA 03/17/23 [History Last Taken Unknown] cephalexin 500 mg capsule 500 mg PO Q6 #40 CAPSULES 05/10/23 [Rx Last Taken Unknown] docusate sodium 100 mg capsule 100 mg PO Q12H PRN CONSTIPATION 05/10/23 [History Last Taken Unknown] polyethylene glycol 3350 17 gram oral powder packet 17 g PO BID CONSTIPATION 05/10/23 [History Last Taken 05/10/23] lorazepam 0.5 mg tablet 0.5 mg PO DAILY PRN 05/11/23 [History Last Taken Unknown] Allergy/AdvReac Type Severity Reaction Status Date / Time clindamycin Allergy PT UNSURE Verified 05/13/23 13:26 OF REACTION codeine Allergy PT UNSURE Verified 05/13/23 13:26 OF REACTION mirtazapine [From Remeron] Allergy PT UNSURE Verified 05/13/23 13:26 OF REACTION olanzapine [From Zyprexa] Allergy PT UNSURE Verified 05/13/23 13:26 OF REACTION Penicillins [PCN] Allergy PT UNSURE Verified 05/13/23 13:26 OF REACTION Family History Mother COPD (chronic obstructive pulmonary disease) Father COPD (chronic obstructive pulmonary disease) Surgical History 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 alcohol intake: never substance use type: does not use ROS ROS ED ROS Narrative Denies recent illness. Review of Systems ROS Unobtainable: Denies due to encephalopathy Constitutional Constitutional ED: Denies chills or fever(s) Eyes Eyes: Denies blurry vision ENT ENT ED: Denies ear pain Cardiovascular Cardiovascular: Denies chest pain Respiratory/Chest Respiratory/Chest: Denies cough or dyspnea Gastrointestinal Gastrointestinal: Denies abdominal pain Genitourinary Genitourinary ED: Denies dysuria or hematuria Musculoskeletal Musculoskeletal: Denies arthralgias Integumentary Denies abscess Neurologic Neurologic: Denies headache(s) Psychiatric Psychiatric: Denies anxiety Endocrine Endocrinology: Denies cold intolerance Hematologic/Lymphatic Hematologic/Lymphatic: Reports none Allergic/Immunologic Allergic/Immunologic ED: Denies mouth swelling EXAM Physical Exam Narrative Exam Narrative: Well-appearing 57-year-old female. Vital signs stable afebrile. She does not look septic toxic in any distress. H EENT exam unremarkable. Neck nontender. No lymphadenopathy. Lungs clear to auscultation bilaterally. Heart regular rhythm rate about 90 no murmur. Chest wall nontender. Abdomen soft nontender. Right leg below the knee amputation. Well-healing wound. Currently not warm to the touch. Minimal redness. Wound dry clean. Currently no pus or discharge nor my able to express any pus or discharge. There is no lymphangitic streaking. There is no inguinal lymphadenopathy. Looks like it is well-healing. She also has a amputation of the left lower leg. She is awake and alert. Answer questions following commands. Const Vital Signs: 05/13/23 13:18 05/13/23 13:22 Temperature 96.8 F L 96.8 F L Temperature Source Temporal Temporal Pulse Rate 98 94 Respiratory Rate 19 H 19 H Blood Pressure 110/68 110/68 Blood Pressure Mean 82 82 Pulse Ox 100 100 Oxygen Delivery Method Room Air Room Air Positive well nourished and well developed; Negative for cachectic, contractures or unkempt General Appearance ED: well developed and NAD; Negative for unkempt, cachectic, contractures, cyanotic or diaphoretic Nutritional Appearance: Negative for cachectic HEENT Reports moist mucous membranes; Denies dry mucous membranes Negative for trauma or tenderness Mouth ED: No dry mucous membranes Mouth: No dry mucous membranes Eyes PERRL and EOMs intact bilaterally General Eye ED: Negative for pale conjunctiva or scleral icterus Neck no lymphadenopathy, supple and no JVD General: Negative for tenderness Lymph Lymphatic: Negative for other Chest Wall inspection of chest normal and palpation of chest normal Chest: Negative for other Resp normal respiratory effort and clear to auscultation bilaterally Effort and Inspection: Negative for retractions Auscultation: Negative for rales, rhonchi or wheezes Cardio regular rate, regular rhythm, S1 normal heart sound, S2 normal heart sound and no murmurs Palpation: palpable S4 GI normal to inspection, nondistended, normoactive bowel sounds, non-tender, non-distended and no masses Inspection: Negative for abdominal distention Auscultation: normoactive bowel sounds Palpation: soft; Negative for tender or guarding Bladder / Kidney Exam: No other Back/Spine no CVA tenderness General Back: Negative for CVA tenderness Cervical Spine: Negative for cervical spine tenderness Thoracic Spine / Upper Back: Negative for thoracic spinal tenderness Lumbar Spine / Lower Back: Negative for lumbar spinal tenderness Extremity normal to inspection Extremity Narrative: Bilateral lower leg amputations. Right leg wound dry and clean. No pus or discharge. No bleeding. Significant tenderness. No lymphangitic streaking or cellulitis. Well-healing wound. General Extremety ED: Negative for tenderness Neuro oriented x3 and CN's II-XII intact bilaterally Sensorium / Orientation: alert; Negative for orientation impaired, lethargic or stuporous Motor Exam: strength 5/5 throughout Psych mental status grossly normal Appearance: Negative for unkempt Attitude: No agitated Mood & Affect: Negative for depressed, anxious or tearful Skin no rashes or lesions noted General Skin Exam: elasticity normal Lesions: No lesion noted Rashes: No rashes noted Trauma: Negative for abrasion Wounds: Negative for wounds noted MDM MDM MDM Narrative Medical decision making narrative: 57-year-old status post right below the knee amputation about 3 weeks ago. Is on both arms. Patient patient is only about parenteral and oral antibiotics. Acute kidney injury, patient denies complaints. She is afebrile. The wound appears to be healing appropriately. I do not think she needs any other evaluation. I will speak to her vascular surgeon she will being discharged back to the extended care facility. I spoke to the vascular surgeon's IV[facility]. She states that they saw the patient 2 days ago and she was doing well. I agree and she will be discharged back to the extended care facility. History & Record Review Discussion w/independent historian: Patient Discharge Plan Triage Chief Complaint: Wound ED Provider: Varghese Diana Dx/Rx/DC Orders Clinical Impression: History of amputation below knee, Visit for wound check, History of diabetes mellitus Instructions: ED Wound Care Prescriptions: No Action Risperdal Consta 25 mg/2 mL suspension,extended rel recon 25 mg IM Q14D atorvastatin 10 MG tablet 10 mg PO QHS benztropine 1 MG tablet 1.5 mg PO BID albuterol sulfate 1 PUFF inhaler 2 puff INHALATION Q4H PRN (Reason: SHORTNESS OF BREATH/WHEEZING ) acetaminophen 325 MG capsule 650 mg PO Q4H PRN (Reason: Pain 1-10 Or Fever) propranolol 10 mg Tablet 10 mg PO BID Tradjenta 5 mg Tablet 5 mg PO DAILY potassium chloride 20 mEq Tablet Extended Release 20 meq PO DAILY lisinopril 5 mg tablet 5 mg PO DAILY lamotrigine [Lamictal] 25 mg Tablet 25 mg PO BID cholecalciferol (vitamin D3) 1,250 mcg (50,000 unit) Tablet 1,250 mcg PO MO Artificial Tears (cmc) 1 % Drops 1 drp EACH EYE Q6H PRN (Reason: DRY EYE(S) ) clozapine 100 mg tablet 100 mg PO BID polyethylene glycol 3350 17 gram powder in packet 17 g PO BID docusate sodium 100 mg capsule 100 mg PO Q12H PRN (Reason: CONSTIPATION ) cephalexin [cephalexin] 500 mg capsule 500 mg PO Q6 Qty: 40 0RF Primary Care Provider: Paddy Ba Referrals: Paddy Ba MD [Primary Care Provider] - Angel Concepcion MD [Med Staff - Active Staff] - Keep Rolanda appointment Activity Restrictions/Additional Instructions: Follow-up with your prior scheduled appointments. The wound looks good. Continue current antibiotics and treatment.
--- NOTE | 2023-05-13 14:55 | ED.RN ---
Awaiting wound care to evaluate patient
--- NOTE | 2023-05-13 16:00 | ED.RN ---
Wound care PA evaluating patient.
--- NOTE | 2023-05-13 16:30 | NURSING ---
CALLED [facility], ETA IS 20 MIN
--- NOTE | 2023-05-13 16:31 | ED.RN ---
Attempted to call nurse to nurse report on pt when initially ready for discharge. Nurse Titus at [facility] states pt was sent for IV atb due to recent wound culture results. Initial report from [facility] prior to pt arrival states pt was being sent to rule out sepsis. ED MD spoke to wound nurse at [facility], will have Dr Concepcion's LABOR ARBITRATOR come evaluate p. Per ED MD pt will continue current ATB being given at [facility], no change in ATB needed. LABOR ARBITRATOR Joseline states wound continues to improve, no new orders needed at this time. Nurse to nurse report called to Ariela at [facility] again. No further questions or requests.
[2023-05-13 16:38] VITALS: BP 112/78; PULSE 89; RESP 16; O2SAT 96
== END 2023-05-13 17:20 | disposition skilled nursing facility (03) ==
PROVIDERS: Emergency Provider Emergency Medicine; PCP Family Medicine; Visit Provider Emergency Medicine
DX: Z48.01 Encounter for change or removal of surgical wound dressing (principal); Z89.511 Acquired absence of right leg below knee; Z89.512 Acquired absence of left leg below knee; N17.9 Acute kidney failure, unspecified; J44.9 Chronic obstructive pulmonary disease, unspecified; E11.42 Type 2 diabetes mellitus with diabetic polyneuropathy; Z87.891 Personal history of nicotine dependence; E78.5 Hyperlipidemia, unspecified; I10 Essential (primary) hypertension
CPT/HCPCS: 99284